=== PATIENT | female | born 2005 | race Caucasian/White ===

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

== ENCOUNTER 2025-02-21 11:02 | Outpatient (OUT) | payer OTHER, SELFPAY ==
--- OUTSIDE RECORDS SUMMARY | 2025-02-21 11:23 | XMS_ITS | CCD ---
Author Organization [facility] Care Team Providers Care Field Training Manager Name Role Phone MISC, DOCTOR Admitting Unavailable [...] STEPHY, HOPE Consulting Unavailable Mona Treadwell Unavailable Ana Cristina Mejia MD Unavailable Ana Cristina Mejia MD Primary Care Provider MD Marbin Keith Primary Care Provider GEOFF Santiago Emergency Provider [phone] DO Abena Alegre Admit Provider DO Abena Alegre Attending Provider [phone] MD Stella Stanley Attending Provider Stella Stanley Admitting Unavailable Stella Stanley Unavailable NO FAMILY, PHYSICIAN Primary Care Unavailable Abena Alegre Attending Unavailable Marbin Keith Primary Care Unavailable Abena Alegre Admitting Unavailable Milan Mathews MD Unavailable [phone] STELLA STANLEY Attending Unavailable STELLA STANLEY Attending Unavailable STELLA STANLEY Attending Unavailable STELLA STANLEY Attending Unavailable STELLA STANLEY Referring Unavailable STELLA STANLEY Attending Unavailable STELLA STANLEY Attending Unavailable INDY Jones Attending Unavailable Allergies Allergy Classification Reported Allergen(s) Allergy Type Date of Onset Reaction(s) Facility (2 sources) Amoxicillin; 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: [amoxicillin] Drug Allergy 4 rash- swelling [facility] Repository (11 sources) Penicillins; 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: [penicillins] Drug Allergy 3 Swelling [facility] Work Phone: Medications Current Medications Medication Drug Class(es) Dates Sig (Normalized) Sig (Original) acetaminophen 325 mg / HYDROcodone bitartrate 5 mg oral tablet (2 sources) Opioid Agonist Start: 01-23-2024 take 1 tablet by mouth every four to six hours Hydrocodone-Aceta minophen Active 1 TAB PO EVERY 4-6 HOURS 21 01January 23, 2024 ethinyl estradiol 0.035 mg / norgestimate 0.25 mg oral tablet (15 sources) Progestin, Estrogen Start: 12-22-2024 End: 12-22-2025 take 1 tablet by mouth once daily norgestimate-ethi nyl estradiol (Sprintec 28) 0.25-35 MG-MCG tablet Indications: DUB (dysfunctional uterine bleeding) Take 1 tablet by mouth Daily 28 tablet 12 12/22/2024 12/22/2025 Active Start: 10-11-2024 End: 12-22-2024 take 1 tablet by mouth once daily norgestimate-ethinyl estradiol (Ortho Tri-Cyclen LO) 0.18/0.215/0.25 MG-25 MCG tablet Indications: Cyst of ovary, unspecified laterality Take 1 tablet by mouth Daily 28 tablet 12 10/11/2024 12/22/2024 Discontinued (Ineffective) Start: 10-11-2024 take 1 tablet by lilia th once daily norgestimate-ethinyl estradiol (Ortho Tri-Cyclen LO) 0.18/0.215/0.25 MG-25 MCG tablet Indications: Cyst of ovary, unspecified laterality Take 1 tablet by mouth Daily 28 tablet 12 10/11/2024 Active Start: 01-26-2024 End: 10-11-2024 take 1 tablet by mouth once daily norgestimate-ethinyl estradiol (Xog-Ef-Vdfzcqft) 0.18/0.215/0.25 MG-25 MCG tablet Indications: Cyst of ovary, unspecified laterality Take 1 tablet by mouth Daily 28 tablet 12 01/26/2024 10/11/2024 Discontinued (Reorder) Start: 01-26-2024 take 1 tablet by lilia th once daily norgestimate-ethinyl estradiol (Nco-Mx-Vzfhmmxl) 0.18/0.215/0.25 MG-25 MCG tablet Indications: Cyst of ovary, unspecified laterality Take 1 tablet by mouth Daily 28 tablet 12 01/26/2024 Active Start: 06-02-2023 take 1 tablet by lilia th in the morning Aln-Ul-Jgnhurbo 0.18/0.215/0.25 MG-25 MCG tablet Take 1 tablet by mouth in the morning. 0 06/02/2023 Active take 1 tablet by lilia th once daily Bks-Ws-Silfjblw 0.18/0.215/0.25 MG-25 MCG TAKE ONE TABLET BY MOUTH DAILY Oral for 28 Days Active fluticasone propionate 0.05 mg/actuat metered dose nasal spray (1 source) Corticosteroid Start: 07-07-2023 take 2 spray(s) nasal route once daily Fluticasone Propionate 50 MCG/ACT 2 sprays Nasally Once a day for 14 day(s) Jun, Active ibuprofen 600 mg oral tablet (11 sources) Nonsteroidal Anti-inflammatory Drug Start: 01-23-2024 take 1 tablet by mouth every six hours as needed ibuprofen 600 MG tablet Take 1 tablet by mouth every 6 (six) hours if needed 01/23/2024 Active ISOtretinoin 40 mg oral capsule (12 sources) Retinoid Start: 01-22-2024 ISOtretinoin (Accutane) 40 MG capsule Twice daily 01/22/2024 Active Norgestimate-Ethin yl Estradiol (Vhd-Vv-Famtpktn) 0.18/0.215/0.25 mg-25 mcg tablet (3 sources) Start: 01-22-2024 take 1 tablet by mouth once daily Norgestimate-Ethi nyl Estradiol (Wrc-Gu-Zcwivque) 0.18/0.215/0.25 mg-25 mcg tablet Active 1 TAB PO Daily January 22, 2024 12:00am FreeTextSig: TAKE ONE TABLET BY MOUTH DAILY Oral; Note: Source Status: Taking; Refills: 1; Qty: 28 Each; Provider: ADAMA ESPINO predniSONE 20 mg oral tablet (1 source) Start: 07-07-2023 take 1 tablet by mouth every twelve hours predniSONE 20 MG 1 tablet Orally bid for 5 day(s) Jun, Active tazarotene 1 mg/ml topical cream (1 source) Retinoid Start: 11-25-2022 tazarotene (Tazorac) 0.1 % cream APPLY PEA SIZED AMOUNT TO FACE EVERY OTHER NIGHT, INCREASE TOLERATED 0 11/25/2022 Active Completed/Discontinued Medications Medication Drug Class(es) Dates Sig (Normalized) Sig (Original) Azithromycin (1 source) Macrolide Antimicrobial Start: 10-03-2012 Zithromax 200mg/5ml 200 mg/5 ml two teaspoon orally daily for 5 days Sep, Not-Taking Problems Active Problems Problem Classification Problem Date Documented Date Episodic/Chronic Abdominal pain (7 sources) Abdominal pain; 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: [Unspecified abdominal pain] Onset: 01-23-2024 01-22-2024 Episodic Contraceptive and procreative management (2 sources) Oral contraception; 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: [Encounter for surveillance of contraceptive pills] 10-07-2024 Episodic Other female genital disorders (2 sources) Abnormal uterine bleeding; 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: [Other specified abnormal uterine and vaginal bleeding] 12-22-2024 Chronic Other upper respiratory infections (3 sources) Streptococcal sore throat; 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: [Strep throat] Episodic Ovarian cyst (11 sources) Cyst of ovary; 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: [Unspecified ovarian cyst, right side] Onset: 04-12-2024 01-22-2024 Episodic Past or Other Problems Problem Classification Problem Date Documented Da te Episodic/Chronic Other aftercare (1 source) Other skilled nursing (current) drug therapy; 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: [OTH KITCHEN HELP HANDYMAN CURRENT DRUG THERAPY] Onset: 06-17-2019 Episodic Other aftercare (2 sources) Surgical follow-up; 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: [Encounter for follow-up examination after completed treatment for conditions other than malignant neoplasm] 04-21-2024 Episodic Other skin disorders (4 sources) Acne vulgaris; 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: [ACNE VULGARIS] Onset: 06-14-2019 Episodic Results Test Name Value Interpretation Reference Range Facility Family Medicine Office/Clini c Noteon 02-04-2025 Family Medicine Office/Clinic Note Family Medicine Office/Clinic Note HPI Staff JOSSY 07/25/23 due to est care. Patient is here for physical for school, needs Vaccines? DUE: Lipid panel/well visit Bright futures filled out by parent and scanned into chart Immunizations: UTD Questions/Concerns : Patient states no concerns today, just needs a well visit for ultrasound program History of Present Illness pt presents today for wellness visit Review of Systems PHQ Score Initial Depression Screen Score: 0 SCORE Physical Exam Vitals & Measurements T: 36.6 ???C(Temporal Artery) HR: 68(Peripheral) BP: 128/80 SpO2: 98% HT: 173.5 cm HT: 68 in WT: 76 kg WT: 167.551 lb BMI: 25.25 General: alert, no acute distress ENMT: oral mucosa moist, no pharyngeal erythema or exudate Cardiovascular: regular rate and rhythm, normal peripheral perfusion Respiratory: Lungs CTA, respirations non labored Extremities: no deformity, no trauma Neurological: oriented x 4, LOC appropriate for age, CN II-XII intact, motor strength equal & normal bilaterally, speech normal Assessment/Plan 1. Wellness examination (Z00.00: Encounter for general adult medical examination without abnormal findings) pt presents today for wellness visit. needs physical to start [employer] school in March. vaccine record reviewed. physical exam WNL. all questions answered. RTC as needed Ordered: Est Preventative 18 to 39 years [address] 2. BMI 25.0-25.9,adult (Z68.25: Body mass index [BMI] 25.0-25.9, adult) BMI education given Ordered: Est Preventative 18 to 39 years [address] 3. Non-smoker (Z78.9: Other specified health status) continue not smoking Ordered: Est Preventative 18 to 39 years [address] Follow-up No qualifying data available Problem List/Past Medical History Ongoing BMI 25.0-25.9,adult Non-smoker Strep pharyngitis Wellness examination Historical No qualifying data Procedure/Surgical History Cystectomy specimen. Medications Claravis, 40 mg, Oral, Daily ibuprofen, 600 mg, Oral, q6hr, PRN Shanta 0.25mg-35mcg oral tablet Allergies penicillins Social History Tobacco Never (less than 100 in lifetime) Tobacco Use:. Never Smokeless Tobacco Use:., 02/04/2025 Immunizations Vaccine Date Status meningococcal conjugate vaccine 04/04/2022 Recorded hepatitis A pediatric vaccine 04/04/2022 Recorded diphtheria/pertuss is, acel/tetanus adult 03/25/2017 Recorded meningococcal conjugate vaccine 03/25/2017 Recorded hepatitis A pediatric vaccine 03/25/2017 Recorded measles/mumps/rube lla/varicella vaccine 04/10/2010 Recorded diphtheria/pertuss is,acel/tetanus/po carolann 04/10/2010 Recorded hepatitis B pediatric vaccine 03/24/2008 Recorded DTaP, unspecified formulation 03/24/2008 Recorded varicella virus vaccine 06/07/2005 Recorded measles/mumps/rube lla virus vaccine 06/07/2005 Recorded haemophilus b conjugate (PRP-T) vaccine 2004 Recorded diphth/hepB/pertus sis,acel/polio/tet anus 2004 Recorded haemophilus b conjugate (PRP-T) vaccine 2004 Recorded diphth/hepB/pertus sis,acel/polio/tet anus 2004 Recorded haemophilus b conjugate (PRP-T) vaccine 2004 Recorded diphth/hepB/pertus sis,acel/polio/tet anus 2004 Recorded hepatitis B pediatric vaccine 2004 Recorded Normal [facility] Comment on above: Result Comment: Elec tronically Signed By: Lianne Crenshaw\.br\Date and Time Signed: 02/04/25 10:04 EDT Michael 04-12-2024 L Specimen: [id number] Received: 04/12/24 Status: LOKI De La [facility]re Num: [id number] Spec Type: Surgical Subm Dr: STELLA STANLEY MD Tissues: A Ovary - Biopsy (LEFT OVARIAN CYST) B Ovary - Biopsy (RIGHT OVARIAN CYST) Procedures: HE/3, Gross/Micro L4/2 Age/ Patient Sex Location Account Attending Physician David Abbott 18/ [place] [id number] STELLA STANLEY MD SPEC NUM: [id number] RECD: 04/12/24 STATUS: [facility] [place] [facility] NUM: [id number] ARY: 04/12/[address] [facility] [address]: STELLA STANLEY MD ENTERED: 04/12/[address] [facility] [address]: [facility] SPEC TYPE: Surgical DEPT: S ENTERED BY: [id number] RECV BY: [id number] ORDERED: HE/3, Gross/Micro L4/2 ORDERED: HE/3, Gross/Micro L4/2 Pathological Diagnosis A. Left ovarian cyst, excision: Fragments of luteal cyst. B. Right ovarian cyst, excision: Benign serous cyst. Clinical Information Right ovarian cyst Gross Description Part a was received in formalin with the patient's name and left ovarian cyst are multiple patel-pink soft tissue fragments measuring 2.0 x 2.0 x 0.5 cm in aggregate. The specimen is entirely submitted in cassette A1. Part B was received in formalin with the patient's name and labeled right ovarian cyst is a pink deflated cystic structure measuring 4.0 x 3.0 x 2.0 cm. The exterior surface is patel- pink and roughened with focally hemorrhagic tissue. The internal surface is pink and smooth the cyst wall measures 0.2 cm in thickness. There is a possible chocolate cyst measuring 0.4 cm in greatest dimension. Director [employer] sections are submitted in cassettes B1-B2. -- Specimen: [id number] Received: 04/12/24 [id number] Spec Type: Surgical Subm Dr: STELLA STANLEY MD Tissues: A Ovary - Biopsy (LEFT OVARIAN CYST) B Ovary - Biopsy (RIGHT OVARIAN CYST) Procedures: HE/3, Gross/Micro L4/2 -- Patient: David Abbott [id number] (Continued) -- Specimen: [id number] Received: 04/12/24 (Continued) Signed (signatu re on file) Katharina Schmitt MD 04/13/24 1518 -- Specimen: [id number] Received: 04/12/24 Status: LOKI [facility] La [facility]re Num: [id number] Spec Type: Surgical Subm Dr: STELLA STANLEY MD Tissues: A Ovary - Biopsy (LEFT OVARIAN CYST) B Ovary - Biopsy (RIGHT OVARIAN CYST) Procedures: HE/3, Gross/Micro L4/2 -- Patient: David Abbott [id number] (Continued) -- Specimen: [id number] Received: 04/12/24 (Continued) CPT Codes 13829o7 -- -- Specimen: [id number] Received: 04/12/24 Status: LOKI Wil Num: [id number] Spec Type: Surgical Subm Dr: STELLA STANLEY MD Tissues: A Ovary - Biopsy (LEFT OVARIAN CYST) B Ovary - Biopsy (RIGHT OVARIAN CYST) Procedures: HE/3, Gross/Micro L4/2 -- Patient: David Abbott [id number] (Continued) -- Signed (signatu re on file) Katharina Schmitt MD 04/13/24 1518 Normal [facility] US transvaginalon 01-23-2024 US transvaginal [facility] [place] [address] Ultrasound Report Signed Patient: David Abbott MR#: [id number] : 2005 Acct:[id number] Age/Sex: 18 / F ADM Date: 01/23/24 Loc: Room: [address] [place] [address] Type: ADM IN Attending Dr: Abena lAegre DO Ordering Provider: Cj Santiago PA-C Date of Service: 01/22/24 US/US pelvic complete: right sided pain, large cyst and rule out torsion ([id number]) US/US transvaginal: rt sided pelvic pain Copies to: GEOFF Wheat DO COMPLETE PELVIC ULTRASOUND (transabdominal and transvaginal) COMPARISON: CT 01/22/2024 CLINICAL DATA: Right-sided pelvic and hip pain. Large cyst on CT. Real-time ultrasound evaluation pelvis was performed utilizing both a transabdominal and transvaginal approach. TRANSABDOMINAL: The urinary bladder is not fully distended. Estimated uterine size is approximately 7.2 x 2.2 x 4.3 cm. The endometrial lining is not well demonstrated. No focal myometrial abnormalities are identified. Posterior to the uterus extending toward the right there is a large, mildly heterogeneous masslike area which contains a dominant cystic component. Overall size of the structure is 9.0 x 8.9 x 8.9 cm. The cystic component measures 4.4 x 5.3 x 5.2 cm. It is uncertain if this is the ovary or separate from the ovary. There is no obvious blood flow within the structure. There is a trace amount of adjacent free fluid. The left ovary was not identified. TRANSVAGINAL: Transvaginal imaging was performed to better evaluate the uterus and adnexa. By this approach t no focal myometrial abnormalities are seen. The endometrial lining is estimated at 4 - 5 mm. Transvaginally, there does appear to be a separate right ovary with small follicles measuring approximately 3.5 x 2.6 x 2.4 cm in size. There is some blood flow. Adjacent to and possibly arising from the ovary is a large mildly heterogeneous masslike area which contains a dominant cystic component. This correlates with the finding that is seen on the transabdominal imaging. Blood flow is documented within the mass on transvaginal imaging. A small amount of surrounding free fluid is again seen. The left ovary is not visualized. US/US pelvic complete IMPRESSION: LARGE SOLID MASS WITH DOMINANT CYSTIC COMPONENT ADJACENT TO, AND POTENTIALLY ARISING FROM THE RIGHT OVARY, DESCRIBED. GYNECOLOGIC FOLLOW-UP IS RECOMMENDED. MRI COULD BE CONSIDERED IF FURTHER IMAGING EVALUATION IS WARRANTED. TRACE AMOUNT OF FREE PELVIC FLUID. Impression dictated by: Pastora Granger M.D.01/23/2024 8:43 AM Dictation Location: [place] [address] Tech: Vane Ayon Transcribed By: RAKESH 01/23/24842 Dictated By: Pastora Granger MD 01/23/24829 Signed By: 01/23/24842 Normal [facility] Alanine aminotransferase [En zymatic activity/volume] in Serum or PlasmaOrdered By: Cj Santiago on 01-22-2024 ALT [Catalytic activity/Vol] 13 U/L Normal 7-52 [facility] Comment on above: Performed By: #### C RP, CBC, ESR, CMP #### [facility] [address] [place] [address] Albumin [Mass/volume] in Ser um or Plasma by Bromocresol green (BCG) dye binding methoOrdered By: Cj Santaigo on 01-22-2024 Albumin BCG dye [Mass/Vol] 4.7 g/dL 3.5-5.7 [facility] Alkaline phosphatase [Enzyma tic activity/volume] in Serum or PlasmaOrdered By: Cj Santiago on 01-22-2024 ALP [Catalytic activity/Vol] 53 U/L Normal 34-104 [facility] Comment on above: Performed By: #### C RP, CBC, ESR, CMP #### [address] Aspartate aminotransferase [ Enzymatic activity/volume] in Serum or PlasmaOrdered By: Cj Santiago on 01-22-2024 AST [Catalytic activity/Vol] 26 U/L Normal 13-39 [facility] Comment on above: Performed By: #### C RP, CBC, ESR, CMP #### [address] Automated basophil %Ordered By: Cj Santiago on 01-22-2024 Basophils/100 WBC (Bld) 0.4 % Normal . [facility] Comment on above: Performed By: #### C RP, CBC, ESR, CMP #### [address] Automated basophil countOrde red By: Cj Santiago on 01-22-2024 Basophils (Bld) [#/Vol] 0.0 10*3/uL Normal 0.0-0.2 [facility] Comment on above: Performed By: #### C RP, CBC, ESR, CMP #### [address] Automated blood monocyte cou ntOrdered By: Cj Santiago on 01-22-2024 Monocytes (Bld) [#/Vol] 0.2 10*3/uL Normal 0.0-0.8 [facility] Comment on above: Performed By: #### C RP, CBC, ESR, CMP #### [address] Automated eosinophil %Ordere d By: Cj Santiago on 01-22-2024 Eosinophils/100 WBC (Bld) 0.2 % Normal . [facility] Comment on above: Performed By: #### C RP, CBC, ESR, CMP #### [address] Automated eosinophil countOr dered By: Cj Santiago on 01-22-2024 Eosinophils (Bld) [#/Vol] 0.0 10*3/uL Normal 0.0-0.45 [facility] Comment on above: Performed By: #### C RP, CBC, ESR, CMP #### [facility] [address] Automated epithelial cells c ount in urine sediment (number/area)Ordered By: Cj Santiago on 01-22-2024 Epithelial cells Auto (Urine sed) [#/Area] 3-4 [HPF] High 0-2 [facility] Automated monocyte %Ordered By: Cj Santiago on 01-22-2024 Monocytes/100 WBC (Bld) 2.4 % Normal . [facility] Comment on above: Performed By: #### C RP, CBC, ESR, CMP #### [address] Automated neutrophil %Ordere d By: Cj Santiago on 01-22-2024 Neutrophils/100 WBC (Bld) 82.3 % Normal . [facility] Comment on above: Performed By: #### C RP, CBC, ESR, CMP #### [address] Bacteria [Presence] in Urine by AutomatedOrdered By: Cj Santiago on 01-22-2024 Bacteria Auto Ql (U) None seen [HPF] None Seen [facility] Bilirubin Test strip Ql (U)O rdered By: Cj Santiago on 01-22-2024 Bilirubin Ql (U) Negative Negative [facility] Bilirubin.total [Mass/volume ] in Serum or PlasmaOrdered By: Cj Santiago on 01-22-2024 Bilirubin [Mass/Vol] 0.4 mg/dL Normal 0.3-1.0 [facility] Comment on above: Performed By: #### C RP, CBC, ESR, CMP #### [address] C reactive protein [Mass/vol ume] in Serum or PlasmaOrdered By: Cj Santiago on 01-22-2024 CRP [Mass/Vol] 0.7 mg/dL High 0.0-0.5 [facility] C-Reactive Proteinon 024 C-Reactive Protein 0.7 mg/dL High 0.0-0.5 [facility] Comment on above: Result Comment: PERF ORMED BY: [place] [address] PATHOLOGIST SUPERVISOR [employer] ZACK MCCONNELL M.D. Performed By: #### C RP, CBC, ESR, CMP #### [address] abdomen pelvis w conon CT abdomen pelvis w con [facility] Main [place] [address] [place] [address] CT Scan Report Signed Patient: David Abbott MR#: [id number] : 2005 Acct:[id number] Age/Sex: 18 / F ADM Date: 01/22/24 Loc: ER Room: Type: [facility] ER Attending Dr: Copies to: Cj Santiago PA-C Ordering Provider: Cj Santiago PA-C Date of Service: 01/22/24 CT/CT abdomen pelvis w con: right abd pain and right hip pain CT abdomen pelvis w con 01/22/2024 7:28 PM SIGNS AND SYMPTOMS: Right hip pain with nausea, cramping TECHNIQUE: Multidetector ct axial images of the abdomen and pelvis were obtained with IV contrast. Multiplanar reformats were performed and reviewed to further define anatomy and possible pathology. CT was performed with one or more of the following dose reduction techniques: Automated exposure control, adjustment of the mA and/or kV according to patient size, or use of iterative reconstruction technique. COMPARISON: None. FINDINGS: Lower Chest: Within normal limits. ABDOMEN: Liver: Within normal limits. Bile Ducts: Normal caliber. Gallbladder: No calcified gallstones. Normal caliber wall. Pancreas: Within normal limits. Spleen: Within normal limits. Adrenals: Within normal limits. Kidneys: Within normal limits. Pelvis: Reproductive Organs: There is a complex appearing cystic structure which may emanate from the right adnexa extending along the superior/posterior aspect of the uterus. This measures 9.1 x 9.3 x 7.6 cm in greatest dimension. Ureters: Within normal limits. Bladder: Within normal limits. Bowel: Normal caliber. There is a normal appendix in the right lower quadrant. Mesenteric Lymph Nodes: No enlarged mesenteric lymph nodes. Peritoneum: No ascites or free air, no fluid collection. Vessels: within normal limits Retroperitoneum: Within normal limits. Abdominal Wall: Within normal limits. Bones: Within normal limits. CT/CT abdomen pelvis w con IMPRESSION: There is a complex appearing cystic structure which may emanate from the right adnexa extending along the superior/posterior aspect of the uterus. This measures 9.1 x 9.3 x 7.6 cm in greatest dimension. There is a normal appendix in the right lower quadrant. Impression dictated by: Wesley Handy M.D.01/22/2024 8:58 PM Dictation Location: [place] [address] Transcribed By: RAKESH 01/22/242057 Dictated By: Wesley Handy II, MD 01/22/242050 Signed By: 01/22/242057 Normal [facility] Calcium [Mass/volume] in Ser um or PlasmaOrdered By: Cj Santiago on 01-22-2024 Calcium [Mass/Vol] 9.7 mg/dL Normal 8.6-10.3 [facility] Comment on above: Performed By: #### C RP, CBC, ESR, CMP #### [facility] [address] Carbon dioxide, total [Moles /volume] in Serum or PlasmaOrdered By: Cj Santiago on 01-22-2024 CO2 [Moles/Vol] 22.7 mmol/L Normal 21.0-31.0 [facility] Comment on above: Performed By: #### C RP, CBC, ESR, CMP #### [facility] [address] [place] [id number] [place] Chloride [Moles/volume] in S kerri or PlasmaOrdered By: Cj Santiago on 01-22-2024 Chloride [Moles/Vol] 98 mmol/L Normal 98-107 [facility] Comment on above: Performed By: #### C RP, CBC, ESR, CMP #### [facility] [address] [place] [id number] [place] Color of Urine by AutoOrdere d By: Cj Santiago on 01-22-2024 Color (U) Yellow Normal Yellow [facility] Comment on above: Order Comment: Name Collection Type:: Clean-Voided Midstream Performed By: #### U HCG, ADDONUAPLUS #### [address] Complete Blood Count Auto Di ffon 01-22-2024 Mean Corpuscular HGB Conc 34.2 g/dL Normal 32.0-35.0 [facility] Comment on above: Performed By: #### C RP, CBC, ESR, CMP #### [place] [address] [place] Monocytes/100 WBC (Bld) 15.02 % Normal 0.00-20.00 [facility] Comment on above: Performed By: #### C RP, CBC, ESR, CMP #### [address] NRBC% 0.0 /100{WBC} Normal 0-0.5 [facility] Comment on above: Performed By: #### C RP, CBC, ESR, CMP #### [address] Comprehensive Metabolic Pane michael 01-22-2024 Albumin [Mass/Vol] 4.7 g/dL Normal 3.5-5.7 [facility] Comment on above: Performed By: #### C RP, CBC, ESR, CMP #### [place] [address] [place] Creatinine Clr Calc Pharmacy 134.44 Normal [facility] Comment on above: Performed By: #### C RP, CBC, ESR, CMP #### [place] [address] [place] GFR/1.73 sq M.predicted MDRD (S/P/Bld) [Vol rate/Area] mL/min/{1.73_m2} Normal [facility] Comment on above: Performed By: #### C RP, CBC, ESR, CMP #### [address] Creatinine [Mass/volume] in Serum or PlasmaOrdered By: Cj Santiago on 01-22-2024 Creatinine [Mass/Vol] 0.72 mg/dL Normal 0.60-1.20 [facility] Comment on above: Performed By: #### C RP, CBC, ESR, CMP #### [facility] [address] [place] [address] [place] Dipstick and Microscopicon 0 01-22-2024 Appearance (U) Clear Normal Clear [facility] Comment on above: Order Comment: Name Collection Type:: Clean-Voided Midstream Performed By: #### U HCG, ADDONUAPLUS #### [facility] [address] [place] [address] Bacteria,Urine None Seen Normal None Seen [facility] Comment on above: Order Comment: Name Collection Type:: Clean-Voided Midstream Performed By: #### U HCG, ADDONUAPLUS #### [address] Bilirubin,Urine Negative Normal Negative The [facility] Comment on above: Order Comment: Name Collection Type:: Clean-Voided Midstream Performed By: #### U HCG, ADDONUAPLUS #### [address] Glucose Ql (U) Normal Normal Normal [facility] Comment on above: Order Comment: Name Collection Type:: Clean-Voided Midstream Performed By: #### U HCG, ADDONUAPLUS #### [facility] [address] [place] [address] [place] Hyaline Casts,Urine 0-8 Normal 0-8 [facility] Comment on above: Order Comment: Name Collection Type:: Clean-Voided Midstream Performed By: #### U HCG, ADDONUAPLUS #### [address] Ketones Ql (U) 3+ High Negative [facility] Comment on above: Order Comment: Name Collection Type:: Clean-Voided Midstream Performed By: #### U HCG, ADDONUAPLUS #### [address] Leukocyte esterase Test strip Ql (U) Negative Normal Negative [facility] Comment on above: Order Comment: Name Collection Type:: Clean-Voided Midstream Performed By: #### U HCG, ADDONUAPLUS #### [place] [address] [place] Nitrite,Urine Negative Normal Negative The [facility] Comment on above: Order Comment: Name Collection Type:: Clean-Voided Midstream Performed By: #### U HCG, ADDONUAPLUS #### [address] Occult Blood,Urine Negative Normal Negative The [facility] Comment on above: Order Comment: Name Collection Type:: Clean-Voided Midstream Performed By: #### U HCG, ADDONUAPLUS #### [address] Protein,Urine Trace High Negative The [facility] Comment on above: Order Comment: Name Collection Type:: Clean-Voided Midstream Performed By: #### U HCG, ADDONUAPLUS #### [address] RBC,Urine None Seen Normal 0-4 [facility] Comment on above: Order Comment: Name Collection Type:: Clean-Voided Midstream Performed By: #### U HCG, ADDONUAPLUS #### [address] Specificy Jensen,Urine 1.033 High 1.001-1.030 [facility] Comment on above: Order Comment: Name Collection Type:: Clean-Voided Midstream Performed By: #### U HCG, ADDONUAPLUS #### [place] [address] [place] Squamous Epithelial Cell,Urine 3-4 High 0-2 [facility] Comment on above: Order Comment: Name Collection Type:: Clean-Voided Midstream Performed By: #### U HCG, ADDONUAPLUS #### [address] Urobilinogen,Urine Normal Normal Normal [facility] Comment on above: Order Comment: Name Collection Type:: Clean-Voided Midstream Performed By: #### U HCG, ADDONUAPLUS #### [facility] [address] [place] [address] WBC LM.HPF (Urine sed) [#/Area] 0 /[HPF] Normal 0-4 [facility] Comment on above: Order Comment: Name Collection Type:: Clean-Voided Midstream Performed By: #### U HCG, ADDONUAPLUS #### [facility] [address] [place] [address] ECG 12 lead ECGon 01-22-2024 ECG 12 lead ECG [facility] [place] [address] [place] [address] Electrocardiograph Report Signed Patient: David Abbott MR#: [id number] : 2005 Acct:[id number] Age/Sex: 18 / F ADM Date: 01/23/24 Loc: Room: [address] [place] [address] Type: DIS INOo Attending Dr: Abena Alegre DO Ordering Provider: Cj Santiago PA-C Date of Service: 01/22/24 ECG/ECG 12 lead ECG: Nausea/Vomiting/Di arrhea Copies to: Test Reason : Blood Pressure : / mmHG Vent. Rate : 064 BPM Atrial Rate : 064 BPM P-R Int : 122 ms QRS Dur : 078 ms QT Int : 412 ms P-R-T Axes : 052 085 042 degrees QTc Int : 425 ms Normal sinus rhythm Normal ECG No previous ECGs available Confirmed by Nakul Cook ([id number]) on 01/23/2024 4:55:38 PM Referred By: Electronically Signed By:Nakul Cook Transcribed By: MUS Signed By Nakul Cook MD 01/23/24 1655 Normal [facility] Erythrocyte Sedimentation Ra nhi 01-22-2024 ESR (Bld) [Velocity] 20 mm/h High 0-19 [facility] Comment on above: Result Comment: PERF ORMED BY: [place] [address] PATHOLOGIST SUPERVISOR [employer] ZACK MCCONNELL M.D. Performed By: #### C RP, CBC, ESR, CMP #### [facility] [address] Erythrocyte distribution wid th [Ratio] by Automated countOrdered By: Cj Santiago on 01-22-2024 Erythrocyte distribution width (RBC) [Ratio] 13.0 % Normal 11.9-15.3 [facility] Comment on above: Performed By: #### C RP, CBC, ESR, CMP #### [facility] [address] Erythrocyte sedimentation ra te by Photometric methodOrdered By: Cj Santiago on 01-22-2024 ESR Photometric method (Bld) [Velocity] 20 mm/hr High 0-19 [facility] Erythrocytes [#/area] in Uri ne sediment by Automated countOrdered By: Cj Santiago on 01-22-2024 RBC Auto (Urine sed) [#/Area] None seen [HPF] 0-4 [facility] Erythrocytes [#/volume] in B lood by Automated countOrdered By: Cj Santiago on 01-22-2024 RBC (Bld) [#/Vol] 4.23 10*6/uL Normal 3.60-5.00 [facility] Comment on above: Performed By: #### C RP, CBC, ESR, CMP #### [address] Glucose [Mass/volume] in Ser um or PlasmaOrdered By: Cj Santiago on 01-22-2024 Glucose [Mass/Vol] 110 mg/dL High 70-100 [facility] Comment on above: ADA recommended refe rence rangeRandom Glucose Reference Range is dependent on time and content of last meal. Glucose of more than 200 mg/dL in a nonstressed, ambulatory subject supports the diagnosis of Diabetes Mellitus. Result Comment: [place] om Glucose Reference Range is dependent on time and content of last meal. Glucose of more than 200 mg/dL in a nonstressed, ambulatory subject supports the diagnosis of Diabetes Mellitus. ADA recommended reference range Performed By: #### C RP, CBC, ESR, CMP #### [facility] [address] HCG ( test) IA.rapi d Ql (U)Ordered By: Cj Santiago on 01-22-2024 HCG ( test) Ql (U) Negative [facility] HCG,Urineon 01-22-2024 Beta HCG ( test) Ql (U) Negative Normal [facility] Comment on above: Order Comment: Name Collection Type:: Clean-Voided Midstream Result Comment: PERF ORMED BY: [place] [address] PATHOLOGIST SUPERVISOR [employer] ZACK MCCONNELL M.D. Performed By: #### U HCG, ADDONUAPLUS ####[facility] [id number] [place] [address] Hematocrit [Volume Fraction] of Blood by Automated countOrdered By: Cj Santiago on 01-22-2024 Hematocrit (Bld) [Volume fraction] 40.1 % Normal 34.0-46.4 [facility] Comment on above: Performed By: #### C RP, CBC, ESR, CMP #### [facility] [address] [place] [address] Hemoglobin [Mass/volume] in BloodOrdered By: Cj Santiago on 01-22-2024 Hemoglobin (Bld) [Mass/Vol] 13.7 g/dL Normal 11.8-15.4 [facility] Comment on above: Performed By: #### C RP, CBC, ESR, CMP #### [facility] [address] [place] [address] Ketones Auto test strip (U) [Mass/Vol]Ordered By: Cj Santiago on 01-22-2024 Ketones (U) [Mass/Vol] 3+ High Negative [facility] - UrinalysisOrder ed By: Cj Santiago on 01-22-2024 Hyaline casts LM Ql (Urine sed) 0-8 [LPF] 0-8 [facility] Leukocytes [#/area] in Urine sediment by Automated countOrdered By: Cj Santiago on 01-22-2024 WBC Auto (Urine sed) [#/Area] 0-1 [HPF] 0-4 [facility] Leukocytes [#/volume] correc carissa for nucleated erythrocytes in Blood by Automated counOrdered By: Cj Santiago on 01-22-2024 WBC corrected for nucl RBC Auto (Bld) [#/Vol] 10.2 10*3/uL 3.8-11.6 [facility] Leukocytes [#/volume] in Blo od by Automated countOrdered By: Cj Santiago on 01-22-2024 WBC (Bld) [#/Vol] 10.2 10*3/uL Normal 3.8-11.6 [facility] Comment on above: Performed By: #### C RP, CBC, ESR, CMP #### [address] Lipase [Enzymatic activity/v olume] in Serum or PlasmaOrdered By: Cj Santiago on 01-22-2024 Lipase [Catalytic activity/Vol] 11.0 U/L Normal 11.0-82.0 [facility] Comment on above: Result Comment: PERF ORMED BY: [place] [address] PATHOLOGIST SUPERVISOR [employer] ZACK MCCONNELL M.D. Performed By: #### L IPASE #### [place] [address] [place] Lymphocytes [#/volume] in Bl ood by Automated countOrdered By: Cj Santiago on 01-22-2024 Lymphocytes (Bld) [#/Vol] 1.5 10*3/uL Normal 1.00-4.8 [facility] Comment on above: Performed By: #### C RP, CBC, ESR, CMP #### [facility] [address] [place] [address] [place] Lymphocytes/100 leukocytes i n Blood by Automated countOrdered By: Cj Santiago on 01-22-2024 Lymphocytes/100 WBC (Bld) 14.7 % Normal . [facility] Comment on above: Performed By: #### C RP, CBC, ESR, CMP #### [facility] [address] [place] [address] [place] MCH [Entitic mass] by Automa carissa countOrdered By: Cj Santiago on 01-22-2024 MCH (RBC) [Entitic mass] 32.3 pg Normal 24.7-34.3 [facility] Comment on above: Performed By: #### C RP, CBC, ESR, CMP #### [facility] [address] [place] [address] MCHC Auto (RBC) [Mass/Vol]Or dered By: Cj Santiago on 01-22-2024 MCHC (RBC) [Mass/Vol] 34.2 g/dL 32.0-35.0 [facility] MCV [Entitic volume] by Auto mated countOrdered By: Cj Santiago on 01-22-2024 MCV (RBC) [Entitic vol] 94.6 fL Normal 80-100 [facility] Comment on above: Performed By: #### C RP, CBC, ESR, CMP #### [facility] [address] [place] [address] Monocyte distribution width [Entitic volume] in Blood by AutomatedOrdered By: Cj Santiago on 01-22-2024 Monocyte distribution width Auto (Bld) [Entitic vol] 15.02 % 0.00-20.00 [facility] Neutrophils [#/volume] in Bl ood by Automated countOrdered By: Cj Santiago on 01-22-2024 Neutrophils (Bld) [#/Vol] 8.4 10*3/uL High 1.8-7.7 [facility] Comment on above: Performed By: #### C RP, CBC, ESR, CMP #### [facility] [address] [place] [address] Nitrite Test strip Ql (U)Ord ered By: Cj Santiago on 01-22-2024 Nitrite Ql (U) Negative Negative [facility] No Panel InformationOrdered By: Cj Santiago on 01-22-2024 Estimated GFR (CKD-EPI) > 60.0 mL/Min [facility] Creatinine Clearance (Chem 134.44 [facility] Nucleated erythrocytes [Pres ence] in Blood by Automated countOrdered By: Cj Santiago on 01-22-2024 Nucleated RBC Auto Ql (Bld) 0.0 /100{WBC} 0-0.5 [facility] Platelet mean volume [Entiti c volume] in Blood by Automated countOrdered By: Cj Santiago on 01-22-2024 Platelet mean volume (Bld) [Entitic vol] 7.3 fL Normal 6.3-10.7 [facility] Comment on above: Performed By: #### C RP, CBC, ESR, CMP #### [facility] [address] Platelets [#/volume] in Bloo d by Automated countOrdered By: Cj Santiago on 01-22-2024 Platelets (Bld) [#/Vol] 375 10*3/uL Normal 150-450 [facility] Comment on above: Performed By: #### C RP, CBC, ESR, CMP #### [address] Potassium [Moles/volume] in Serum or PlasmaOrdered By: Cj Santiago on 01-22-2024 Potassium [Moles/Vol] 3.9 mmol/L Normal 3.5-5.1 [facility] Comment on above: Performed By: #### C RP, CBC, ESR, CMP #### [address] Protein Auto test strip (U) [Mass/Vol]Ordered By: Cj Santiago on 01-22-2024 Protein (U) [Mass/Vol] Trace mg/dL High Negative [facility] Protein [Mass/volume] in Ser um or PlasmaOrdered By: Cj Santiago on 01-22-2024 Protein [Mass/Vol] 8.0 g/dL Normal 6.4-8.9 [facility] Comment on above: Performed By: #### C RP, CBC, ESR, CMP #### [address] Serum globulin measurement b y calculation (mass/volume)Ordered By: Cj Santiago on 01-22-2024 Globulin (S) [Mass/Vol] 3.3 g/dL Normal [facility] Comment on above: Performed By: #### C RP, CBC, ESR, CMP #### [facility] [address] Serum or plasma albumin/glob ulin mass ratioOrdered By: Cj Santiago on 01-22-2024 Albumin/Globulin [Mass ratio] 1.4 {ratio} Normal [facility] Comment on above: Performed By: #### C RP, CBC, ESR, CMP #### [facility] [address] [place] [address] Serum or plasma anion gap de terminationOrdered By: Cj Santiago on 01-22-2024 Anion gap [Moles/Vol] 14.2 mmol/L Normal 6.0-15.[address] [facility] Comment on above: Performed By: #### C RP, CBC, ESR, CMP #### [address] Sodium [Moles/volume] in Ser um or PlasmaOrdered By: Cj Santiago on 01-22-2024 Sodium [Moles/Vol] 131 mmol/L Low 136-145 [facility] Comment on above: Performed By: #### C RP, CBC, ESR, CMP #### [facility] [address] [place] [address] Specific gravity Auto test s trip (U) [Rel density]Ordered By: Cj Santiago on 01-22-2024 Specific gravity (U) [Rel density] 1.033 High 1.001-1.030 [facility] Urea nitrogen [Mass/volume] in Serum or PlasmaOrdered By: Cj Santiago on 01-22-2024 Urea nitrogen [Mass/Vol] 11 mg/dL Normal 7-25 [facility] Comment on above: Performed By: #### C RP, CBC, ESR, CMP #### [facility] [address] [place] [address] Urine clarity by refractomet ry automatedOrdered By: Cj Santiago on 01-22-2024 Clarity Refractometry automated (U) Clear Clear [facility] Urine glucose measurement by automated test strip (mass/volume)Ordered By: Cj Santiago on 01-22-2024 Glucose Auto test strip (U) [Mass/Vol] Normal mg/dL Normal [facility] Urine hemoglobin detection b y automated test stripOrdered By: Cj Santiago on 01-22-2024 Hemoglobin Auto test strip Ql (U) Negative Negative [facility] Urine leukocyte esterase det ection by automated test stripOrdered By: Cj Santiago on 01-22-2024 Leukocyte esterase Auto test strip Ql (U) Negative Negative [facility] Urine pH measurement by auto mated test stripOrdered By: Cj Santiago on 01-22-2024 pH (U) 8.0 [pH] Normal 5.0-9.0 [facility] Comment on above: Order Comment: Name Collection Type:: Clean-Voided Midstream Performed By: #### U HCG, ADDONUAPLUS #### [facility] [address] Urobilinogen Auto test strip (U) [Mass/Vol]Ordered By: Cj Santiago on 01-22-2024 Urobilinogen (U) [Mass/Vol] Normal mg/dL Normal [facility] ALL TRIGLYCERIDESon 09-27-19 Triglyceride [Mass/Vol] 120 mg/dL 53 - 208 mg/dL [facility] [email or web address] [employer] Quick Strepon 07-07-2023 S. pyogenes Org specific cx Ql (Throat) Negative [employer] Other Quick Strep [facility] [employer] Other URon 06-14-2019 , QUAL Negative Normal NEGATIVE The [facility] Comment on above: Performed By: #### P REGQNT, AST, ALT, GLUC, LIPID #### [facility] [address] [address] Dandy Guillory CBC AUTO DIFFon 06-04-2019 Basophils (Bld) [#/Vol] 0.0 103/ul Normal 0.0-0.1 [facility] Comment on above: Performed By: #### P REGQNT, AST, ALT, GLUC, LIPID #### [facility] [address] [place], [place] [address] Dandy Pastora Basophils/100 WBC (Bld) 0.5 % Normal 0.2-2.0 [facility] Comment on above: Performed By: #### P REGQNT, AST, ALT, GLUC, LIPID #### [facility] [address] [place] [address] Dandyrajan Guillory Eosinophils (Bld) [#/Vol] 0.1 103/ul Normal 0.0-0.7 [facility] Comment on above: Performed By: #### P REGQNT, AST, ALT, GLUC, LIPID #### [facility] [address] [place] [address] Dandy Guillory Eosinophils/100 WBC (Bld) 1.4 % Normal 0.9-7.0 [facility] Comment on above: Performed By: #### P REGQNT, AST, ALT, GLUC, LIPID #### [facility] [address] [place] [address] Dandy Guillory Erythrocyte distribution width (RBC) [Ratio] 12.8 % Normal 11.0-15.0 [facility] Comment on above: Performed By: #### P REGQNT, AST, ALT, GLUC, LIPID #### [facility] [address] [place] [address] Dandy Guillory Hematocrit (Bld) [Volume fraction] 40.4 % Normal 36.0-48.0 [facility] Comment on above: Performed By: #### P REGQNT, AST, ALT, GLUC, LIPID #### [facility] [address] [place] [address] Dandy Guillory Hemoglobin (Bld) [Mass/Vol] 13.4 g/dL Normal 12.0-16.0 [facility] Comment on above: Performed By: #### P REGQNT, AST, ALT, GLUC, LIPID #### [facility] [address] [place] [address] Dandyrajan Dubonen IG # 0.00 10e3/ul Normal 0.00-0.03 [facility] Comment on above: Performed By: #### P REGQNT, AST, ALT, GLUC, LIPID #### [facility] [address] [place] [address] Dandy Pastora IG % 0.0 % Normal 0.0-0.5 [facility] Comment on above: Performed By: #### P REGQNT, AST, ALT, GLUC, LIPID #### [facility] [address] [place] [address] Dandy Guillory Lymphocytes (Bld) [#/Vol] 2.2 103/ul Normal 1.2-3.8 [facility] Comment on above: Performed By: #### P REGQNT, AST, ALT, GLUC, LIPID #### [facility] [address] [place] [address] Dandy Guillory Lymphocytes/100 WBC (Bld) 39.9 % Normal 20.5-60.0 [facility] Comment on above: Performed By: #### P REGQNT, AST, ALT, GLUC, LIPID #### [facility] [address] [place] [address] Dandy Guillory MANUAL DIFF REQ NO Normal [facility] Comment on above: Performed By: #### P REGQNT, AST, ALT, GLUC, LIPID #### [facility] [address] [place] [address] Dandy Guillory MCH (RBC) [Entitic mass] 31.3 pg Normal 26.7-34.0 [facility] Comment on above: Performed By: #### P REGQNT, AST, ALT, GLUC, LIPID #### [facility] [address] [place] [address] Dandy Guillory MCHC (RBC) [Mass/Vol] 33.2 g/dL Normal 29.9-35.2 [facility] Comment on above: Performed By: #### P REGQNT, AST, ALT, GLUC, LIPID #### [facility] [address] [place] [address] Dandy Guillory MCV (RBC) [Entitic vol] 94.4 fL Normal 79.1-95.6 [facility] Comment on above: Performed By: #### P REGQNT, AST, ALT, GLUC, LIPID #### [facility] [address] [place] [address] Dandy Guillory Monocytes (Bld) [#/Vol] 0.5 103/ul Normal 0.3-0.8 [facility] Comment on above: Performed By: #### P REGQNT, AST, ALT, GLUC, LIPID #### [facility] [address] [place] [address] Dandy Pastora Monocytes/100 WBC (Bld) 8.0 % Normal 1.7-12.0 [facility] Comment on above: Performed By: #### P REGQNT, AST, ALT, GLUC, LIPID #### [facility] [address] [place] [address] Dandy Pastora Neutrophils (Bld) [#/Vol] 2.8 103/ul Normal 1.4-6.5 [facility] Comment on above: Performed By: #### P REGQNT, AST, ALT, GLUC, LIPID #### [facility] [address] [place] [address] Dandy Pastora Neutrophils/100 WBC (Bld) 50.2 % Normal 43.0-75.0 [facility] Comment on above: Performed By: #### P REGQNT, AST, ALT, GLUC, LIPID #### [facility] [address] [place] [address] Dandy Pastora Platelet mean volume (Bld) [Entitic vol] 9.0 fL Critically low 9.5-13.5 [facility] Comment on above: Performed By: #### P REGQNT, AST, ALT, GLUC, LIPID #### [facility] [address] [place] [address] Dandy Pastora Platelets (Bld) [#/Vol] 341 103/ul Normal 150-450 [facility] Comment on above: Performed By: #### P REGQNT, AST, ALT, GLUC, LIPID #### [facility] [address] [place] [address] Dandy Pastora RBC (Bld) [#/Vol] 4.28 106/ul Normal 3.40-5.30 [facility] Comment on above: Performed By: #### P REGQNT, AST, ALT, GLUC, LIPID #### [facility] [address] [place] [address] Dandy Pastora WBC (Bld) [#/Vol] 5.6 103/ul Normal 4.0-11.0 [facility] Comment on above: Performed By: #### P REGQNT, AST, ALT, GLUC, LIPID #### [facility] [address] [place], [place] [address] Dandy Pastora GLUCOSE BLOODon 06-04-2019 Glucose [Mass/Vol] 97 mg/dL Normal 74-106 [facility] Comment on above: Performed By: #### P REGQNT, AST, ALT, GLUC, LIPID #### [facility] [address] [place], [place] [address] Dandy Psatora LIPID PROFILEon 06-04-2019 CHOL-HDL RATIO NORM SEE BELOW Normal [facility] Comment on above: Result Comment: 3.3 - 4.4 LOW RISK 4.4 - 7.1 AVERAGE RISK 7.1 - 11.0 MODERATE RISK >11.0 HIGH RISK Performed By: #### P REGQNT, AST, ALT, GLUC, LIPID #### [facility] [address] [address] Dandy Pastora Cholesterol [Mass/Vol] 169 mg/dL Normal 104-227 Th [facility] Comment on above: Performed By: #### P REGQNT, AST, ALT, GLUC, LIPID #### [facility] [address] [id number] Dandy Pastora Cholesterol in HDL [Mass/Vol] > or = 60 mg/dl - LOW CARDIOVASCULAR RISK <40 mg/dl - HIGH CARDIOVASCULAR RISK Normal [facility] Comment on above: Performed By: #### P REGQNT, AST, ALT, GLUC, LIPID #### [facility] [address] [id number] Dandy Pastora Cholesterol in HDL [Mass/Vol] 55 mg/dL Normal 29-69 [facility] Comment on above: Performed By: #### P REGQNT, AST, ALT, GLUC, LIPID #### [facility] [address] [id number] Dandy Pastora Cholesterol in LDL [Mass/Vol] 94.6 mg/dL Normal 46.0-140.0 [facility] Comment on above: Performed By: #### P REGQNT, AST, ALT, GLUC, LIPID #### [facility] [address] [place], [place] [address] Dandy Pastora Cholesterol in LDL [Mass/Vol] SEE BELOW Normal [facility] Comment on above: Result Comment: <100 mg/dl OPTIMAL 100 - 129 mg/dl NEAR OR ABOVE OPTIMAL 130 - 159 mg/dl BORDERLINE HIGH 160 - 189 mg/dl HIGH >190 mg/dl VERY HIGH Performed By: #### P REGQNT, AST, ALT, GLUC, LIPID #### [facility] [address] [place], [place] [address] Dandy Pastora Cholesterol.total/Choles terol in HDL [Mass ratio] 3.1 {ratio} Normal [facility] Comment on above: Performed By: #### P REGQNT, AST, ALT, GLUC, LIPID #### [facility] [address] [id number] Dandy Pastora Triglyceride [Mass/Vol] 97 mg/dL Normal 53-208 T [facility] Comment on above: Performed By: #### P REGQNT, AST, ALT, GLUC, LIPID #### [facility] [address] [place], [place] [address] Dandy Pastora VLDL CALC 19.4 mg/dL Normal [facility] Comment on above: Performed By: #### P REGQNT, AST, ALT, GLUC, LIPID #### [facility] [address] [place], [place] [address] Dandy Pastora PREG QUANT HCGon 06-04-2019 HCG QUANT <1.00 Normal [facility] Comment on above: Performed By: #### P REGQNT, AST, ALT, GLUC, LIPID #### [facility] [address] [place], [place] [address] Dandy Pastora HCG RANGE SEE BELOW Normal [facility] Comment on above: Result Comment: 5-50 0-1 WEEK 40-300 1-2 WEEKS 100-1,000 2-3 WEEKS 500-6,000 3-4 WEEKS 5,000-200,000 1-2 MONTHS 10,000-100,000 2-3 MONTHS 3,000-50,000 2ND TRIMESTER 1,000-50,000 3RD TRIMESTER Performed By: #### P REGQNT, AST, ALT, GLUC, LIPID #### [facility] [address] [address] Dandy Guillory SGOTon 06-04-2019 AST [Catalytic activity/Vol] 24 U/L Normal 14-36 [facility] Comment on above: Performed By: #### P REGQNT, AST, ALT, GLUC, LIPID #### [facility] [address] [place] [address] Dandy Guillory SGPTon 06-04-2019 ALT [Catalytic activity/Vol] 19 U/L Normal 9-52 [facility] Comment on above: Performed By: #### P REGQNT, AST, ALT, GLUC, LIPID #### [facility] [address] [place] [address] Dandy Guillory URon 04-06-2019 , QUAL Negative Normal NEGATIVE [facility] Comment on above: Performed By: #### P REGQNT, AST, ALT, GLUC, LIPID #### [facility] [address] [place] [address] Dandy Guillory URon 02-19-2019 , QUAL Negative Normal NEGATIVE [facility] Comment on above: Performed By: #### C BC #### [facility] [address] [place] [address] Dandy Guillory CBC AUTO DIFFon 01-13-2019 Basophils (Bld) [#/Vol] 0.0 103/ul Normal 0.0-0.1 [facility] Comment on above: Performed By: #### C BC #### [facility] [address] [place] [address] Dandy Guillory Basophils/100 WBC (Bld) 0.6 % Normal 0.2-2.0 [facility] Comment on above: Performed By: #### C BC #### [facility] [address] [place] [address] Dandy Guillory Eosinophils (Bld) [#/Vol] 0.1 103/ul Normal 0.0-0.7 [facility] Comment on above: Performed By: #### C BC #### [facility] [address] [place], [place] [address] Dandy Pastora Eosinophils/100 WBC (Bld) 1.2 % Normal 0.9-7.0 [facility] Comment on above: Performed By: #### C BC #### [facility] [address] [place], [place] [address] Dandy Pastora Erythrocyte distribution width (RBC) [Ratio] 12.1 % Normal 11.0-15.0 [facility] Comment on above: Performed By: #### C BC #### [facility] [address] [place] [address] Dandy Pastora Hematocrit (Bld) [Volume fraction] 41.2 % Normal 36.0-48.0 [facility] Comment on above: Performed By: #### C BC #### [facility] [address] [place] [address] Dandy Pastora Hemoglobin (Bld) [Mass/Vol] 13.6 g/dL Normal 12.0-16.0 [facility] Comment on above: Performed By: #### C BC #### [facility] [address] [place], [place] [address] Dandy Pastora IG # 0.01 10e3/ul Normal 0.00-0.03 [facility] Comment on above: Performed By: #### C BC #### [facility] [address] [place], [place] [address] Dandy Pastora IG % 0.2 % Normal 0.0-0.5 [facility] Comment on above: Performed By: #### C BC #### [facility] [address] [place], [place] [address] Dandy Pastora Lymphocytes (Bld) [#/Vol] 2.1 103/ul Normal 1.2-3.8 [facility] Comment on above: Performed By: #### C BC #### [facility] [address] [place], [place] [address] Dandy Pastora Lymphocytes/100 WBC (Bld) 41.5 % Normal 20.5-60.0 [facility] Comment on above: Performed By: #### C BC #### [facility] [address] [place], [place] [address] Dandy Pastora MANUAL DIFF REQ NO Normal [facility] Comment on above: Performed By: #### C BC #### [facility] [address] [place], [place] [address] Dandy Pastora MCH (RBC) [Entitic mass] 31.0 pg Normal 26.7-34.0 [facility] Comment on above: Performed By: #### C BC #### [facility] [address] [place], [place] [address] Dandy Pastora MCHC (RBC) [Mass/Vol] 33.0 g/dL Normal 29.9-35.2 [facility] Comment on above: Performed By: #### C BC #### [facility] [address] [place], [place] [address] Dandy Pastora MCV (RBC) [Entitic vol] 93.8 fL Normal 79.1-95.6 [facility] Comment on above: Performed By: #### C BC #### [facility] [address] [place], [place] [address] Dandy Pastora Monocytes (Bld) [#/Vol] 0.4 103/ul Normal 0.3-0.8 [facility] Comment on above: Performed By: #### C BC #### [facility] [address] [place], [place] [address] Dandy Pastora Monocytes/100 WBC (Bld) 8.7 % Normal 1.7-12.0 [facility] Comment on above: Performed By: #### C BC #### [facility] [address] [place] [address] Dandy Pastora Neutrophils (Bld) [#/Vol] 2.4 103/ul Normal 1.4-6.5 [facility] Comment on above: Performed By: #### C BC #### [facility] [address] [place], [place] [address] Dandy Pastora Neutrophils/100 WBC (Bld) 47.8 % Normal 43.0-75.0 [facility] Comment on above: Performed By: #### C BC #### [facility] [address] [place] [address] Dandy Pastora Platelet mean volume (Bld) [Entitic vol] 8.8 fL Critically low 9.5-13.5 [facility] Comment on above: Performed By: #### C BC #### [facility] [address] [place] [address] Dandy Pastora Platelets (Bld) [#/Vol] 330 103/ul Normal 150-450 T [facility] Comment on above: Performed By: #### C BC #### [facility] [address] [place] [address] Dandy Pastora RBC (Bld) [#/Vol] 4.39 106/ul Normal 3.40-5.30 [facility] Comment on above: Performed By: #### C BC #### [facility] [address] [place] [address] Dandy Pastora WBC (Bld) [#/Vol] 5.0 103/ul Normal 4.0-11.0 [facility] Comment on above: Performed By: #### C BC #### [facility] [address] [place] [address] Dandy Pastora GLUCOSE BLOODon 01-13-2019 Glucose [Mass/Vol] 102 mg/dL Normal 74-106 [facility] Comment on above: Performed By: #### C BC #### [facility] [address] [place] [address] Dandy Pastora LIPID PROFILEon 01-13-2019 CHOL-HDL RATIO NORM SEE BELOW Normal [facility] Comment on above: Result Comment: 3.3 - 4.4 LOW RISK 4.4 - 7.1 AVERAGE RISK 7.1 - 11.0 MODERATE RISK >11.0 HIGH RISK Performed By: #### C BC #### [facility] [address] [place] [address] Dandy Pastora Cholesterol [Mass/Vol] 169 mg/dL Normal 104-227 [facility] Comment on above: Performed By: #### C BC #### [facility] [address] [place] [address] Dandy Pastora Cholesterol in HDL [Mass/Vol] 46 mg/dL Normal 29-69 [facility] Comment on above: Performed By: #### C BC #### [facility] [address] [place], [place] [address] Dandy Pastora Cholesterol in HDL [Mass/Vol] > or = 60 mg/dl - LOW CARDIOVASCULAR RISK <40 mg/dl - HIGH CARDIOVASCULAR RISK Normal [facility] Comment on above: Performed By: #### C BC #### [facility] [address] [place], [place] [address] Dandy Pastora Cholesterol in LDL [Mass/Vol] SEE BELOW Normal [facility] Comment on above: Result Comment: <100 mg/dl OPTIMAL 100 - 129 mg/dl NEAR OR ABOVE OPTIMAL 130 - 159 mg/dl BORDERLINE HIGH 160 - 189 mg/dl HIGH >190 mg/dl VERY HIGH Performed By: #### C BC #### [facility] [address] [place], [place] [address] Dandy Pastora Cholesterol in LDL [Mass/Vol] 109.6 mg/dL Normal 46.0-140.0 [facility] Comment on above: Performed By: #### C BC #### [facility] [address] [place] [address] Dandy Pastora Cholesterol.total/Choles terol in HDL [Mass ratio] 3.7 {ratio} Normal [facility] Comment on above: Performed By: #### C BC #### [facility] [address] [place], [place] [address] Dandy Pastora Triglyceride [Mass/Vol] 67 mg/dL Normal 53-208 T [facility] Comment on above: Performed By: #### C BC #### [facility] [address] [place] [address] Dandy Pastora VLDL CALC 13.4 mg/dL Normal [facility] Comment on above: Performed By: #### C BC #### [facility] [address] [place] [address] Dandy Pastora PREG QUANT HCGon 01-13-2019 HCG QUANT <1.00 Normal [facility] Comment on above: Performed By: #### C BC #### [facility] [address] [place] [address] Dandy Pastora HCG RANGE SEE BELOW Normal [facility] Comment on above: Result Comment: 5-50 0-1 WEEK 40-300 1-2 WEEKS 100-1,000 2-3 WEEKS 500-6,000 3-4 WEEKS 5,000-200,000 1-2 MONTHS 10,000-100,000 2-3 MONTHS 3,000-50,000 2ND TRIMESTER 1,000-50,000 3RD TRIMESTER Performed By: #### C BC #### [facility] [address] [place] [address] Dandy Pastora SGOTon 01-13-2019 AST [Catalytic activity/Vol] 22 U/L Normal 14-36 [facility] Comment on above: Performed By: #### C BC #### [facility] [address] [place] [address] Dandy Pastora SGPTon 01-13-2019 ALT [Catalytic activity/Vol] 15 U/L Normal 9-52 [facility] Comment on above: Performed By: #### C BC #### [facility] [address] [place], [place] [address] Dandy Pastora CBC AUTO DIFFon 12-10-2018 Basophils (Bld) [#/Vol] 0.0 103/ul Normal 0.0-0.1 [facility] Comment on above: Performed By: #### C BC #### [facility] [address] [place], [place] [address] Dandy Pastora Basophils/100 WBC (Bld) 0.6 % Normal 0.2-2.0 [facility] Comment on above: Performed By: #### C BC #### [facility] [address] [place], [place] [address] Dandy Pastora Eosinophils (Bld) [#/Vol] 0.1 103/ul Normal 0.0-0.7 [facility] Comment on above: Performed By: #### C BC #### [facility] [address] [place], [place] [address] Dandy Pastora Eosinophils/100 WBC (Bld) 0.9 % Normal 0.9-7.0 [facility] Comment on above: Performed By: #### C BC #### [facility] [address] [place] [address] Dandy Pastora Erythrocyte distribution width (RBC) [Ratio] 12.2 % Normal 11.0-15.0 [facility] Comment on above: Performed By: #### C BC #### [facility] [address] [place], [place] [address] Dandy Pastora Hematocrit (Bld) [Volume fraction] 39.7 % Normal 36.0-48.0 [facility] Comment on above: Performed By: #### C BC #### [facility] [address] [place] [address] Dandy Pastora Hemoglobin (Bld) [Mass/Vol] 13.5 g/dL Normal 12.0-16.0 [facility] Comment on above: Performed By: #### C BC #### [facility] [address] [place] [address] Dandy Pastora IG # 0.01 10e3/ul Normal 0.00-0.03 [facility] Comment on above: Performed By: #### C BC #### [facility] [address] [place] [address] Dandy Pastora IG % 0.1 % Normal 0.0-0.5 [facility] Comment on above: Performed By: #### C BC #### [facility] [address] [place] [address] Dandy Pastora Lymphocytes (Bld) [#/Vol] 2.7 103/ul Normal 1.2-3.8 [facility] Comment on above: Performed By: #### C BC #### [facility] [address] [place], [place] [address] Dandy Pastora Lymphocytes/100 WBC (Bld) 40.2 % Normal 20.5-60.0 [facility] Comment on above: Performed By: #### C BC #### [facility] [address] [place], [place] [address] Dandy Pastora MANUAL DIFF REQ NO Normal [facility] Comment on above: Performed By: #### C BC #### [facility] [address] [place], [place] [address] Dandyrajan Dubonen MCH (RBC) [Entitic mass] 31.6 pg Normal 26.7-34.0 [facility] Comment on above: Performed By: #### C BC #### [facility] [address] [place] [address] Dandyrajan Guillory MCHC (RBC) [Mass/Vol] 34.0 g/dL Normal 29.9-35.2 [facility] Comment on above: Performed By: #### C BC #### [facility] [address] [place] [address] Dandy Pastora MCV (RBC) [Entitic vol] 93.0 fL Normal 79.1-95.6 [facility] Comment on above: Performed By: #### C BC #### [facility] [address] [place] [address] Dandy Pastora Monocytes (Bld) [#/Vol] 0.7 103/ul Normal 0.3-0.8 [facility] Comment on above: Performed By: #### C BC #### [facility] [address] [place] [address] Dandy Pastora Monocytes/100 WBC (Bld) 10.5 % Normal 1.7-12.0 [facility] Comment on above: Performed By: #### C BC #### [facility] [address] [place] [address] Dandy Pastora Neutrophils (Bld) [#/Vol] 3.2 103/ul Normal 1.4-6.5 [facility] Comment on above: Performed By: #### C BC #### [facility] [address] [place] [address] Dandy Pastora Neutrophils/100 WBC (Bld) 47.7 % Normal 43.0-75.0 [facility] Comment on above: Performed By: #### C BC #### [facility] [address] [place] [address] Dandy Pastora Platelet mean volume (Bld) [Entitic vol] 8.6 fL Critically low 9.5-13.5 [facility] Comment on above: Performed By: #### C BC #### [facility] [address] [place], [place] [address] Dandyrajan Guillory Platelets (Bld) [#/Vol] 358 103/ul Normal 150-450 T [facility] Comment on above: Performed By: #### C BC #### [facility] [address] [place], [place] [address] Dandy Pastora RBC (Bld) [#/Vol] 4.27 106/ul Normal 3.40-5.30 [facility] Comment on above: Performed By: #### C BC #### [facility] [address] [place], [place] [address] Dandy Pastora WBC (Bld) [#/Vol] 6.7 103/ul Normal 4.0-11.0 [facility] Comment on above: Performed By: #### C BC #### [facility] [address] [place], [place] [address] Dandy Pastora GLUCOSE BLOODon 12-10-2018 Glucose [Mass/Vol] 98 mg/dL Normal 74-106 [facility] Comment on above: Performed By: #### G CARLOS, AST, PREGQNT, LIPID, ALT #### [facility] [address] [place] [address] Dandy Pastora LIPID PROFILEon 12-10-2018 CHOL-HDL RATIO NORM SEE BELOW Normal [facility] Comment on above: Result Comment: 3.3 - 4.4 LOW RISK 4.4 - 7.1 AVERAGE RISK 7.1 - 11.0 MODERATE RISK >11.0 HIGH RISK Performed By: #### C BC #### [facility] [address] [place] [address] Dandy Pastora Cholesterol [Mass/Vol] 162 mg/dL Normal 104-227 [facility] Comment on above: Performed By: #### C BC #### [facility] [address] [place] [address] Dandy Pastora Cholesterol in HDL [Mass/Vol] 57 mg/dL Normal 29-69 [facility] Comment on above: Performed By: #### C BC #### [facility] [address] [place], [place] [address] Dandy Pastora Cholesterol in HDL [Mass/Vol] > or = 60 mg/dl - LOW CARDIOVASCULAR RISK <40 mg/dl - HIGH CARDIOVASCULAR RISK Normal [facility] Comment on above: Performed By: #### C BC #### [facility] [address] [place] [address] Dandy Pastora Cholesterol in LDL [Mass/Vol] 97.4 mg/dL Normal 46.0-140.0 [facility] Comment on above: Performed By: #### C BC #### [facility] [address] [place] [address] Dandy Pastora Cholesterol in LDL [Mass/Vol] SEE BELOW Normal [facility] Comment on above: Result Comment: <100 mg/dl OPTIMAL 100 - 129 mg/dl NEAR OR ABOVE OPTIMAL 130 - 159 mg/dl BORDERLINE HIGH 160 - 189 mg/dl HIGH >190 mg/dl VERY HIGH Performed By: #### C BC #### [facility] [address] [place], [place] [address] Dandy Pastora Cholesterol.total/Choles terol in HDL [Mass ratio] 2.8 {ratio} Normal [facility] Comment on above: Performed By: #### C BC #### [facility] [address] [place], [place] [address] Dandy Pastora Triglyceride [Mass/Vol] 38 mg/dL Critically low 53-208 [facility] Comment on above: Performed By: #### C BC #### [facility] [address] [place], [place] [address] Dandy Pastora VLDL CALC 7.6 mg/dL Normal [facility] Comment on above: Performed By: #### C BC #### [facility] [address] [place] [address] Dandy Pastora PREG QUANT HCGon 12-10-2018 HCG QUANT <1.00 Normal [facility] Comment on above: Performed By: #### C BC #### [facility] [address] [place] [address] Dandy Pastora HCG RANGE SEE BELOW Normal [facility] Comment on above: Result Comment: 5-50 0-1 WEEK 40-300 1-2 WEEKS 100-1,000 2-3 WEEKS 500-6,000 3-4 WEEKS 5,000-200,000 1-2 MONTHS 10,000-100,000 2-3 MONTHS 3,000-50,000 2ND TRIMESTER 1,000-50,000 3RD TRIMESTER Performed By: #### C BC #### [facility] [address] [place] [address] Dandyrajan Guillory SGOTon 12-10-2018 AST [Catalytic activity/Vol] 25 U/L Normal 14-36 [facility] Comment on above: Performed By: #### G CARLOS, AST, PREGQNT, LIPID, ALT #### [facility] [address] [place], [place] [address] Dandy Pastora SGPTon 12-10-2018 ALT [Catalytic activity/Vol] 19 U/L Normal 9-52 [facility] Comment on above: Performed By: #### C BC #### [facility] [address] [place], [place] [address] Dandy Pastora CBC AUTO DIFFon 11-10-2018 Basophils (Bld) [#/Vol] 0.0 103/ul Normal 0.0-0.1 [facility] Comment on above: Performed By: #### C BC #### [facility] [address] [place], [place] [address] Dandy Pastora Basophils/100 WBC (Bld) 0.5 % Normal 0.2-2.0 [facility] Comment on above: Performed By: #### C BC #### [facility] [address] [place], [place] [address] Dandy Pastora Eosinophils (Bld) [#/Vol] 0.1 103/ul Normal 0.0-0.7 [facility] Comment on above: Performed By: #### C BC #### [facility] [address] [place], [place] [address] Dandy Pastora Eosinophils/100 WBC (Bld) 1.2 % Normal 0.9-7.0 [facility] Comment on above: Performed By: #### C BC #### [facility] [address] [place], [place] [address] Dandy Pastora Erythrocyte distribution width (RBC) [Ratio] 12.1 % Normal 11.0-15.0 [facility] Comment on above: Performed By: #### C BC #### [facility] [address] [place] [address] Dandy Guillory Hematocrit (Bld) [Volume fraction] 42.7 % Normal 36.0-48.0 [facility] Comment on above: Performed By: #### C BC #### [facility] [address] [place] [address] Dandy Guillory Hemoglobin (Bld) [Mass/Vol] 14.3 g/dL Normal 12.0-16.0 [facility] Comment on above: Performed By: #### C BC #### [facility] [address] [place] [address] Dandyrajan Guillory IG # 0.02 10e3/ul Normal 0.00-0.03 [facility] Comment on above: Performed By: #### C BC #### [facility] [address] [place] [address] Dandy Guillory IG % 0.3 % Normal 0.0-0.5 [facility] Comment on above: Performed By: #### C BC #### [facility] [address] [place] [address] Dandy Guillory Lymphocytes (Bld) [#/Vol] 2.8 103/ul Normal 1.2-3.8 [facility] Comment on above: Performed By: #### C BC #### [facility] [address] [place] [address] Dandy Guillory Lymphocytes/100 WBC (Bld) 36.3 % Normal 20.5-60.0 [facility] Comment on above: Performed By: #### C BC #### [facility] [address] [place], [place] [address] Dandy Guillory MANUAL DIFF REQ NO Normal [facility] Comment on above: Performed By: #### C BC #### [facility] [address] [place] [address] Dandy Guillory MCH (RBC) [Entitic mass] 31.2 pg Normal 26.7-34.0 [facility] Comment on above: Performed By: #### C BC #### [facility] [address] [place], [place] [address] Dandyrajan Guillory MCHC (RBC) [Mass/Vol] 33.5 g/dL Normal 29.9-35.2 [facility] Comment on above: Performed By: #### C BC #### [facility] [address] [place], [place] [address] Dandy Pastora MCV (RBC) [Entitic vol] 93.0 fL Normal 79.1-95.6 [facility] Comment on above: Performed By: #### C BC #### [facility] [address] [place], [place] [address] Dandy Pastora Monocytes (Bld) [#/Vol] 0.6 103/ul Normal 0.3-0.8 [facility] Comment on above: Performed By: #### C BC #### [facility] [address] [place] [address] Dandy Pastora Monocytes/100 WBC (Bld) 7.7 % Normal 1.7-12.0 [facility] Comment on above: Performed By: #### C BC #### [facility] [address] [place], [place] [address] Dandy Pastora Neutrophils (Bld) [#/Vol] 4.1 103/ul Normal 1.4-6.5 [facility] Comment on above: Performed By: #### C BC #### [facility] [address] [place], [place] [address] Dandy Pastora Neutrophils/100 WBC (Bld) 54.0 % Normal 43.0-75.0 [facility] Comment on above: Performed By: #### C BC #### [facility] [address] [place], [place] [address] Dandy Pastora Platelet mean volume (Bld) [Entitic vol] 9.8 fL Normal 9.5-13.5 [facility] Comment on above: Performed By: #### C BC #### [facility] [address] [place], [place] [address] Dandy Pastora Platelets (Bld) [#/Vol] 281 103/ul Normal 150-450 T [facility] Comment on above: Performed By: #### C BC #### [facility] [address] [place], [place] [address] Dandy Guillory RBC (Bld) [#/Vol] 4.59 106/ul Normal 3.40-5.30 [facility] Comment on above: Performed By: #### C BC #### [facility] [address] [place], [place] [address] Dandy Guillory WBC (Bld) [#/Vol] 7.6 103/ul Normal 4.0-11.0 [facility] Comment on above: Performed By: #### C BC #### [facility] [address] [place] [id number] Dandy Guillory GLUCOSE BLOODon 11-10-2018 Glucose [Mass/Vol] 98 mg/dL Normal 74-106 [facility] Comment on above: Performed By: #### P REGQNT, AST, ALT, GLUC, LIPID #### [facility] [address] [place], [place] [address] Dandy Guillory LIPID PROFILEon 11-10-2018 CHOL-HDL RATIO NORM SEE BELOW Normal [facility] Comment on above: Result Comment: 3.3 - 4.4 LOW RISK 4.4 - 7.1 AVERAGE RISK 7.1 - 11.0 MODERATE RISK >11.0 HIGH RISK Performed By: #### P REGQNT, AST, ALT, GLUC, LIPID #### [facility] [address] [place], [place] [address] Dandy Giullory Cholesterol [Mass/Vol] 161 mg/dL Normal 104-227 Th [facility] Comment on above: Performed By: #### P REGQNT, AST, ALT, GLUC, LIPID #### [facility] [address] [place], [place] [address] Dandy Guillory Cholesterol in HDL [Mass/Vol] 57 mg/dL Normal 29-69 [facility] Comment on above: Performed By: #### P REGQNT, AST, ALT, GLUC, LIPID #### [facility] [address] [place], [place] [address] Dandy Pastora Cholesterol in HDL [Mass/Vol] > or = 60 mg/dl - LOW CARDIOVASCULAR RISK <40 mg/dl - HIGH CARDIOVASCULAR RISK Normal [facility] Comment on above: Performed By: #### P REGQNT, AST, ALT, GLUC, LIPID #### [facility] [address] [place] [address] Dandy Pastora Cholesterol in LDL [Mass/Vol] 93.4 mg/dL Normal 46.0-140.0 [facility] Comment on above: Performed By: #### P REGQNT, AST, ALT, GLUC, LIPID #### [facility] [address] [place] [address] Dandy Pastora Cholesterol in LDL [Mass/Vol] SEE BELOW Normal [facility] Comment on above: Result Comment: <100 mg/dl OPTIMAL 100 - 129 mg/dl NEAR OR ABOVE OPTIMAL 130 - 159 mg/dl BORDERLINE HIGH 160 - 189 mg/dl HIGH >190 mg/dl VERY HIGH Performed By: #### P REGQNT, AST, ALT, GLUC, LIPID #### [facility] [address] [place] [address] Dandy Pastora Cholesterol.total/Choles terol in HDL [Mass ratio] 2.8 {ratio} Normal [facility] Comment on above: Performed By: #### P REGQNT, AST, ALT, GLUC, LIPID #### [facility] [address] [place] [address] Dandy Pastora Triglyceride [Mass/Vol] 53 mg/dL Normal 53-208 T [facility] Comment on above: Performed By: #### P REGQNT, AST, ALT, GLUC, LIPID #### [facility] [address] [address] Dandy Pastora VLDL CALC 10.6 mg/dL Normal [facility] Comment on above: Performed By: #### P REGQNT, AST, ALT, GLUC, LIPID #### [facility] [address] [id number] Dandy Pastora PREG QUANT HCGon 11-10-2018 HCG QUANT <1.00 Normal [facility] Comment on above: Performed By: #### P REGQNT, AST, ALT, GLUC, LIPID #### [facility] [address] [id number] Dandy Guillory HCG RANGE SEE BELOW Normal [facility] Comment on above: Result Comment: 5-50 0-1 WEEK 40-300 1-2 WEEKS 100-1,000 2-3 WEEKS 500-6,000 3-4 WEEKS 5,000-200,000 1-2 MONTHS 10,000-100,000 2-3 MONTHS 3,000-50,000 2ND TRIMESTER 1,000-50,000 3RD TRIMESTER Performed By: #### P REGQNT, AST, ALT, GLUC, LIPID #### [facility] [address] [address] Dandy Guillory SGOTon 11-10-2018 AST [Catalytic activity/Vol] 26 U/L Normal 14-36 [facility] Comment on above: Performed By: #### P REGQNT, AST, ALT, GLUC, LIPID #### [facility] [address] [place] [address] [facility]2018 ALT [Catalytic activity/Vol] 23 U/L Normal 9-52 [facility] Comment on above: Performed By: #### P REGQNT, AST, ALT, GLUC, LIPID #### [facility] [address] [id number] Dandy Guillory URon 10-09-2018 , QUAL Negative Normal NEGATIVE The [facility] Comment on above: Performed By: #### P REGU #### [facility] [address] [address] Dandy Guillory Vital Signs Date Time Vital Sign Value Performing Clinician Facility 12-22-2024 11:28-0400 Body mass index (BMI) [Ratio] 25.54 kg/m2 Stella Stanley MD Work Phone: [facility] 12-22-2024 11:28-040 Body weight 76.2 kg Stella Stanley MD Work Phone: [facility] 12-22-2024 11:28-0400 Diastolic blood pressure 76 mm[Hg] Stella Stanley MD Work Phone: [facility] 12-22-2024 11:28-0400 Systolic blood pressure 110 mm[Hg] Stella Stanley MD Work Phone: [facility] 10-11-2024 10:42-0500 Body mass index (BMI) [Ratio] 25.85 kg/m2 Stella Stanley MD Work Phone: [facility] 10-11-2024 10:42-0500 Body weight 77.11 kg Stella Stanley MD Work Phone: [facility] 10-11-2024 10:42-0500 Diastolic blood pressure 78 mm[Hg] Stella Stanley MD Work Phone: [facility] 10-11-2024 10:42-0500 Systolic blood pressure 110 mm[Hg] Stella Stanley MD Work Phone: [facility] 04-27-2024 15:45-0400 Body mass index (BMI) [Ratio] 25.09 kg/m2 Stella Stanley MD Work Phone: [facility] 04-27-2024 15:45-0400 Body weight 74.84 kg Stella Stanley MD Work Phone: [facility] 04-27-2024 15:45-0400 Diastolic blood pressure 76 mm[Hg] Stella Stanley MD Work Phone: [facility] 04-27-2024 15:45-0400 Systolic blood pressure 114 mm[Hg] Stella Stanley MD Work Phone: [facility] 01-23-2024 08:00-0400 Body temperature 98.2 [degF] MD Marbin Keith Work Phone: [facility] 01-23-2024 08:00-0400 Diastolic blood pressure 74 mm[Hg] MD Marbin Keith Work Phone: [facility] 01-23-2024 08:00-0400 Heart rate 47 /min MD Marbin Keith Work Phone: [facility] 01-23-2024 08:00-0400 Respiratory rate 16 /min MD Marbin Keith Work Phone: [facility] 01-23-2024 08:00-0400 SaO2% (BldA) [Mass fraction] 97 % MD Marbin Keith Work Phone: [facility] 01-23-2024 08:00-0400 Systolic blood pressure 114 mm[Hg] MD Marbin Keith Work Phone: [facility] 01-23-2024 01:35-0400 Body height 172.72 cm MD Marbin Keith Work Phone: [facility] 01-23-2024 01:35-0400 Body weight 77.11 kg MD Marbin Keith Work Phone: [facility] 01-23-2024 00:12-0400 Diastolic blood pressure 82 mm[Hg] MD Marbin Keith Work Phone: [facility] 01-23-2024 00:12-0400 Heart rate 59 /min MD Marbin Keith Work Phone: [facility] 01-23-2024 00:12-0400 Respiratory rate 18 /min MD Marbin Keith Work Phone: [facility] 01-23-2024 00:12-0400 SaO2% (BldA) [Mass fraction] 98 % MD Marbin Keith Work Phone: [facility] 01-23-2024 00:12-0400 Systolic blood pressure 129 mm[Hg] MD Marbin Keith Work Phone: [facility] 01-22-2024 22:37-0400 Body temperature 97.8 [degF] MD Marbin Keith Work Phone: [facility] 01-22-2024 16:34-0400 Body height 170.18 cm MD Marbin Keith Work Phone: [facility] 01-22-2024 16:34-0400 Body weight 77 kg MD Marbin Keith Work Phone: [facility] 07-07-2023 12:15-0500 Body height 172.72 cm Mona Treadwell Other [employer] Other 07-07-2023 12:15-0500 Body mass index (BMI) [Ratio] 26.12 kg/m2 Mona Treadwell Other [employer] Other 07-07-2023 12:15-0500 Body temperature 98.2 [degF] Mona Treadwell Other [employer] Other 07-07-2023 12:15-0500 Body weight 77.93 kg Mona Treadwell Other [employer] Other 07-07-2023 12:15-0500 Respiratory rate 18 /min Mona Treadwell Other [employer] Other 07-07-2023 12:15-0500 SaO2% (BldA) [Mass fraction] 98 % Mona Treadwell Other [employer] Other Encounters Encounter Date Encounter Type Care Provider Facility Start: 02-04-2025 End: 02-04-2025 ambulatory WAX PATTERN COATER Lianne Jones Facility:[facility] Start: 12-22-2024 End: 12-22-2024 Bamboo flowsheet Stella Stanley MD Work Phone: [facility] Start: 12-22-2024 End: 12-22-2024 Bamboo flowsheet Stella Stanley MD Work Phone: [facility] Start: 12-22-2024 End: 12-22-2024 Office outpatient visit 15 minutes Stella Stanley MD Work Phone: [facility] Comment on above: DUB (dysfunctional u terine bleeding) Start: 12-22-2024 End: 04-30-2025 ambulatory STELLA STANLEY Not Available Start: 10-11-2024 End: 10-11-2024 Bamboo flowscaty Stanley MD Work Phone: [facility] Start: 10-11-2024 End: 10-11-2024 Bamboo flowscaty Stanley MD Work Phone: [facility] Start: 10-11-2024 End: 10-11-2024 Patient encounter procedure Stella Stanley MD Work Phone: [facility] Work Phone: Start: 10-11-2024 End: 10-11-2024 Periodic preventive med est patient 18-39 yrs Stella Stanley MD Work Phone: [facility] Comment on above: Well woman exam with routine gynecological exam (Primary Dx); Oral contraceptive pill surveillance; Cyst of ovary, unspecified laterality Start: 10-11-2024 End: 10-11-2024 ambulatory STELLA STANLEY Not Available Start: 04-27-2024 End: 04-27-2024 Postop follow up visit related to original px Stella Stanley MD Work Phone: [facility] Comment on above: Surgery follow-up; Cyst of right ovary Start: 04-27-2024 End: 04-27-2024 ambulatory STELLA STANLEY Not Available Start: 04-27-2024 End: 04-27-2024 Bamboo flowscaty Satnley MD Work Phone: [facility] Start: 04-27-2024 End: 04-27-2024 Bamboo flowscaty Stanley MD Work Phone: [facility] Start: 04-12-2024 End: 04-12-2024 ambulatory MD Marbin Keith Work Phone: [facility] Work Phone: Start: 04-12-2024 End: 04-12-2024 Departed Referred MD Marbin Keith Work Phone: [facility] [place] Work Phone: Start: 02-25-2024 End: 02-25-2024 ambulatory STELLA J PRINTY Not Available Start: 02-02-2024 End: 02-02-2024 ambulatory STELLA J PRINTY Not Available Start: 01-26-2024 End: 01-26-2024 ambulatory STELLA J PRINTY Not Available Start: 01-23-2024 End: 01-23-2024 ambulatory Abena Alegre Facility:[facility] Start: 01-23-2024 End: 01-23-2024 Evaluation and management of inpatient MD Marbin Keith Work Phone: [facility] [place] Work Phone: Start: 01-23-2024 End: 01-23-2024 observation encounter MD Marbin Keith Work Phone: [facility] Work Phone: Start: 09-27-2023 Clinisync Result Encounter Generic External Data Provider [facility] Unsolicited Start: 09-27-2023 Clinisync Result Encounter Generic External Data Provider [facility] External Department Unsolicited Start: 07-07-2023 End: 07-07-2023 ambulatory Mona Treadwell Other [employer] Other Start: 07-07-2023 Office outpatient ne w 20 minutes Mona Treadwell [facility] [place] Start: 06-14-2019 End: 06-15-2019 Patient encounter procedure HOPE STEPHY Facility:[facility] Start: 06-04-2019 End: 06-05-2019 Patient encounter procedure HOPE STEPYH Facility:[facility] Start: 04-06-2019 End: 04-07-2019 Patient encounter procedure DOCTOR MISC Facility:[facility] Start: 02-19-2019 End: 02-20-2019 Patient encounter procedure DOCTOR MISC Facility:[facility] Start: 01-13-2019 End: 01-14-2019 Patient encounter procedure DOCTOR MISC Facility:[facility] Start: 12-10-2018 End: 12-11-2018 Patient encounter procedure DOCTOR MISC Facility:[facility] Start: 11-10-2018 End: 11-11-2018 Patient encounter procedure DOCTOR MISC Facility:[facility] Start: 10-09-2018 End: 10-10-2018 Patient encounter procedure DOCTOR [facility] Facility:[facility] Procedures Date Procedure Procedure Detail Performing Clinician Start: 01-22-2024 Pelvic echography MD Sa lani Keith Work Phone: Start: 01-22-2024 Computed tomography of abdomen and pelvis with contrast MD Marbin Keith Work Phone: Start: 01-22-2024 Transvaginal echography MD Marbin Keith Work Phone: Start: 09-27-2023 ALL TRIGLYCERIDES Gener ic External Data Provider Plan of Treatment Date Care Activity Detail Author Start: 10-13-2025 End: 10-13-2025 Patient encounter procedure 10/13/2025 11:30 AM EST Office Visit [facility] [address] [place] [phone] Stella Stanley MD [address] [place] [address] [facility] Start: 04-25-2025 Influenza vaccination Influenz a Vaccine (Season Ended) [facility] Start: 12-22-2024 End: 12-22-2024 Patient encounter procedure 12/22/2024 11:30 AM EDT Office Visit [facility] [address] [place] [phone] Stella Stanley MD [address] [place] [address] Arrived [facility] Comment on above: Arrived Start: 10-11-2024 End: 10-11-2024 Patient encounter procedure 10/11/2024 10:45 AM EST Office Visit [facility] [address] [place] [phone] Stella Stanley MD [address] [place] [address] Well woman exam with routine gynecological exam; Oral contraceptive pill surveillance [facility] Comment on above: Well woman exam with routine gynecological exam; Oral contraceptive pill surveillance Start: 04-27-2024 End: 04-27-2024 Patient encounter procedure 04/27/2024 3:45 PM EDT Office Visit [facility] [address] [place] [phone] Stella Stanley MD [address] [place] [address] Surgery follow-up; Cyst of right ovary; Endometriosis, ovary [facility] Comment on above: Surgery follow-up; Cyst of right ovary; Endometriosis, ovary Start: 04-25-2024 Influenza vaccination Influenza Vacc ine (#1) [facility] Start: 02-22-2024 Influenza vaccination Influenza Vacc ine (#1) [facility] Comment on above: Postponed from 04/25 (Patient Refused) Start: 01-23-2024 [facility] Start: 01-23-2024 Hospital admission [facility] Start: 01-22-2024 Pelvic echography US pelvic complete [facility] Start: 01-22-2024 US Pelvis [facility] Start: 01-22-2024 Transvaginal echography US transvagi nal [facility] Start: 01-22-2024 US Pelvis transvaginal [facility] Patient Education Ovarian Cyst ( [place]) Know your [facility] Work Phone: Patient referral [facility] Work Phone: Immunizations Immunization Date Immunization Notes Care Provider [facility] 04-04-2022 hepatitis A vaccine, pediatric/adolescent dosage, 2 dose schedule Generic Provider [facility] 04-04-2022 Meningococcal Polysa ccharide A,C,Y,W-135 TT Conjugate Generic Provider [facility] 03-25-2017 hepatitis A vaccine, pediatric/adolescent dosage, 2 dose schedule Generic Provider [facility] 03-25-2017 meningococcal polysa ccharide (groups A, C, Y and W-135) diphtheria toxoid conjugate vaccine (MCV4P) Generic Provider [facility] 03-25-2017 tetanus toxoid, redu yoshi diphtheria toxoid, and acellular pertussis vaccine, adsorbed Generic Provider [facility] 04-10-2010 Diphtheria, tetanus toxoids and acellular pertussis vaccine, and poliovirus vaccine, inactivated Generic Provider [facility] 04-10-2010 measles, mumps, rube lla, and varicella virus vaccine Generic Provider [facility] 07-04-2009 novel influenza-H1N1 -09, preservative-free, injectable Generic Provider [facility] 03-24-2008 diphtheria, tetanus toxoids and acellular pertussis vaccine, unspecified formulation Generic Provider [facility] 03-24-2008 hepatitis B vaccine, pediatric or pediatric/adolescent dosage Generic Provider [facility] are 06-07-2005 measles, mumps and r ubella virus vaccine Generic Provider [facility] 06-07-2005 varicella virus vaccine [facility] 2004 DTaP-hepatitis B and poliovirus vaccine Generic Provider [facility] 2004 haemophilus influenz ae type b vaccine, PRP-T conjugate Generic Provider [facility] 2004 pneumococcal conjuga te vaccine, 7 valent Generic Provider [facility] 2004 DTaP-hepatitis B and poliovirus vaccine Generic Provider [facility] 2004 haemophilus influenz ae type b vaccine, PRP-T conjugate Generic Provider [facility] 2004 pneumococcal conjuga te vaccine, 7 valent Generic Provider [facility] 2004 DTaP-hepatitis B and poliovirus vaccine Generic Provider [facility] 2004 haemophilus influenz ae type b vaccine, PRP-T conjugate Generic Provider [facility] 2004 pneumococcal conjuga te vaccine, 7 valent Generic Provider [facility] 2004 hepatitis B vaccine, pediatric or pediatric/adolescent dosage Generic Provider [facility] are Payers Date Payer Category Payer Self-pay 2024 Unknown [id number] 2023 Private Health Insurance [employer] [id number] 2023 Unknown [employer] [id number] 2023-Present [address] [place] [address] [id number] 2004 Unknown [id number] 2.16.840.1.964511.3.579 .2.593 2004 Unknown [id number] 2.16.840.1.941657.3.579 .2.1259 2004 Unknown [id number] 2.16.840.1.516457.3.579 .2.1259 2004 Unknown [id number] 2.16.840.1.816187.3.579 .2.1259 2004 Unknown [id number] 2.16.840.1.549117.3.579 .2.1259 2004 Unknown [id number] 2.16.840.1.115440.3.579 .2.1259 2004 Unknown [id number] 2.16.840.1.410960.3.579 .2.1259 2004 Unknown [id number] 2.16.840.1.102099.3.579 .2.1259 2004 Unknown [id number] 2.16.840.1.148610.3.579 .2.1259 2004 Unknown [id number] 2.16.840.1.050066.3.579 .2.727 1976 Unknown [id number] 2.16.840.1.139465.3.579 .2.593 1976 Unknown [id number] 2.16.840.1.942866.3.579 .2.593 1976 Unknown [id number] 2.16.840.1.266136.3.579 .2.593 1976 Unknown [id number] 2.16.840.1.019077.3.579 .2.593 1976 Unknown [id number] 2.16.840.1.057416.3.579 .2.593 1976 Unknown [id number] 2.16.840.1.287029.3.579 .2.593 1976 Unknown [id number] 2.16.840.1.839445.3.579 .2.593 1959 Private Health Insurance [id number] 1959 Unknown [id number] Unknown [id number] 2.16.840.1.802377.3.579 .2.531 Unknown [id number] 2.16.840.1.474230.3.579 .2.531 Social History Date Type Detail Facility Unknown if ever smoked [employer] Other Start: 06-13-2023 End: 12-22-2024 Sex Assigned At [employer] Other Start: 06-13-2023 End: 01-23-2024 Tobacco smoking status NHIS Never smoked tobacco [facility] Start: 06-13-2023 Tobacco use and exposure Smokeless tobacco non-user [facility] Start: 06-13-2023 End: 12-22-2024 History of Social function [facility] Start: 2004 Sex Assigned At Not on file [facility] Start: 2004 Sex Assigned At Female [facility] Start: 02-25-2024 End: 12-22-2024 Alcoholic beverage intake Current drinker of alcohol (finding) [facility] Start: 01-26-2024 Gender identity Identifies as female gender (finding) [facility] Start: 01-26-2024 Sexual orientation Heterosexual (fin ding) [facility] NEGATED: Highlighted row [facility] Functional Status Date Assessment Result Facility 01-23-2024 Functional status Patient at Baseline [facility] Work Phone: Mental Status Date Assessment Result Facility 01-23-2024 Cognitive function Cognitive Sta tus Patient at Baseline [facility] Work Phone: History of Present illness Narrative 12-22-2024 Stella Stanley MD - 12/22/2024 11:30 AM EDT Note Date & Type Note Facility 12-22-2024 History of Presen t illness Narrative Images from the original note were not included. Stella Stanley MD Obstetrics and Gynecology Patient: David Abbott, : 2005 (19 y.o.) DOS 12/22/24 Exam Date: 12/22/2024 HPI: Pt has been on TriLo Sprintec. Unfortunately, she has been bleeding throught the las tpack. She started a new pack 3d ago and has no bleeding currently. She does admit missing a pill Visit Vitals BP 110/76 Wt 168 lb LMP 11/13/2024 BMI 25.54 kg/m OB Status Having periods Smoking Status Never BSA 1.91 m OB History Para Term AB Living 0 0 0 0 0 0 SAB IAB Ectopic Multiple Live Births 0 0 0 0 0 Obstetric Comments Hsx-Cx-Badxpfzn; every month, heavy blood loss, LMP: 11/13/24 until 12/12/24 Medication and Allergies Medication Documentation Review Audit Reviewed by Sherlyn Nation MA ([employer]) on 12/22/24 at 1129 Medication Order Taking? Sig Documenting Provider Last Dose Status ibuprofen 600 MG tablet [id number] Take 1 tablet by mouth every 6 (six) hours if needed Stella Stanley MD Active ISOtretinoin (Accutane) 40 MG capsule [id number] Twice daily Stella Stanley MD Active norgestimate-ethinyl estradiol (Ortho Tri-Cyclen LO) 0.18/0.215/0.25 MG-25 MCG tablet [id number] Take 1 tablet by mouth Daily Stella Stanley MD Active Allergies Allergen Reactions Penicillins Swelling Past Medical History: Diagnosis Date Ovarian cyst 01/22/24 Past Surgical History: Procedure Laterality Date OTHER SURGICAL HISTORY Operative laparoscopy, removal of cyst Physical Exam: Objective OBGyn Exam Assessment/Plan ICD-10-CM 1. DUB (dysfunctional uterine bleeding) N93.8 norgestimate-ethinyl estradiol (Sprintec 28) 0.25-35 MG-MCG tablet Switch to Sprintec No orders of the defined types were placed in this encounter. documented in this encounter [facility] History of Present illness Narrative 10-11-2024 Stella Stanley MD - 10/11/2024 10:45 AM EST Note Date & Type Note Facility 10-11-2024 History of Presen t illness Narrative Images from the original note were not included. Stella Stanley MD Obstetrics and Gynecology Patient: David Abbott, : 2005 (19 y.o.) DOS 10/11/24 Exam Date: 10/11/2024 HPI: Yearly exam. No issues with pain or cysts. Menses regular on OCP Visit Vitals BP 110/78 Wt 170 lb LMP 09/07/2024 BMI 25.85 kg/m OB Status Having periods Smoking Status Never BSA 1.92 m OB History Para Term AB Living 0 0 0 0 0 0 SAB IAB Ectopic Multiple Live Births 0 0 0 0 0 Obstetric Comments Vsj-Pt-Rxfdybux; every month, heavy blood loss, LMP: 09/07/24 Medication and Allergies Medication Documentation Review Audit Reviewed by Sherlyn Nation MA ([employer]) on 10/11/24 at 1041 Medication Order Taking? Sig Documenting Provider Last Dose Status ibuprofen 600 MG tablet [id number] Take 1 tablet by mouth every 6 (six) hours if needed Stella Stanley MD Active ISOtretinoin (Accutane) 40 MG capsule [id number] Twice daily Stella Stanley MD Active norgestimate-ethinyl estradiol (Ipv-Rg-Okwrzdgu) 0.18/0.215/0.25 MG-25 MCG tablet [id number] Take 1 tablet by mouth Daily Stella Stanley MD Active Allergies Allergen Reactions Penicillins Swelling Past Medical History: Diagnosis Date Ovarian cyst 01/22/24 Past Surgical History: Procedure Laterality Date OTHER SURGICAL HISTORY Operative laparoscopy, removal of cyst Physical Exam: Objective Physical Exam Constitutional: Appearance: Normal appearance. Genitourinary: Vulva normal. Pulmonary: Effort: Pulmonary effort is normal. Abdominal: General: Abdomen is flat. Palpations: Abdomen is soft. Neurological: Mental Status: She is alert. Associated Treatments and Results - ICD-10-CM 1. Well woman exam with routine gynecological exam Z01.419 2. Oral contraceptive pill surveillance Z30.41 Assessment/Plan No orders of the defined types were placed in this encounter. documented in this encounter [facility] History of Present illness Narrative 04-27-2024 Stella Stanley MD - 04/27/2024 3:45 PM EDT Note Date & Type Note Facility 04-27-2024 History of Presen t illness Narrative Images from the original note were not included. Stella Stanley MD Obstetrics and Gynecology Patient: David Abbott, : 2005 (18 y.o.) DOS 04/27/24 Exam Date: 04/27/2024 HPI: 2 weeks postop from LS. Kam cystectomy. She is wll. No pain. Path neg Visit Vitals BP 114/76 Wt 165 lb LMP 04/15/2024 BMI 25.09 kg/m OB Status Having periods Smoking Status Never BSA 1.89 m OB History Para Term AB Living 0 0 0 0 0 0 SAB IAB Ectopic Multiple Live Births 0 0 0 0 0 Obstetric Comments Hhc-Wp-Ucytlfap; every month, normal blood loss, LMP: 04/15/24 Medication and Allergies Medication Documentation Review Audit Reviewed by Sherlyn Nation MA ([employer]) on 04/27/24 at 1546 Medication Order Taking? Sig Documenting Provider Last Dose Status ibuprofen 600 MG tablet [id number] Take 1 tablet by mouth every 6 (six) hours if needed Stella Stanley MD Active ISOtretinoin (Accutane) 40 MG capsule [id number] Twice daily Stella Stanley MD Active norgestimate-ethinyl estradiol (Zpz-Re-Ytyytxqw) 0.18/0.215/0.25 MG-25 MCG tablet [id number] Take 1 tablet by mouth Daily Stella Stanley MD Active Allergies Allergen Reactions Penicillins Swelling Past Medical History: Diagnosis Date Ovarian cyst 01/22/24 Past Surgical History: Procedure Laterality Date OTHER SURGICAL HISTORY Operative laparoscopy, removal of cyst Physical Exam: Objective Physical Exam Abdominal: Palpations: Abdomen is soft. Comments: Incisions healed Associated Treatments and Results - ICD-10-CM 1. Surgery follow-up Z09 2. Cyst of right ovary N83.201 RTO yearly Assessment/Plan No orders of the defined types were placed in this encounter. documented in this encounter [facility] Evaluation note 07-07-2023 Note Date & Type [...] no improvement in 2 to 3 days [employer] Other Evaluation note Note Date & Type Note Facility Evaluation note Diagnosis Onset Date Abdominal pain acute Cyst of right ovary acute [facility] Work Phone: Evaluation note Note Date & Type Note Facility Evaluation note Diagnosis Surgery follow-up Cyst of right ovary Other and unspecified ovarian cyst documented in this encounter [facility] Evaluation note Note Date & Type Note Facility Evaluation note Diagnosis Well woman exam with routine gynecological exam- Primary Routine gynecological examination Oral contraceptive pill surveillance Cyst of ovary, unspecified laterality documented in this encounter [facility] Evaluation note Note Date & Type Note Facility Evaluation note Diagnosis DUB (dysfunctional uterine bleeding) Other disorder of menstruation and other abnormal bleeding from female genital tract documented in this encounter [facility] History and physical note Note Date & Type Note Facility History and physical note Note Date/Time January 23, 2024 7:59a m [facility] [address] [place] [address] WEIGHTER History & Physical Signed Patient: David Abbott MR#: [id number] : 2005 Acct:[id number] Age/Sex: 18 / F Adm Date: 4 Loc: 3S Room: [address] [place] [address] Type: ADM IN Attending Dr: Abena Alegre DO Copies to: DO Marbin Chaney MD~ Date of Service: 01/23/2024 DIRECTOR OF 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 Patient has been having off and on pain in the right lower quadrant for the past week, but it did worsen yesterday. On CT there was noted to be an enlarged right ovarian cyst and pelvic US was then performed. On US, the cyst measured 5x4cm, simple in appearance, and without torsion. This morning, patient is resting comfortably in bed. She has been able to sleep off and on throughout the night. She has only been medicated once overnight for pain. She states she has been on an OCP for control due to being on Accutane. She is no longer taking the Accutane and when questioned about the OCP, she states she has not been taking consistently. She denies any other complaints. Review of Systems Review of Systems All other systems reviewed & are negative unless noted below or in HPI [facility] Medical History No pertinent past medical history Surgical History No pertinent past surgical history Social History Smoking Status: Never smoker Substance Use Type: Alcohol Substance Abuse Comment: on occasion Allergies & Medications Medications and Allergies Allergies amoxicillin Allergy (Unknown, Verified 01/22/24 16:38) rash- swelling Home Medications isotretinoin 40 mg capsule (Accutane) 40 mg PO BID 01/22/24 [History Confirmed 01/22/24] norgestimate 0.18 mg/0.215 mg/0.25 mg-ethinyl estradiol 25 mcg tablet (Ihb-Lb-Ysspbsth) 1 tab PO DAILY 01/22/24 [History Confirmed 01/22/24] Active Medications Lactated Ringer's (Lactated Ringers) 1,000 mls @ 125 mls/hr IV .Q8H CHERI Stop: 01/22/25 01:14 Last Admin: 01/23/24 01:47 Dose: 125 mls/hr Ketorolac Tromethamine (Ketorolac Tromethamine 30 Mg/Ml Vial) 30 mg IV-PUSH Q6HPRN PRN Reason: Pain Stop: 01/28/24 01:10 Morphine Sulfate (Morphine Sulfate 2 Mg/Ml Vial) 4 mg IV-PUSH Q4H PRN PRN Reason: Pain Last Admin: 01/23/24 01:47 Dose: 4 mg Ondansetron HCl (Ondansetron 4 Mg/2 Ml Vial) 4 mg IV-PUSH Q6H PRN PRN Reason: Nausea And Vomiting Stop: 01/22/25 01:10 Sodium Chloride (Sodium Chloride 0.9 % 10 Ml Syringe) 0 ml IV-PUSH PRN PRN PRN Reason: Flush Stop: 01/21/25 16:36 Last Admin: 01/22/24 22:44 Dose: 10 ml DIRECTOR OF EMPLOYEE DEVELOPMENT - Exam Physical Exam Vital signs: Temp 98.5 F 01/23/24 05:23 Pulse 62 01/23/24 05:23 Resp 14 01/23/24 05:23 BP 122/73 01/23/24 05:23 Pulse Ox 96 01/23/24 05:23 O2 Del Method Room Air 01/23/24 05:23 Constitutional Constitutional: no acute distress Routine Respiratory Exam Respiratory: Present CTA bilaterally; Absent accessory muscle use Routine Cardiovascular Exam Cardiovascular: Present RRR Routine Abdominal Exam Abdominal: Present soft and normoactive bowel sounds; Absent tenderness, distended or rebound Routine Extremities Exam Extremities: Absent cyanosis Routine Neurological Exam Neurological: Present alert and oriented X3 DIRECTOR OF EMPLOYEE DEVELOPMENT - Results Laboratory Results - Last 48 hrs. 01/22/24 19:39: Corrected WBC 10.2, Uncorrected WBC Count 10.2, RBC 4.23, Hgb 13.7, Hct 40.1, MCV 94.6, MCH 32.3, MCHC 34.2, RDW 13.0, Plt Count 375, MPV 7.3,Neut % (Auto) 82.3, Lymph % (Auto) 14.7, Piatt % (Auto) 2.4, Eos % (Auto) 0.2, Baso % (Auto) 0.4, Nucleat RBC Rel Count 0.0, Neut # (Auto) 8.4 H, Lymph # (Auto) 1.5, Piatt # (Auto) 0.2, Eos # (Auto) 0.0, Baso # (Auto) 0.0, Monocyte Dist Width 15.02, ESR 20 H, PHA Creatinine Clear 134.44, Sodium 131 L, Potassium3.9, Chloride 98, Carbon Dioxide 22.7, Anion Gap 14.2, BUN 11, Creatinine 0.72, Est GFR (CKD-EPI) > 60.0, Glucose 110 H, Calcium 9.7, Total Bilirubin 0.4, AST 26, ALT 13, Alkaline Phosphatase 53, C-Reactive Prot, Quant 0.7 H, Total Protein8.0, Albumin 4.7, Globulin 3.3, Albumin/Globulin Ratio 1.4, Lipase 11.0 01/22/24 18:25: Urine Color Yellow, Urine Appearance Clear, Urine pH 8.0, Ur Specific Jensen 1.033 H, Urine Protein Trace H, Urine Glucose (UA) Normal, Urine Ketones 3+ H, Urine Occult Blood Negative, Urine Nitrite Negative, Urine Bilirubin Negative, Urine Urobilinogen Normal, Ur Leukocyte Esterase Negative, Urine RBC None seen, Urine WBC 0-1, Ur Squamous Epith Cells 3-4 H, Urine Bacteria None seen, Hyaline Casts 0-8, Urine HCG, Qual Negative DIRECTOR OF EMPLOYEE DEVELOPMENT - A/P (1) Cyst of right ovary: Plan Review of CT and pelvic US showing simple cyst in right ovary measuring 5x4cm, with total ovarian measurement being 8.9cm x 8.9cm. No torsion on US. We did discuss management and recommend watchful waiting at this time. She does not have an acute abdomen and she is comfortable on exam. Torsion precautions reviewed with the patient. We will have her follow up with Dr. Stanley per mom's request next week. Patient and mother comfortable with plan. Will discharge withpain medications and she is to return with any worsening pain. Documented By: Abena Alegre DO 01/23/24 07 53 Signed By: <Electronically signed by Abena Alegre DO> 01/23/24 2185 [facility] Work Phone: Summary Purpose Family History No Family History Records FoundNo Family History Records FoundNo Family History Records FoundNo Family History Records Found Advance Directives No Advanced Directives Records Found Advance Directive Response Recorded Date/ Time Advance Directives No January 21 6:45pm Chief Complaint and Reason for Visit Chief Complaint right side abd pain Reason for Visit Abdominal pain Cyst of right ovary Additional Source Comments INFORMATION SOURCE (unrecogn ized section and content) DATE CREATED AUTHOR 09/20/2019 [facility] DATE CREATED AUTHOR AUTHOR'S ORGANIZ ATION 04/19/2024 [facility] DATE CREATED AUTHOR AUTHOR'S ORGANIZ ATION 12/24/2024 [facility] EPIC DATE CREATED AUTHOR AUTHOR'S ORGANIZ ATION 02/06/2025 [facility] REASON FOR VISIT (unrecogniz ed section and content) SORE THROAT, POSSIBLE STREP? Care Teams (unrecognized sec tion and content) Team Status: Active Member Role Status Dates Marbin Keith MD Primary Care Provider Active Team Status: Inactive Member Role Status Dates Maribn Keith MD Primary Care Provider Active Start: January 23, 2024 End: January 23, 2024 Cj Santiago PA-C Emergency Provider Active Start: January 23, 2024 End: January 23, 2024 Abena Alegre DO Admit Provider, Attending Provide r Active Start: January 23, 2024 End: January 23, 2024 Field Training Manager Relationship Specialty Start Date End Date Ana Cristina Mejia MD [address] [facility] [address] [place] [address] PCP - Medical [employer] 01/23/23 Ana Cristina Mejia MD [address] [facility] [address] [place] [address] PCP - General Family Medicine 12/31/22 Team Status: Active Member Role Status Dates Marbin Keith MD Primary Care Provider Active Start: January 23, 2024 Cj Santiago PA-C Emergency Provider Active Start: January 23, 2024 Abena Alegre DO Admit Provider, Attending Provide r Active Start: January 23, 2024 Team Status: Inactive Member Role Status Dates Stella Stanley MD Attending Provider Active Star t: April 12, 2024 End: April 12, 2024 Field Training Manager Relationship Specialty Start Date End Date Ana Cristina Mejia MD [address] [place] [address] PCP - General Family Medicine 12/31/22 Milan Mathews MD [address] [place] [address] PCP - Medical [employer] 02/22/19 08/24/99 Field Training Manager Relationship Specialty Start Date End Date Ana Cristina Mejia MD [address] [place] [address] PCP - General Family Medicine 12/31/22 Milan Mathews MD [address] [place] [address] PCP - Medical [employer] 02/22/19 08/24/99 Field Training Manager Relationship Specialty Start Date End Date Ana Cristina Mejia MD [address] [place] [address] PCP - General Family Medicine 12/31/22 Milan Mathews MD [address] [place] [address] PCP - Medical [employer] 02/22/19 08/24/99 Field Training Manager Relationship Specialty Start Date End Date Ana Cristina Mejia MD [address] [place] [address] PCP - General Family Medicine 12/31/22 Milan Mathews MD [address] [place] [address] PCP - Medical [employer] 02/22/19 08/24/99 Field Training Manager Relationship Specialty Start Date End Date Ana Cristina Mejia MD [address] [facility] [address] [place] [address] PCP - General Family Medicine 12/31/22 Milan Mathews MD [address] [facility] [address] [place] [address] PCP - Medical [employer] 02/22/19 08/24/99 Goals (unrecognized section and content) Goals may be documented in a n alternate section FOR RECORDS PERTAINING TO PATIENTS WHO ARE [...] BE BASED ON THE PRIMARY CLINICAL RECORDS. [employer] provides no warranty or guarantee of the accuracy or completeness of information in this document.
[2025-02-23 05:07] LABS: QuantiFERON-TB Gold Plus Negative (Negative)
== END 2025-02-21 11:03 | disposition home or self-care (01) ==
PROVIDERS: PCP Family Medicine; Visit Provider Nurse Practitioner
DX: Z02.0 Encounter for examination for admission to educational institution (principal); Z11.1 Encounter for screening for respiratory tuberculosis
CPT/HCPCS: 36415; 86480

== ENCOUNTER 2025-05-14 08:39 | Outpatient (OUT) | payer OTHER, SELFPAY ==
--- OUTSIDE RECORDS SUMMARY | 2025-05-11 14:15 | XMS_ITS | Encounter Summary ---
Author Organization [facility] Address [address] [place] [address] Care Team Providers Care Event Staff Name Role Phone Ana Cristina Mejia MD Primary Care Provider [phone] Milan Mathews MD Unavailable [phone] Encounter Details Date Type Department Care Team (Late st Contact Info) Description 05/11/2025 2:15 PM EDT Office Visit [facility]Y [facility] [address] [place] [phone] Jeff Stanley MD [address] [place] [address] Menorrhagia with regular cycle (Primary Dx); Alopecia; Syncope, unspecified syncope type Social History Tobacco Use Types Packs/Day Years Used Date Smoking Tobacco: Never Smokeless Tobacco: Never Alcohol Use Standard Drinks/Week Comments Yes 1 (1 standard drink = 0.6 oz pur e alcohol) Comments No Sex and Gender Information Value Date Recorded Sex Assigned at Female 01/26/2024 1:48 PM EDT Legal Sex Female 7:09 PM EDT Gender Identity Female 01/26/2024 1:48 PM EDT Sexual Orientation Straight 01/26/2024 1: 48 PM EDT documented as of this encounter Last Filed Vital Signs Vital Sign Reading Time Taken Comments Blood Pressure 122/78 05/11/2025 2:08 PM EDT Pulse - - Temperature - - Respiratory Rate - - Oxygen Saturation - - Inhaled Oxygen Concentration - - Weight 73 kg (161 lb) 05/11/2025 2:08 PM EDT Height - - Body Mass Index 24.48 06/13/2023 12:04 PM EDT documented in this encounter Progress Notes * Jeff Stanley MD - 05/11/2025 2:15 PM EDT Images from the original note were not included. Jeff Stanley MD Obstetrics and Gynecology Patient: Theresa Abbott, : 2005 (19 y.o.) DOS 05/11/25 Exam Date: 05/11/2025 HPI: Pt is on her 2nd OCP. She cont to hve heavy/prolonged bleeding lasting 10-15 days each cycle. She feels like she might pass out. She c/o increased hair loss. Visit Vitals BP 122/78 Wt 161 lb LMP 05/02/2025 BMI 24.48 kg/m?? OB Status Having periods Smoking Status Never BSA 1.87 m?? OB History Para Term AB Living 0 0 0 0 0 0 SAB IAB Ectopic Multiple Live Births 0 0 0 0 0 Obstetric Comments Toj-Qj-[id number]; every month, heavy to normal blood loss, LMP: 05/02/25 Medication and Allergies Medication Documentation Review Audit Reviewed by Sherlyn Nation MA (Hazardous Materials Driver) on 05/11/25 at 1409 Medication Order Taking? Sig Documenting Provider Last Dose Status ibuprofen 600 MG tablet [id number] Take 1 tablet by mouth every 6 (six) hours if needed Jeff Stanley MD Active ISOtretinoin (Accutane) 40 MG capsule [id number] Twice daily Jeff Stanley MD Active norgestimate-ethinyl estradiol (Sprintec 28) 0.25-35 MG-MCG tablet [id number] Take 1 tablet by mouth Daily Jeff Stanley MD Active Allergies Allergen Reactions Penicillins Swelling Past Medical History: Diagnosis Date Ovarian cyst 01/22/24 Past Surgical History: Procedure Laterality Date OTHER SURGICAL HISTORY Operative laparoscopy, removal of cyst Physical Exam: Objective OBGyn Exam Assessment/Plan ICD-10-CM 1. Menorrhagia with regular cycle N92.0 2. Alopecia L65.9 3. Postural dizziness with presyncope R42 R55 Check labs Follow up after testing No orders of the defined types were placed in this encounter. documented in this encounter Plan of Treatment Upcoming Encounters Date Type Department Care Team (Late st Contact Info) Description 06/08/2025 1:30 PM EDT Office Visit [facility] [place] [facility] [address] [place] [phone] Jeff Stanley MD [address] [place] [address] 10/13/2025 11:30 AM EST Office Visit LAURY [facility]NER [address] [place] [phone] Jeff Stanley MD [address] [place] [address] Scheduled Orders Name Type Priority Associated Diagnoses Orde r Schedule CBC Lab Routine Menorrhagia with regular cycle Alopecia Syncope, unspecified syncope type Expected: 05/11/2025 (Approximate), Expires: 05/11/2026 TSH Lab Routine Menorrhagia with regular cycle Alopecia Syncope, unspecified syncope type Expected: 05/11/2025 (Approximate), Expires: 05/11/2026 Testosterone, free, total Lab Routine Menorrhagia with regular cycle Alopecia Syncope, unspecified syncope type Expected: 05/11/2025 (Approximate), Expires: 05/11/2026 Glucose, fasting Lab Routine Menorrhagia with regular cycle Alopecia Syncope, unspecified syncope type Expected: 05/11/2025 (Approximate), Expires: 05/11/2026 Insulin, fasting Lab Routine Menorrhagia with regular cycle Alopecia Syncope, unspecified syncope type Expected: 05/11/2025 (Approximate), Expires: 05/11/2026 DHEA-sulfate Lab Routine Menorrhagia with regular cycle Alopecia Syncope, unspecified syncope type Expected: 05/11/2025 (Approximate), Expires: 05/11/2026 documented as of this encounter Visit Diagnoses Diagnosis Menorrhagia with regular cycle- Primary Alopecia Syncope, unspecified syncope type documented in this encounter Care Teams Event Staff Relationship Specialty Start Date End Date Ana Cristina Mejia MD [address] [address] PCP - General Family Medicine 12/31/22 Milan Mathews MD [address] [address] PCP - Medical [employer] 02/22/19 08/24/99 documented as of this encounter
--- OUTSIDE RECORDS SUMMARY | 2025-05-14 08:45 | XMS_ITS | Clinical Summary ---
Author Organization [facility] Address [address] [place] [address] Care Team Providers Care Nurse Emergency Name Role Phone Ana Cristina Mejia MD Primary Care Provider [phone] Milan Mathews MD Unavailable [phone] Allergies Active Allergy Reactions Criticality Noted Date Comments Penicillins Swelling 06/13/2023 Medications ibuprofen 600 MG tablet Take 1 tablet by mouth every 6 (six) hours if needed 01/23/2024 Active ISOtretinoin (Accutane) 40 MG capsule Twice daily 01/22/2024 Active norgestimate-eth inyl estradiol (Sprintec 28) 0.25-35 MG-MCG tabletIndication s:DUB (dysfunctional uterine bleeding) Take 1 tablet by mouth Daily 28 tablet 12 12/22/2024 Active Encounters Date Type Department Care Team Description 05/11/2025 2:15 PM EDT Office Visit NOM[facility]NER [address] [place] [address] Jeff Stanley MD Menorrhagia with regular cycle (Primary Dx); Alopecia; Syncope, unspecified syncope type 05/11/2025 Bamboo flowsheet [facility] [place] [facility] [address] [place] [address] Jeff Stanley MD 05/11/2025 Travel 05/04/2025 Telephone [facility] [place] [facility] [address] [place] [address] Jeff Stanley MD 02/21/2025 Clinisync Result Encounter [facility] External Department Unsolicited Provider, Generic External Data from Last 3 Months Immunizations Immunization Administration Dates Next Due DTaP / Hep B / IPV 2004,2004, 004 DTaP / IPV 04/10/2010 DTaP, Unspecified 03/24/2008 Hep A, ped/adol, 2 dose 04/04/2022,03/25/2017 Hep B, Adolescent or Pediatric 03/24/2008,2003 Hib (PRP-T) 2004,2004,2004 MMR 06/07/2005 MMRV 04/10/2010 Meningococcal MCV4P 03/25/2017 Meningococcal Polysaccharide A,C,Y,W-135 TT Conjugate 04/04/2022 Novel [id number], preservative-free 07/04 Pneumococcal Conjugate PCV 7 2004,10/08/19 05,2004 Tdap 03/25/2017 Varicella 06/07/2005 Family History Medical History Relation Name Comments Hypertension Father Breast cancer Maternal Grandmother Marge Sara Migraines Mother Keira Abbott Relation Name Status Comments Father Alive Maternal Grandmother Marge Sara Mother Keira Abbott Alive Social History Tobacco Use Types Packs/Day Years Used Date Smoking Tobacco: Never Smokeless Tobacco: Never Tobacco Cessation:Counseling Given: Not Answered Alcohol Use Standard Drinks/Week Comments Yes 1 (1 standard drink = 0.6 oz pur e alcohol) Comments No Sex and Gender Information Value Date Recorded Sex Assigned at Female 01/26/2024 1:48 PM EDT Legal Sex Female 7:09 PM EDT Gender Identity Female 01/26/2024 1:48 PM EDT Sexual Orientation Straight 01/26/2024 1: 48 PM EDT Last Filed Vital Signs Vital Sign Reading Time Taken Comments Blood Pressure 122/78 05/11/2025 2:08 PM EDT Pulse 89 06/13/2023 12:04 PM EDT Temperature 37.4 C (99.4 F) 06/13/2023 12:04 PM EDT Respiratory Rate - - Oxygen Saturation 99% 06/13/2023 12:04 PM EDT Inhaled Oxygen Concentration - - Weight 73 kg (161 lb) 05/11/2025 2:08 PM EDT Height 172.7 cm (5' 8 ) 06/13/2023 12:04 PM EDT Body Mass Index 24.48 06/13/2023 12:04 PM EDT Plan of Treatment Upcoming Encounters Date Type Department Care Team (Late st Contact Info) Description 06/08/2025 1:30 PM EDT Office Visit LAURY T[facility]NER [address] [place] [phone] Jeff Stanley MD [address] [place] [address] 10/13/2025 11:30 AM EST Office Visit LAURY TURNER [address] [place] [phone] Jeff Stanley MD [address] [place] [address] Health Maintenance Due Date Last Done Comments Influenza Vaccine (#1) 2025 Procedures Procedure Name Priority Date/Time Associated Diagnosis Comments QUANTIFERON-TB GOLD PLUS Routine 02/21/2025 11:13 AM EDT from Last 3 Months Results * QUANTIFERON-TB GOLD PLUS (02/21/2025 11:13 AM EDT) QUANTIFERON INCUBATION . TBH Comment: Incubation performed. Reference Range: . QUANTIFERON-TB GOLD PLUS Negative Negative TBH Comment: No response to M tuberculosis antigens detected. Infection with M tuberculosis is unlikely, but high risk individuals should be considered for additional testing (ATS/IDSA/CDC Clinical Practice Guidelines, 2017). The reference range is an Antigen minus Nil result of <0.35 IU/mL. Chemiluminescence immunoassay methodology Performed at: [facility], [place] [id number] [facility]istic Health Practitioner: Jonh Valenzuela PhD, Phone: [phone] QUANTIFERON CRITERIA Comment . TB Comment: QuantiFERON-TB Gold Plus is a qualitative indirect test for M tuberculosis infection (including disease) and is intended for use in conjunction with risk assessment, radiography, and other medical and diagnostic evaluations. The QuantiFERON-TB Gold Plus result is determined by subtracting the Nil value from either TB antigen (Ag) value. The Mitogen tube serves as a control for the test. QUANTIFERON TB1 AG VALUE 0.05 . IU/mL TBH QUANTIFERON TB2 AG VALUE 0.04 . IU/mL TBH QUANTIFERON NIL VALUE 0.02 . IU/mL TBH QUANTIFERON MITOGEN VALUE >10.00 . IU/mL TBH 02/21/2025 11:1 3 AM EDT 02/21/2025 11:14 AM EDT Narrative [facility] - 02/23/2025 5:07 AM EDT us Generic External Data Provider LAB BLOOD ORDERAB LES Final Result [facility] from Last 3 Months Insurance [employer] Care Teams Nurse Emergency Relationship Specialty Start Date End Date Ana Cristina Mejia MD [address] [facility] [address] [place] [address] PCP - General Family Medicine 12/31/22 Milan Mathews MD [address] [facility] [address] [place] [address] PCP - Medical [employer] 02/22/19 08/24/99
--- OUTSIDE RECORDS SUMMARY | 2025-05-14 08:45 | XMS_ITS | Encounter Summary ---
Author Organization [facility] Address [address] [place] [address] Care Team Providers Care Acute Care Assistant Name Role Phone Ana Cristina Mejia MD Primary Care Provider [phone] Milan Mathews MD Unavailable [phone] Encounter Details Date Type Department Care Team (Late st Contact Info) Description 05/04/2025 Telephone [facility] [place] [facility] [address] [facility] [address] [place] [phone] Jeff Stanley MD [address] [facility] [address] [place] [address] Social History Tobacco Use Types Packs/Day Years [...] PM EDT documented as of this encounter Miscellaneous Notes * Telephone Encounter - Kristina Huynh LPN - 05/04/2025 2:17 PM EDT Spoke with pt mother advised her BJP would want to see pt first to determine what test to have done, she voiced understanding. Pt is scheduled 05/11/25 * Telephone Encounter - Carmen Weaver - 05/04/2025 11:00 AM EDT Patient's mom called to make an apt for the patient. The patient had surgery last year to remove cyst. The patient's periods have been irregular as well as some hair loss. The patient had a moment the other day she thought she was going to pass out. The mom was wondering if she may be having hormonal issues. She is wondering if labwork could be sent over to [facility] and to set up a follow up to go over everything after. documented in this encounter Plan of Treatment Upcoming Encounters Date Type Department Care Team (Late st Contact Info) Description 06/08/2025 1:30 PM EDT Office Visit [facility] [place] [facility] [address] [place] [phone] Jeff Stanley MD [address] [place] [address] 10/13/2025 11:30 AM EST Office Visit [facility] T[facility]NER [address] [place] [phone] Jeff Stanley MD [address] [place] [address] documented as of this encounter Visit Diagnoses Not on filedocumented in this encounter Care Teams Acute Care Assistant Relationship Specialty Start Date End Date Ana Cristina Mejia MD [address] [facility] [address] [place] [address] PCP - General Family Medicine 12/31/22 Milan Mathews MD [address] [place] [address] PCP - Medical [employer] 02/22/19 08/24/99 documented as of this encounter
--- OUTSIDE RECORDS SUMMARY | 2025-05-14 08:45 | XMS_ITS | Encounter Summary ---
Author Organization [facility] Address [address] [place] [address] Care Team Providers Care Factory Hand Name Role Phone Ana Cristina Mejia MD Primary Care Provider [phone] Milan Mathews MD Unavailable [phone] Encounter Details Date Type Department Care Team (Late st Contact Info) Description 04/16/2024 Abstract LAURY TURNER [address] [place] [phone] Jeff Stanley MD [address] [place] [address] Social History Tobacco Use Types Packs/Day Years [...] PM EDT documented as of this encounter Plan of Treatment Upcoming Encounters Date Type Department Care Team (Late st Contact Info) Description 06/08/2025 1:30 PM EDT Office Visit LAURY TURNER [address] [place] [phone] Jeff Stanley MD [address] [facility] [address] [place] [address] 10/13/2025 11:30 AM EST Office Visit NOMYael ANTONIOJhon [address] [facility] [address] [place] [phone] Jeff Stanley MD [address] [facility] [address] [place] [address] documented as of this encounter Visit Diagnoses Not on filedocumented in this encounter Care Teams Factory Hand Relationship Specialty Start Date End Date Ana Cristina Mejia MD [address] [facility] [address] [place] [address] PCP - General Family Medicine 12/31/22 Milan Mathews MD [address] [facility] [address] [place] [address] PCP - Medical [place] [employer] 02/22/19 08/24/99 documented as of this encounter
--- OUTSIDE RECORDS SUMMARY | 2025-05-14 08:45 | XMS_ITS | Encounter Summary ---
Author Organization [facility] Address [address] [place] [address] Care Team Providers Care Loom Blower Name Role Phone Ana Cristina Mejia MD Primary Care Provider [phone] Milan Mathews MD Unavailable Encounter Details Date Type Department Care Team (Latest Contact Info) Description 05/11/2025 Travel Social History Tobacco Use Types Packs/Day Years [...] TURNER [address] [place] [phone] Jeff Stanley MD [address] [place] [address] 10/13/2025 11:30 AM EST Office Visit LAURY MOONGYN [address] [place] [phone] Jeff Stanley MD [address] [place] [address] documented as of this encounter Visit Diagnoses Not on filedocumented in this encounter Care Teams Loom Blower Relationship Specialty Start Date End Date Ana Cristina Mejia MD [address] [facility] [address] [place] [address] PCP - General Family Medicine 12/31/22 Milan Mathews MD [address] [facility] [address] [place], [place] [phone] PCP - Medical [place] [employer] 02/22/19 08/24/99 documented as of this encounter
--- OUTSIDE RECORDS SUMMARY | 2025-05-14 08:45 | XMS_ITS | CCD ---
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 Name Role Phone MISC, DOCTOR Admitting Unavailable [...] Primary Care Provider GEOFF Santiago Emergency Provider DO Abena Alegre Admit Provider DO Abena Alegre Attending Provider MD Stella Stanley Attending Provider [phone] Stella Stanley Admitting Unavailable Stella Stanley Attending Unavailable NO FAMILY, PHYSICIAN Primary Care Unavailable Abena Alegre Attending Unavailable Marbin Keith Primary Care Unavailable Abena Aleger Admitting Unavailable Milan Mathews MD Unavailable [phone] INDY Jones Attending Unavailable STELLA STANLEY Attending Unavailable STELLA STANLEY Attending Unavailable STELLA STANLEY Attending Unavailable Allergies Allergy Classification Reported Allergen(s) Allergy Type Date of Onset Reaction(s) Facility (2 sources) Amoxicillin; 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: [amoxicillin] Drug Allergy 4 rash- swelling [facility] Repository (15 sources) Penicillins; 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: [penicillins] Drug Allergy 3 [...] mg / norgestimate 0.25 mg oral tablet (19 sources) Progestin, Estrogen Start: 12-22-2024 End: 12-22-2025 [...] tablet by mouth once daily norgestimate-ethinyl estradiol (Ysk-At-Xwyacqeh) 0.18/0.215/0.25 MG-25 MCG tablet Indications: Cyst of ovary, unspecified laterality Take 1 tablet by mouth Daily 28 tablet 12 01/26/2024 10/11/2024 Discontinued (Reorder) Start: 01-26-2024 take 1 tablet by lilia th once daily norgestimate-ethinyl estradiol (Ijd-Hv-Tpnlpzeo) 0.18/0.215/0.25 MG-25 MCG tablet Indications: Cyst of ovary, unspecified laterality Take 1 tablet by mouth Daily 28 tablet 12 01/26/2024 Active Start: 06-02-2023 take 1 tablet by lilia th in the morning Jde-Bf-Puleektu 0.18/0.215/0.25 MG-25 MCG tablet Take 1 tablet by mouth in the morning. 0 06/02/2023 Active take 1 tablet by lilia th once daily Fcw-Ws-Cgykbifm 0.18/0.215/0.25 MG-25 MCG TAKE ONE TABLET BY MOUTH DAILY Oral for 28 Days Active fluticasone propionate 0.05 mg/actuat metered dose nasal spray (1 source) Corticosteroid Start: 07-07-2023 take 2 spray(s) nasal route once daily Fluticasone Propionate 50 MCG/ACT 2 sprays Nasally Once a day for 14 day(s) Jun, Active ibuprofen 600 mg oral tablet (15 sources) Nonsteroidal Anti-inflammatory Drug Start: 01-23-2024 take 1 tablet by mouth every six hours as needed ibuprofen 600 MG tablet Take 1 tablet by mouth every 6 (six) hours if needed 01/23/2024 Active ISOtretinoin 40 mg oral capsule (16 sources) Retinoid Start: 01-22-2024 ISOtretinoin (Accutane) 40 MG capsule Twice daily 01/22/2024 Active Norgestimate-Ethin yl Estradiol (Sau-Sa-Euknovzz) 0.18/0.215/0.25 mg-25 mcg tablet (3 sources) Start: 01-22-2024 take 1 tablet by mouth once daily Norgestimate-Ethi nyl Estradiol (Fki-Sh-Nlfqtgmw) 0.18/0.215/0.25 mg-25 mcg tablet Active 1 TAB [...] for surveillance of contraceptive pills] 10-07-2024 Episodic Menstrual disorders (2 sources) Menorrhagia; 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: [Excessive and frequent menstruation with regular cycle] 05-11-2025 Chronic Other female genital disorders (2 sources) Abnormal uterine bleeding; 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: [Other specified abnormal uterine and vaginal bleeding] 12-22-2024 Chronic Other skin disorders (2 sources) Alopecia; 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: [Nonscarring hair loss, unspecified] 05-11-2025 Episodic Other upper respiratory infections (3 sources) Streptococcal sore throat; 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: [Strep throat] Episodic Ovarian cyst (11 sources) Cyst of ovary; 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: [Unspecified ovarian cyst, right side] Onset: 04-12-2024 01-22-2024 Episodic Syncope (2 sources) Syncope; 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: [Syncope and collapse] 05-11-2025 Episodic Past or Other Problems Problem Classification Problem Date Documented Da te Episodic/Chronic Other aftercare (1 source) Other shelter (current) drug therapy; 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: [OTH MEDICAL MASSAGE THERAPIST CURRENT DRUG THERAPY] Onset: 06-17-2019 Episodic Other aftercare (2 sources) Surgical follow-up; 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: [Encounter for follow-up examination after completed treatment for conditions other than malignant neoplasm] 04-21-2024 Episodic Other skin disorders (4 sources) Acne vulgaris; 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: [ACNE VULGARIS] Onset: 06-14-2019 Episodic Results Test Name Value Interpretation Reference Range Facility QUANTIFERON-TB GOLD PLUSon 0 02-23-2025 QUANTIFERON CRITERIA Comment . [facility] Comment on above: QuantiFERON-TB Gold Plus is a qualitative indirect test for M tuberculosis infection (including disease) and is intended for use in conjunction with risk assessment, radiography, and other medical and diagnostic evaluations. The QuantiFERON-TB Gold Plus result is determined by subtracting the Nil value from either TB antigen (Ag) value. The Mitogen tube serves as a control for the test. QUANTIFERON INCUBATION . [facility] Comment on above: Incubation performed . Reference Range: . QUANTIFERON MITOGEN VALUE >10.00 . IU/mL [facility] QUANTIFERON NIL VALUE 0.02 . IU/mL [facility] QUANTIFERON TB1 AG VALUE 0.05 . IU/mL [facility] QUANTIFERON TB2 AG VALUE 0.04 . IU/mL [facility] QUANTIFERON-TB GOLD PLUS Negative Negative [facility] Comment on above: No response to M tub erculosis antigens detected. Infection with M tuberculosis is unlikely, but high risk individuals should be considered for additional testing (ATS/IDSA/CDC Clinical Practice Guidelines, 2017). The reference range is an Antigen minus Nil result of <0.35 IU/mL. Chemiluminescence immunoassay methodology Performed at: [facility] [id number] Department Specialist: Jonh Valenzuela PhD, Phone: [phone] [facility] Office/Clini c Noteon 02-04-2025 Family [...] for wellness visit. needs physical to start [employer] in March. vaccine record reviewed. physical exam WNL. all questions answered. RTC as needed Ordered: Est Preventative 18 to 39 years 32567 2. BMI 25.0-25.9,adult (Z68.25: Body mass index [BMI] 25.0-25.9, adult) BMI education given Ordered: Est Preventative 18 to 39 years 31818 3. Non-smoker (Z78.9: Other specified health status) continue not smoking Ordered: Est Preventative 18 to 39 years [address] Follow-up No qualifying data available Problem List/Past [...] hepatitis B pediatric vaccine 2004 Recorded Normal [facility] Comment on above: Result Comment: Elec tronically Signed By: Karen PUTNAM, Lianne Pérez\.br\Date and Time Signed: 02/04/25 10:04 EDT Michael 04-12-2024 L Specimen: [id number] Received: 04/12/24 Status: [facility] Re Num: [id number] Spec Type: Surgical Subm Dr: STELLA STANLEY MD Tissues: A Ovary - Biopsy (LEFT OVARIAN CYST) B Ovary - Biopsy (RIGHT OVARIAN CYST) Procedures: HE/3, Gross/Micro L4/2 Age/ Patient Sex Location Account Attending Physician Theresa Abbott / [place] [id number] STELLA STANLEY MD SPEC NUM: [id number] RECD: 04/12/24 STATUS: [facility] NUM: [id number] ARY: 04/12/[address]: STELLA STANLEY MD ENTERED: 04/12/[address] [facility] [address]: [facility] SPEC TYPE: Surgical DEPT: S ENTERED BY: [id number] RECV BY: [id number] ORDERED: HE/3, Gross/Micro L4/2 ORDERED: HE/3, Gross/Micro [...] cyst measuring 0.4 cm in greatest dimension. Fixed Route Bus Operator sections are submitted in cassettes B1-B2. -- Specimen: [id number] Received: 04/12/24 Status: [facility] Num: [id number] Spec Type: Surgical Subm Dr: STELLA STANLEY MD Tissues: A Ovary - Biopsy (LEFT OVARIAN CYST) B Ovary - Biopsy (RIGHT OVARIAN CYST) Procedures: HE/3, Gross/Micro L4/2 -- Patient: Theresa Abbott [id number] (Continued) -- Specimen: [id number] Received: 04/12/24 (Continued) Signed (signatu re on file) Katharina Schmitt MD 04/13/24 1518 -- Specimen: [id number] Received: 04/12/24 Status: [facility] Num: [id number] Spec Type: Surgical Subm Dr: STELLA STANLEY MD Tissues: A Ovary - Biopsy (LEFT OVARIAN CYST) B Ovary - Biopsy (RIGHT OVARIAN CYST) Procedures: HE/3, Gross/Micro L4/2 -- Patient: Theresa Abbott [id number] (Continued) -- Specimen: [id number] Received: 04/12/24 (Continued) CPT Codes 30630l4 -- -- Specimen: [id number] Received: 04/12/24 Status: [facility] Num: [id number] Spec Type: Surgical Subm Dr: STELLA STANLEY MD Tissues: A Ovary - Biopsy (LEFT OVARIAN CYST) B Ovary - Biopsy (RIGHT OVARIAN CYST) Procedures: LAZARUS/Maddison, Gross/Micro L4/2 -- Patient: Theresa Abbott [id number] (Continued) -- Signed (signatu re on file) Katharina Schmitt MD 04/13/24 6201 Normal [facility] transvaginalon 01-23-2024 US transvaginal [facility] Main [place] [address] [place] [address] Ultrasound Report Signed Patient: Theresa Abbott MR#: [id number] : 2005 Acct:[id number] Age/Sex: 18 / F ADM Date: 01/23/24 Loc: Room: [address] [place] [address] Type: ADM IN Attending Dr: Abena Alegre DO Ordering Provider: Cj Santiago PA-C Date of Service: 01/22/24 US/US pelvic complete: right sided pain, large cyst and rule out torsion ([id number]) US/US transvaginal: rt sided pelvic pain Copies [...] Pastora Granger M.D.01/23/2024 8:43 AM Dictation Location: [place] [address] Tech: Vane Parkerer Transcribed By: RAKESH 01/23/24842 Dictated By: Pastora Granger MD 01/23/24829 Signed By: 01/23/24842 Normal [facility] Alanine aminotransferase [En zymatic activity/volume] in Serum or PlasmaOrdered By: Cj Santiago on 01-22-2024 ALT [Catalytic activity/Vol] 13 U/L Normal 7-52 [facility] Comment on above: Performed By: #### C RP, CBC, ESR, CMP #### [facility] [address] [place] [address] [place] Albumin [Mass/volume] in Ser um or Plasma by Bromocresol green (BCG) dye binding methoOrdered By: Cj Santiago on 01-22-2024 Albumin BCG dye [Mass/Vol] 4.7 g/dL 3.5-5.7 [facility] Alkaline phosphatase [Enzyma tic activity/volume] in Serum or PlasmaOrdered By: Cj Santiago on 01-22-2024 ALP [Catalytic activity/Vol] 53 U/L Normal 34-104 [facility] Comment on above: Performed By: #### C RP, CBC, ESR, CMP #### [facility] [address] [place] [address] [place] Aspartate aminotransferase [ Enzymatic activity/volume] in Serum or PlasmaOrdered By: Cj Santiago on 01-22-2024 AST [Catalytic activity/Vol] 26 U/L Normal 13-39 [facility] Comment on above: Performed By: #### C RP, CBC, ESR, CMP #### [address] Automated basophil %Ordered By: Cj Santiago on 01-22-2024 Basophils/100 WBC (Bld) 0.4 % Normal . [facility] Comment on above: Performed By: #### C RP, CBC, ESR, CMP #### [address] Automated basophil countOrde red By: Cj Santiago on 01-22-2024 Basophils (Bld) [#/Vol] 0.0 10*3/uL Normal 0.0-0.2 [facility] Comment on above: Performed By: #### C RP, CBC, ESR, CMP #### [address] Automated blood monocyte cou ntOrdered By: Cj Santiago on 01-22-2024 Monocytes (Bld) [#/Vol] 0.2 10*3/uL Normal 0.0-0.8 [facility] Comment on above: Performed By: #### C RP, CBC, ESR, CMP #### [address] Automated eosinophil %Ordere d By: Cj Santiago on 01-22-2024 Eosinophils/100 WBC (Bld) 0.2 % Normal . [facility] Comment on above: Performed By: #### C RP, CBC, ESR, CMP #### [address] Automated eosinophil countOr dered By: Cj Santiago on 01-22-2024 Eosinophils (Bld) [#/Vol] 0.0 10*3/uL Normal 0.0-0.45 [facility] Comment on above: Performed By: #### C RP, CBC, ESR, CMP #### [address] Automated epithelial cells c ount in urine sediment (number/area)Ordered By: Cj Santiago on 01-22-2024 Epithelial cells Auto (Urine sed) [#/Area] 3-4 [HPF] High 0-2 [facility] Automated monocyte %Ordered By: Cj Santiago on 01-22-2024 Monocytes/100 WBC (Bld) 2.4 % Normal . [facility] Comment on above: Performed By: #### C RP, CBC, ESR, CMP #### [address] Automated neutrophil %Ordere d By: Cj Santiago on 01-22-2024 Neutrophils/100 WBC (Bld) 82.3 % Normal . [facility] Comment on above: Performed By: #### C RP, CBC, ESR, CMP #### [address] Bacteria [Presence] in Urine by AutomatedOrdered By: Cj Santiago on 01-22-2024 Bacteria Auto Ql (U) None seen [HPF] None Seen [facility] Bilirubin Test strip Ql (U)O rdered By: Cj Santiago on 01-22-2024 Bilirubin Ql (U) Negative Negative [facility] Bilirubin.total [Mass/volume ] in Serum or PlasmaOrdered By: Cj Santiago on 01-22-2024 Bilirubin [Mass/Vol] 0.4 mg/dL Normal 0.3-1.0 [facility] Comment on above: Performed By: #### C RP, CBC, ESR, CMP #### [address] C reactive protein [Mass/vol ume] in Serum or PlasmaOrdered By: Cj Santiago on 01-22-2024 CRP [Mass/Vol] 0.7 mg/dL High 0.0-0.5 [facility] C-Reactive Proteinon 024 C-Reactive Protein 0.7 mg/dL High 0.0-0.5 [facility] Comment on above: Result Comment: PERF ORMED BY: [place] [address] PATHOLOGIST BURN NURSE ZACK MCCONNELL M.D. Performed By: #### C RP, CBC, ESR, CMP #### [address] abdomen pelvis w conon CT abdomen pelvis w con [facility] [place] [address] [place] [address] CT Scan Report Signed Patient: Theresa Abbott MR#: [id number] : 2005 Acct:[id number] Age/Sex: 18 / F ADM Date: 01/22/24 Loc: ER Room: Type: [facility] ER Attending Dr: Copies to: Cj Santiago [...] Wesley Handy M.D.01/22/2024 8:58 PM Dictation Location: [place] [address] Transcribed By: RAKESH 01/22/242057 Dictated By: Wesley Handy II, MD 01/22/242050 Signed By: 01/22/242057 Normal [facility] Calcium [Mass/volume] in Ser um or PlasmaOrdered By: Cj Santiago on 01-22-2024 Calcium [Mass/Vol] 9.7 mg/dL Normal 8.6-10.3 [facility] Comment on above: Performed By: #### C RP, CBC, ESR, CMP #### [address] Carbon dioxide, total [Moles /volume] in Serum or PlasmaOrdered By: Cj Santiago on 01-22-2024 CO2 [Moles/Vol] 22.7 mmol/L Normal 21.0-31.0 [facility] Comment on above: Performed By: #### C RP, CBC, ESR, CMP #### [facility] [address] [place] [address] [place] Chloride [Moles/volume] in S kerri or PlasmaOrdered By: Cj Santiago on 01-22-2024 Chloride [Moles/Vol] 98 mmol/L Normal 98-107 [facility] Comment on above: Performed By: #### C RP, CBC, ESR, CMP #### [facility] [address] [place] [address] [place] Color of Urine by AutoOrdere d By: Cj Santiago on 01-22-2024 Color (U) Yellow Normal Yellow [facility] Comment on above: Order Comment: Name Collection Type:: Clean-Voided Midstream Performed By: #### U HCG, ADDONUAPLUS #### [address] Complete Blood Count Auto Di ffon 01-22-2024 Mean Corpuscular HGB Conc 34.2 g/dL Normal 32.0-35.0 [facility] Comment on above: Performed By: #### C RP, CBC, ESR, CMP #### [address] Monocytes/100 WBC (Bld) 15.02 % Normal 0.00-20.00 [facility] Comment on above: Performed By: #### C RP, CBC, ESR, CMP #### [facility] [address] NRBC% 0.0 /100{WBC} Normal 0-0.[address] [facility] Comment on above: Performed By: #### C RP, CBC, ESR, CMP #### [address] Comprehensive Metabolic Pane michael 01-22-2024 Albumin [Mass/Vol] 4.7 g/dL Normal 3.5-5.7 [facility] Comment on above: Performed By: #### C RP, CBC, ESR, CMP #### [address] Creatinine Clr Calc Pharmacy 134.44 Normal [facility] Comment on above: Performed By: #### C RP, CBC, ESR, CMP #### [address] GFR/1.73 sq M.predicted MDRD (S/P/Bld) [Vol rate/Area] mL/min/{1.73_m2} Normal [facility] Comment on above: Performed By: #### C RP, CBC, ESR, CMP #### [address] Creatinine [Mass/volume] in Serum or PlasmaOrdered By: Cj Santiago on 01-22-2024 Creatinine [Mass/Vol] 0.72 mg/dL Normal 0.60-1.20 [facility] Comment on above: Performed By: #### C RP, CBC, ESR, CMP #### [address] Dipstick and Microscopicon 0 01-22-2024 Appearance (U) Clear Normal Clear [facility] Comment on above: Order Comment: Name Collection Type:: Clean-Voided Midstream Performed By: #### U HCG, ADDONUAPLUS #### [address] Bacteria,Urine None Seen Normal None Seen [facility] Comment on above: Order Comment: Name Collection Type:: Clean-Voided Midstream Performed By: #### U HCG, ADDONUAPLUS #### [address] Bilirubin,Urine Negative Normal Negative [facility] Comment on above: Order Comment: Name Collection Type:: Clean-Voided Midstream Performed By: #### U HCG, ADDONUAPLUS #### [address] Glucose Ql (U) Normal Normal Normal [facility] Comment on above: Order Comment: Name Collection Type:: Clean-Voided Midstream Performed By: #### U HCG, ADDONUAPLUS #### [place] [address] [place] Hyaline Casts,Urine 0-8 Normal 0-8 [facility] Comment on above: Order Comment: Name Collection Type:: Clean-Voided Midstream Performed By: #### U HCG, ADDONUAPLUS #### [address] Ketones Ql (U) 3+ High Negative [facility] Comment on above: Order Comment: Name Collection Type:: Clean-Voided Midstream Performed By: #### U HCG, ADDONUAPLUS #### [address] Leukocyte esterase Test strip Ql (U) Negative Normal Negative [facility] Comment on above: Order Comment: Name Collection Type:: Clean-Voided Midstream Performed By: #### U HCG, ADDONUAPLUS #### [place] [address] [place] Nitrite,Urine Negative Normal Negative [facility] Comment on above: Order Comment: Name Collection Type:: Clean-Voided Midstream Performed By: #### U HCG, ADDONUAPLUS #### [address] Occult Blood,Urine Negative Normal Negative [facility] Comment on above: Order Comment: Name Collection Type:: Clean-Voided Midstream Performed By: #### U HCG, ADDONUAPLUS #### [address] Protein,Urine Trace High Negative [facility] Comment on above: Order Comment: Name Collection Type:: Clean-Voided Midstream Performed By: #### U HCG, ADDONUAPLUS #### [address] RBC,Urine None Seen Normal 0-4 [facility] Comment on above: Order Comment: Name Collection Type:: Clean-Voided Midstream Performed By: #### U HCG, ADDONUAPLUS #### [address] Specificy Walker,Urine 1.033 High 1.001-1.030 [facility] Comment on above: Order Comment: Name Collection Type:: Clean-Voided Midstream Performed By: #### U HCG, ADDONUAPLUS #### [address] Squamous Epithelial Cell,Urine 3-4 High 0-2 [facility] Comment on above: Order Comment: Name Collection Type:: Clean-Voided Midstream Performed By: #### U HCG, ADDONUAPLUS #### [address] Urobilinogen,Urine Normal Normal Normal [facility] Comment on above: Order Comment: Name Collection Type:: Clean-Voided Midstream Performed By: #### U HCG, ADDONUAPLUS #### [place] [address] [place] WBC LM.HPF (Urine sed) [#/Area] 0 /[HPF] Normal 0-4 [facility] Comment on above: Order Comment: Name Collection Type:: Clean-Voided Midstream Performed By: #### U HCG, ADDONUAPLUS #### [address] [place] [address] [facility] ECG 12 lead ECGon 01-22-2024 ECG 12 lead ECG [facility] [place] [address] Electrocardiograph Report Signed Patient: Theresa Abbott MR#: [id number] : 2005 Acct:[id number] Age/Sex: 18 / F ADM Date: 01/23/24 Loc: Room: [address] [place] [address] Type: DIS INOo Attending Dr: Abena Alegre [...] previous ECGs available Confirmed by Nakul Cook ([id number]) on 01/23/2024 4:55:38 PM Referred By: Electronically Signed By:Nakul Cook Transcribed By: MUS Signed By Nakul Cook MD 01/23/24 1655 Normal [facility] Erythrocyte Sedimentation Ra nhi 01-22-2024 ESR (Bld) [Velocity] 20 mm/h High 0-19 [facility] Comment on above: Result Comment: PERF ORMED BY: [place] [address] PATHOLOGIST BURN NURSE ZACK MCCONNELL M.D. Performed By: #### C RP, CBC, ESR, CMP #### [facility] [address] [place] [address] Erythrocyte distribution wid th [Ratio] by Automated countOrdered By: Cj Santiago on 01-22-2024 Erythrocyte distribution width (RBC) [Ratio] 13.0 % Normal 11.9-15.3 [facility] Comment on above: Performed By: #### C RP, CBC, ESR, CMP #### [facility] [address] Erythrocyte sedimentation ra te by Photometric methodOrdered By: Cj Santiago on 01-22-2024 ESR Photometric method (Bld) [Velocity] 20 mm/hr High 0-19 [facility] Erythrocytes [#/area] in Uri ne sediment by Automated countOrdered By: Cj Santiago on 01-22-2024 RBC Auto (Urine sed) [#/Area] None seen [HPF] 0-4 [facility] Erythrocytes [#/volume] in B lood by Automated countOrdered By: Cj Santiago on 01-22-2024 RBC (Bld) [#/Vol] 4.23 10*6/uL Normal 3.60-5.00 [facility] Comment on above: Performed By: #### C RP, CBC, ESR, CMP #### [facility] [address] Glucose [Mass/volume] in Ser um or PlasmaOrdered By: Cj Santiago on 01-22-2024 Glucose [Mass/Vol] 110 mg/dL High 70-100 [facility] Comment on above: ADA recommended refe rence rangeRandom Glucose Reference Range is dependent on time and content of last meal. Glucose of more than 200 mg/dL in a nonstressed, ambulatory subject supports the diagnosis of Diabetes Mellitus. Result Comment: [place] Glucose Reference Range is dependent on time and content of last meal. Glucose of more than 200 mg/dL in a nonstressed, ambulatory subject supports the diagnosis of Diabetes Mellitus. ADA recommended reference range Performed By: #### C RP, CBC, ESR, CMP #### [facility] [address] HCG ( test) IA.rapi d Ql (U)Ordered By: Cj Santiago on 01-22-2024 HCG ( test) Ql (U) Negative [facility] HCG,Urineon 01-22-2024 Beta HCG ( test) Ql (U) Negative Normal [facility] Comment on above: Order Comment: Name Collection Type:: Clean-Voided Midstream Result Comment: PERF ORMED BY: [facility] [address] [place] [address] PATHOLOGIST BURN NURSE ZACK MCCONNELL M.D. Performed By: #### U HCG, ADDONUAPLUS ####[facility] [address] Hematocrit [Volume Fraction] of Blood by Automated countOrdered By: Cj Santiago on 01-22-2024 Hematocrit (Bld) [Volume fraction] 40.1 % Normal 34.0-46.4 [facility] Comment on above: Performed By: #### C RP, CBC, ESR, CMP #### [facility] [address] Hemoglobin [Mass/volume] in BloodOrdered By: Cj Santiago on 01-22-2024 Hemoglobin (Bld) [Mass/Vol] 13.7 g/dL Normal 11.8-15.4 [facility] Comment on above: Performed By: #### C RP, CBC, ESR, CMP #### [facility] [address] Ketones Auto test strip (U) [Mass/Vol]Ordered By: Cj Santiago on 01-22-2024 Ketones (U) [Mass/Vol] 3+ High Negative [facility] - UrinalysisOrder ed By: Cj Santiago on 01-22-2024 Hyaline casts LM Ql (Urine sed) 0-8 [LPF] 0-8 [facility] Leukocytes [#/area] in Urine sediment by Automated countOrdered By: Cj Santiago on 01-22-2024 WBC Auto (Urine sed) [#/Area] 0-1 [HPF] 0-4 [facility] Leukocytes [#/volume] correc carissa for nucleated erythrocytes in Blood by Automated counOrdered By: Cj Santiago on 01-22-2024 WBC corrected for nucl RBC Auto (Bld) [#/Vol] 10.2 10*3/uL 3.8-11.6 [facility] [facility] Leukocytes [#/volume] in Blo od by Automated countOrdered By: Cj Santiago on 01-22-2024 WBC (Bld) [#/Vol] 10.2 10*3/uL Normal 3.8-11.6 [facility] Comment on above: Performed By: #### C RP, CBC, ESR, CMP #### [address] Lipase [Enzymatic activity/v olume] in Serum or PlasmaOrdered By: Cj Santiago on 01-22-2024 Lipase [Catalytic activity/Vol] 11.0 U/L Normal 11.0-82.0 [facility] Comment on above: Result Comment: PERF ORMED BY: [place] [id number] PATHOLOGIST BURN NURSE ZACK MCCONNELL M.D. Performed By: #### L IPASE #### [address] Lymphocytes [#/volume] in Bl ood by Automated countOrdered By: Cj Santiago on 01-22-2024 Lymphocytes (Bld) [#/Vol] 1.5 10*3/uL Normal 1.00-4.8 [facility] Comment on above: Performed By: #### C RP, CBC, ESR, CMP #### [address] Lymphocytes/100 leukocytes i n Blood by Automated countOrdered By: Cj Santiago on 01-22-2024 Lymphocytes/100 WBC (Bld) 14.7 % Normal . [facility] Comment on above: Performed By: #### C RP, CBC, ESR, CMP #### [address] MCH [Entitic mass] by Automa carissa countOrdered By: Cj Santiago on 01-22-2024 MCH (RBC) [Entitic mass] 32.3 pg Normal 24.7-34.3 [facility] Comment on above: Performed By: #### C RP, CBC, ESR, CMP #### [address] MCHC Auto (RBC) [Mass/Vol]Or dered By: Cj Santiago on 01-22-2024 MCHC (RBC) [Mass/Vol] 34.2 g/dL 32.0-35.0 [facility] MCV [Entitic volume] by Auto mated countOrdered By: Cj Santiago on 01-22-2024 MCV (RBC) [Entitic vol] 94.6 fL Normal 80-100 [facility] Comment on above: Performed By: #### C RP, CBC, ESR, CMP #### [facility] [address] Monocyte distribution width [Entitic volume] in Blood by AutomatedOrdered By: Cj Santiago on 01-22-2024 Monocyte distribution width Auto (Bld) [Entitic vol] 15.02 % 0.00-20.00 [facility] Neutrophils [#/volume] in Bl ood by Automated countOrdered By: Cj Santiago on 01-22-2024 Neutrophils (Bld) [#/Vol] 8.4 10*3/uL High 1.8-7.7 [facility] Comment on above: Performed By: #### C RP, CBC, ESR, CMP #### [facility] [address] Nitrite Test strip Ql (U)Ord ered By: Cj Santiago on 01-22-2024 Nitrite Ql (U) Negative Negative [facility] No Panel InformationOrdered By: Cj Santiago on 01-22-2024 Estimated GFR (CKD-EPI) > 60.0 mL/Min [facility] Creatinine Clearance (Chem 134.44 [facility] Nucleated erythrocytes [Pres ence] in Blood by Automated countOrdered By: Cj Santiago on 01-22-2024 Nucleated RBC Auto Ql (Bld) 0.0 /100{WBC} 0-0.5 [facility] Platelet mean volume [Entiti c volume] in Blood by Automated countOrdered By: Cj Santiago on 01-22-2024 Platelet mean volume (Bld) [Entitic vol] 7.3 fL Normal 6.3-10.7 [facility] Comment on above: Performed By: #### C RP, CBC, ESR, CMP #### [facility] [address] [place] [address] [place] Platelets [#/volume] in Bloo d by Automated countOrdered By: Cj Santiago on 01-22-2024 Platelets (Bld) [#/Vol] 375 10*3/uL Normal 150-450 [facility] Comment on above: Performed By: #### C RP, CBC, ESR, CMP #### [address] Potassium [Moles/volume] in Serum or PlasmaOrdered By: Cj Santiago on 01-22-2024 Potassium [Moles/Vol] 3.9 mmol/L Normal 3.5-5.1 [facility] Comment on above: Performed By: #### C RP, CBC, ESR, CMP #### [address] Protein Auto test strip (U) [Mass/Vol]Ordered By: Cj Santiago on 01-22-2024 Protein (U) [Mass/Vol] Trace mg/dL High Negative [facility] Protein [Mass/volume] in Ser um or PlasmaOrdered By: Cj Santiago on 01-22-2024 Protein [Mass/Vol] 8.0 g/dL Normal 6.4-8.9 [facility] Comment on above: Performed By: #### C RP, CBC, ESR, CMP #### [address] Serum globulin measurement b y calculation (mass/volume)Ordered By: Cj Santiago on 01-22-2024 Globulin (S) [Mass/Vol] 3.3 g/dL Normal [facility] Comment on above: Performed By: #### C RP, CBC, ESR, CMP #### [address] Serum or plasma albumin/glob ulin mass ratioOrdered By: Cj Santiago on 01-22-2024 Albumin/Globulin [Mass ratio] 1.4 {ratio} Normal [facility] Comment on above: Performed By: #### C RP, CBC, ESR, CMP #### [address] Serum or plasma anion gap de terminationOrdered By: Cj Santiago on 01-22-2024 Anion gap [Moles/Vol] 14.2 mmol/L Normal 6.0-15.0 [facility] Comment on above: Performed By: #### C RP, CBC, ESR, CMP #### [facility] [address] Sodium [Moles/volume] in Ser um or PlasmaOrdered By: Cj Santiago on 01-22-2024 Sodium [Moles/Vol] 131 mmol/L Low 136-145 [facility] Comment on above: Performed By: #### C RP, CBC, ESR, CMP #### [facility] [address] Specific gravity Auto test s trip (U) [Rel density]Ordered By: Cj Santiago on 01-22-2024 Specific gravity (U) [Rel density] 1.033 High 1.001-1.030 [facility] Urea nitrogen [Mass/volume] in Serum or PlasmaOrdered By: Cj Santiago on 01-22-2024 Urea nitrogen [Mass/Vol] 11 mg/dL Normal 7-25 [facility] Comment on above: Performed By: #### C RP, CBC, ESR, CMP #### [facility] [address] [place] [address] Urine clarity by refractomet ry automatedOrdered By: Cj Santiago on 01-22-2024 Clarity Refractometry automated (U) Clear Clear [facility] Urine glucose measurement by automated test strip (mass/volume)Ordered By: Cj Santiago on 01-22-2024 Glucose Auto test strip (U) [Mass/Vol] Normal mg/dL Normal [facility] Urine hemoglobin detection b y automated test stripOrdered By: Cj Santiago on 01-22-2024 Hemoglobin Auto test strip Ql (U) Negative Negative [facility] Urine leukocyte esterase det ection by automated test stripOrdered By: Cj Santiago on 01-22-2024 Leukocyte esterase Auto test strip Ql (U) Negative Negative [facility] Urine pH measurement by auto mated test stripOrdered By: Cj Santiago on 01-22-2024 pH (U) 8.0 [pH] Normal 5.0-9.0 [facility] Comment on above: Order Comment: Name Collection Type:: Clean-Voided Midstream Performed By: #### U HCG, ADDONUAPLUS #### [facility] [address] Urobilinogen Auto test strip (U) [Mass/Vol]Ordered By: Cj Santiago on 01-22-2024 Urobilinogen (U) [Mass/Vol] Normal mg/dL Normal [facility] ALL TRIGLYCERIDESon 09-27-19 Triglyceride [Mass/Vol] 120 mg/dL 53 - 208 mg/dL [facility] Quick Strepon 07-07-2023 S. pyogenes Org specific cx Ql (Throat) Negative [facility] Other Quick Strep [facility] Other URon 06-14-2019 , QUAL Negative Normal NEGATIVE [facility] Comment on above: Performed By: #### P REGQNT, AST, ALT, GLUC, LIPID #### [facility] [address] [id number] Dandy Pastora CBC AUTO DIFFon 06-04-2019 Basophils (Bld) [#/Vol] 0.0 103/ul Normal 0.0-0.1 [facility] Comment on above: Performed By: #### P REGQNT, AST, ALT, GLUC, LIPID #### [facility] [address] [place], [place] [address] Dandy Pastora Basophils/100 WBC (Bld) 0.5 % Normal 0.2-2.0 [facility] Comment on above: Performed By: #### P REGQNT, AST, ALT, GLUC, LIPID #### [facility] [address] [place], [place] [address] Dandy Pastora Eosinophils (Bld) [#/Vol] 0.1 103/ul Normal 0.0-0.7 [facility] Comment on above: Performed By: #### P REGQNT, AST, ALT, GLUC, LIPID #### [facility] [address] [place], [place] [address] Dandy Pastora Eosinophils/100 WBC (Bld) 1.4 % Normal 0.9-7.0 [facility] Comment on above: Performed By: #### P REGQNT, AST, ALT, GLUC, LIPID #### [facility] [address] [place] [address] Dandy Dubonen Erythrocyte distribution width (RBC) [Ratio] 12.8 % Normal 11.0-15.0 [facility] Comment on above: Performed By: #### P REGQNT, AST, ALT, GLUC, LIPID #### [facility] [address] [place] [address] Dandy Pastora Hematocrit (Bld) [Volume fraction] 40.4 % Normal 36.0-48.0 [facility] Comment on above: Performed By: #### P REGQNT, AST, ALT, GLUC, LIPID #### [facility] [address] [place] [address] Dandy Pastora Hemoglobin (Bld) [Mass/Vol] 13.4 g/dL Normal 12.0-16.0 [facility] Comment on above: Performed By: #### P REGQNT, AST, ALT, GLUC, LIPID #### [facility] [address] [place] [address] Dandy Pastora IG # 0.00 10e3/ul Normal 0.00-0.03 [facility] Comment on above: Performed By: #### P REGQNT, AST, ALT, GLUC, LIPID #### [facility] [address] [place] [address] Dandy Pastora IG % 0.0 % Normal 0.0-0.5 [facility] Comment on above: Performed By: #### P REGQNT, AST, ALT, GLUC, LIPID #### [facility] [address] [place] [address] Dandy Pastora Lymphocytes (Bld) [#/Vol] 2.2 103/ul Normal 1.2-3.8 [facility] Comment on above: Performed By: #### P REGQNT, AST, ALT, GLUC, LIPID #### [facility] [address] [place] [address] Dandyrajan Dubonen Lymphocytes/100 WBC (Bld) 39.9 % Normal 20.5-60.0 [facility] Comment on above: Performed By: #### P REGQNT, AST, ALT, GLUC, LIPID #### [facility] [address] [place] [address] Dandy Pastora MANUAL DIFF REQ NO Normal [facility] Comment on above: Performed By: #### P REGQNT, AST, ALT, GLUC, LIPID #### [facility] [address] [place] [address] Dandyrajan Guillory MCH (RBC) [Entitic mass] 31.3 pg Normal 26.7-34.0 [facility] Comment on above: Performed By: #### P REGQNT, AST, ALT, GLUC, LIPID #### [facility] [address] [place] [address] Dandyrajan Dubonen MCHC (RBC) [Mass/Vol] 33.2 g/dL Normal 29.9-35.2 [facility] Comment on above: Performed By: #### P REGQNT, AST, ALT, GLUC, LIPID #### [facility] [address] [place] [address] Dandyrjaan Dubonen MCV (RBC) [Entitic vol] 94.4 fL Normal 79.1-95.6 [facility] Comment on above: Performed By: #### P REGQNT, AST, ALT, GLUC, LIPID #### [facility] [address] [place] [address] Dandy Pastora Monocytes (Bld) [#/Vol] 0.5 103/ul Normal 0.3-0.8 [facility] Comment on above: Performed By: #### P REGQNT, AST, ALT, GLUC, LIPID #### [facility] [address] [place] [address] Dandy Pastora Monocytes/100 WBC (Bld) 8.0 % Normal 1.7-12.0 [facility] Comment on above: Performed By: #### P REGQNT, AST, ALT, GLUC, LIPID #### [facility] [address] [place] [address] Dandy Pastora Neutrophils (Bld) [#/Vol] 2.8 103/ul Normal 1.4-6.5 [facility] Comment on above: Performed By: #### P REGQNT, AST, ALT, GLUC, LIPID #### [facility] [address] [address] Dandy Guillory Neutrophils/100 WBC (Bld) 50.2 % Normal 43.0-75.0 [facility] Comment on above: Performed By: #### P REGQNT, AST, ALT, GLUC, LIPID #### [facility] [address] [address] Dandyrajan Guillory Platelet mean volume (Bld) [Entitic vol] 9.0 fL Critically low 9.5-13.5 [facility] Comment on above: Performed By: #### P REGQNT, AST, ALT, GLUC, LIPID #### [facility] [address] [place] [address] Dandyrajan Guillory Platelets (Bld) [#/Vol] 341 103/ul Normal 150-450 [facility] Comment on above: Performed By: #### P REGQNT, AST, ALT, GLUC, LIPID #### [facility] [address] [place] [address] Dandy Pastora RBC (Bld) [#/Vol] 4.28 106/ul Normal 3.40-5.30 [facility] Comment on above: Performed By: #### P REGQNT, AST, ALT, GLUC, LIPID #### [facility] [address] [place] [address] Dandy Pastora WBC (Bld) [#/Vol] 5.6 103/ul Normal 4.0-11.[address] [facility] Comment on above: Performed By: #### P REGQNT, AST, ALT, GLUC, LIPID #### [facility] [address] [place], [place] [address] Dandyrajan Guillory GLUCOSE BLOODon 06-04-2019 Glucose [Mass/Vol] 97 mg/dL Normal 74-106 [facility] Comment on above: Performed By: #### P REGQNT, AST, ALT, GLUC, LIPID #### [facility] [address] [place], [place] [address] Dandy Pastora LIPID PROFILEon 06-04-2019 CHOL-HDL RATIO NORM SEE BELOW Normal [facility] Comment on above: Result Comment: 3.3 - 4.4 LOW RISK 4.4 - 7.1 AVERAGE RISK 7.1 - 11.0 MODERATE RISK >11.0 HIGH RISK Performed By: #### P REGQNT, AST, ALT, GLUC, LIPID #### [facility] [address] [address] Dandy Pastora Cholesterol [Mass/Vol] 169 mg/dL Normal 104-227 [facility] Comment on above: Performed By: #### P REGQNT, AST, ALT, GLUC, LIPID #### [facility] [address] [address] Dandy Pastora Cholesterol in HDL [Mass/Vol] > or = 60 mg/dl - LOW CARDIOVASCULAR RISK <40 mg/dl - HIGH CARDIOVASCULAR RISK Normal [facility] Comment on above: Performed By: #### P REGQNT, AST, ALT, GLUC, LIPID #### [facility] [address] [address] Dandy Pastora Cholesterol in HDL [Mass/Vol] 55 mg/dL Normal 29-69 [facility] Comment on above: Performed By: #### P REGQNT, AST, ALT, GLUC, LIPID #### [facility] [address] [place], [place] [address] Dandy Pastora Cholesterol in LDL [Mass/Vol] 94.6 mg/dL Normal 46.0-140.0 [facility] Comment on above: Performed By: #### P REGQNT, AST, ALT, GLUC, LIPID #### [facility] [address] [id number] Dandy Pastora Cholesterol in LDL [Mass/Vol] SEE BELOW Normal [facility] Comment on above: Result Comment: <100 mg/dl OPTIMAL 100 - 129 mg/dl NEAR OR ABOVE OPTIMAL 130 - 159 mg/dl BORDERLINE HIGH 160 - 189 mg/dl HIGH >190 mg/dl VERY HIGH Performed By: #### P REGQNT, AST, ALT, GLUC, LIPID #### [facility] [address] [id number] Dandy Pastora Cholesterol.total/Choles terol in HDL [Mass ratio] 3.1 {ratio} Normal [facility] Comment on above: Performed By: #### P REGQNT, AST, ALT, GLUC, LIPID #### [facility] [address] [id number] Dandy Pastora Triglyceride [Mass/Vol] 97 mg/dL Normal 53-208 [facility] Comment on above: Performed By: #### P REGQNT, AST, ALT, GLUC, LIPID #### [facility] [address] [address] Dandy Pastora VLDL CALC 19.4 mg/dL Normal [facility] Comment on above: Performed By: #### P REGQNT, AST, ALT, GLUC, LIPID #### [facility] [address] [place] [address] Dandy Pastora PREG QUANT HCGon 06-04-2019 HCG QUANT <1.00 Normal [facility] Comment on above: Performed By: #### P REGQNT, AST, ALT, GLUC, LIPID #### [facility] [address] [place], [place] [address] Dandy Pastora HCG RANGE SEE BELOW Normal [facility] Comment on above: Result Comment: 5-50 0-1 WEEK 40-300 1-2 WEEKS 100-1,000 2-3 WEEKS 500-6,000 3-4 WEEKS 5,000-200,000 1-2 MONTHS 10,000-100,000 2-3 MONTHS 3,000-50,000 2ND TRIMESTER 1,000-50,000 3RD TRIMESTER Performed By: #### P REGQNT, AST, ALT, GLUC, LIPID #### [facility] [address] [place], [place] [address] Dandy Pastora SGOTon 06-04-2019 AST [Catalytic activity/Vol] 24 U/L Normal 14-36 [facility] Comment on above: Performed By: #### P REGQNT, AST, ALT, GLUC, LIPID #### [facility] [address] [place], [place] [address] Dandy Pastora SGPTon 06-04-2019 ALT [Catalytic activity/Vol] 19 U/L Normal 9-52 [facility] Comment on above: Performed By: #### P REGQNT, AST, ALT, GLUC, LIPID #### [facility] [address] [place], [place] [address] Dandy Guillory URon 04-06-2019 , QUAL Negative Normal NEGATIVE [facility] Comment on above: Performed By: #### P REGQNT, AST, ALT, GLUC, LIPID #### [facility] [address] [place] [place], [place] [address] Dandy Guillory URon 02-19-2019 , QUAL Negative Normal NEGATIVE [facility] Comment on above: Performed By: #### C BC #### [facility] [address] [place] [address] Dandy Pastora CBC AUTO DIFFon 01-13-2019 Basophils (Bld) [#/Vol] 0.0 103/ul Normal 0.0-0.1 [facility] Comment on above: Performed By: #### C BC #### [facility] [address] [place] [address] Dandyrajan Dubonen Basophils/100 WBC (Bld) 0.6 % Normal 0.2-2.0 [facility] Comment on above: Performed By: #### C BC #### [facility] [address] [place] [address] Dandy Pastora Eosinophils (Bld) [#/Vol] 0.1 103/ul Normal 0.0-0.7 [facility] Comment on above: Performed By: #### C BC #### [facility] [address] [place] [address] Dandy Pastora Eosinophils/100 WBC (Bld) 1.2 % Normal 0.9-7.0 [facility] Comment on above: Performed By: #### C BC #### [facility] [address] [place] [address] Dandy Pastora Erythrocyte distribution width (RBC) [Ratio] 12.1 % Normal 11.0-15.0 [facility] Comment on above: Performed By: #### C BC #### [facility] [address] [phone] Dandy Pastora Hematocrit (Bld) [Volume fraction] 41.2 % Normal 36.0-48.0 [facility] Comment on above: Performed By: #### C BC #### [facility] [address] [phone] Dandy Pastora Hemoglobin (Bld) [Mass/Vol] 13.6 g/dL Normal 12.0-16.0 [facility] Comment on above: Performed By: #### C BC #### [facility] [address] [place], [place] [address] Dandy Pastora IG # 0.01 10e3/ul Normal 0.00-0.03 [facility] Comment on above: Performed By: #### C BC #### [facility] [address] [place] [address] Dandy Pastora IG % 0.2 % Normal 0.0-0.5 [facility] Comment on above: Performed By: #### C BC #### [facility] [address] [place], [place] [address] Dandy Pastora Lymphocytes (Bld) [#/Vol] 2.1 103/ul Normal 1.2-3.8 [facility] Comment on above: Performed By: #### C BC #### [facility] [address] [place], [place] [address] Dandy Pastora Lymphocytes/100 WBC (Bld) 41.5 % Normal 20.5-60.0 [facility] Comment on above: Performed By: #### C BC #### [facility] [address] [place], [place] [address] Dandyrajan Dubonen MANUAL DIFF REQ NO Normal [facility] Comment on above: Performed By: #### C BC #### [facility] [address] [place], [place] [address] Dandy Pastora MCH (RBC) [Entitic mass] 31.0 pg Normal 26.7-34.0 [facility] Comment on above: Performed By: #### C BC #### [facility] [address] [place], [place] [address] Dandy Pastora MCHC (RBC) [Mass/Vol] 33.0 g/dL Normal 29.9-35.2 [facility] Comment on above: Performed By: #### C BC #### [facility] [address] [place], [place] [address] Dandy Pastora MCV (RBC) [Entitic vol] 93.8 fL Normal 79.1-95.6 [facility] Comment on above: Performed By: #### C BC #### [facility] [address] [place] [place], [place] [address] Dandy Pastora Monocytes (Bld) [#/Vol] 0.4 103/ul Normal 0.3-0.8 [facility] Comment on above: Performed By: #### C BC #### [facility] [address] [place], [place] [address] Dandy Pastora Monocytes/100 WBC (Bld) 8.7 % Normal 1.7-12.0 [facility] Comment on above: Performed By: #### C BC #### [facility] [address] [place], [place] [address] Dandy Pastora Neutrophils (Bld) [#/Vol] 2.4 103/ul Normal 1.4-6.5 [facility] Comment on above: Performed By: #### C BC #### [facility] [address] [place], [place] [address] Dandy Pastora Neutrophils/100 WBC (Bld) 47.8 % Normal 43.0-75.0 [facility] Comment on above: Performed By: #### C BC #### [facility] [address] [place] [address] Dandy Pastora Platelet mean volume (Bld) [Entitic vol] 8.8 fL Critically low 9.5-13.5 [facility] Comment on above: Performed By: #### C BC #### [facility] [address] [place] [address] Dandy Pastora Platelets (Bld) [#/Vol] 330 103/ul Normal 150-450 [facility] Comment on above: Performed By: #### C BC #### [facility] [address] [place], [place] [address] Dandy Pastora RBC (Bld) [#/Vol] 4.39 106/ul Normal 3.40-5.30 [facility] Comment on above: Performed By: #### C BC #### [facility] [address] [place], [place] [address] Dandy Pastora WBC (Bld) [#/Vol] 5.0 103/ul Normal 4.0-11.0 [facility] Comment on above: Performed By: #### C BC #### [facility] [address] [place], [place] [address] Dandy Pastora GLUCOSE BLOODon 01-13-2019 Glucose [Mass/Vol] 102 mg/dL Normal 74-106 [facility] Comment on above: Performed By: #### C BC #### [facility] [address] [place] [address] Dandy Pastora LIPID PROFILEon 01-13-2019 CHOL-HDL RATIO NORM SEE BELOW Normal [facility] Comment on above: Result Comment: 3.3 - 4.4 LOW RISK 4.4 - 7.1 AVERAGE RISK 7.1 - 11.0 MODERATE RISK >11.0 HIGH RISK Performed By: #### C BC #### [facility] [address] [place] [address] Dandy Pastora Cholesterol [Mass/Vol] 169 mg/dL Normal 104-227 [facility] Comment on above: Performed By: #### C BC #### [facility] [address] [place] [address] Dandy Pastora Cholesterol in HDL [Mass/Vol] 46 mg/dL Normal 29-69 [facility] Comment on above: Performed By: #### C BC #### [facility] [address] [place] [address] Dandy Pastora Cholesterol in HDL [Mass/Vol] > or = 60 mg/dl - LOW CARDIOVASCULAR RISK <40 mg/dl - HIGH CARDIOVASCULAR RISK Normal [facility] Comment on above: Performed By: #### C BC #### [facility] [address] [place] [address] Dandy Pastora Cholesterol in LDL [Mass/Vol] SEE BELOW Normal [facility] Comment on above: Result Comment: <100 mg/dl OPTIMAL 100 - 129 mg/dl NEAR OR ABOVE OPTIMAL 130 - 159 mg/dl BORDERLINE HIGH 160 - 189 mg/dl HIGH >190 mg/dl VERY HIGH Performed By: #### C BC #### [facility] [address] [place], [place] [address] Dandy Pastora Cholesterol in LDL [Mass/Vol] 109.6 mg/dL Normal 46.0-140.0 [facility] Comment on above: Performed By: #### C BC #### [facility] [address] [place], [place] [address] Dandy [place] Cholesterol.total/Choles terol in HDL [Mass ratio] 3.7 {ratio} Normal [facility] Comment on above: Performed By: #### C BC #### [facility] [address] [place], [place] [id number] Dandy Pastora Triglyceride [Mass/Vol] 67 mg/dL Normal 53-208 [facility] Comment on above: Performed By: #### C BC #### [facility] [address] [id number] Dandy Pastora VLDL CALC 13.4 mg/dL Normal [facility] Comment on above: Performed By: #### C BC #### [facility] [address] [place], [place] [address] Dandy Pastora PREG QUANT HCGon 01-13-2019 HCG QUANT <1.00 Normal [facility] Comment on above: Performed By: #### C BC #### [facility] [address] [place] [address] Dandy Pastora HCG RANGE SEE BELOW Normal [facility] Comment on above: Result Comment: 5-50 0-1 WEEK 40-300 1-2 WEEKS 100-1,000 2-3 WEEKS 500-6,000 3-4 WEEKS 5,000-200,000 1-2 MONTHS 10,000-100,000 2-3 MONTHS 3,000-50,000 2ND TRIMESTER 1,000-50,000 3RD TRIMESTER Performed By: #### C BC #### [facility] [address] [place], [place] [address] Dandy Pastora SGOTon 01-13-2019 AST [Catalytic activity/Vol] 22 U/L Normal 14-36 [facility] Comment on above: Performed By: #### C BC #### [facility] [address] [place], [place] [address] Dandy Guillory SGPTon 01-13-2019 ALT [Catalytic activity/Vol] 15 U/L Normal 9-52 [facility] Comment on above: Performed By: #### C BC #### [facility] [address] [place], [place] [address] Dandy Pastora CBC AUTO DIFFon 12-10-2018 Basophils (Bld) [#/Vol] 0.0 103/ul Normal 0.0-0.1 [facility] Comment on above: Performed By: #### C BC #### [facility] [address] [place] [address] Dandyrajan Guillory Basophils/100 WBC (Bld) 0.6 % Normal 0.2-2.0 [facility] Comment on above: Performed By: #### C BC #### [facility] [address] [place] [address] Dandy Pastora Eosinophils (Bld) [#/Vol] 0.1 103/ul Normal 0.0-0.7 [facility] Comment on above: Performed By: #### C BC #### [facility] [address] [place], [place] [address] Dandyrajan Guillory Eosinophils/100 WBC (Bld) 0.9 % Normal 0.9-7.0 [facility] Comment on above: Performed By: #### C BC #### [facility] [address] [place], [place] [address] Dandy Pastora Erythrocyte distribution width (RBC) [Ratio] 12.2 % Normal 11.0-15.0 [facility] Comment on above: Performed By: #### C BC #### [facility] [address] [place], [place] [address] Dandy Pastora Hematocrit (Bld) [Volume fraction] 39.7 % Normal 36.0-48.0 [facility] Comment on above: Performed By: #### C BC #### [facility] [address] [id number] Dandy Pastora Hemoglobin (Bld) [Mass/Vol] 13.5 g/dL Normal 12.0-16.0 [facility] Comment on above: Performed By: #### C BC #### [facility] [address] [id number] Dandy Pastora IG # 0.01 10e3/ul Normal 0.00-0.03 [facility] Comment on above: Performed By: #### C BC #### [facility] [address] [address] Dandy Pastora IG % 0.1 % Normal 0.0-0.5 [facility] Comment on above: Performed By: #### C BC #### [facility] [address] [place] [address] Dandy Pastora Lymphocytes (Bld) [#/Vol] 2.7 103/ul Normal 1.2-3.8 [facility] Comment on above: Performed By: #### C BC #### [facility] [address] [place], [place] [address] Dandy Pastora Lymphocytes/100 WBC (Bld) 40.2 % Normal 20.5-60.0 [facility] Comment on above: Performed By: #### C BC #### [facility] [address] [place], [place] [address] Dandy Pastora MANUAL DIFF REQ NO Normal [facility] Comment on above: Performed By: #### C BC #### [facility] [address] [place], [place] [address] Dandy Pastora MCH (RBC) [Entitic mass] 31.6 pg Normal 26.7-34.0 [facility] Comment on above: Performed By: #### C BC #### [facility] [address] [place], [place] [address] Dandy Pastora MCHC (RBC) [Mass/Vol] 34.0 g/dL Normal 29.9-35.2 [facility] Comment on above: Performed By: #### C BC #### [facility] [address] [place], [place] [address] Dandy Pastora MCV (RBC) [Entitic vol] 93.0 fL Normal 79.1-95.6 [facility] Comment on above: Performed By: #### C BC #### [facility] [address] [place] [address] Dandy Pastora Monocytes (Bld) [#/Vol] 0.7 103/ul Normal 0.3-0.8 [facility] Comment on above: Performed By: #### C BC #### [facility] [address] [place] [address] Dandy Pastora Monocytes/100 WBC (Bld) 10.5 % Normal 1.7-12.0 [facility] Comment on above: Performed By: #### C BC #### [facility] [address] [place] [address] Dandy Pastora Neutrophils (Bld) [#/Vol] 3.2 103/ul Normal 1.4-6.5 [facility] Comment on above: Performed By: #### C BC #### [facility] [address] [place] [address] Dandy Pastora Neutrophils/100 WBC (Bld) 47.7 % Normal 43.0-75.0 [facility] Comment on above: Performed By: #### C BC #### [facility] [address] [place] [address] Dandy Pastora Platelet mean volume (Bld) [Entitic vol] 8.6 fL Critically low 9.5-13.5 [facility] Comment on above: Performed By: #### C BC #### [facility] [address] [place] [address] Dandy Pastora Platelets (Bld) [#/Vol] 358 103/ul Normal 150-450 [facility] Comment on above: Performed By: #### C BC #### [facility] [address] [place] [address] Dandy Pastora RBC (Bld) [#/Vol] 4.27 106/ul Normal 3.40-5.30 [facility] Comment on above: Performed By: #### C BC #### [facility] [address] [place], [place] [address] Dandy Pastora WBC (Bld) [#/Vol] 6.7 103/ul Normal 4.0-11.0 [facility] Comment on above: Performed By: #### C BC #### [facility] [address] [place], [place] [address] Dandy Pastora GLUCOSE BLOODon 12-10-2018 Glucose [Mass/Vol] 98 mg/dL Normal 74-106 [facility] Comment on above: Performed By: #### G CARLOS, AST, PREGQNT, LIPID, ALT #### [facility] [address] [place], [place] [address] Dandy Pastora LIPID PROFILEon 12-10-2018 CHOL-HDL RATIO NORM SEE BELOW Normal [facility] Comment on above: Result Comment: 3.3 - 4.4 LOW RISK 4.4 - 7.1 AVERAGE RISK 7.1 - 11.0 MODERATE RISK >11.0 HIGH RISK Performed By: #### C BC #### [facility] [address] [place], [place] [address] Dandy Pastora Cholesterol [Mass/Vol] 162 mg/dL Normal 104-227 [facility] Comment on above: Performed By: #### C BC #### [facility] [address] [place], [place] [address] Dandy Pastora Cholesterol in HDL [Mass/Vol] 57 mg/dL Normal 29-69 [facility] Comment on above: Performed By: #### C BC #### [facility] [address] [place], [place] [address] Dandy Pastora Cholesterol in HDL [Mass/Vol] > or = 60 mg/dl - LOW CARDIOVASCULAR RISK <40 mg/dl - HIGH CARDIOVASCULAR RISK Normal [facility] Comment on above: Performed By: #### C BC #### [facility] [address] [place], [place] [address] Dandy Past[place] Cholesterol in LDL [Mass/Vol] 97.4 mg/dL Normal 46.0-140.0 [facility] Comment on above: Performed By: #### C BC #### [facility] [address] [place], [place] [address] Dandy Pastora Cholesterol in LDL [Mass/Vol] SEE BELOW Normal [facility] Comment on above: Result Comment: <100 mg/dl OPTIMAL 100 - 129 mg/dl NEAR OR ABOVE OPTIMAL 130 - 159 mg/dl BORDERLINE HIGH 160 - 189 mg/dl HIGH >190 mg/dl VERY HIGH Performed By: #### C BC #### [facility] [address] [id number] Dandy Pastora Cholesterol.total/Choles terol in HDL [Mass ratio] 2.8 {ratio} Normal [facility] Comment on above: Performed By: #### C BC #### [facility] [address] [id number] Dandy Pastora Triglyceride [Mass/Vol] 38 mg/dL Critically low 53-208 [facility] Comment on above: Performed By: #### C BC #### [facility] [address] [place] [address] Dandy Pastora VLDL CALC 7.6 mg/dL Normal [facility] Comment on above: Performed By: #### C BC #### [facility] [address] [place], [place] [address] Dandy Pastora PREG QUANT HCGon 12-10-2018 HCG QUANT <1.00 Normal [facility] Comment on above: Performed By: #### C BC #### [facility] [address] [place], [place] [address] Dandy Pastora HCG RANGE SEE BELOW Normal [facility] Comment on above: Result Comment: 5-50 0-1 WEEK 40-300 1-2 WEEKS 100-1,000 2-3 WEEKS 500-6,000 3-4 WEEKS 5,000-200,000 1-2 MONTHS 10,000-100,000 2-3 MONTHS 3,000-50,000 2ND TRIMESTER 1,000-50,000 3RD TRIMESTER Performed By: #### C BC #### [facility] [address] [id number] Dandy Pastora SGOTon 12-10-2018 AST [Catalytic activity/Vol] 25 U/L Normal 14-36 [facility] Comment on above: Performed By: #### G CARLOS, AST, PREGQNT, LIPID, ALT #### [facility] [address] [place] [address] Dandy Pastora SGPTon 12-10-2018 ALT [Catalytic activity/Vol] 19 U/L Normal 9-52 [facility] Comment on above: Performed By: #### C BC #### [facility] [address] [place], [place] [address] Dandy Pastora CBC AUTO DIFFon 11-10-2018 Basophils (Bld) [#/Vol] 0.0 103/ul Normal 0.0-0.1 [facility] Comment on above: Performed By: #### C BC #### [facility] [address] [place], [place] [address] Dandy Pastora Basophils/100 WBC (Bld) 0.5 % Normal 0.2-2.0 [facility] Comment on above: Performed By: #### C BC #### [facility] [address] [place] [address] Dandy Pastora Eosinophils (Bld) [#/Vol] 0.1 103/ul Normal 0.0-0.7 [facility] Comment on above: Performed By: #### C BC #### [facility] [address] [place], [place] [address] Dandy Pastora Eosinophils/100 WBC (Bld) 1.2 % Normal 0.9-7.0 [facility] Comment on above: Performed By: #### C BC #### [facility] [address] [place], [place] [address] Dandy Pastora Erythrocyte distribution width (RBC) [Ratio] 12.1 % Normal 11.0-15.0 [facility] Comment on above: Performed By: #### C BC #### [facility] [address] [place], [place] [address] Dandy Pastora Hematocrit (Bld) [Volume fraction] 42.7 % Normal 36.0-48.0 [facility] Comment on above: Performed By: #### C BC #### [facility] [address] [place], [place] [address] Dandy Pastora Hemoglobin (Bld) [Mass/Vol] 14.3 g/dL Normal 12.0-16.0 [facility] Comment on above: Performed By: #### C BC #### [facility] [address] [place] [address] Dandyrajan Guillory IG # 0.02 10e3/ul Normal 0.00-0.03 [facility] Comment on above: Performed By: #### C BC #### [facility] [address] [place] [address] Adndy Pastora IG % 0.3 % Normal 0.0-0.5 [facility] Comment on above: Performed By: #### C BC #### [facility] [address] [place] [address] Dandy Pastora Lymphocytes (Bld) [#/Vol] 2.8 103/ul Normal 1.2-3.8 [facility] Comment on above: Performed By: #### C BC #### [facility] [address] [place] [address] Dandy Pastora Lymphocytes/100 WBC (Bld) 36.3 % Normal 20.5-60.0 [facility] Comment on above: Performed By: #### C BC #### [facility] [address] [place] [address] Dandyrajan Guillory MANUAL DIFF REQ NO Normal [facility] Comment on above: Performed By: #### C BC #### [facility] [address] [place] [address] Dandyrajan Dubonen MCH (RBC) [Entitic mass] 31.2 pg Normal 26.7-34.0 [facility] Comment on above: Performed By: #### C BC #### [facility] [address] [place], [place] [address] Dandyrajan Guillory MCHC (RBC) [Mass/Vol] 33.5 g/dL Normal 29.9-35.2 [facility] Comment on above: Performed By: #### C BC #### [facility] [address] [place] [address] Dandyrajan Guillory MCV (RBC) [Entitic vol] 93.0 fL Normal 79.1-95.6 [facility] Comment on above: Performed By: #### C BC #### [facility] [address] [place] [address] Dandy Pastora Monocytes (Bld) [#/Vol] 0.6 103/ul Normal 0.3-0.8 [facility] Comment on above: Performed By: #### C BC #### [facility] [address] [place], [place] [address] Dandy Pastora Monocytes/100 WBC (Bld) 7.7 % Normal 1.7-12.0 [facility] Comment on above: Performed By: #### C BC #### [facility] [address] [place], [place] [address] Dandy Pastora Neutrophils (Bld) [#/Vol] 4.1 103/ul Normal 1.4-6.5 [facility] Comment on above: Performed By: #### C BC #### [facility] [address] [place], [place] [address] Dandy Pastora Neutrophils/100 WBC (Bld) 54.0 % Normal 43.0-75.0 [facility] Comment on above: Performed By: #### C BC #### [facility] [address] [place], [place] [address] Dandy Pastora Platelet mean volume (Bld) [Entitic vol] 9.8 fL Normal 9.5-13.5 [facility] Comment on above: Performed By: #### C BC #### [facility] [address] [place], [place] [address] Dandy Pastora Platelets (Bld) [#/Vol] 281 103/ul Normal 150-450 [facility] Comment on above: Performed By: #### C BC #### [facility] [address] [place], [place] [address] Dandy Pastora RBC (Bld) [#/Vol] 4.59 106/ul Normal 3.40-5.30 [facility] Comment on above: Performed By: #### C BC #### [facility] [address] [place], [place] [address] Dandy Pastora WBC (Bld) [#/Vol] 7.6 103/ul Normal 4.0-11.0 [facility] Comment on above: Performed By: #### C BC #### [facility] [address] [place], [place] [address] Dandy Guillory GLUCOSE BLOODon 11-10-2018 Glucose [Mass/Vol] 98 mg/dL Normal 74-106 [facility] Comment on above: Performed By: #### P REGQNT, AST, ALT, GLUC, LIPID #### [facility] [address] [place], [place] [address] Dandy Guillory LIPID PROFILEon 11-10-2018 CHOL-HDL RATIO NORM SEE BELOW Normal [facility] Comment on above: Result Comment: 3.3 - 4.4 LOW RISK 4.4 - 7.1 AVERAGE RISK 7.1 - 11.0 MODERATE RISK >11.0 HIGH RISK Performed By: #### P REGQNT, AST, ALT, GLUC, LIPID #### [facility] [address] [id number] Dandy Pastora Cholesterol [Mass/Vol] 161 mg/dL Normal 104-227 [facility] Comment on above: Performed By: #### P REGQNT, AST, ALT, GLUC, LIPID #### [facility] [address] [id number] Dandy Pastora Cholesterol in HDL [Mass/Vol] 57 mg/dL Normal 29-69 [facility] Comment on above: Performed By: #### P REGQNT, AST, ALT, GLUC, LIPID #### [facility] [address] [id number] Dandy Pastora Cholesterol in HDL [Mass/Vol] > or = 60 mg/dl - LOW CARDIOVASCULAR RISK <40 mg/dl - HIGH CARDIOVASCULAR RISK Normal [facility] Comment on above: Performed By: #### P REGQNT, AST, ALT, GLUC, LIPID #### [facility] [address] [place], [place] [address] Dandy Pastora Cholesterol in LDL [Mass/Vol] 93.4 mg/dL Normal 46.0-140.0 [facility] Comment on above: Performed By: #### P REGQNT, AST, ALT, GLUC, LIPID #### [facility] [address] [id number] Dandy Pastora Cholesterol in LDL [Mass/Vol] SEE BELOW Normal [facility] Comment on above: Result Comment: <100 mg/dl OPTIMAL 100 - 129 mg/dl NEAR OR ABOVE OPTIMAL 130 - 159 mg/dl BORDERLINE HIGH 160 - 189 mg/dl HIGH >190 mg/dl VERY HIGH Performed By: #### P REGQNT, AST, ALT, GLUC, LIPID #### [facility] [address] [id number] Dandy Pastora Cholesterol.total/Choles terol in HDL [Mass ratio] 2.8 {ratio} Normal [facility] Comment on above: Performed By: #### P REGQNT, AST, ALT, GLUC, LIPID #### [facility] [address] [id number] Dandy Pastora Triglyceride [Mass/Vol] 53 mg/dL Normal 53-208 [facility] Comment on above: Performed By: #### P REGQNT, AST, ALT, GLUC, LIPID #### [facility] [address] [phone] Dandy Pastora VLDL CALC 10.6 mg/dL Normal [facility] Comment on above: Performed By: #### P REGQNT, AST, ALT, GLUC, LIPID #### [facility] [address] [id number] Dandy Pastora PREG QUANT HCGon 11-10-2018 HCG QUANT <1.00 Normal [facility] Comment on above: Performed By: #### P REGQNT, AST, ALT, GLUC, LIPID #### [facility] [address] [place], [place] [address] Dandy Pastora HCG RANGE SEE BELOW Normal [facility] Comment on above: Result Comment: 5-50 0-1 WEEK 40-300 1-2 WEEKS 100-1,000 2-3 WEEKS 500-6,000 3-4 WEEKS 5,000-200,000 1-2 MONTHS 10,000-100,000 2-3 MONTHS 3,000-50,000 2ND TRIMESTER 1,000-50,000 3RD TRIMESTER Performed By: #### P REGQNT, AST, ALT, GLUC, LIPID #### [facility] [address] [place], [place] [address] Dandy Guillory SGOTon 11-10-2018 AST [Catalytic activity/Vol] 26 U/L Normal 14-36 [facility] Comment on above: Performed By: #### P REGQNT, AST, ALT, GLUC, LIPID #### [facility] [address] [place], [place] [address] Dandy Guillory SGPTon 11-10-2018 ALT [Catalytic activity/Vol] 23 U/L Normal 9-52 [facility] Comment on above: Performed By: #### P REGQNT, AST, ALT, GLUC, LIPID #### [facility] [address] [place], [place] [address] Dandy Guillory URon 10-09-2018 , QUAL Negative Normal NEGATIVE [facility] Comment on above: Performed By: #### P REGU #### [facility] [address] [id number] Dandy Guillory Vital Signs Date Time Vital Sign Value Performing Clinician Facility 05-11-2025 14:08-0400 Body mass index (BMI) [Ratio] 24.48 kg/m2 Stella Stanley MD Work Phone: [facility] 05-11-2025 14:08-0400 Body weight 73.03 kg Stella Stanley MD Work Phone: [facility] 05-11-2025 14:08-0400 Diastolic blood pressure 78 mm[Hg] Stella Stanley MD Work Phone: [facility] 05-11-2025 14:08-0400 Systolic blood pressure 122 mm[Hg] Stella Stanley MD Work Phone: [facility] 12-22-2024 11:28-0400 Body mass index (BMI) [Ratio] 25.54 kg/m2 Stella Stanley MD Work Phone: [facility] 12-22-2024 11:28-0400 Body weight 76.2 kg Stella Stanley MD Work Phone: [facility] 12-22-2024 11:28-0400 Diastolic blood pressure 76 mm[Hg] Stella Stanley MD Work Phone: [facility] 12-22-2024 11:28-0400 Systolic blood pressure 110 mm[Hg] Stella Stanley MD Work Phone: [facility] 10-11-2024 10:42-0500 Body mass index (BMI) [Ratio] 25.85 kg/m2 Stella Stanley MD Work Phone: [facility] 10-11-2024 10:42-0500 Body weight 77.11 kg Stella Stanley MD Work Phone: [facility] 10-11-2024 10:42-0500 Diastolic blood pressure 78 mm[Hg] Stella Stanley MD Work Phone: [facility] 10-11-2024 10:42-0500 Systolic blood pressure 110 mm[Hg] Stella Stanley MD Work Phone: [facility] 04-27-2024 15:45-0400 Body mass index (BMI) [Ratio] 25.09 kg/m2 Stella Stanley MD Work Phone: [facility] 04-27-2024 15:45-0400 Body weight 74.84 kg Stella Stanley MD Work Phone: [facility] 04-27-2024 15:45-0400 Diastolic blood pressure 76 mm[Hg] Stella Stanley MD Work Phone: [facility] 04-27-2024 15:45-0400 Systolic blood pressure 114 mm[Hg] Stella Stanley MD Work Phone: [facility] 01-23-2024 08:00-0400 Body temperature 98.2 [degF] MD Marbin Keith Work Phone: [facility] 01-23-2024 08:00-0400 Diastolic blood pressure 74 mm[Hg] MD Marbin Keith Work Phone: [facility] 01-23-2024 08:00-0400 Heart rate 47 /min MD Marbin Keith Work Phone: [facility] 01-23-2024 08:00-0400 Respiratory rate 16 /min MD Marbin Keith Work Phone: [facility] 01-23-2024 08:00-0400 SaO2% (BldA) [Mass fraction] 97 % MD Marbin Keith Work Phone: [facility] 01-23-2024 08:00-0400 Systolic blood pressure 114 mm[Hg] MD Marbin Keith Work Phone: [facility] 01-23-2024 01:35-0400 Body height 172.72 cm MD Marbin Keith Work Phone: [facility] 01-23-2024 01:35-0400 Body weight 77.11 kg MD Marbin Keith Work Phone: [facility] 01-23-2024 00:12-0400 Diastolic blood pressure 82 mm[Hg] MD Marbin Keith Work Phone: [facility] 01-23-2024 00:12-0400 Heart rate 59 /min MD Marbin Keith Work Phone: [facility] 01-23-2024 00:12-0400 Respiratory rate 18 /min MD Marbin Keith Work Phone: [facility] 01-23-2024 00:12-0400 SaO2% (BldA) [Mass fraction] 98 % MD Marbin Keith Work Phone: [facility] 01-23-2024 00:12-0400 Systolic blood pressure 129 mm[Hg] MD Marbin Keith Work Phone: [facility] 01-22-2024 22:37-0400 Body temperature 97.8 [degF] MD Marbin Keith Work Phone: [facility] 01-22-2024 16:34-0400 Body height 170.18 cm MD Marbin Keith Work Phone: [facility] 01-22-2024 16:34-0400 Body weight 77 kg MD Marbin Keith Work Phone: [facility] 07-07-2023 12:15-0500 Body height 172.72 cm Mona Treadwell Other [facility] Other 07-07-2023 12:15-0500 Body mass index (BMI) [Ratio] 26.12 kg/m2 Mona Treadwell Other [facility] Other 07-07-2023 12:15-0500 Body temperature 98.2 [degF] Mona Treadwell Other [facility] Other 07-07-2023 12:15-0500 Body weight 77.93 kg Mona Treadwell Other [facility] Other 07-07-2023 12:15-0500 Respiratory rate 18 /min Mona Treadwell Other [facility] Other 07-07-2023 12:15-0500 SaO2% (BldA) [Mass fraction] 98 % Mona Treadwell Other [facility] Other Encounters Encounter Date Encounter Type Care Provider Facility Start: 05-11-2025 End: 05-11-2025 Office outpatient visit 15 minutes Stella Stanley MD Work Phone: [facility] Comment on above: Menorrhagia with reg ular cycle (Primary Dx); Alopecia; Syncope, unspecified syncope type Start: 05-11-2025 End: 05-11-2025 ambulatory STELLA STANLEY Not Available Start: 05-11-2025 End: 05-11-2025 Bamboo flowsheet Stella Stanley MD Work Phone: [facility] Start: 05-11-2025 End: 05-11-2025 Bamboo flowsheet Stella Stanley MD Work Phone: [facility] Start: 02-21-2025 End: 02-23-2025 Clinisync Result Encounter Generic External Data Provider [facility] External Department Unsolicited Start: 02-21-2025 End: 02-23-2025 Clinisync Result Encounter Generic External Data Provider [facility] External Department Unsolicited Start: 02-04-2025 End: 02-04-2025 ambulatory PATIENT DAY COORDINATOR Lianne Jones Facility:[facility] Start: 12-22-2024 End: 12-22-2024 Bamboo flowsheet Stella Stanley MD Work Phone: [facility] Start: 12-22-2024 End: 12-22-2024 Bamboo flowscaty Stanley MD Work Phone: [facility] Start: 12-22-2024 End: 12-22-2024 Office outpatient visit 15 minutes Stella Stanley MD Work Phone: [facility] Comment on above: DUB (dysfunctional u terine bleeding) Start: 12-22-2024 End: 12-22-2024 ambulatory STELLA STANLEY Not Available Start: 10-11-2024 End: 10-11-2024 Bamboo flowsheet Stella Stanley MD Work Phone: [facility] Start: 10-11-2024 End: 10-11-2024 Bamboo flowscaty Stanley MD Work Phone: [facility] Start: 10-11-2024 End: 10-11-2024 Patient encounter procedure Stella Stanley MD Work Phone: [facility] Work Phone: Start: 10-11-2024 End: 10-11-2024 Periodic preventive med est patient 18-39 yrs Stella Stanley MD Work Phone: [facility] Comment on above: Well woman exam with routine gynecological exam (Primary Dx); Oral contraceptive pill surveillance; Cyst of ovary, unspecified laterality Start: 10-11-2024 End: 10-11-2024 ambulatory STELLA STANLEY Not Available Start: 04-27-2024 End: 04-27-2024 Postop follow up visit related to original px Stella Stanley MD Work Phone: [facility] Comment on above: Surgery follow-up; Cyst of right ovary Start: 04-27-2024 End: 04-27-2024 Bamboo flowsheet Stella Stanley MD Work Phone: [facility] Start: 04-27-2024 End: 04-27-2024 Bamboo flowsheet Stella Stanley MD Work Phone: [facility] Start: 04-12-2024 End: 04-12-2024 ambulatory MD Marbin Keith Work Phone: [facility] Work Phone: Start: 04-12-2024 End: 04-12-2024 Departed Referred MD Marbin Keith Work Phone: [facility] [place] Work Phone: Start: 01-23-2024 End: 01-23-2024 ambulatory Abena Alegre Facility:[facility] Start: 01-23-2024 End: 01-23-2024 Evaluation and management of inpatient MD Marbin Keith Work Phone: [facility] [place] Work Phone: Start: 01-23-2024 End: 01-23-2024 observation encounter MD Marbin Keith Work Phone: [facility] Work Phone: Start: 09-27-2023 Clinisync Result Encounter Generic External Data Provider [facility] External Department Unsolicited Start: 09-27-2023 Clinisync Result Encounter Generic External Data Provider [facility] External Department Unsolicited Start: 07-07-2023 End: 07-07-2023 ambulatory Mona Treadwell Other [facility] Other Start: 07-07-2023 Office outpatient ne w 20 minutes Mona Mile [facility] [place] Start: 06-14-2019 End: 06-15-2019 Patient encounter procedure CELIA KEYES Facility:[facility] Start: 06-04-2019 End: 06-05-2019 Patient encounter procedure CELIA KEYES Facility:[facility] Start: 04-06-2019 End: 04-07-2019 Patient encounter procedure DOCTOR MISC Facility:[facility] Start: 02-19-2019 End: 02-20-2019 Patient encounter procedure DOCTOR MISC Facility:[facility] Start: 01-13-2019 End: 01-14-2019 Patient encounter procedure DOCTOR MISC Facility:[facility] Start: 12-10-2018 End: 12-11-2018 Patient encounter procedure DOCTOR MISC Facility:[facility] Start: 11-10-2018 End: 11-11-2018 Patient encounter procedure DOCTOR MISC Facility:[facility] Start: 10-09-2018 End: 10-10-2018 Patient encounter procedure DOCTOR MISC Facility:[facility] Procedures Date Procedure Procedure Detail Performing Clinician Start: 02-21-2025 QUANTIFERON-TB GOLD PLUS Generic External Data Provider Start: 01-22-2024 Pelvic echography MD Sa lani Keith Work Phone: Start: 01-22-2024 Computed tomography of abdomen and pelvis with contrast MD Marbin Keith Work Phone: Start: 01-22-2024 Transvaginal echography MD Marbin Keith Work Phone: Start: 09-27-2023 ALL TRIGLYCERIDES Gener ic External Data Provider Plan of Treatment Date Care Activity Detail Author Start: 10-13-2025 End: 10-13-2025 Patient encounter procedure [facility] Start: 06-08-2025 End: 06-08-2025 Patient encounter procedure 06/08/2025 1:30 PM EDT Office Visit [facility] [place] [facility] [address] [place] [address] Stella Stanley MD [address] [place] [address] [facility] [place] [facility] Start: 05-11-2025 End: 05-11-2025 Patient encounter procedure 05/11/2025 2:15 PM EDT Office Visit [facility] [place] [facility] [address] [place] [phone] Stella Stanley MD [address] [place] [address] DUB (dysfunctional uterine bleeding) [facility] Comment on above: DUB (dysfunctional u terine bleeding) Start: 05-11-2025 End: 05-11-2026 CBC panel - Blood by Automated count CBC Lab Routine Menorrhagia with regular cycle Alopecia Syncope, unspecified syncope type Expected: 05/11/2025 (Approximate), Expires: 05/11/2026 [facility] Work Phone: Comment on above: Expected: 05/11/2025 (Approximate), Expires: 05/11/2026 Start: 05-11-2025 End: 05-11-2026 DHEA-sulfate DHEA-sulfate Lab Routine Menorrhagia with regular cycle Alopecia Syncope, unspecified syncope type Expected: 05/11/2025 (Approximate), Expires: 05/11/2026 [facility] Comment on above: Expected: 05/11/2025 (Approximate), Expires: 05/11/2026 Start: 05-11-2025 End: 05-11-2026 Glucose measurement, fasting Glucose, fasting Lab Routine Menorrhagia with regular cycle Alopecia Syncope, unspecified syncope type Expected: 05/11/2025 (Approximate), Expires: 05/11/2026 [facility] Comment on above: Expected: 05/11/2025 (Approximate), Expires: 05/11/2026 Start: 05-11-2025 End: 05-11-2026 Insulin, fasting Insulin, fasting Lab Routine Menorrhagia with regular cycle Alopecia Syncope, unspecified syncope type Expected: 05/11/2025 (Approximate), Expires: 05/11/2026 [facility] Comment on above: Expected: 05/11/2025 (Approximate), Expires: 05/11/2026 Start: 05-11-2025 End: 05-11-2026 Testosterone, free, total Testosterone, free, total Lab Routine Menorrhagia with regular cycle Alopecia Syncope, unspecified syncope type Expected: 05/11/2025 (Approximate), Expires: 05/11/2026 [facility] Comment on above: Expected: 05/11/2025 (Approximate), Expires: 05/11/2026 Start: 05-11-2025 End: 05-11-2026 Thyrotropin [Units/volume] in Serum or Plasma TSH Lab Routine Menorrhagia with regular cycle Alopecia Syncope, unspecified syncope type Expected: 05/11/2025 (Approximate), Expires: 05/11/2026 [facility] Comment on above: Expected: 05/11/2025 (Approximate), Expires: 05/11/2026 Start: 04-25-2025 Influenza vaccination N [facility] Start: 12-22-2024 End: 12-22-2024 Patient encounter procedure 12/22/2024 11:30 AM EDT Office Visit [facility] [address] [place] [phone] Stella Stanley MD [address] [place] [address] Arrived [facility] Comment on above: Arrived Start: 10-11-2024 End: 10-11-2024 Patient encounter procedure 10/11/2024 10:45 AM EST Office Visit [facility] [address] [place] [phone] Stella Stanley MD [address] [place] [address] Well woman exam with routine gynecological exam; Oral contraceptive pill surveillance [facility] Comment on above: Well woman exam with routine gynecological exam; Oral contraceptive pill surveillance Start: 04-27-2024 End: 04-27-2024 Patient encounter procedure 04/27/2024 3:45 PM EDT Office Visit [facility] [address] [place] [phone] Stella Stanley MD [address] [place] [address] Surgery follow-up; Cyst of right ovary; Endometriosis, ovary [facility] Comment on above: Surgery follow-up; Cyst of right ovary; Endometriosis, ovary Start: 04-25-2024 Influenza vaccination Influenza Vacc ine (#1) [facility] Start: 02-22-2024 Influenza vaccination Influenza Vacc ine (#1) [facility] Comment on above: Postponed from 04/25 (Patient Refused) Start: 01-23-2024 [facility] Start: 01-23-2024 Hospital admission [facility] Start: 01-22-2024 Pelvic echography US pelvic complete [facility] Start: 01-22-2024 US Pelvis [facility] Start: 01-22-2024 Transvaginal echography US transvagi nal [facility] Start: 01-22-2024 US Pelvis transvaginal [facility] Patient Education Ovarian Cyst ( DC) Know your Meds [facility] Work Phone: Patient referral [facility] Work Phone: Immunizations Immunization Date Immunization Notes Care Provider [facility] 04-04-2022 hepatitis A vaccine, pediatric/adolescent dosage, 2 dose schedule Generic Provider [facility] 04-04-2022 Meningococcal Polysa ccharide A,C,Y,W-135 TT Conjugate Generic Provider [facility] 03-25-2017 hepatitis A vaccine, pediatric/adolescent dosage, 2 dose schedule Generic Provider [facility] 03-25-2017 meningococcal polysa ccharide (groups A, C, Y and W-135) diphtheria toxoid conjugate vaccine (MCV4P) Generic Provider [facility] 03-25-2017 tetanus toxoid, redu yoshi diphtheria toxoid, and acellular pertussis vaccine, adsorbed Generic Provider [facility] 04-10-2010 Diphtheria, tetanus toxoids and acellular pertussis vaccine, and poliovirus vaccine, inactivated Generic Provider [facility] 04-10-2010 measles, mumps, rube lla, and varicella virus vaccine Generic Provider [facility] 07-04-2009 novel influenza-H1N1 -09, preservative-free, injectable Generic Provider [facility] 03-24-2008 diphtheria, tetanus toxoids and acellular pertussis vaccine, unspecified formulation Generic Provider [facility] 03-24-2008 hepatitis B vaccine, pediatric or pediatric/adolescent dosage Generic Provider [facility] are 06-07-2005 measles, mumps and r ubella virus vaccine Generic Provider [facility] 06-07-2005 varicella virus vaccine Generic Prov ider [facility] 2004 DTaP-hepatitis B and poliovirus vaccine Generic Provider [facility] 2004 haemophilus influenz ae type b vaccine, PRP-T conjugate Generic Provider [facility] 2004 pneumococcal conjuga te vaccine, 7 valent Generic Provider [facility] 2004 DTaP-hepatitis B and poliovirus vaccine Generic Provider [facility] 2004 haemophilus influenz ae type b vaccine, PRP-T conjugate Generic Provider [facility] 2004 pneumococcal conjuga te vaccine, 7 valent Generic Provider [facility] 2004 DTaP-hepatitis B and poliovirus vaccine Generic Provider [facility] 2004 haemophilus influenz ae type b vaccine, PRP-T conjugate Generic Provider [facility] 2004 pneumococcal conjuga te vaccine, 7 valent Generic Provider [facility] 2004 hepatitis B vaccine, pediatric or pediatric/adolescent dosage Generic Provider [facility] are Payers Date Payer Category Payer Self-pay 2024 Unknown [id number] 2023 Private Health Insurance [employer] [id number] 2023 Unknown [employer] [id number] 2023-Present [address] [place] [address] [id number] 2004 Unknown [id number] .2.593 2004 Unknown [id number] 2.16.840.1.513103.3.579 .2.727 2004 Unknown [id number] 2.16.840.1.538482.3.579 .2.1259 2004 Unknown [id number] 2.16.840.1.143912.3.579 .2.1259 2004 Unknown [id number] 2.16.840.1.391397.3.579 .2.1259 1976 Unknown [id number] 2.16.840.1.469790.3.579 .2.593 1976 Unknown [id number] 2.16.840.1.785541.3.579 .2.593 1976 Unknown [id number] 2.16.840.1.207013.3.579 .2.593 1976 Unknown [id number] 2.16.840.1.213181.3.579 .2.593 1976 Unknown [id number] 2.16.840.1.746995.3.579 .2.593 1976 Unknown [id number] 2.16.840.1.187502.3.579 .2.593 1976 Unknown [id number] 2.16.840.1.156015.3.579 .2.593 1959 Private Health Insurance [id number] 1959 Unknown [id number] Unknown [id number] 2.16.840.1.346586.3.579 .2.531 Unknown [id number] [id number] .2.531 Social History Date Type Detail Facility Unknown if ever smoked [facility] Other Start: 06-13-2023 End: 05-11-2025 Sex Assigned At [facility] Other Start: 06-13-2023 End: 01-23-2024 Tobacco smoking status NHIS Never smoked tobacco [facility] Start: 06-13-2023 Tobacco use and exposure Smokeless tobacco non-user [facility] Start: 06-13-2023 End: 05-11-2025 History of Social function [facility] Start: 2004 Sex Assigned At Not on file [facility] Start: 2004 Sex Assigned At Female [facility] Start: 02-25-2024 End: 05-11-2025 Alcoholic beverage intake Current drinker of alcohol (finding) [facility] Start: 01-26-2024 Gender identity Identifies as female gender (finding) [facility] Start: 01-26-2024 Sexual orientation Heterosexual (fin ding) [facility] NEGATED: Highlighted row [facility] Functional Status Date Assessment Result Facility 01-23-2024 Functional status Patient at Baseline [facility] Work Phone: Mental Status Date Assessment Result Facility 01-23-2024 Cognitive function Cognitive Sta tus Patient at Baseline [facility] Work Phone: Clinical Notes 07-07-2023 to 05-11-2025 Stella Stanley MD - 05/11/2025 2:15 PM Aisha Stanley MD - 12/22/2024 11:30 AM Aisha Stanley MD - 10/11/2024 10:45 AM Ina Stanley MD - 04/27/2024 3:45 PM EDT Note Date & Type Note Facility 05-11-2025 History of Presen t illness Narrative Images from the original note were not included. Stella Stanley MD Obstetrics and Gynecology Patient: Theresa Abbott, : 2005 (19 y.o.) DOS 05/11/25 Exam Date: 05/11/2025 HPI: Pt is on her 2nd OCP. She cont to hve heavy/prolonged bleeding lasting 10-15 days each cycle. She feels like she might pass out. She c/o increased hair loss. Visit Vitals BP 122/78 Wt 161 lb LMP 05/02/2025 BMI 24.48 kg/m OB Status Having periods Smoking Status Never BSA 1.87 m OB History Para Term AB Living 0 0 0 0 0 0 SAB IAB Ectopic Multiple Live Births 0 0 0 0 0 Obstetric Comments Abr-Uh-Bdcagtqk; every month, heavy to normal blood loss, LMP: 05/02/25 Medication and Allergies Medication Documentation Review Audit Reviewed by Sherlyn Nation MA (Barrel Marker) on 05/11/25 at 1409 Medication Order Taking? Sig Documenting Provider Last Dose Status ibuprofen 600 MG tablet [id number] Take 1 tablet by mouth every 6 (six) hours if needed Stella Stanley MD Active ISOtretinoin (Accutane) 40 MG capsule [id number] Twice daily Stella Stanley MD Active norgestimate-ethinyl estradiol (Sprintec 28) 0.25-35 MG-MCG tablet [id number] Take 1 tablet by mouth Daily Stella [...] in this encounter. documented in this encounter [facility] 12-22-2024 History of Presen t illness Narrative Images from the original note were not included. Stella Stanley MD Obstetrics and Gynecology Patient: Theresa Abbott, : 2005 (19 y.o.) DOS 12/22/24 [...] 0 0 0 0 0 Obstetric Comments Lvv-Ei-Rnybltux; every month, heavy blood loss, LMP: 11/13/24 until 12/12/24 Medication and Allergies Medication Documentation Review Audit Reviewed by Sherlyn Nation MA (Barrel Marker) on 12/22/24 at 1129 Medication Order Taking? Sig Documenting Provider Last Dose Status ibuprofen 600 MG tablet [id number] Take 1 tablet by mouth every 6 (six) hours if needed Stella Stanley MD Active ISOtretinoin (Accutane) 40 MG capsule [id number] Twice daily Stella Stanley MD Active norgestimate-ethinyl estradiol (Ortho Tri-Cyclen LO) 0.18/0.215/0.25 MG-25 MCG tablet [id number] Take 1 tablet by mouth Daily Stella [...] in this encounter. documented in this encounter [facility] 10-11-2024 History of Presen t illness Narrative Images from the original note were not included. Stella Stanley MD Obstetrics and Gynecology Patient: Theresa Abbott, : 2005 (19 y.o.) DOS 10/11/24 [...] 0 0 0 0 0 Obstetric Comments Oyp-Zm-Kyuifwiw; every month, heavy blood loss, LMP: 09/07/24 Medication and Allergies Medication Documentation Review Audit Reviewed by Sherlyn Nation MA (Barrel Marker) on 10/11/24 at 1041 Medication Order Taking? Sig Documenting Provider Last Dose Status ibuprofen 600 MG tablet [id number] Take 1 tablet by mouth every 6 (six) hours if needed Stella Stanley MD Active ISOtretinoin (Accutane) 40 MG capsule [id number] Twice daily Stella Stanley MD Active norgestimate-ethinyl estradiol (Fxm-Le-Nteimhkn) 0.18/0.215/0.25 MG-25 MCG tablet [id number] Take 1 tablet by mouth Daily Stella [...] in this encounter. documented in this encounter [facility] 04-27-2024 History of Presen t illness Narrative Images from the original note were not included. Stella Stanley MD Obstetrics and Gynecology Patient: Theresa Abbott, : 2005 (18 y.o.) DOS 04/27/24 [...] 0 0 0 0 0 Obstetric Comments Kxt-Qd-Ajsmymsc; every month, normal blood loss, LMP: 04/15/24 Medication and Allergies Medication Documentation Review Audit Reviewed by Sherlyn Nation MA (Barrel Marker) on 04/27/24 at 1546 Medication Order Taking? Sig Documenting Provider Last Dose Status ibuprofen 600 MG tablet [id number] Take 1 tablet by mouth every 6 (six) hours if needed Stella Stanley MD Active ISOtretinoin (Accutane) 40 MG capsule [id number] Twice daily Stella Stanley MD Active norgestimate-ethinyl estradiol (Yzw-Si-Uhdvzcyw) 0.18/0.215/0.25 MG-25 MCG tablet [id number] Take 1 tablet by mouth Daily Stella [...] in this encounter. documented in this encounter [facility] 07-07-2023 Evaluation note Encounter Date Diagnosis Assessment [...] no improvement in 2 to 3 days [facility] Other Evaluation note* Diagnosis Onset Date Resolution Status Abdominal pain acute Cyst of right ovary acute [facility] Work Phone: Evaluykepk note* Diagnosis Surgery follow-up Cyst of right ovary Other and unspecified ovarian cyst [facility] Diagnosis Well woman exam with routine gynecological exam- Primary Routine gynecological examination Oral contraceptive pill surveillance Cyst of ovary, unspecified laterality documented [facility] this encounter [facility] Diagnosis DUB (dysfunctional uterine bleeding) Other disorder of menstruation and other abnormal bleeding from female genital tract documented [facility] Diagnosis Menorrhagia with regular cycle- Primary Alopecia Syncope, unspecified syncope type documented in this encounter [facility] Author Abena Alegre [facility] January 23, 2024 8:22am Note Date/Time January 23, 2024 7:59a m [facility] [address] [place] [address] [employer] MECH[employer]IC History & Physical Signed Patient: Theresa Abbott MR#: [id number] : 2005 Acct:[id number] Age/Sex: 18 / F Adm Date: 4 Loc: Room: [address] [place] [address] Type: ADM IN Attending Dr: Abena Alegre DO Copies to: DO Marbin Chaney MD~ Date of Service: 01/23/2024 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 01/22/24 19:39: Corrected WBC 10.2, Uncorrected WBC Count 10.2, RBC 4.23, Hgb 13.7, Hct 40.1, MCV 94.6, MCH 32.3, MCHC 34.2, RDW 13.0, Plt Count 375, MPV 7.3,Neut % (Auto) 82.3, Lymph % (Auto) 14.7, [place] % (Auto) 2.4, Eos % (Auto) 0.2, Baso % (Auto) 0.4, Nucleat RBC Rel Count 0.0, Neut # (Auto) 8.4 H, Lymph # (Auto) 1.5, [place] # (Auto) 0.2, Eos # (Auto) 0.0, [...] Appearance Clear, Urine pH 8.0, Ur Specific Walker 1.033 H, Urine Protein Trace H, Urine Glucose (UA) Normal, Urine Ketones 3+ H, Urine Occult Blood Negative, Urine Nitrite Negative, Urine Bilirubin Negative, Urine Urobilinogen Normal, Ur Leukocyte Esterase Negative, Urine RBC None seen, Urine WBC 0-1, Ur Squamous Epith Cells 3-4 H, Urine Bacteria None seen, Hyaline Casts 0-8, Urine HCG, Qual Negative 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 DATE CREATED AUTHOR AUTHOR'S ORGANIZ ATION 02/06/2025 [facility] DATE CREATED AUTHOR AUTHOR'S ORGANIZ ATION 05/13/2025 [facility] d[facility] Specialists EPIC REASON FOR VISIT (unrecogniz ed section and content) SORE THROAT, POSSIBLE STREP? Care Teams (unrecognized sec tion and content) Team Status: Active Member Role Status Dates Marbin Keith MD Primary Care Provider Active Team Status: Inactive Member Role Status Dates Marbin Keith MD Primary Care Provider Active Start: January 23, 2024 End: January 23, 2024 Cj Santiago PA-C Emergency Provider Active Start: January 23, 2024 End: January 23, 2024 Abena Alegre DO Admit Provider, Attending Provide r Active Start: January 23, 2024 End: January 23, 2024 Mill Worker Relationship Specialty Start Date End Date Ana Cristina Mejia MD [address] [place] [address] PCP - Medical Webshoz 01/23/23 Ana Cristina Mejia MD [address] [place] [address] PCP - General Family Medicine 12/31/22 Team [...] April 12, 2024 End: April 12, 2024 Mill Worker Relationship Specialty Start Date End Date Ana Cristina Mejia MD [address] [place] [address] PCP - General Family Medicine 12/31/22 Milan Mathews MD [address] [place] [address] PCP - Medical Webshoz 02/22/19 08/24/99 Mill Worker Relationship Specialty Start Date End Date Ana Cristina Mejia MD [address] [place] [address] PCP - General Family Medicine 12/31/22 Milan Mathews MD [address] [place] [address] PCP - Medical Webshoz 02/22/19 08/24/99 Mill Worker Relationship Specialty Start Date End Date Ana Cristina Mejia MD [address] [place] [address] PCP - General Family Medicine 12/31/22 Milan Mathews MD [address] [place] [address] PCP - Medical Webshoz 02/22/19 08/24/99 Mill Worker Relationship Specialty Start Date End Date Ana Cristina Mejia MD [address] [place] [address] PCP - General Family Medicine 12/31/22 Milan Mathews MD [address] [place] [address] PCP - Medical Webshoz 02/22/19 08/24/99 Mill Worker Relationship Specialty Start Date End Date Ana Cristina Mejia MD [address] [place] [address] PCP - General Family Medicine 12/31/22 Milan Mathews MD [address] [place] [address] PCP - Medical [employer] 02/22/19 08/24/99 Mill Worker Relationship Specialty Start Date End Date Ana Cristina Mejia MD [address] [place] [address] PCP - General Family Medicine 12/31/22 Milan Mathews MD [address] [place] [address] PCP - Medical [employer] 02/22/19 08/24/99 Mill Worker Relationship Specialty Start Date End Date Ana Cristina Mejia MD [address] [facility] [address] [place] [address] PCP - General Family Medicine 12/31/22 Milan Mathews MD [address] [facility] [address] [place] [address] PCP - Medical [facility] 02/22/19 08/24/99 Goals (unrecognized section and content) [...] BE BASED ON THE PRIMARY CLINICAL RECORDS. [facility]. provides no warranty or guarantee of the accuracy or completeness of information in this document.
[2025-05-14 09:21] LABS: Hematocrit 39.4 % (36.0-48.0); Hemoglobin 13.7 g/dL (12.0-16.0); Immature Granulocytes Abs Auto 0.01 10^3/uL (0.00-0.03); Immature Granulocytes Pct Auto 0.2 % (0.0-0.5); Lymphocytes Absolute Auto 1.9 10^3/uL (1.2-3.8); Mean Corpuscular HGB Conc 34.8 g/dL (29.9-35.2); Mean Corpuscular Hemoglobin 32.6 pg (26.7-34.0); Mean Corpuscular Volume 93.8 fL (81.0-99.0); Platelet Count 347 10^3/uL (150-450); Red Blood Count 4.20 10^6/uL (4.20-5.40); White Blood Count 6.1 10^3/uL (4.0-11.0)
[2025-05-14 10:21] LABS: Thyroid Stimulating Hormone 2.063 uIU/mL (0.358-3.740)
== END 2025-05-14 08:40 | disposition home or self-care (01) ==
PROVIDERS: PCP Nurse Practitioner; Visit Provider Obstetrics & Gynecology
DX: N92.0 Excessive and frequent menstruation with regular cycle (principal); L65.9 Nonscarring hair loss, unspecified; R55 Syncope and collapse
CPT/HCPCS: 36415; 82627; 82947; 83525; 84402; 84403; 84443; 85025

== ENCOUNTER 2025-06-22 09:10 | Outpatient (OUT) | payer OTHER, SELFPAY ==
--- OUTSIDE RECORDS SUMMARY | 2025-06-15 09:30 | XMS_ITS | Encounter Summary ---
Author Organization [facility] Address [address] [facility] [place] [address] Care Team Providers Care Employment Programs Analyst Name Role Phone Ana Cristina Mejia MD Primary Care Provider [phone] Milan Mathews MD Unavailable [phone] Reason for Visit * ReasonCommentsDHEANEW REF/LAB * OBGYN (Routine) - ClosedSpecialtyDiagnoses / ProceduresReferred By Contact Referred To ContactEndocrinology Diagnoses Other specified abnormal findings of blood chemistry Procedures CO OFFICE/OUTPATIENT EST PT MAY NOT REQ PHYS/QHP Jeff Stanley MD [address] [facility] [address] [facility] [address] [place] [address] Phone: tel: fax: Dany Larkin MD [address] [place] [address] Phone: tel: fax: Referral IDStatusReasonStart DateExpiration DateVisits RequestedVisits [id number] Consult and Treat / Encounter Details DateTypeDepartmentCare Team (Latest Contact Info)Vutqejxatlt94/22/2025 9:30 AM EDTOffice Visit [facility] [address] [place] [address] Dany Larkin MD [address] [place] [address] Elevated dehydroepiandrosterone sulfate level (Primary Dx); PCOS (polycystic ovarian syndrome); Irregular periods Social History Tobacco UseTypesPacks/DayYears UsedDateSmoking Tobacco: NeverSmokeless Tobacco: NeverAlcohol UseStandard Drinks/WeekCommentsYes1 (1 standard drink = 0.6 oz pure alcohol)CommentsNoSex and Gender InformationValueDate RecordedSex Assigned at HdozdNdtbzi82/03/2024 1:48 PM EDTLegal TspRrapwf36/15/2023 7:09 PM EDTGender YjlledpzAooebv87/03/2024 1:48 PM EDTSexual OrientationStraight 01/26/2024 1:48 PM EDTdocumented as of this encounter Last Filed Vital Signs Vital SignReadingTime TakenCommentsBlood Kdmdglze669/7010 9:25 AM EDT Ftrel9720 9:25 AM EDTTemperature--Respiratory Pokt9955 9:25 AM EDTOxygen Ntbdmljyat00%06/15/2025 9:25 AM EDTInhaled Oxygen Concentration-- Jetgej89.5 kg (162 lb)06/15/2025 9:25 AM JDZTsspdc202.7 cm (5' 8 )06/15/2025 9:25 AM EDTBody Mass Index24.6310 9:25 AM EDTdocumented in this encounter Progress Notes * Dany Larkin MD - 06/15/2025 9:30 AM EDT Theresa Abbott is a 20 y.o. female Jeff Stanley MD presents with chief complaint of DHEA (NEW REF/LAB) HPI: 05/2025 History of Present Illness The patient presents for elevated DHEA-S levels, 553, (110- 431), and testosterone normal 47 and thyroid normal, TSH. She used to be on control for cysts on her ovaries and she has irregular cycle, currently it under regulator inspector management. She reports no history of hirsutism. Insulin within normal limits, 8.1( 2-24), and fasting blood sugar 94. She has a history of ovarian cysts and irregular menstrual cycles, which are currently being managed by a regulator inspector. She reports no history of hirsutism. Results Laboratory Studies DHEA-S level is 553. Testosterone level is normal at 47. Thyroid TSH is normal. Insulin is within normal limits, 8.1 up and back 2-24. Fasting blood sugar is 94. SUBJECTIVE: MEDICATIONS: Current Outpatient Medications Medication Instructions dexAMETHasone (DECADRON) 1 mg, Oral, Once ibuprofen 600 MG tablet 1 tablet, Every 6 hours PRN ISOtretinoin (Accutane) 40 MG capsule metFORMIN (GLUCOPHAGE) 500 mg, Oral, Daily with breakfast norgestimate-ethinyl estradiol (Sprintec 28) 0.25-35 MG-MCG tablet 1 tablet, Oral, Daily ALLERGIES: Allergies[1] Medical History[2] Surgical History[3] REVIEW OF SYMPTOMS: 14 POINT OF SYSTEM REVIEWED AND NEGATIVE OBJECTIVE: 02/02/2024 11:40 AM 02/25/2024 11:36 AM 04/27/2024 3:45 PM 10/11/2024 10:42 AM 12/22/2024 11:28 AM 05/11/2025 2:08 PM 06/15/2025 9:25 AM Vitals BMI 25.73 kg/m2 24.94 kg/m2 25.09 kg/m2 25.85 kg/m2 25.54 kg/m2 24.48 kg/m2 24.63 kg/m2 BSA (m2) 1.92 m2 1.89 m2 1.89 m2 1.92 m2 1.91 m2 1.87 m2 1.88 m2 Systolic 118 119 114 110 110 122 130 Diastolic 78 70 76 78 76 78 70 Heart Rate 72 SpO2 99 % Resp 16 Height (in) 5' 8 Weight (lb) 169.2 164 165 170 168 161 162 Visit Report Report Report Report Report Report Report Report Physical Exam Constitutional: Appearance: Normal appearance. She is normal weight. HENT: Head: Normocephalic and atraumatic. Right Ear: External ear normal. Nose: Nose normal. Mouth/Throat: Pharynx: Oropharynx is clear. Eyes: Extraocular Movements: Extraocular movements intact. Pupils: Pupils are equal, round, and reactive to light. Cardiovascular: Rate and Rhythm: Normal rate and regular rhythm. Pulmonary: Effort: Pulmonary effort is normal. Abdominal: General: Abdomen is flat. Palpations: Abdomen is soft. Musculoskeletal: General: Normal range of motion. Skin: General: Skin is warm. Neurological: General: No focal deficit present. Mental Status: She is alert. Psychiatric: Mood and Affect: Mood normal. Behavior: Behavior normal. ASSESSMENT AND PLAN: Assessment/Plan Diagnoses and all orders for this visit: Elevated dehydroepiandrosterone sulfate level - dexAMETHasone (Decadron) 1 MG tablet; Take 1 tablet (1 mg) by mouth 1 time - metFORMIN (Glucophage) 500 MG tablet; Take 1 tablet (500 mg) by mouth in the morning. Take with meals. - Basic metabolic panel; Future - DHEA-sulfate; Future - 17-Hydroxyprogesterone; Future - Cortisol, morning; Future PCOS (polycystic ovarian syndrome) Irregular periods Assessment & Plan 1. Polycystic ovary syndrome (PCOS): - Elevated DHEA-S levels likely indicative of PCOS. No need for imaging. - Recommend starting metformin 500 mg once a day. The patient has agreed to this treatment. - Repeat DHEA-S level. Perform 1 mg DST to rule out Angel's syndrome and 17- hydroxyprogesterone test to rule out congenital adrenal hyperplasia (CAH). Follow-up in 3 months to assess clinical progress. Follow-up: Repeat DHEA-S level, perform 1 mg DST, and 17-hydroxyprogesterone test. Follow up in about 3 months (around 09/15/2025). [1] Allergies Allergen Reactions Penicillins Swelling [2] Past Medical History: Diagnosis Date Ovarian cyst 01/22/24 [3] Past Surgical History: Procedure Laterality Date OTHER SURGICAL HISTORY Operative laparoscopy, removal of cyst documented in this encounter Plan of Treatment DateTypeDepartmentCare Team (Latest Contact Info)Mzuscucwdem23/21/2026 9:40 AM ESTOffice Visit [facility] [place] [facility] [address] [place] [address] Dany Larkin MD [address] [place] [address] 10/13/2025 11:30 AM ESTOffice Visit [facility] [place] [facility] [address] [place] [phone] Jeff Stanley MD [address] [place] [address] NameTypePriorityAssociated DiagnosesOrder ScheduleBasic metabolic panelLab Routine Elevated dehydroepiandrosterone sulfate level Expected: 06/15/2025 (Approximate), Expires: 06/15/2026DHEA-sulfateLabRoutine Elevated dehydroepiandrosterone sulfate level Expected: 06/15/2025 (Approximate), Expires: [id number] Routine Elevated dehydroepiandrosterone sulfate level Expected: 06/15/2025 (Approximate), Expires: 6Cortisol, morningLab Routine Elevated dehydroepiandrosterone sulfate level Expected: 06/15/2025 (Approximate), Expires: 06/15/2026documented as of this encounter Visit Diagnoses Diagnosis Elevated dehydroepiandrosterone sulfate level- Primary PCOS (polycystic ovarian syndrome) Polycystic ovaries Irregular periods documented in this encounter Care Teams Team MemberRelationshipSpecialtyStart DateEnd Date Ana Cristina Mejia MD [address] [facility] [address] [place] [address] PCP - GeneralFamily Medicine12/31/22 Milan Mathews MD [address] [facility] [address] [place] [address] PCP - Medical [employer]02/23/[birth year]12documented as of this encounter
--- OUTSIDE RECORDS SUMMARY | 2025-06-22 09:14 | XMS_ITS | Encounter Summary ---
Author Organization [facility] Address [address] [place] [address] Care Team Providers Care Aircraft Maintenance Instructor Name Role Phone Ana Cristina Mejia MD Primary Care Provider [phone] Milan Mathews MD Unavailable [phone] Encounter Details DateTypeDepartmentCare Team (Latest Contact Info)Djtekmcyhms86/22/2025Bamboo flowsheet [facility] [place] [facility] [address] [place] [address] Dany Larkin MD [address] [place] [address] Social History Tobacco UseTypesPacks/DayYears UsedDateSmoking Tobacco: NeverSmokeless Tobacco: NeverAlcohol UseStandard Drinks/WeekCommentsYes1 (1 standard drink = 0.6 oz pure alcohol)CommentsNoSex and Gender InformationValueDate RecordedSex Assigned at ZuovuCltksl53/03/2024 1:48 PM EDTLegal DcfMlxtaa75/15/2023 7:09 PM EDTGender LqaqbecuGuhcji03/03/2024 1:48 PM EDTSexual OrientationStraight 01/26/2024 1:48 PM EDTdocumented as of this encounter Plan of Treatment DateTypeDepartmentCare Team (Latest Contact Info)Dngnrvraphi56/21/2026 9:40 AM ESTOffice Visit [facility] [address] [place] [phone] Dany Larkin MD [address] [place] [address] 10/13/2025 11:30 AM ESTOffice Visit [facility] [address] [place] [address] Jeff Stanley MD [address] [place] [address] documented as of this encounter Visit Diagnoses Not on filedocumented in this encounter Care Teams Team MemberRelationshipSpecialtyStart DateEnd Date Ana Cristina Mejia MD [address] [place] [address] PCP - GeneralFamily Medicine12/31/22 Milan Mathews MD [address] [place] [address] PCP - Medical [employer]02/23/1912documented as of this encounter
--- OUTSIDE RECORDS SUMMARY | 2025-06-22 09:14 | XMS_ITS | Clinical Summary ---
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 Name Role Phone Ana Cristina Mejia MD Primary Care Provider [phone] Milan Mathews MD Unavailable [phone] Allergies Active AllergyReactionsCriticalityNoted DateCommentsPenicillinsSwelling 06/13/2023 Medications MedicationSigDispense QuantityRefillsLast FilledStart DateEnd DateStatus ibuprofen 600 MG tablet Take 1 tablet by mouth every 6 (six) hours if pggxyt2001/23/2024ctive ISOtretinoin (Accutane) 40 MG capsule 01/22/2024ctive norgestimate-ethinyl estradiol (Sprintec 28) 0.25-35 MG-MCG tablet Indications:DUB (dysfunctional uterine bleeding)Take 1 tablet by mouth Daily 28 tablet 1205012/22/2025ctive Additional Information Patient taking differently:1 tablet Oral Daily,(No times of day reported), Reported on 06/15/2025 dexAMETHasone (Decadron) 1 MG tablet Indications:Elevated dehydroepiandrosterone sulfate levelTake 1 tablet (1 mg) by mouth 1 time 1 tablet 5Active metFORMIN (Glucophage) 500 MG tablet Indications:Elevated dehydroepiandrosterone sulfate levelTake 1 tablet (500 mg) by mouth in the morning. Take with meals. 90 tablet 504/20/2026Active Encounters DateTypeDepartmentCare WlzzZqbjyyruskl11/22/2025 9:30 AM EDTOffice Visit [facility] [place] [facility] [address] [place] [phone] Dany Larkin MD Elevated dehydroepiandrosterone sulfate level (Primary Dx); PCOS (polycystic ovarian syndrome); Irregular fxqltpq4506/15/2025amboo flowsheet [facility] [address] [place] [phone] Dany Larkin MD 05/23/2025Results Follow-Up [facility] [place] [facility] [address] [place] [phone] Jeff Stanley MD ALL CBC WITH AUTO DIFF, HMHP GLUCOSE FASTING, ALL THYROID STIM HORMONE, Additional followed-up results: linisync Result Encounter [facility] External Department Unsolicited Jeff Stanley MD 05/11/2025 2:15 PM EDTOffice Visit [facility] [place] [facility] [address] [place] [address] Jeff Stanley MD Menorrhagia with regular cycle (Primary Dx); Alopecia; Syncope, unspecified syncope type05/11/2025amboo flowsheet [facility] [place] [facility] [address] [place] [address] Jeff Stanley MD 05/11/20257980Mvdzfw33/10/2025Telephone [facility] [place] [facility] [address] [place] [address] Jeff Stanley MD from Last 3 Months Immunizations ImmunizationAdministration DatesNext DueDTaP / Hep B / IPV2004,2004, 2004DTaP / IPV04/10/2010DTaP, Pdzhgeovmow98/31/2008Hep A, ped/adol, 2 dose 04/04/2022,03/25/2017Hep B, Adolescent or Zqmfkkfxg56/31/2008,2004Hib (PRP-T)2004,2004,2004MMR10316EGCN21/17/2010Meningococcal TYV0S3703/25/2017Meningococcal Polysaccharide A,C,Y,W-135 TT Pvhlfuuls41/11/2022 Novel bupeaozpv-L6H6-55, preservative-free07/04/2009Pneumococcal Conjugate PCV 7 2004,2004,2004Tdap03/25/20175887Auidqdmla23/14/2005 Family History Medical HistoryRelationNameCommentsHypertensionFatherBreast cancerMaternal GrandmotherMarge RectorMigrainesMotherLaura BauerRelationNameStatusComments FatherAliveMaternal GrandmotherMarge RectorMotherLaura BauerAlive Social History Tobacco UseTypesPacks/DayYears UsedDateSmoking Tobacco: NeverSmokeless Tobacco: Never Tobacco Cessation:Counseling Given: Not Answered Alcohol UseStandard Drinks/WeekCommentsYes1 (1 standard drink = 0.6 oz pure alcohol)CommentsNoSex and Gender InformationValueDate RecordedSex Assigned at FpahtNkxkzd35/03/2024 1:48 PM EDTLegal WctBudtrk78/15/2023 7:09 PM EDTGender TndxiledUhepjb19/03/2024 1:48 PM EDTSexual OrientationStraight 01/26/2024 1:48 PM EDT Last Filed Vital Signs Vital SignReadingTime TakenCommentsBlood Rjkdmnbc995/7010 9:25 AM EDT Xjmeo591006/15/2025 9:25 AM FHNLcfhukqvctk28.4 ??C (99.4 ??F)06/13/2023 12:04 PM EDTRespiratory Nxfp3757 9:25 AM EDTOxygen Ziwirnzctp46%06/15/2025 9:25 AM EDTInhaled Oxygen Concentration--Qgsnqj76.5 kg (162 lb)06/15/2025 9:25 AM EDT Bcueir268.7 cm (5' 8 )06/15/2025 9:25 AM EDTBody Mass Index24.6306/15/2025 9:25 AM EDT Plan of Treatment DateTypeDepartmentCare Team (Latest Contact Info)Doqftvpwupc36/21/2026 9:40 AM ESTOffice Visit [facility] [address] [place] [address] Dany Larkin MD [address] [place] [address] 10/13/2025 11:30 AM ESTOffice Visit [facility] [address] [place] [address] Jeff Stanley MD [address] [place] [address] Health MaintenanceDue DateLast DoneCommentsHPV Vaccines (1 - 3-dose series) 2019Meningococcal B Vaccine (1 of 2 - Standard)2020COVID-19 Vaccine (1 - season)2025Influenza Vaccine (#1)2025DTaP/Tdap/Td Vaccines (7 - Td or Tdap), 04/10/2010, 03/24/2008, Additional history existsHIB VaccinesAged Out2004, 2004, 2004 No longer eligible based on patient's age to complete this topicPneumococcal Vaccine: Pediatrics (0 to 5 Years) and At-Risk Patients (6 to 64 Years)Aged Out 2004, 2004, 2004No longer eligible based on patient's age to complete this topicHepatitis B HxctplfqQxfkuvwmb85/31/2008, 2004, 2004, Additional history existsIPV SmozrauqOcfevoaeg27/17/2010, 2004, 2004, Additional history existsMMR VaccinesCompleted 04/10/2010, 06/07/2005Varicella JjfrpkofCvdpwpbcg03/17/2010, 06/07/2005Hepatitis A SvnyvtdeAmrxkqcyp15/11/2022, 03/25/2017Meningococcal VaccineCompleted 2Rotavirus VaccinesAged OutNo longer eligible based on patient's age to complete this topic Procedures Procedure NamePriorityDate/TimeAssociated DiagnosisCommentsSRMCOH TESTOSTERONE FREE/TOT WCKIWQXOdtqccw66/20/2025 9:03 AM EDT ALL DHEA AQPSIHKPjjajdi63/20/2025 9:03 AM EDT TBH XDCHXLQQfkikus11/20/2025 9:03 AM EDT ALL THYROID STIM VISMWLXPqcplry32/20/2025 9:03 AM EDT HMHP GLUCOSE BKYCNUNIqwufgi48/20/2025 9:03 AM EDT ALL CBC WITH AUTO XUVYSujhlpe00/20/2025 9:03 AM EDT from Last 3 Months Results * TBH INSULIN (05/14/2025 9:03 AM EDT)ComponentValueRef RangeTest MethodAnalysis TimePerformed AtPathologist SignatureINSULIN8.12.6 - 24.9 uIU/mLTBHComment: Performed at: ??CB - [facility] [address] ??[id number] Room Manager: Jonh Valenzuela PhD, Phone: ??[phone] Specimen (Source)Anatomical Location / LateralityCollection Method / Volume Collection TimeReceived Time05/14/2025 9:03 AM EDT05/14/2025 9:05 AM EDT Narrative CLINISYNC - 05/15/2025 1:07 PM EDT Authorizing ProviderResult TypeResult StatusJeff Stanley MDCLINISYNCFinal ResultPerforming OrganizationAddressCity/State/ZIP CodePhone Number CLIN[facility]NC TB * SRMCOH TESTOSTERONE FREE/TOT EQUILIB (05/14/2025 9:03 AM EDT)ComponentValueRef RangeTest MethodAnalysis TimePerformed AtPathologist LenjihhalHMBFEWYRQSXT0546 - 71 ng/dLTBHFREE TESTOSTERONE(DIRECT)2.20.0 - 4.2 pg/mLTBHComment: Performed at: ??CB - [facility] [address] ??[id number] Room Manager: Jonh Valenzeula PhD, Phone: ??[phone] Performed at: ?? - [facility] [address] ??[id number] Room Manager: Ángela Funez MD, Phone: ??[phone] Specimen (Source)Anatomical Location / LateralityCollection Method / Volume Collection TimeReceived Time05/14/2025 9:03 AM EDT05/14/2025 9:05 AM EDT Narrative CLINISYUT - 05/20/2025 4:09 AM EDT Authorizing ProviderResult TypeResult StatusJeff Stanley [facility]YAt[facility] Health ResultPerforming OrganizationAddressCity/State/ZIP CodePhone Number [facility] * HMHP GLUCOSE FASTING (05/14/2025 9:03 AM EDT)ComponentValueRef RangeTest MethodAnalysis TimePerformed AtPathologist SignatureTBH GLUCOSE YWKXVUD12<95 mg/dLTBHSpecimen (Source)Anatomical Location / LateralityCollection Method / VolumeCollection TimeReceived Time05/14/2025 9:03 AM EDT05/14/2025 9:05 AM EDT Narrative CLINISYUT - 05/14/2025 10:26 AM EDT Authorizing ProviderResult TypeResult Matt Stanlye [facility] CITYLINISYNCFinal ResultPerforming OrganizationAddressCity/State/ZIP CodePhone Number [facility] * ALL THYROID STIM HORMONE (05/14/2025 9:03 AM EDT)ComponentValueRef RangeTest MethodAnalysis TimePerformed AtPathologist SignatureTHYROID STIMULATING HORMONE2.0630.358 - 3.740 uIU/mLTBHSpecimen (Source)Anatomical Location / LateralityCollection Method / VolumeCollection TimeReceived Time05/14/2025 9:03 AM EDT05/14/2025 9:05 AM EDT Narrative CLINISYNC - 05/14/2025 10:26 AM EDT Authorizing ProviderResult TypeResult StatusJeff Stanley [facility] CITY[facility]ISYNCFinal ResultPerforming OrganizationAddressCity/State/ZIP CodePhone Number CLINKEIRAUT TB * (ABNORMAL) ALL DHEA SULFATE (05/14/2025 9:03 AM EDT)ComponentValueRef Range Test MethodAnalysis TimePerformed AtPathologist SignatureDHEA-PALKOZB703.0(A) 110.0 - 431.7 ug/dLTBHComment: Performed at: ?? - [facility] [address] ??[id number] Room Manager: Jonh Valenzuela PhD, Phone: ??[phone] Specimen (Source)Anatomical Location / LateralityCollection Method / Volume Collection TimeReceived Time05/14/2025 9:03 AM EDT05/14/2025 9:05 AM EDT Narrative CLINISYNC - 05/20/2025 4:09 AM EDT Authorizing ProviderResult TypeResult Matt RODRIGUEZLINISYNCFinal ResultPerforming OrganizationAddressCity/State/ZIP CodePhone Number [facility] * (ABNORMAL) ALL CBC WITH AUTO DIFF (05/14/2025 9:03 AM EDT)ComponentValueRef RangeTest MethodAnalysis TimePerformed AtPathologist SignatureTBH WBC6.14.0 - 11.0 10 3/uLTBHTBH RBC4.204.20 - 5.40 10 6/uLTBHTBH HGB13.712.0 - 16.0 g/dLTBH TBH HCT39.436.0 - 48.0 %TBHTBH MCV93.881.0 - 99.0 fLTBHTBH MCH32.626.7 - 34.0 pgTBHTBH MCHC34.829.9 - 35.2 g/dLTBHTBH RDW11.611.0 - 15.0 %TBHTBH VJH713037 - 450 10 3/uLTBHTBH MPV8.8(L)9.5 - 13.5 fLTBHNEUTROPHILS PERCENT AUTO57.143.0 - 75.0 %TBHLYMPHOCYTES PERCENT AUTO31.320.5 - 60.0 %TBHMONOCYTES PERCENT AUTO7.6 1.7 - 12.0 %TBHTBH EO %2.80.9 - 7.0 %TBHBASOPHILS PERCENT AUTO1.00.2 - 2.0 % TBHIMMATURE GRANULOCYTES PCT AUTO0.20.0 - 0.5 %TBHNEUTROPHILS ABSOLUTE AUTO3.5 1.4 - 6.5 10 3/uLTBHLYMPHOCYTES ABSOLUTE AUTO1.91.2 - 3.8 10 3/uLTBHMONOCYTES ABSOLUTE AUTO0.50.3 - 0.8 10 3/uLTBHTBH EO #0.20.0 - 0.7 10 3/uLTBHBASOPHILS ABSOLUTE AUTO0.10.0 - 0.1 10 3/uLTBHIMMATURE GRANULOCYTES ABS AUTO0.010.00 - 0.03 10 3/uLTBHSpecimen (Source)Anatomical Location / LateralityCollection Method / VolumeCollection TimeReceived Time05/14/2025 9:03 AM EDT05/14/2025 9:05 AM EDT Narrative CLINISYNC - 05/14/2025 10:05 AM EDT Authorizing ProviderResult TypeResult StatusBrjim Stanley MDCLINISYNCFinal ResultPerforming OrganizationAddressCity/State/ZIP CodePhone Number CLINISYNC TBH from Last 3 Months Insurance Care Teams Team MemberRelationshipSpecialtyStart DateEnd Date Ana Cristina Mejia MD [address] [facility] [address] [place] [address] [facility] Milan Mathews MD [address] [facility] [address] [place] [address] PCP - Medical [facility]02/23/1912
--- OUTSIDE RECORDS SUMMARY | 2025-06-22 09:22 | XMS_ITS | CCD ---
Author Organization [facility] Care Team Providers Care Planisher Name Role Phone MISC, DOCTOR Admitting Unavailable [...] Attending Provider MD Stella Stanley Attending Provider Stella Stanley Admitting Unavailable Stella Stanley Attending Unavailable NO FAMILY, PHYSICIAN Primary Care Unavailable Abena Alegre Attending Unavailable Marbin Keith Primary Care Unavailable Abena Alegre Admitting Unavailable Milan Mathews MD Unavailable [phone] INDY Jones Attending Unavailable STELLA STANLEY Attending Unavailable STELLA STANLEY Attending Unavailable STELLA STANLEY Attending Unavailable DANY MAI Attending Unavailable STELLA STANLEY Referring Unavailable Allergies Allergy ClassificationReported Allergen(s)Allergy TypeDate of OnsetReaction(s) Facility (2 sources)Amoxicillin; 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: [amoxicillin]Drug Dryoxht68-11[place]0105cb[place] Repository (19 sources)Penicillins; 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: [penicillins]Drug Vafegzl88-63-3608 [facility] Work Phone: Medications Current Medications MedicationDrug Class(es)DatesSig (Normalized)Sig (Original)acetaminophen 325 mg / HYDROcodone bitartrate 5 mg oral tablet (2 sources)Opioid AgonistStart: 43-38-4798skfq 1 tablet by mouth every four to six hoursHydrocodone-Acetaminophen Active 1 TAB PO EVERY 4-6 HOURS 21 01January 22examethasone 1 mg oral tablet (2 sources)CorticosteroidStart: 76-06-4475qeex 1 tablet by mouth once dexAMETHasone (Decadron) 1 MG tablet Indications: Elevated dehydroepiandrosterone sulfate level Take 1 tablet (1 mg) by mouth 1 time 1 tablet 06/15/2025 ActiveStart: 00-30-7355jdqu 1 tablet by mouth once dexAMETHasone (Decadron) 1 MG tablet Indications: Elevated dehydroepiandrosterone sulfate level Take 1 tablet (1 mg) by mouth 1 time 1 tablet 06/15/2025 Activeethinyl estradiol 0.035 mg / norgestimate 0.25 mg oral tablet (20 sources)Progestin, EstrogenStart: 12-22-2024 End: 01-79-0778pkje 1 tablet by mouth once dailynorgestimate-ethinyl estradiol (Sprintec 28) 0.25-35 MG-MCG tablet Indications: DUB (dysfunctional uterine bleeding) Take 1 tablet by mouth Daily 28 tablet 12 12/22/2024 12/22/2025 Active Start: 10-11-2024 End: 65-31-9312cbbf 1 tablet by mouth once dailynorgestimate-ethinyl estradiol (Ortho Tri-Cyclen LO) 0.18/0.215/0.25 MG-25 MCG tablet Indications: Cyst of ovary, unspecified laterality Take 1 tablet by mouth Daily 28 tablet 12 10/11/2024 12/22/2024 Discontinued (Ineffective)Start: 57-09-0973wmst 1 tablet by mouth once dailynorgestimate-ethinyl estradiol (Ortho Tri-Cyclen LO) 0.18/0.215/0.25 MG-25 MCG tablet Indications: Cyst of ovary, unspecified laterality Take 1 tablet by mouth Daily 28 tablet 12 10/11/2024 ActiveStart: 01-26-2024 End: 33-79-7356rkau 1 tablet by mouth once dailynorgestimate-ethinyl estradiol (Qff-Od-Pbmutbyk) 0.18/0.215/0.25 MG-25 MCG tablet Indications: Cystof ovary, unspecified laterality Take 1 tablet by mouth Daily 28 tablet 12 01/26/2024 10/11/2024 Discontinued (Reorder)Start: 05-46-5188jpig 1 tablet by mouth once dailynorgestimate-ethinyl estradiol (Qee-Ex-Oimkolfz) 0.18/0.215/0.25 MG-25 MCG tablet Indications: Cystof ovary, unspecified laterality Take 1 tablet by mouth Daily 28 tablet 12 01/26/2024 ActiveStart: 21-93-2720xvae 1 tablet by mouth in the dmktwkiUdn-Ip-Lkyycadg 0.18/0.215/0.25 MG-25 MCG tablet Take 1 tablet by mouth in the morning. 0 06/02/2023 Activetake 1 tablet by mouth once daily Emq-Ey-Uyycqags 0.18/0.215/0.25 MG-25 MCG TAKE ONE TABLET BY MOUTH DAILY Oral for 28 Days Activefluticasone propionate 0.05 mg/actuat metered dose nasal spray (1 source)CorticosteroidStart: 39-11-6408kami 2 spray(s) nasal route once daily Fluticasone Propionate 50 MCG/ACT 2 sprays Nasally Once a day for 14 day(s) Jun, Activeibuprofen 600 mg oral tablet (19 sources)Nonsteroidal Anti-inflammatory DrugStart: 80-24-0658ufjk 1 tablet by mouth every six hours as neededibuprofen 600 MG tablet Take 1 tablet by mouth every 6 (six) hours if needed 01/23/2024 ActiveISOtretinoin 40 mg oral capsule (20 sources)RetinoidStart: 80-56-5760HRBjgqmhglwo (Accutane) 40 MG capsule 01/22/2024 ActivemetFORMIN hydrochloride 500 mg oral tablet (2 sources)BiguanideStart: 06-15-2025 End: 22-86-2607xvny 1 tablet by mouth at mealtimemetFORMIN (Glucophage) 500 MG tablet Indications: Elevated dehydroepiandrosterone sulfate level Take 1 tablet (500 mg) by mouth in the morning. Take with meals. 90 tablet 1 06/15/2025 12/12/2025 ActiveNorgestimate-Ethinyl Estradiol (Hac-Re-Ubugwhqx) 0.18/0.215/0.25 mg-25 mcg tablet (3 sources)Start: 73-00-8372gryl 1 tablet by mouth once dailyNorgestimate- Ethinyl Estradiol (Ilp-Yx-Egwvmgxq) 0.18/0.215/0.25 mg-25 mcg tablet Active 1 TAB PO Daily January 22, 2024 12:00am FreeTextSig: TAKE ONE TABLET BY MOUTH DAILY Oral; Note: Source Status: Taking; Refills: 1; Qty: 28 Each; Provider: ADAMA ESPINOpredniSONE 20 mg oral tablet (1 source)Start: 77-92-2872nzgk 1 tablet by mouth every twelve hourspredniSONE 20 MG 1 tablet Orally bid for 5 day(s) Jun, Activetazarotene 1 mg/ml topical cream (1 source)RetinoidStart: 02-95-9212fpyfexwlsi (Tazorac) 0.1 % cream APPLY PEA SIZED AMOUNT TO FACE EVERY OTHER NIGHT, INCREASE TOLERATED 0 11/25/2022 Active Completed/Discontinued Medications MedicationDrug Class(es)DatesSig (Normalized)Sig (Original)Azithromycin (1 source)Macrolide AntimicrobialStart: 71-57-1840Lfnisufae 200mg/5ml 200 mg/5 ml two teaspoon orally daily for 5 days Sep, Not-Taking Problems Active Problems Problem ClassificationProblemDateDocumented DateEpisodic/ChronicAbdominal pain (7 sources)Abdominal pain; 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: [Unspecified abdominal pain]Onset: 702572-44-3981IcvwjttoHtcuzmzeaofmm and procreative management (2 sources)Oral contraception; 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: [Encounter for surveillance of contraceptive pills]73-92-0762RtmkadrjFcokiisqj disorders (4 sources)Menorrhagia; 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: [Excessive and frequent menstruation with regular cycle]40-93-0489YtdggkpAdsdr endocrine disorders (2 sources)Polycystic ovary syndrome; 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: [Polycystic ovarian syndrome]77-37-7490OqewumvCrvwo female genital disorders (2 sources)Abnormal uterine bleeding; 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: [Other specified abnormal uterine and vaginal bleeding]04-84-0961DgbzquxQziee screening for suspected conditions (not mental disorders or infectious disease) (2 sources)Endocrine finding; 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: [Other specified abnormal findings of blood chemistry]41-44-7947XkvmsshwIcjeg skin disorders (2 sources)Alopecia; 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: [Nonscarring hair loss, unspecified] 08-81-3297NmpfbabnLzmqk upper respiratory infections (3 sources)Streptococcal sore throat; 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: [Strep throat]Episodic Ovarian cyst (11 sources)Cyst of ovary; 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: [Unspecified ovarian cyst, right side] Onset: 604026-97-2466QvknwjgvGtifxfi (2 sources)Syncope; 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: [Syncope and collapse]63-51-9412Dxucqktr Past or Other Problems Problem ClassificationProblemDateDocumented DateEpisodic/ChronicOther aftercare (1 source)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; 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: [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]Onset: 98-13-8483AecyveegDzcti aftercare (2 sources)Surgical follow-up; 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: [Encounter for follow-up examination after completed treatment for conditions other than malignant neoplasm]00-67-6117ThjqzjoiRjlfa skin disorders (4 sources)Acne vulgaris; 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: [ACNE VULGARIS]Onset: 03-32-3836Iajgkchh Results Test NameValueInterpretationReference RangeFacilityALL CBC WITH AUTO DIFFon 62-88-9686FBLPPPKYM ABSOLUTE AUTO0.1NOMS HealthcareBasophils/100 WBC (Bld)1 %0.2 - 2.0 %[facility]OMS HealthcareEosinophils/100 WBC (Bld)2.8 %0.9 - 7.0 %[facility] Erythrocyte distribution width (RBC) [Ratio]11.6 %11.0 - 15.0 %[facility] Hematocrit (Bld) [Volume fraction]39.4 %36.0 - 48.0 %[facility] HospitalHemoglobin (Bld) [Mass/Vol]13.7 g/dL12.0 - 16.0 g/dLPike County Memorial HospitalIMMATURE GRANULOCYTES ABS AUTO0.01NOCedar County Memorial HospitalImmature granulocytes/100 WBC (Bld)0.2 %0.0 - 0.5 % [facility] HospitalInterpretation and review of laboratory resultsAbnormalPike County Memorial HospitalLYMPHOCYTES ABSOLUTE AUTO1.9NOCedar County Memorial HospitalLymphocytes/100 WBC (Bld) 31.3 %20.5 - 60.0 %[facility]H (RBC) [Entitic mass]32.6 pg26.7 - 34.0 pg [facility] HospitalHC (RBC) [Mass/Vol]34.8 g/dL29.9 - 35.2 g/dLPike County Memorial HospitalMCV (RBC) [Entitic vol]93.8 fL81.0 - 99.0 fLPike County Memorial HospitalMONOCYTES ABSOLUTE AUTO 0.5NOCedar County Memorial HospitalMonocytes/100 WBC (Bld)7.6 %1.7 - 12.0 %[facility] NEUTROPHILS ABSOLUTE AUTO3.5[facility] HospitalNeutrophils/100 WBC (Bld)57.1 %43.0 - 75.0 %[facility] HospitalPlatelet mean volume (Bld) [Entitic vol]8.8 fLLow9.5 - 13.5 fLPike County Memorial HospitalTB EO #0.2NLiberty HospitalTB RPN585YKUPMercy Hospital St. Louis RBC4.2 [facility] WBC6.1NOMS [facility] HospitalCLINISYNCNSAINT FRANCIS [facility] HealthcareQUANTIFERON-TB GOLD PLUSon 43-49-0900PAVVNKNIAFT CRITERIAComment.[facility] HealthcareComment on above:QuantiFERON-TB Gold Plus is a qualitative indirect test for M tuberculosis infection (including disease) and is intended for use in conjunction with risk assessment, radiography, and other medical and diagnostic evaluations. The QuantiFERON-TB Gold Plus result is determined by subtracting the Nil value from either TB antigen (Ag) value. The Mitogen tube serves as a control for the test. QUANTIFERON INCUBATION.[facility] HealthcareComment on above:Incubation performed. Reference Range: . QUANTIFERON MITOGEN VALUE>10.00. IU/mLNOMS HealthcareQUANTIFERON NIL VALUE0.02. IU/mLNOMS HealthcareQUANTIFERON TB1 AG VALUE0.05. IU/mLNOMS Healthcare QUANTIFERON TB2 AG VALUE0.04. IU/mLNOMS HealthcareQUANTIFERON-TB GOLD PLUS NegativeNegativeNOMS HealthcareComment on above:No response to M tuberculosis antigens detected. Infection with M tuberculosis is unlikely, but high risk individuals should be considered for additional testing (ATS/IDSA/CDC Clinical Practice Guidelines, 2017). The reference range is an Antigen minus Nil result of <0.35 IU/mL. Chemiluminescence immunoassay methodology Performed at: [facility] [address] [id number] Physics Teacher: Jonh Valenzuela PhD, Phone: [phone] [facility] Medicine Office/Clinic Noteon 30-97-8144Fgrsah Medicine Office/Clinic NoteW[facility]cester [facility] Medicine Office/Clinic Note HPI Staff JOSSY 07/25/23 due to est care. Patient is here for physical for school, needs Vaccines? DUE: Lipid panel/well visit Bright futures filled out by parent and scanned into chart Immunizations: UTD Questions/Concerns: Patient states no concerns today, just needs [...] for wellness visit. needs physical to start [employer] school in March. vaccine record reviewed. physical exam WNL. all questions answered. RTC as needed Ordered: Est Preventative 18 to 39 years 2. BMI 25.0-25.9,adult (Z68.25: Body mass index [BMI] 25.0-25.9, adult) BMI education given Ordered: Est Preventative 18 to 39 years 3. Non-smoker (Z78.9: Other specified health status) continue not smoking Ordered: Est Preventative 18 to 39 years Follow-up No qualifying data available Problem List/Past [...] Recorded hepatitis A pediatric vaccine 04/04/2022 Recorded diphtheria/pertussis, acel/tetanus adult 03/25/2017 Recorded meningococcal conjugate vaccine 03/25/2017 Recorded hepatitis A pediatric vaccine 03/25/2017 Recorded measles/mumps/rubella/varicella vaccine 04/10/2010 Recorded diphtheria/pertussis,acel/tetanus/polio 04/10/2010 Recorded hepatitis B pediatric vaccine 03/24/2008 Recorded DTaP, unspecified formulation 03/24/2008 Recorded varicella virus vaccine 06/07/2005 Recorded measles/mumps/rubella virus vaccine 06/07/2005 Recorded haemophilus b conjugate (PRP-T) vaccine 2004 Recorded diphth/hepB/pertussis,acel/polio/tetanus 2004 Recorded haemophilus b conjugate (PRP-T) vaccine 2004 Recorded diphth/hepB/pertussis,acel/polio/tetanus 2004 Recorded haemophilus b conjugate (PRP-T) vaccine 2004 Recorded diphth/hepB/pertussis,acel/polio/tetanus 2004 Recorded hepatitis B pediatric vaccine 2004 [facility] HospitalComment on above:Result Comment: Electronically Signed By: Lianne Crenshaw\.missy\Date and Time Signed: 02/04/25 10:04 [place] 04-71-8746XAxxytnck: [id number] Received: 04/12/24 Status: LOKI De La Torre Num: [id number] Spec Type: Surgical Subm Dr: STELLA STANLEY MD Tissues: A Ovary - Biopsy (LEFT OVARIAN CYST) B Ovary - Biopsy (RIGHT OVARIAN CYST) Procedures: HE/3, Gross/Micro L4/2 Age/ Patient Sex Location Account Attending Physician ScarTheresa Chasity DAO [id number] STELLA STANLEY MD SPEC NUM: [id number] RECD: 04/12/24 STATUS: LOKI DE LA TORRE NUM: [id number] ARY: 04/12/[address]: STELLA STANLEY MD ENTERED: 04/12/[address] [facility] DR: [facility] SPEC TYPE: Surgical DEPT: S ENTERED BY: [id number] RECV BY: [id number] ORDERED: HE/3, Gross/Micro L4/2 ORDERED: HE/3, Gross/Micro [...] cyst measuring 0.4 cm in greatest dimension. Bean Dumper sections are submitted in cassettes B1-B2. Specimen: [id number] Received: 04/12/24 Status: LOKI De La Torre Num: [id number] Spec Type: Surgical Subm Dr: STELLA STANLEY MD Tissues: A Ovary - Biopsy (LEFT OVARIAN CYST) B Ovary - Biopsy (RIGHT OVARIAN CYST) Procedures: HE/3, Gross/Micro L4/2 Patient: Theresa Abbott [id number] (Continued) Specimen: [id number] Received: 04/12/24 (Continued) Signed (signature on file) Trutpi Schmitt MD 04/13/24 1518 Specimen: [id number] Received: 04/12/24 Status: LOKI De La Torre Num: [id number] Spec Type: Surgical Subm Dr: STELLA STANLEY MD Tissues: A Ovary - Biopsy (LEFT OVARIAN CYST) B Ovary - Biopsy (RIGHT OVARIAN CYST) Procedures: HE/3, Gross/Micro L4/2 Patient: Abbott,Theresa Chasity [id number] (Continued) Specimen: [id number] Received: 04/12/24 (Continued) CPT Codes 36463y1 Specimen: [id number] Received: 04/12/24 Status: LOKI De La Torre Num: [id number] Spec Type: Surgical Subm Dr: STELLA STANLEY MD Tissues: A Ovary - Biopsy (LEFT OVARIAN CYST) B Ovary - Biopsy (RIGHT OVARIAN CYST) Procedures: HE/3, Gross/Micro L4/2 Patient: Theresa Abbott [id number] (Continued) Signed (signature on file) Katharina Schmitt MD 04/13/[address] [place] [address] Physician GroupUS transvaginalon 76-83-8376KB transvaginalST. MARY'[place] [address] Ultrasound Report Signed Patient: Theresa Abbott MR#: [id number] : 2005 Acct:[id number] Age/Sex: 18 / F ADM Date: 01/23/24 Loc: Room: [address] [place] [address] Type: ADM IN Attending Dr: Abena Alegre DO Ordering Provider: Cj Santiago PA-C Date of Service: 01/22/24 US/US pelvic complete: right sided pain, large cyst and rule out torsion ([id number]) US/US transvaginal: rt sided pelvic pain Copies [...] Pastora Granger M.D.01/23/2024 8:43 AM Dictation Location: [place] [address] Tech: Vane Ayon Transcribed By: RAKESH 01/23/24 0843 Dictated By: Pastora Granger MD 01/23/24 0830 Signed By: 01/23/24 0843[facility] Physician GroupAlanine aminotransferase [Enzymatic activity/volume] in Serum or PlasmaOrdered By: Cj Santiago on 63-52-8733VCN [Catalytic activity/Vol]13 U/LNormal7-52[facility] Orthopedic CenterComment on above:Performed By: #### CRP, CBC, ESR, CMP #### [facility] [address] [place] [address] USAAlbumin [Mass/volume] in Serum or Plasma by Bromocresol green (BCG) dye binding methoOrdered By: Cj Santiago on 56-93-8179Shxzcsj BCG dye [Mass/Vol]4.7 g/dL3.5-5.7FOhioHealth Hardin Memorial HospitalAlkaline phosphatase [Enzymatic activity/volume] in Serum or PlasmaOrdered By: Cj Santiago on 66-13-4305UHL [Catalytic activity/Vol]53 U/QFwyodg49-656LkmhpyhavCrystal Clinic Orthopedic CenterComment on above:Performed By: #### CRP, CBC, ESR, CMP #### [facility] [address] [place] [address] USAAspartate aminotransferase [Enzymatic activity/volume] in Serum or PlasmaOrdered By: Cj Santiago on 43-33-8577YQS [Catalytic activity/Vol]26 U/ZHxvqbk40-63HoufxloglCrystal Clinic Orthopedic CenterComment on above: Performed By: #### CRP, CBC, ESR, CMP #### [facility] [address] [place] [address] USAAutomated basophil %Ordered By: Cj Santiago on 01-22-2024 Basophils/100 WBC (Bld)0.4 %Normal.[facility] Orthopedic CenterComment on above:Performed By: #### CRP, CBC, ESR, CMP #### [facility] [address] [place] [address] USAAutomated basophil countOrdered By: Cj Santiago on 56-61-8648Dsdjyeydo (Bld) [#/Vol]0.0 10*3/uLNormal0.0-0.2FOhioHealth Hardin Memorial HospitalComment on above:Performed By: #### CRP, CBC, ESR, CMP #### [facility] [address] [place] [address] USAAutomated blood monocyte countOrdered By: Cj Santiago on 89-12-2768Eexihumab (Bld) [#/Vol]0.2 10*3/uLNormal0.0-0.8[facility]opedic CenterComment on above:Performed By: #### CRP, CBC, ESR, CMP #### [facility] [address] [place] [address] USAAutomated eosinophil %Ordered By: Cj Santiago on 15-27-8842Mhssmcqxzds/100 WBC (Bld)0.2 %Normal.[facility] Comment on above:Performed By: #### CRP, CBC, ESR, CMP #### [facility] [address] [place] [address] USAAutomated eosinophil countOrdered By: Cj Santiago on 03-46-5262Npevjaveomo (Bld) [#/Vol]0.0 10*3/uLNormal0.0-0.45[facility] CenterComment on above:Performed By: #### CRP, CBC, ESR, CMP #### [facility] [address] [place] [address] USAAutomated epithelial cells count in urine sediment (number/area)Ordered By: Cj Santiago on 83-43-7524Shekhmvypd cells Auto (Urine sed) [#/Area]3-4 [HPF]High0-2FOhioHealth Hardin Memorial HospitalAutomated monocyte %Ordered By: Cj Santiago on 18-56-3680Fdadmbwag/100 WBC (Bld)2.4 %Normal. [facility] Orthopedic CenterComment on above:Performed By: #### CRP, CBC, ESR, CMP #### [facility] [address] [place] [address] USAAutomated neutrophil %Ordered By: Cj Santiago on 03-47-4669Njzvaswsiva/100 WBC (Bld)82.3 %Normal.[facility] Orthopedic CenterComment on above:Performed By: #### CRP, CBC, ESR, CMP #### [facility] [address] [place] [address] USABacteria [Presence] in Urine by AutomatedOrdered By: Cj Santiago on 18-60-9880Kmufnimy Auto Ql (U)None seen [HPF]None SeenCrystal Clinic Orthopedic CenterBilirubin Test strip Ql (U)Ordered By: Cj Santiago on 87-68-5301Unhexytmh Ql (U)NegativeNegativeCrystal Clinic Orthopedic Center Bilirubin.total [Mass/volume] in Serum or PlasmaOrdered By: Cj Santiago on 28-73-6631Zwvstogir [Mass/Vol]0.4 mg/dLNormal0.3-1.0[facility] CenterComment on above:Performed By: #### CRP, CBC, ESR, CMP #### [facility] [address] [place] [address] USAC reactive protein [Mass/volume] in Serum or PlasmaOrdered By: Cj Santiago on 01-44-5700EMH [Mass/Vol]0.7 mg/dLHigh0.0-0.5FOhioHealth Hardin Memorial HospitalC-Reactive Proteinon 66-20-4958Y-Reactive Protein0.7 mg/dLHigh0.0-0.5The [facility] Physician GroupComment on above:Result Comment: PERFORMED BY: [place] [address] PATHOLOGIST DRAINAGE DESIGN COORDINATOR ZACK MCCONNELL M.D.Performed By: #### CRP, CBC, ESR, CMP #### [facility] [address] [place] [address] USACT abdomen pelvis w conon 58-14-5528JR abdomen pelvis w [facility] [place] [address] [place] [address] CT Scan Report Signed Patient: Theresa Abbott MR#: [id number] : 2005 Acct:[id number] Age/Sex: 18 / F ADM Date: 01/22/24 Loc: ER Room: Type: [facility] ER Attending Dr: Copies to: Cj Santiago [...] Wesley Handy M.D.01/22/2024 8:58 PM Dictation Location: [place] [address] Transcribed By: [facility] 01/22/242057 Dictated By: Wesley Handy II, MD 01/22/242050 Signed By: 01/22/242057[facility] Physician GroupCalcium [Mass/volume] in Serum or PlasmaOrdered By: Cj Santiago on 44-32-8314Chkezpt [Mass/Vol]9.7 mg/dLNormal 8.6-10.3FOhioHealth Hardin Memorial HospitalComment on above:Performed By: #### CRP, CBC, ESR, CMP #### [place] [address] USACarbon dioxide, total [Moles/volume] in Serum or Plasma Ordered By: Cj Santiago on 77-16-1437NN2 [Moles/Vol]22.7 mmol/DTssdne76.0-31.0 [facility]opedic CenterComment on above:Performed By: #### CRP, CBC, ESR, CMP #### [place] [address] USAChloride [Moles/volume] in Serum or PlasmaOrdered By: Cj Santiago on 38-15-2953Ryhjjvuo [Moles/Vol]98 mmol/QWvfmqg69-732AthmmnfnxCrystal Clinic Orthopedic CenterComment on above:Performed By: #### CRP, CBC, ESR, CMP #### [place] [address] USAColor of Urine by AutoOrdered By: Cj Santiago on 08-62-9122Lphgq (U)YellowNormalYellowCrystal Clinic Orthopedic CenterComment on above:Order Comment: Name Collection Type:: Clean-Voided MidstreamPerformed By: #### UHCG, ADDONUAPLUS #### [place] [address] USAComplete Blood Count Auto Diffon 66-87-0911Jlrq Corpuscular HGB Conc34.2 g/qBZtdrtr28.0-35.0The [facility] Physician GroupComment on above:Performed By: #### CRP, CBC, ESR, CMP #### [place] [address] USAMonocytes/100 WBC (Bld)15.02 %Normal0.00-20.00The [facility] Physician GroupComment on above:Performed By: #### CRP, CBC, ESR, CMP #### [place] [address] USANRBC%0.0 /100{WBC}Normal0-0.5[facility] Physician Group Comment on above:Performed By: #### CRP, CBC, ESR, CMP #### [address] [place] [address] USAComprehensive Metabolic Panelon 27-75-2946Aqvjswa [Mass/Vol]4.7 g/dLNormal3.5-5.7The [facility] Physician [facility] HospitalComment on above: Performed By: #### CRP, CBC, ESR, CMP #### [facility] [address] [place] [address] USACreatinine Clr Calc Fkuxqkth572.44NormalThe [facility] Physician [facility] HospitalComment on above:Performed By: #### CRP, CBC, ESR, CMP #### [place] [address] USAGFR/1.73 sq M.predicted MDRD (S/P/Bld) [Vol rate/Area] mL/min/{1.73_m2}NormalThe [facility] Physician [facility] HospitalComment on above:Performed By: #### CRP, CBC, ESR, CMP #### [place] [address] USACreatinine [Mass/volume] in Serum or PlasmaOrdered By: Cj Santiago on 57-40-6297Wokmsvmyjg [Mass/Vol]0.72 mg/dLNormal0.60-1.20 [facility] CenterComment on above:Performed By: #### CRP, CBC, ESR, CMP #### [place] [address] USADipstick and Microscopicon 76-25-4543Rosoibeukv (U)Clear NormalClearThe [facility] Physician GroupComment on above:Order Comment: Name Collection Type:: Clean-Voided MidstreamPerformed By: #### UHCG, ADDONUAPLUS #### [place] [address] USABacteria,UrineNone SeenNormalNone SeenSalah Foundation Children'S [facility] Physician [facility] HospitalComment on above:Order Comment: Name Collection Type:: Clean- Voided MidstreamPerformed By: #### UHCG, ADDONUAPLUS #### [place] [address] USABilirubin,UrineNegativeNormalNegativeThe [facility] Physician GroupComment on above:Order Comment: Name Collection Type:: Clean- Voided MidstreamPerformed By: #### UHCG, ADDONUAPLUS #### [facility] [address] [place] [address] USAGlucose Ql (U)NormalNormalNormalThe [facility] Physician GroupComment on above:Order Comment: Name Collection Type:: Clean-Voided MidstreamPerformed By: #### UHCG, ADDONUAPLUS #### [facility] [address] [place] [address] USAHyaline Casts,Vgclm7-2Oekyvc2-0Kbn [facility] Physician GroupComment on above:Order Comment: Name Collection Type:: Clean-Voided MidstreamPerformed By: #### UHCG, ADDONUAPLUS #### [place] [address] USAKetones Ql (U)3+HighNegativeThe [facility] Comment on above:Order Comment: Name Collection Type:: Clean-Voided Midstream Performed By: #### UHCG, ADDONUAPLUS #### [facility] [address] [place] [address] USALeukocyte esterase Test strip Ql (U)NegativeNormalNegative The [facility] Physician GroupComment on above:Order Comment: Name Collection Type:: Clean-Voided MidstreamPerformed By: #### UHCG, ADDONUAPLUS #### [facility] [address] [place] [address] USANitrite,UrineNegativeNormalNegativeSalah Foundation Children'S Hospital Physician GroupComment on above:Order Comment: Name Collection Type:: Clean-Voided MidstreamPerformed By: #### UHCG, ADDONUAPLUS #### [place] [address] USAOccult Blood,UrineNegativeNormalNegativeThe [facility] Physician GroupComment on above:Order Comment: Name Collection Type:: Clean- Voided MidstreamPerformed By: #### UHCG, ADDONUAPLUS #### [place] [address] USAProtein,UrineTraceHighNegativeThe [facility] Physician GroupComment on above:Order Comment: Name Collection Type:: Clean-Voided MidstreamPerformed By: #### UHCG, ADDONUAPLUS #### [place] [address] USARBC,UrineNone SeenNormal0-4The [facility] Comment on above:Order Comment: Name Collection Type:: Clean-Voided Midstream Performed By: #### UHCG, ADDONUAPLUS #### [place] [address] USASpecificy [place],Urine1.812Hkox4.001-1.030The [facility] Physician GroupComment on above:Order Comment: Name Collection Type:: Clean- Voided MidstreamPerformed By: #### UHCG, ADDONUAPLUS #### [place] [address] USASquamous Epithelial Cell,Cixtn5-6Mhrf0-1Ipm [facility] Physician GroupComment on above:Order Comment: Name Collection Type:: Clean- Voided MidstreamPerformed By: #### UHCG, ADDONUAPLUS #### [place] [address] USAUrobilinogen,UrineNormalNormalNormalThe [facility] Physician GroupComment on above:Order Comment: Name Collection Type:: Clean- Voided MidstreamPerformed By: #### UHCG, ADDONUAPLUS #### [place] [address] USAWBC LM.HPF (Urine sed) [#/Area]0 /[HPF]Normal0-4The [facility] Physician GroupComment on above:Order Comment: Name Collection Type:: Clean-Voided MidstreamPerformed By: #### UHCG, ADDONUAPLUS #### [place] [address] USAECG 12 lead ECGon 09-96-8009ZLC 12 lead ECGST. [facility] [place] [address] [place] [address] Electrocardiograph Report Signed Patient: Theresa Abbott MR#: [id number] : 2005 Acct:[id number] Age/Sex: 18 / F ADM Date: 01/23/24 Loc: Room: [address] [place] [address] Type: DIS INOo Attending Dr: Abena Alegre DO Ordering Provider: Cj Santiago PA-C Date of Service: 01/22/24 ECG/ECG 12 lead ECG: Nausea/Vomiting/Diarrhea Copies to: Test Reason : Blood Pressure : / mmHG Vent. Rate : 064 BPM Atrial Rate : 064 BPM P-R Int : 122 ms QRS Dur : 078 ms QT Int : 412 ms P-R-T Axes : 052 085 042 degrees QTc Int : 425 ms Normal sinus rhythm Normal ECG No previous ECGs available Confirmed by Nakul Cook ([id number]) on 01/23/2024 4:55:38 PM Referred By: Electronically Signed By:Nakul Cook Transcribed By: MUS Signed By Nakul Cook MD 01/23/[address] [place] [address] Physician GroupErythrocyte Sedimentation Rateon 55-02-4995NQD (Bld) [Velocity]20 mm/hHigh0-19The [facility] Comment on above:Result Comment: PERFORMED BY: [place] [address] PATHOLOGIST DRAINAGE DESIGN COORDINATOR ZACK MCCONNELL M.D.Performed By: #### CRP, CBC, ESR, CMP #### [facility] [address] [place] [address] USAErythrocyte distribution width [Ratio] by Automated count Ordered By: Cj Santiago on 25-78-9564Nepqvhgsaar distribution width (RBC) [Ratio]13.0 %Jmvqah60.9-15.3FOhioHealth Hardin Memorial HospitalComment on above: Performed By: #### CRP, CBC, ESR, CMP #### [facility] [address] [place] [address] USAErythrocyte sedimentation rate by Photometric method Ordered By: Cj Santiago on 80-13-4390YRF Photometric method (Bld) [Velocity]20 mm/hrHigh0-19Firbark rivers Regional Medical CenterErythrocytes [#/area] in Urine sediment by Automated countOrdered By: Cj Santiago on 34-08-6999UDS Auto (Urine sed) [#/Area]None seen [HPF]0-4FOhioHealth Hardin Memorial HospitalErythrocytes [#/volume] in Blood by Automated countOrdered By: Cj Santiago on 41-62-1314SJV (Bld) [#/Vol]4.23 10*6/uLNormal3.60-5.00C[facility] Orthopedic CenterComment on above:Performed By: #### CRP, CBC, ESR, CMP #### [facility] [address] [place] [address] USAGlucose [Mass/volume] in Serum or PlasmaOrdered By: Cj Santiago on 03-06-2477Psktprc [Mass/Vol]110 mg/lULpso98-955EmgooaiapCrystal Clinic Orthopedic CenterComment on above:ADA recommended reference rangeRandom Glucose Reference Range is dependent on time and content of last meal. Glucose of more than 200 mg/dL in a nonstressed, ambulatory subject supports the diagnosisof Diabetes Mellitus.Result Comment: Random Glucose Reference Range is dependent on time and content of last meal. Glucose of more than 200 mg/dL in a nonstressed, ambulatory subject supports the diagnosis of Diabetes Mellitus. ADA recommended reference rangePerformed By: #### CRP, CBC, ESR, CMP #### [facility] [address] [place] [address] USAHCG ( test) IA.rapid Ql (U)Ordered By: Cj Santiago on 99-75-4420DKC ( test) Ql (U)NegativeCrystal Clinic Orthopedic CenterHCG,Urineon 29-23-1383Cotp HCG ( test) Ql (U)NegativeHCA Florida UCF [facility] Physician GroupComment on above:Order Comment: Name Collection Type:: Clean-Voided MidstreamResult Comment: PERFORMED BY: [facility] [address] [id number] PATHOLOGIST DRAINAGE DESIGN COORDINATOR ZACK MCCONNELL M.D.Performed By: #### UHCG, ADDONUAPLUS ####[facility] [id number] USAHematocrit [Volume Fraction] of Blood by Automated countOrdered By: Cj Santiago on 11-27-6165Jxalnblpjl (Bld) [Volume fraction]40.1 %Eeydxs26.0-46.4FOhioHealth Hardin Memorial Hospital Comment on above:Performed By: #### CRP, CBC, ESR, CMP #### [facility] [address] [place] [address] USAHemoglobin [Mass/volume] in BloodOrdered By: Cj Snatiago on 07-14-1543Ouyjwudsyi (Bld) [Mass/Vol]13.7 g/wXJlsqsc76.8-15.4FOhioHealth Hardin Memorial HospitalComment on above:Performed By: #### CRP, CBC, ESR, CMP #### [facility] [address] [place] [address] USAKetones Auto test strip (U) [Mass/Vol]Ordered By: Cj Santiago on 03-29-9130Zriuahm (U) [Mass/Vol]3+HighNegativeCrystal Clinic Orthopedic CenterLaboratory - UrinalysisOrdered By: Cj Santiago on 01-22-2024 Hyaline casts LM Ql (Urine sed)0-8 [LPF]0-8[facility] Leukocytes [#/area] in Urine sediment by Automated countOrdered By: Cj Santiago on 41-07-9159ACL Auto (Urine sed) [#/Area]0-1 [HPF]0-4FOhioHealth Hardin Memorial HospitalLeukocytes [#/volume] corrected for nucleated erythrocytes in Blood by Automated counOrdered By: Cj Santiago on 17-34-7612STZ corrected for nucl RBC Auto (Bld) [#/Vol]10.2 10*3/uL3.8-11.6FOhioHealth Hardin Memorial Hospital Leukocytes [#/volume] in Blood by Automated countOrdered By: Cj Santiago on 50-37-3991SLH (Bld) [#/Vol]10.2 10*3/uLNormal3.8-11.6FOhioHealth Hardin Memorial HospitalComment on above:Performed By: #### CRP, CBC, ESR, CMP #### [facility] [address] [place] [address] USALipase [Enzymatic activity/volume] in Serum or Plasma Ordered By: Cj Santiago on 59-91-1059Ufammc [Catalytic activity/Vol]11.0 U/L Rebbfy51.0-82.0C[facility] Clinic Orthopedic CenterComment on above:Result Comment: PERFORMED BY: [place] [address] PATHOLOGIST DRAINAGE DESIGN COORDINATOR ZACK MCCONNELL M.D.Performed By: #### LIPASE #### [place] [address] USALymphocytes [#/volume] in Blood by Automated countOrdered By: Cj Santiago on 23-98-6799Hudarrcavzr (Bld) [#/Vol]1.5 10*3/uLNormal1.00-4.8 [facility]opedic CenterComment on above:Performed By: #### CRP, CBC, ESR, CMP #### [place] [address] USALymphocytes/100 leukocytes in Blood by Automated count Ordered By: Cj Santiago on 83-02-9197Ogluqncewop/100 WBC (Bld)14.7 %Normal. [facility] Orthopedic CenterComment on above:Performed By: #### CRP, CBC, ESR, CMP #### [address] [Entitic mass] by Automated countOrdered By: Cj Santiago on 45-09-9081NPI (RBC) [Entitic mass]32.3 asDzkuof65.7-34.3FOhioHealth Hardin Memorial HospitalComment on above:Performed By: #### CRP, CBC, ESR, CMP #### [facility] [address] [place] [address] Auto (RBC) [Mass/Vol]Ordered By: Cj Santiago on 44-38-8345HNQZ (RBC) [Mass/Vol]34.2 g/dL32.0-35.0C[facility] Clinic Orthopedic CenterMCV [Entitic volume] by Automated countOrdered By: Cj Santiago on 31-16-9020QCD (RBC) [Entitic vol]94.6 eOSjuxmx76-310HwxtywsteCrystal Clinic Orthopedic CenterComment on above:Performed By: #### CRP, CBC, ESR, CMP #### [facility] [address] [place] [address] USAMonocyte distribution width [Entitic volume] in Blood by AutomatedOrdered By: Cj Santiago on 13-85-4611Rquddles distribution width Auto (Bld) [Entitic vol]15.02 %0.00-20.00C[facility] Clinic Orthopedic CenterNeutrophils [#/volume] in Blood by Automated countOrdered By: Cj Santiago on 01-22-2024 Neutrophils (Bld) [#/Vol]8.4 10*3/uLHigh1.8-7.7FOhioHealth Hardin Memorial Hospital Comment on above:Performed By: #### CRP, CBC, ESR, CMP #### [facility] [address] [place] [address] USANitrite Test strip Ql (U)Ordered By: Cj Santiago on 53-58-4395Ubrxhcy Ql (U)NegativeNegativeCrystal Clinic Orthopedic CenterNo Panel InformationOrdered By: Cj Santiago on 61-09-6142Ugnmvhlnm GFR (CKD-EPI)> 60.0 mL/MinCrystal Clinic Orthopedic CenterPharmacy Creatinine Clearance (Chem 134.44C[facility] Clinic Orthopedic CenterNucleated erythrocytes [Presence] in Blood by Automated countOrdered By: Cj Santiago on 87-55-6525Rzlcepazw RBC Auto Ql (Bld)0.0 /100{WBC}0-0.5FOhioHealth Hardin Memorial HospitalPlatelet mean volume [Entitic volume] in Blood by Automated countOrdered By: Cj Santiago on 85-69-7970Iyisfmkb mean volume (Bld) [Entitic vol]7.3 fLNormal6.3-10.7FOhioHealth Hardin Memorial HospitalComment on above:Performed By: #### CRP, CBC, ESR, CMP #### [facility] [address] [place] [address] USAPlatelets [#/volume] in Blood by Automated countOrdered By: Cj Santiago on 87-31-1238Dickefasf (Bld) [#/Vol]375 10*3/yTJkirbx584-785 [facility] CenterComment on above:Performed By: #### CRP, CBC, ESR, CMP #### [facility] [address] [place] [address] USAPotassium [Moles/volume] in Serum or PlasmaOrdered By: Cj Santiago on 51-30-3659Ervkylyul [Moles/Vol]3.9 mmol/LNormal3.5-5.1FOhioHealth Hardin Memorial HospitalComment on above:Performed By: #### CRP, CBC, ESR, CMP #### [facility] [address] [place] [address] USAProtein Auto test strip (U) [Mass/Vol]Ordered By: Cj Santiago on 04-54-6810Psvfplj (U) [Mass/Vol]Trace mg/dLHighNegativeCrystal Clinic Orthopedic CenterProtein [Mass/volume] in Serum or PlasmaOrdered By: Cj Santiago on 77-45-2271Mltprpo [Mass/Vol]8.0 g/dLNormal6.4-8.9[facility] Orthopedic CenterComment on above:Performed By: #### CRP, CBC, ESR, CMP #### [facility] [address] [place] [address] USASerum globulin measurement by calculation (mass/volume) Ordered By: Cj Santiago on 47-93-4347Fxygvvly (S) [Mass/Vol]3.3 g/dLNormal [facility]opedic CenterComment on above:Performed By: #### CRP, CBC, ESR, CMP #### [facility] [address] [place] [address] USASerum or plasma albumin/globulin mass ratioOrdered By: Cj Santiago on 37-36-6773Yumztqy/Globulin [Mass ratio]1.4 {ratio}Normal [facility]opedic CenterComment on above:Performed By: #### CRP, CBC, ESR, CMP #### [place] [address] USASerum or plasma anion gap determinationOrdered By: Cj Santiago on 33-89-6870Hpcke gap [Moles/Vol]14.2 mmol/LNormal6.0-15.0[facility]opedic CenterComment on above:Performed By: #### CRP, CBC, ESR, CMP #### [facility] [address] [place] [address] USASodium [Moles/volume] in Serum or PlasmaOrdered By: Cj Santiago on 90-06-3791Lmsuox [Moles/Vol]131 mmol/DWfg967-581AnbxdfaeeCrystal Clinic Orthopedic CenterComment on above:Performed By: #### CRP, CBC, ESR, CMP #### [facility] [address] [place] [address] USASpecific gravity Auto test strip (U) [Rel density]Ordered By: Cj Santiago on 17-68-1880Emifinng gravity (U) [Rel density]1.033High 1.001-1.030[facility] Orthopedic CenterUrea nitrogen [Mass/volume] in Serum or PlasmaOrdered By: Cj Santiago on 14-54-5206Mgqy nitrogen [Mass/Vol]11 mg/dL Normal7-25[facility] Orthopedic CenterComment on above:Performed By: #### CRP, CBC, ESR, CMP #### [facility] [address] [place] [address] USAUrine clarity by refractometry automatedOrdered By: Cj Santiago on 03-36-2098Ikbdlvo Refractometry automated (U)ClearCleSt. Mary's Medical Center, Ironton CampusUrine glucose measurement by automated test strip (mass/volume)Ordered By: Cj Santiago on 89-52-5747Hydbyuu Auto test strip (U) [Mass/Vol]Normal mg/dLNormalCrystal Clinic Orthopedic CenterUrine hemoglobin detection by automated test stripOrdered By: Cj Santiago on 01-22-2024 Hemoglobin Auto test strip Ql (U)NegativeNegativeCrystal Clinic Orthopedic CenterUrine leukocyte esterase detection by automated test stripOrdered By: Cj Santiago on 77-43-8073Rmdphvdqq esterase Auto test strip Ql (U)Negative NegativeCrystal Clinic Orthopedic CenterUrine pH measurement by automated test stripOrdered By: Cj Santiago on 40-17-8191jH (U)8.0 [pH]Normal5.0-9.0[facility] Orthopedic CenterComment on above:Order Comment: Name Collection Type:: Clean-Voided MidstreamPerformed By: #### UHCG, ADDONUAPLUS #### [facility] [address] [place] [address] USAUrobilinogen Auto test strip (U) [Mass/Vol]Ordered By: Cj Santiago on 28-37-2564Hunccearmfhb (U) [Mass/Vol]Normal mg/dLNormalCrystal Clinic Orthopedic CenterALL TRIGLYCERIDESon 79-11-3764Vaplicdotzyl [Mass/Vol]120 mg/dL53 - 208 mg/dLNOMS HealthcareCLINISYNCNOMS HealthcareQuick Strepon 07-07-2023S. pyogenes Org specific cx Ql (Throat)NegativeSwap.com / [employer] Other Quick StrepNoSwap.com / [employer] Other PREGNANCY URon 08-31-1041WGQOKWHJH, QUALNegativeNormal NEGATIVEThe [facility] SouthComment on above:Performed By: #### PREGQNT, AST, ALT, GLUC, LIPID #### [facility] [address] [place] [address] Dandy KarenCBC AUTO DIFFon 36-34-1104Jliglzfxn (Bld) [#/Vol]0.0 103/ulNormal 0.0-0.1The [facility] SouthComment on above:Performed By: #### PREGQNT, AST, ALT, GLUC, LIPID #### [facility] [address] [address] Dandy KarenBasophils/100 WBC (Bld)0.5 %Normal0.2-2.0The [facility] Comment on above:Performed By: #### PREGQNT, AST, ALT, GLUC, LIPID #### [facility] [address] [address] Dandy KarenEosinophils (Bld) [#/Vol]0.1 103/ulNormal0.0-0.7The [facility] SouthComment on above:Performed By: #### PREGQNT, AST, ALT, GLUC, LIPID #### [facility] [address] [place] [address] Dandy KarenEosinophils/100 WBC (Bld)1.4 %Normal0.9-7.0The [facility] Comment on above:Performed By: #### PREGQNT, AST, ALT, GLUC, LIPID #### [facility] [address] [place] [address] Dandy KarenErythrocyte distribution width (RBC) [Ratio]12.8 %Bpcdsg96.0-15.0The [facility] SouthComment on above:Performed By: #### PREGQNT, AST, ALT, GLUC, LIPID #### [facility] [address] [place] [address] Dandy KarenHematocrit (Bld) [Volume fraction]40.4 %Jscsjs54.0-48.0The [facility] SouthComment on above:Performed By: #### PREGQNT, AST, ALT, GLUC, LIPID #### [facility] [address] [place] [address] Dandy KarenHemoglobin (Bld) [Mass/Vol]13.4 g/yDHnyijo98.0-16.0The [facility] SouthComment on above:Performed By: #### PREGQNT, AST, ALT, GLUC, LIPID #### [facility] [address] [place] [address] Dandy KarenIG #0.00 10e3/ulNormal0.00-0.03The [facility]terson Medical Centerment on above:Performed By: #### PREGQNT, AST, ALT, GLUC, LIPID #### [facility] [address] [place] [address] Dandy KarenIG %0.0 %Normal0.0-0.5The [facility] SouthComment on above: Performed By: #### PREGQNT, AST, ALT, GLUC, LIPID #### [facility] [address] [place] [address] Dandy KarenLymphocytes (Bld) [#/Vol]2.2 103/ulNormal1.2-3.8The [facility] SouthComment on above:Performed By: #### PREGQNT, AST, ALT, GLUC, LIPID #### [facility] [address] [address] Dandy DubonenLymphocytes/100 WBC (Bld)39.9 %Oifrkf29.5-60.0[facility] Comment on above:Performed By: #### PREGQNT, AST, ALT, GLUC, LIPID #### [facility] [address] [place] [address] Dandy KarenMANUAL DIFF REQNONormalThe [facility] SouthComment on above: Performed By: #### PREGQNT, AST, ALT, GLUC, LIPID #### [facility] [address] [place] [address] (RBC) [Entitic mass]31.3 gcLbmlwn14.7-34.0[facility] Comment on above:Performed By: #### PREGQNT, AST, ALT, GLUC, LIPID #### [facility] [address] [place] [address] KarM [facility] (RBC) [Mass/Vol]33.2 g/uCSctflt13.9-35.2[facility] Comment on above:Performed By: #### PREGQNT, AST, ALT, GLUC, LIPID #### [facility] [address] [place] [address] JagdishTrinity Health [facility] (RBC) [Entitic vol]94.4 mCTucipc23.1-95.6The [facility] Comment on above:Performed By: #### PREGQNT, AST, ALT, GLUC, LIPID #### [facility] [address] [place] [address] Dandy KarenMonocytes (Bld) [#/Vol]0.5 103/ulNormal0.3-0.8The [facility] Comment on above:Performed By: #### PREGQNT, AST, ALT, GLUC, LIPID #### [facility] [address] [place] [address] Dandy KarenMonocytes/100 WBC (Bld)8.0 %Normal1.7-12.0[facility] Comment on above:Performed By: #### PREGQNT, AST, ALT, GLUC, LIPID #### [facility] [address] [place] [address] Dandy KarenNeutrophils (Bld) [#/Vol]2.8 103/ulNormal1.4-6.5The [facility] SouthComment on above:Performed By: #### PREGQNT, AST, ALT, GLUC, LIPID #### [facility] [address] [place] [address] Dandy KarenNeutrophils/100 WBC (Bld)50.2 %Awefoa30.0-75.0The [facility] Comment on above:Performed By: #### PREGQNT, AST, ALT, GLUC, LIPID #### [facility] [address] [place] [address] Dandy KarenPlatelet mean volume (Bld) [Entitic vol]9.0 fLCritically low9.5-13.5 The [facility] SouthComment on above:Performed By: #### PREGQNT, AST, ALT, GLUC, LIPID #### [facility] [address] [place] [address] Dandy KarenPlatelets (Bld) [#/Vol]341 103/siJrhdgz720-824Jtr [facility] Comment on above:Performed By: #### PREGQNT, AST, ALT, GLUC, LIPID #### [facility] [address] [place] [address] Dandy KarenRBC (Bld) [#/Vol]4.28 106/ulNormal3.40-5.30The [facility] Comment on above:Performed By: #### PREGQNT, AST, ALT, GLUC, LIPID #### [facility] [address] [place] [address] Dandy KarenWBC (Bld) [#/Vol]5.6 103/ulNormal4.0-11.0[facility] Comment on above:Performed By: #### PREGQNT, AST, ALT, GLUC, LIPID #### [facility] [address] [place] [address] Dandy KarenGLUCOSE BLOODon 06-50-7760Cqstxww [Mass/Vol]97 mg/rMSygbuz02-707MuqPromedica Toledo HospitalComment on above:Performed By: #### PREGQNT, AST, ALT, GLUC, LIPID #### [facility] [address] [address] Dandy KarenLIPID PROFILEon 53-58-4240GSEX-HDL RATIO NORMSEE BELOWCincinnati Children's Hospital Medical CenterComcorewell health [facility] on above:Result Comment: 3.3 - 4.4 LOW RISK 4.4 - 7.1 AVERAGE RISK 7.1 - 11.0 MODERATE RISK >11.0 HIGH RISKPerformed By: #### PREGQNT, AST, ALT, GLUC, LIPID #### [facility] [address] [place] [address] Dandy KarenCholesterol [Mass/Vol]169 mg/zRKkinrj715-398AfgPromedica [facility] Hospital Comment on above:Performed By: #### PREGQNT, AST, ALT, GLUC, LIPID #### [facility] [address] [address] Dandy KarenCholesterol in HDL [Mass/Vol]> or = 60 mg/dl - LOW CARDIOVASCULAR RISK <40 mg/dl - HIGH CARDIOVASCULAR RISKCincinnati Children's Hospital Medical CenterComcorewell health [facility] on above:Performed By: #### PREGQNT, AST, ALT, GLUC, LIPID #### [facility] [address] [place] [address] Dandy KarenCholesterol in HDL [Mass/Vol]55 mg/bNKmjpsb73-93Nts [facility] SouthComcorewell health [facility] on above:Performed By: #### PREGQNT, AST, ALT, GLUC, LIPID #### [facility] [address] [place] [address] Dandy KarenCholesterol in LDL [Mass/Vol]94.6 mg/eYTmztyi06.0-140.0The [facility] SouthComcorewell health [facility] on above:Performed By: #### PREGQNT, AST, ALT, GLUC, LIPID #### [facility] [address] [place] [address] Dandy KarenCholesterol in LDL [Mass/Vol]SEE [facility] Comment on above:Result Comment: <100 mg/dl OPTIMAL 100 - 129 mg/dl NEAR OR ABOVE OPTIMAL 130 - 159 mg/dl BORDERLINE HIGH 160 - 189 mg/dl HIGH >190 mg/dl VERY HIGHPerformed By: #### PREGQNT, AST, ALT, GLUC, LIPID #### [facility] [address] [address] Dandy KarenCholesterol.total/Cholesterol in HDL [Mass ratio]3.1 {ratio}Normal The [facility] [facility] SouthComment on above:Performed By: #### PREGQNT, AST, ALT, GLUC, LIPID #### [facility] [address] [address] Dandy KarenTriglyceride [Mass/Vol]97 mg/mESanzwm61-259JxzPromedica Toledo Hospital Comment on above:Performed By: #### PREGQNT, AST, ALT, GLUC, LIPID #### [facility] [address] [address] Dandy KarenVLDL CALC19.4 mg/dLCincinnati Children's Hospital Medical CenterComment on above: Performed By: #### PREGQNT, AST, ALT, GLUC, LIPID #### [facility] [address] [address] Dandy KarenPREG QUANT HCGon [id number] QUANT<1.00[facility] Comment on above:Performed By: #### PREGQNT, AST, ALT, GLUC, LIPID #### [facility] [address] [address] Dandy KarenHCG RANGESEE BELOWCincinnati Children's Hospital Medical CenterComment on above:Result Comment: 5-50 0-1 WEEK 40-300 1-2 WEEKS 100-1,000 2-3 WEEKS 500-6,000 3-4 WEEKS 5,000-200,000 1-2 MONTHS 10,000-100,000 2-3 MONTHS 3,000-50,000 2ND TRIMESTER 1,000-50,000 3RD TRIMESTERPerformed By: #### PREGQNT, AST, ALT, GLUC, LIPID #### [facility] [address] [address] Dandy KarenSGOTon [id number] [Catalytic activity/Vol]24 U/YGtrgzz36-49Nps [facility] SouthComment on above:Performed By: #### PREGQNT, AST, ALT, GLUC, LIPID #### [facility] [address] [place] [address] Dandy CalderonUnion General Hospital [id number] [Catalytic activity/Vol]19 U/LNormal9-52The [facility] SouthComment on above:Performed By: #### PREGQNT, AST, ALT, GLUC, LIPID #### [facility] [address] [place] [address] Dandy KarenPREGNANCY URon [id number], QUALNegativeNormalNEGATIVEThe [facility] SouthComment on above:Performed By: #### PREGQNT, AST, ALT, GLUC, LIPID #### [facility] [address] [place] [address] Dandy KarenPREGNANCY URon [id number], QUALNegativeNormalNEGATIVEThe [facility] SouthComment on above:Performed By: #### CBC #### [facility] [address] [place] [address] Dandy KarenCBC AUTO DIFFon [id number] (Bld) [#/Vol]0.0 103/ulNormal 0.0-0.1The [facility] Medical Centerment on above:Performed By: #### CBC #### [facility] [address] [place] [address] Dandy KarenBasophils/100 WBC (Bld)0.6 %Normal0.2-2.0The [facility] Comment on above:Performed By: #### CBC #### [facility] [address] [place] [address] Dandy KarenEosinophils (Bld) [#/Vol]0.1 103/ulNormal0.0-0.7The [facility] SouthComment on above:Performed By: #### CBC #### [facility] [address] [place], [place] [address] Dandy KarenEosinophils/100 WBC (Bld)1.2 %Normal0.9-7.0The [facility] Comment on above:Performed By: #### CBC #### [facility] [address] [place] [address] Dandy KarenErythrocyte distribution width (RBC) [Ratio]12.1 %Zvuljw95.0-15.0The [facility] SouthComment on above:Performed By: #### CBC #### [facility] [address] [place] [address] Dandy KarenHematocrit (Bld) [Volume fraction]41.2 %Atlwiy00.0-48.0The [facility] SouthComment on above:Performed By: #### CBC #### [facility] [address] [place] [address] Dandy KarenHemoglobin (Bld) [Mass/Vol]13.6 g/hKUoqwlf83.0-16.0The [facility] SouthComment on above:Performed By: #### CBC #### [facility] [address] [place] [address] Dandy KarenIG #0.01 10e3/ulNormal0.00-0.03The [facility] SouthComment on above:Performed By: #### CBC #### [facility] [address] [place] [address] Dandy KarenIG %0.2 %Normal0.0-0.5The [facility] SouthComment on above: Performed By: #### CBC #### [facility] [address] [place] [address] Dandy KarenLymphocytes (Bld) [#/Vol]2.1 103/ulNormal1.2-3.8The [facility] SouthComment on above:Performed By: #### CBC #### [facility] [address] [place] [address] Dandy KarenLymphocytes/100 WBC (Bld)41.5 %Dqepnt84.5-60.0The [facility] Comment on above:Performed By: #### CBC #### [facility] [address] [place] [address] Dandy KarenMANUAL DIFF REQNONormalThe [facility] SouthComment on above: Performed By: #### CBC #### [facility] [address] [place] [address] Dandy KarenMCH (RBC) [Entitic mass]31.0 kvXnygue65.7-34.0[facility] Comment on above:Performed By: #### CBC #### [facility] [address] [place] [address] Dandy KarenMCHC (RBC) [Mass/Vol]33.0 g/eRPcuche13.9-35.2[facility] Comment on above:Performed By: #### CBC #### [facility] [address] [place] [address] Dandy KarenMCV (RBC) [Entitic vol]93.8 oVNvvwzl41.1-95.6ThMiddletown Hospital Comment on above:Performed By: #### CBC #### [facility] [address] [place] [address] Dandy KarenMonocytes (Bld) [#/Vol]0.4 103/ulNormal0.3-0.8ThMiddletown Hospital Comment on above:Performed By: #### CBC #### [facility] [address] [place] [address] Dandy KarenMonocytes/100 WBC (Bld)8.7 %Normal1.7-12.0[facility] Comment on above:Performed By: #### CBC #### [facility] [address] [place] [address] Dandy KarenNeutrophils (Bld) [#/Vol]2.4 103/ulNormal1.4-6.5The [facility] SouthComment on above:Performed By: #### CBC #### [facility] [address] [place] [address] Dandy KarenNeutrophils/100 WBC (Bld)47.8 %Zpbgtt59.0-75.0[facility] Comment on above:Performed By: #### CBC #### [facility] [address] [place] [address] Dandy KarenPlatelet mean volume (Bld) [Entitic vol]8.8 fLCritically low9.5-13.5 [facility]edo HospitalComment on above:Performed By: #### CBC #### [facility] [address] [place] [address] Dandy KarenPlatelets (Bld) [#/Vol]330 103/bbCnkltu851-954AomPromedica Toledo Hospital Comment on above:Performed By: #### CBC #### [facility] [address] [place] [address] Dandy KarenRBC (Bld) [#/Vol]4.39 106/ulNormal3.40-5.30[facility] Comment on above:Performed By: #### CBC #### [facility] [address] [place] [address] Dandy KarenWBC (Bld) [#/Vol]5.0 103/ulNormal4.0-11.0[facility] Comment on above:Performed By: #### CBC #### [facility] [address] [place] [address] Dandy KarenGLUCOSE BLOODon [id number] [Mass/Vol]102 mg/yHBxtnuw03-795HsiPromedica Toledo HospitalComment on above:Performed By: #### CBC #### [facility] [address] [place] [address] Dandy KarenLIPID PROFILEon [id number]-HDL RATIO Mansfield HospitalComment on above:Result Comment: 3.3 - 4.4 LOW RISK 4.4 - 7.1 AVERAGE RISK 7.1 - 11.0 MODERATE RISK >11.0 HIGH RISKPerformed By: #### CBC #### [facility] [address] [place] [address] Dandy KarenCholesterol [Mass/Vol]169 mg/vYTslhot926-293UqrPromedica Toledo Hospital Comment on above:Performed By: #### CBC #### [facility] [address] [id number] Dandy KarenCholesterol in HDL [Mass/Vol]46 mg/dNGtljgl93-74Epk [facility] SouthComment on above:Performed By: #### CBC #### [facility] [address] [place], [place] [id number] Dandy KarenCholesterol in HDL [Mass/Vol]> or = 60 mg/dl - LOW CARDIOVASCULAR RISK <40 mg/dl - HIGH CARDIOVASCULAR RISKCincinnati Children's Hospital Medical CenterComment on above:Performed By: #### CBC #### [facility] [address] [id number] Dandy KarenCholesterol in LDL [Mass/Vol]SEE BELOWCincinnati Children's Hospital Medical Center Comment on above:Result Comment: <100 mg/dl OPTIMAL 100 - 129 mg/dl NEAR OR ABOVE OPTIMAL 130 - 159 mg/dl BORDERLINE HIGH 160 - 189 mg/dl HIGH >190 mg/dl VERY HIGHPerformed By: #### CBC #### [facility] [address] [place] [address] Dandy KarenCholesterol in LDL [Mass/Vol]109.6 mg/yUDzykpc91.0-140.0The [facility] SouthComment on above:Performed By: #### CBC #### [facility] [address] [place], [place] [id number] Dandy KarenCholesterol.total/Cholesterol in HDL [Mass ratio]3.7 {ratio}Normal The [facility] SouthComment on above:Performed By: #### CBC #### [facility] [address] [place], [place] [id number] Dandy KarenTriglyceride [Mass/Vol]67 mg/uLRxawpb91-271YasPromedica Toledo Hospital Comment on above:Performed By: #### CBC #### [facility] [address] [place], [place] [id number] Dandy KarenVLDL CALC13.4 mg/dLCincinnati Children's Hospital Medical CenterComment on above: Performed By: #### CBC #### [facility] [address] [place], [place] [id number] Dandy KarenPREG QUANT HCGon [id number] QUANT<1.00[facility] Comment on above:Performed By: #### CBC #### [facility] [address] [place] [address] Dandy JagdishenHCG RANGESEE BELOWCincinnati Children's Hospital Medical CenterComment on above:Result Comment: 5-50 0-1 WEEK 40-300 1-2 WEEKS 100-1,000 2-3 WEEKS 500-6,000 3-4 WEEKS 5,000-200,000 1-2 MONTHS 10,000-100,000 2-3 MONTHS 3,000-50,000 2ND TRIMESTER 1,000-50,000 3RD TRIMESTERPerformed By: #### CBC #### [facility] [address] [place] [address] Dandy DubonReading [facility] [id number] [Catalytic activity/Vol]22 U/IXvkujk54-65Qod [facility] SouthComment on above:Performed By: #### CBC #### [facility] [address] [place] [address] Dandy CalderonUnion General Hospital [id number] [Catalytic activity/Vol]15 U/LNormal9-52The [facility] SouthComment on above:Performed By: #### CBC #### [facility] [address] [place] [address] Dandy KarenCBC AUTO DIFFon [id number] (Bld) [#/Vol]0.0 103/ulNormal 0.0-0.1The [facility] SouthComment on above:Performed By: #### CBC #### [facility] [address] [place] [address] Dandy KarenBasophils/100 WBC (Bld)0.6 %Normal0.2-2.0[facility] Comment on above:Performed By: #### CBC #### [facility] [address] [place] [address] Dandy KarenEosinophils (Bld) [#/Vol]0.1 103/ulNormal0.0-0.7The [facility] SouthComment on above:Performed By: #### CBC #### [facility] [address] [place] [address] Dandy KarenEosinophils/100 WBC (Bld)0.9 %Normal0.9-7.0The [facility] Comment on above:Performed By: #### CBC #### [facility] [address] [place] [address] Dandy KarenErythrocyte distribution width (RBC) [Ratio]12.2 %Xuokmh45.0-15.0The [facility] SouthComment on above:Performed By: #### CBC #### [facility] [address] [place] [address] Dandy KarenHematocrit (Bld) [Volume fraction]39.7 %Kwsejh37.0-48.0The [facility] SouthComment on above:Performed By: #### CBC #### [facility] [address] [place] [address] Dandy KarenHemoglobin (Bld) [Mass/Vol]13.5 g/pTLgcahj08.0-16.0The [facility] SouthComment on above:Performed By: #### CBC #### [facility] [address] [place] [address] Dandy KarenIG #0.01 10e3/ulNormal0.00-0.03The [facility] SouthComment on above:Performed By: #### CBC #### [facility] [address] [place] [address] Dandy KarenIG %0.1 %Normal0.0-0.5The [facility] SouthComment on above: Performed By: #### CBC #### [facility] [address] [place] [address] Dandy KarenLymphocytes (Bld) [#/Vol]2.7 103/ulNormal1.2-3.8The [facility] SouthComment on above:Performed By: #### CBC #### [facility] [address] [place] [address] Dandy KarenLymphocytes/100 WBC (Bld)40.2 %Eieell32.5-60.0The [facility] Comment on above:Performed By: #### CBC #### [facility] [address] [id number] Dandy KarenMANUAL DIFF REQNONormalThe [facility] SouthComment on above: Performed By: #### CBC #### [facility] [address] [place] [address] Dandy KarenMCH (RBC) [Entitic mass]31.6 ccNjfesa88.7-34.0The [facility] Comment on above:Performed By: #### CBC #### [facility] [address] [place] [address] Dandy KarenMCHC (RBC) [Mass/Vol]34.0 g/mQGueajx04.9-35.2[facility] Comment on above:Performed By: #### CBC #### [facility] [address] [place] [address] Dandy KarenMCV (RBC) [Entitic vol]93.0 aDJzamgb67.1-95.6The [facility] Comment on above:Performed By: #### CBC #### [facility] [address] [place] [address] Dandy KarenMonocytes (Bld) [#/Vol]0.7 103/ulNormal0.3-0.8ThMiddletown Hospital Comment on above:Performed By: #### CBC #### [facility] [address] [place] [address] Dandy KarenMonocytes/100 WBC (Bld)10.5 %Normal1.7-12.0[facility] Comment on above:Performed By: #### CBC #### [facility] [address] [place] [address] Dandy KarenNeutrophils (Bld) [#/Vol]3.2 103/ulNormal1.4-6.5The [facility] SouthComment on above:Performed By: #### CBC #### [facility] [address] [place] [address] Dandy KarenNeutrophils/100 WBC (Bld)47.7 %Pfutrs67.0-75.0The [facility] Comment on above:Performed By: #### CBC #### [facility] [address] [address] Dandy KarenPlatelet mean volume (Bld) [Entitic vol]8.6 fLCritically low9.5-13.5 [facility] HospitalComment on above:Performed By: #### CBC #### [facility] [address] [place] [address] Dandy KarenPlatelets (Bld) [#/Vol]358 103/fvAjuozv571-007OxqPromedica [facility]edo Hospital Comment on above:Performed By: #### CBC #### [facility] [address] [place] [address] Dandy KarenRBC (Bld) [#/Vol]4.27 106/ulNormal3.40-5.30[facility] Comment on above:Performed By: #### CBC #### [facility] [address] [place] [address] Dandy KarenWBC (Bld) [#/Vol]6.7 103/ulNormal4.0-11.0[facility] Comment on above:Performed By: #### CBC #### [facility] [address] [place] [address] Dandy KarenGLUCOSE BLOODon 22-14-9578Vgerguf [Mass/Vol]98 mg/eOUiuoir42-899ZowPromedica Toledo HospitalComment on above:Performed By: #### GLUC, AST, PREGQNT, LIPID, ALT #### [facility] [address] [place] [address] Dandy KarenLIPID PROFILEon [id number]-HDL RATIO [facility]field HospitalComment on above:Result Comment: 3.3 - 4.4 LOW RISK 4.4 - 7.1 AVERAGE RISK 7.1 - 11.0 MODERATE RISK >11.0 HIGH RISKPerformed By: #### CBC #### [facility] [address] [place] [address] Dandy KarenCholesterol [Mass/Vol]162 mg/tCHiblkt354-292JdpPromedica [facility]edo Hospital Comment on above:Performed By: #### CBC #### [facility] [address] [id number] Dandy KarenCholesterol in HDL [Mass/Vol]57 mg/dZJthipk76-49LnlPromedica Toledo HospitalComment on above:Performed By: #### CBC #### [facility] [address] [place] [address] Dandy KarenCholesterol in HDL [Mass/Vol]> or = 60 mg/dl - LOW CARDIOVASCULAR RISK <40 mg/dl - HIGH CARDIOVASCULAR RISKNoMercy Health St. Rita's Medical CenterComcorewell health [facility] on above:Performed By: #### CBC #### [facility] [address] [address] Dandy KarenCholesterol in LDL [Mass/Vol]97.4 mg/vYDzwzen56.0-140.0[facility] HospitalComment on above:Performed By: #### CBC #### [facility] [address] [place] [address] Dandy KarenCholesterol in LDL [Mass/Vol]SEE BELOWNoMercy Health St. Rita's Medical Center Comment on above:Result Comment: <100 mg/dl OPTIMAL 100 - 129 mg/dl NEAR OR ABOVE OPTIMAL 130 - 159 mg/dl BORDERLINE HIGH 160 - 189 mg/dl HIGH >190 mg/dl VERY HIGHPerformed By: #### CBC #### [facility] [address] [place] [address] Dandy KarenCholesterol.total/Cholesterol in HDL [Mass ratio]2.8 {ratio}Normal The [facility] SouthComcorewell health lak[facility] hospitals [facility] on above:Performed By: #### CBC #### [facility] [address] [place] [address] Dandy KarenTriglyceride [Mass/Vol]38 mg/dLCritically vyh07-512Ips [facility] SouthComcorewell health [facility] on above:Performed By: #### CBC #### [facility] [address] [place] [address] Dandy KarenVLDL CALC7.6 mg/dLCincinnati Children's Hospital Medical CenterComment on above: Performed By: #### CBC #### [facility] [address] [place] [address] Dandy KarenPREG QUANT HCGon [id number] QUANT<1.00[facility] Comment on above:Performed By: #### CBC #### [facility] [address] [place] [address] Dandy KarenHCG RANGESEE BELOWCincinnati Children's Hospital Medical CenterComment on above:Result Comment: 5-50 0-1 WEEK 40-300 1-2 WEEKS 100-1,000 2-3 WEEKS 500-6,000 3-4 WEEKS 5,000-200,000 1-2 MONTHS 10,000-100,000 2-3 MONTHS 3,000-50,000 2ND TRIMESTER 1,000-50,000 3RD TRIMESTERPerformed By: #### CBC #### [facility] [address] [place] [address] Dandy CalderonMiller County Hospital [id number] [Catalytic activity/Vol]25 U/HZvxcry96-25Llf [facility] SouthComment on above:Performed By: #### GLUC, AST, PREGQNT, LIPID, ALT #### [facility] [address] [place] [address] Dandy CalderonUnion General Hospital [id number] [Catalytic activity/Vol]19 U/LNormal9-52The [facility] SouthComment on above:Performed By: #### CBC #### [facility] [address] [place] [address] Dandy KarenCBC AUTO DIFFon [id number] (Bld) [#/Vol]0.0 103/ulNormal 0.0-0.1The [facility] SouthComment on above:Performed By: #### CBC #### [facility] [address] [place] [address] Dandy KarenBasophils/100 WBC (Bld)0.5 %Normal0.2-2.0[facility] Comment on above:Performed By: #### CBC #### [facility] [address] [place] [address] Dandy KarenEosinophils (Bld) [#/Vol]0.1 103/ulNormal0.0-0.7The [facility] SouthComment on above:Performed By: #### CBC #### [facility] [address] [place] [address] Dandy KarenEosinophils/100 WBC (Bld)1.2 %Normal0.9-7.0The [facility] Comment on above:Performed By: #### CBC #### [facility] [address] [place] [address] Dandy KarenErythrocyte distribution width (RBC) [Ratio]12.1 %Axipop49.0-15.0The [facility] SouthComment on above:Performed By: #### CBC #### [facility] [address] [place] [address] Dandy KarenHematocrit (Bld) [Volume fraction]42.7 %Lnuqsr47.0-48.0The [facility] SouthComment on above:Performed By: #### CBC #### [facility] [address] [place] [address] Dandy KarenHemoglobin (Bld) [Mass/Vol]14.3 g/hWOthzpz15.0-16.0The [facility] SouthComment on above:Performed By: #### CBC #### [facility] [address] [place] [address] Dandy KarenIG #0.02 10e3/ulNormal0.00-0.03The [facility] SouthComment on above:Performed By: #### CBC #### [facility] [address] [place] [address] Dandy KarenIG %0.3 %Normal0.0-0.5The [facility] SouthComment on above: Performed By: #### CBC #### [facility] [address] [place] [address] Dandy KarenLymphocytes (Bld) [#/Vol]2.8 103/ulNormal1.2-3.8The [facility] SouthComment on above:Performed By: #### CBC #### [facility] [address] [place] [address] Dandy KarenLymphocytes/100 WBC (Bld)36.3 %Clwtbu63.5-60.0[facility] Comment on above:Performed By: #### CBC #### [facility] [address] [place] [address] Dandy KarenMANUAL DIFF REQNONormalThe [facility] SouthComment on above: Performed By: #### CBC #### [facility] [address] [place] [address] Dandy KarenMCH (RBC) [Entitic mass]31.2 muYqjbkp58.7-34.0[facility] Comment on above:Performed By: #### CBC #### [facility] [address] [place] [address] Dandy KarenMCHC (RBC) [Mass/Vol]33.5 g/eDFragsl44.9-35.2[facility] Comment on above:Performed By: #### CBC #### [facility] [address] [place] [address] Dandy KarenMCV (RBC) [Entitic vol]93.0 ePOppygg94.1-95.6The [facility] Comment on above:Performed By: #### CBC #### [facility] Laboratory [address] [place] [address] Dandy KarenMonocytes (Bld) [#/Vol]0.6 103/ulNormal0.3-0.8ThMiddletown Hospital Comment on above:Performed By: #### CBC #### [facility] Laboratory [address] [place] [address] Dandy KarenMonocytes/100 WBC (Bld)7.7 %Normal1.7-12.0[facility] Comment on above:Performed By: #### CBC #### [facility] [address] [place] [address] Dandy KarenNeutrophils (Bld) [#/Vol]4.1 103/ulNormal1.4-6.5The [facility] SouthComment on above:Performed By: #### CBC #### [facility] [address] [place] [address] Dandy KarenNeutrophils/100 WBC (Bld)54.0 %Ufwnni70.0-75.0[facility] Comment on above:Performed By: #### CBC #### [facility] [address] [place] [address] Dandy KarenPlatelet mean volume (Bld) [Entitic vol]9.8 fLNormal9.5-13.5The [facility] SouthComment on above:Performed By: #### CBC #### [facility] [address] [place] [address] Dandy KarenPlatelets (Bld) [#/Vol]281 103/nlXlryuz930-733Ijy [facility] Comment on above:Performed By: #### CBC #### [facility] [address] [place] [address] Dandy KarenRBC (Bld) [#/Vol]4.59 106/ulNormal3.40-5.30The [facility] Comment on above:Performed By: #### CBC #### [facility] [address] [place] [address] Dandy KarenWBC (Bld) [#/Vol]7.6 103/ulNormal4.0-11.0[facility] Comment on above:Performed By: #### CBC #### [facility] [address] [place] [address] Dandy KarenGLUCOSE BLOODon 16-05-6859Wldakzk [Mass/Vol]98 mg/zNPiaxqg40-094BvjPromedica Toledo HospitalComment on above:Performed By: #### PREGQNT, AST, ALT, GLUC, LIPID #### [facility] [address] [place] [address] Dandy KarenLIPID PROFILEon [id number]-HDL RATIO NORMSEE J.W. Ruby Memorial HospitalComment on above:Result Comment: 3.3 - 4.4 LOW RISK 4.4 - 7.1 AVERAGE RISK 7.1 - 11.0 MODERATE RISK >11.0 HIGH RISKPerformed By: #### PREGQNT, AST, ALT, GLUC, LIPID #### [facility] [address] [id number] Dandy KarenCholesterol [Mass/Vol]161 mg/uTCeogkh316-665OegPromedica [facility] Hospital Comment on above:Performed By: #### PREGQNT, AST, ALT, GLUC, LIPID #### [facility] [address] [address] Dandy KarenCholesterol in HDL [Mass/Vol]57 mg/pABiyrax56-35Tsh [facility] SouthComment on above:Performed By: #### PREGQNT, AST, ALT, GLUC, LIPID #### [facility] [address] [address] Dandy KarenCholesterol in HDL [Mass/Vol]> or = 60 mg/dl - LOW CARDIOVASCULAR RISK <40 mg/dl - HIGH CARDIOVASCULAR RISKNoMercy Health St. Rita's Medical CenterComment on above:Performed By: #### PREGQNT, AST, ALT, GLUC, LIPID #### [facility] Laboratory [address] [address] Dandy KarenCholesterol in LDL [Mass/Vol]93.4 mg/eYIowlor51.0-140.0The [facility] SouthComment on above:Performed By: #### PREGQNT, AST, ALT, GLUC, LIPID #### [facility] [address] [address] Dandy KarenCholesterol in LDL [Mass/Vol]SEE BELOWNoMercy Health St. [facility]'s [facility] Comment on above:Result Comment: <100 mg/dl OPTIMAL 100 - 129 mg/dl NEAR OR ABOVE OPTIMAL 130 - 159 mg/dl BORDERLINE HIGH 160 - 189 mg/dl HIGH >190 mg/dl VERY HIGHPerformed By: #### PREGQNT, AST, ALT, GLUC, LIPID #### [facility] [address] [address] Dandy KarenCholesterol.total/Cholesterol in HDL [Mass ratio]2.8 {ratio}Normal The [facility] SouthComcorewell [facility] on above:Performed By: #### PREGQNT, AST, ALT, GLUC, LIPID #### [facility] [address] [address] Dandy KarenTriglyceride [Mass/Vol]53 mg/tLDzetno36-164LnpPromedica [facility] Hospital Comment on above:Performed By: #### PREGQNT, AST, ALT, GLUC, LIPID #### [facility] Laboratory [address] [place] [address] Dandy KarenVLDL CALC10.6 mg/dLCincinnati Children's Hospital Medical CenterComment on above: Performed By: #### PREGQNT, AST, ALT, GLUC, LIPID #### [facility] Laboratory [address] [place] [address] Dandy KarenPREG QUANT HCGon 55-09-5848GNR QUANT<1.00[facility] Comment on above:Performed By: #### PREGQNT, AST, ALT, GLUC, LIPID #### [facility] [address] [place] [address] Dandy KarenHCG RANGESEE BELOWCincinnati Children's Hospital Medical CenterComment on above:Result Comment: 5-50 0-1 WEEK 40-300 1-2 WEEKS 100-1,000 2-3 WEEKS 500-6,000 3-4 WEEKS 5,000-200,000 1-2 MONTHS 10,000-100,000 2-3 MONTHS 3,000-50,000 2ND TRIMESTER 1,000-50,000 3RD TRIMESTERPerformed By: #### PREGQNT, AST, ALT, GLUC, LIPID #### [facility] Laboratory [address] [place] [address] Dandy CalderonGODignity Health East Valley Rehabilitation [facility] - [facility] 89-74-6857TCV [Catalytic activity/Vol]26 U/HFgzygz82-54Rrr [facility] SouthComment on above:Performed By: #### PREGQNT, AST, ALT, GLUC, LIPID #### [facility] Laboratory [address] [place] [address] Dandy CalderonGPTon 80-89-2708PJW [Catalytic activity/Vol]23 U/LNormal9-52[facility] HospitalComcorewell health [facility] on above:Performed By: #### PREGQNT, AST, ALT, GLUC, LIPID #### [facility] Laboratory [address] [place] [address] Dandy KarenPREGNANCY URon 24-58-9056CFXDRJZUG, QUALNegativeNormalNEGATIVEThe [facility] SouthComment on above:Performed By: #### PREGU #### [facility] Laboratory [address] [place] [address] Dandy Guillory Vital Signs Date TimeVital SignValuePerforming KhtobdtkmTdiidonv30-22-1304 09:25-0400Body .7 Joe Mai MD Work Phone: [phone] [place], [place] [address]Ekpmtxxojd35-03-1427 09:25-0400Body mass index (BMI) [Ratio]24.63 kg/h2PjcteDany Mai MD Work Phone: [phone])[address] [place], [place] [address]Tpmnabyvca35-32-9126 09:25-0400Body dgfjzo05.48 kgDany Mai MD Work Phone: 1(929)[facility] [place], [place] [address]Jntkdkhrnv84-32-6791 09:25-0400Diastolic blood sqgiyikw10 mm[Hg]Dany Mai MD Work Phone: 1(208)[facility] [place], [place] [address]Zgbniyycem78-85-2775 09:25-0400Heart rate72 /min Dany Mai MD Work Phone: [phone] [place], [place] [address]Inpcglkdmr32-29-5302 09:25-0400Respiratory rate16 /minDany Mai MD Work Phone: 1(013)[facility] [place], [place] [address]Ktovwmgglz53-50-6978 09:25-9743UrM7% (BldA) [Mass fraction]99 %Dany Mai MD Work Phone: [phone])[address] [place], [place] [address]Ialufheajt65-42-4893 09:25-0400Systolic blood igutimtg144 mm[Hg]Dany Mai MD Work Phone: [phone] [place], [place] [address]Xtmmnktbrk61-58-2762 14:08-0400Body mass index (BMI) [Ratio]24.48 kg/v9TatdjStella Stanley MD Work Phone: [facility] HospitalLftpckzdra66-09-6326 14:08-0400Body lwcetv17.03 kgStella Stanley MD Work Phone: noCedar County Memorial HospitalWjwmrhigsg64-08-5417 14:08-0400Diastolic blood wqjmyfir89 mm[Hg]Stella Stanley MD Work Phone: 1(470)[address] [place], [place] 0198209-17-2025 14:08-0400Systolic blood fjijubbg452 mm[Hg]Stella Stanley MD Work Phone: 1(399)[address] [place], [place] 0198204-30-2025 11:28-0400Body mass index (BMI) [Ratio]25.54 kg/o1YukteStella Stanley MD Work Phone: 1(851)[address] [place], [place] 0198204-30-2025 11:28-0400Body iopmzc08.2 kg Stella Stanley MD Work Phone: 1(174)[address] [place], [place] 0198204-30-2025 11:28-0400Diastolic blood rldlruty59 mm[Hg]Setlla Stanley MD Work Phone: 1(455)[address] [place], [place] 0198204-30-2025 11:28-0400Systolic blood saghdthb822 mm[Hg]Stella Stanley MD Work Phone: 1(719)[address] [place], [place] 0198202-17-2025 10:42-0500Body mass index (BMI) [Ratio]25.85 kg/u8XmtkdStella Stanley MD Work Phone: 1(445)[address] [place], [place] 0198202-17-2025 10:42-0500Body dzdoce05.11 kgStella Stanley MD Work Phone: 1(100)[address] [place], [place] 0198202-17-2025 10:42-0500Diastolic blood ambycwfx45 mm[Hg]Stella Stanley MD Work Phone: 1(161)[address] [place], [place] 0198202-17-2025 10:42-0500Systolic blood lvdehvih277 mm[Hg]Stella Stanley MD Work Phone: 1(710)[address] [place], [place] 0198209-03-2024 15:45-0400Body mass index (BMI) [Ratio]25.09 kg/w8SohqvStella Stanley MD Work Phone: 1(524)[address] [place], [place] 0198209-03-2024 15:45-0400Body usxbrr57.84 kgStella Stanley MD Work Phone: 1(684)[address] [place], [place] 0198209-03-2024 15:45-0400Diastolic blood mm[Hg]Stella Stanley MD Work Phone: [facility] HospitalQamybpivlw71-60-9990 15:45-0400Systolic blood hkneaxcw591 mm[Hg]Stella Stanley MD Work Phone: [facility] HospitalKgyrrxhyzh94-18-2964 08:00-0400Body temperature 98.2 [degF]MD Marbin Keith Work Phone: 1(063)[address]05-31-2024 08:00-0400 Diastolic blood ewwgwlwv62 mm[Hg]MD Marbin Keith Work Phone: 1(021)[address]05-31-2024 08:00-0400 Heart rate47 /minMD Marbin Keith Work Phone: 1(736)[address]05-31-2024 08:00-0400 Respiratory rate16 /minMD Marbin Keith Work Phone: 1(272)[address]05-31-2024 08:00-0400 SaO2% (BldA) [Mass fraction]97 %MD Marbin Keith Work Phone: 1(312)[address]05-31-2024 08:00-0400 Systolic blood mccakhtt154 mm[Hg]MD Marbin Keith Work Phone: 1(557)[address]05-31-2024 01:35-0400 Body .72 cmMD Marbin Keith Work Phone: 1(122)[address]05-31-2024 01:35-0400 Body .11 kgMD Marbin Keith Work Phone: 1(581)[address]05-31-2024 00:12-0400 Diastolic blood vfglbtuk69 mm[Hg]MD Marbin Keith Work Phone: 1(652)[address]05-31-2024 00:12-0400 Heart rate59 /minMD Marbin Keith Work Phone: 1(547)[address]05-31-2024 00:12-0400 Respiratory rate18 /minMD Marbin Keith Work Phone: 1(694)[address]05-31-2024 00:12-0400 SaO2% (BldA) [Mass fraction]98 %MD Marbin Keith Work Phone: [facility]05-31-2024 00:12-0400 Systolic blood mm[Hg]MD Marbin Keith Work Phone: [facility]05-30-2024 22:37-0400 Body amaarrzkjrj99.8 [degF]MD Marbin Keith Work Phone: [facility]05-30-2024 16:34-0400 Body wbkajq312.18 cmMD Vasquezkeyonna Keith Work Phone: [facility]05-30-2024 16:34-0400 Body kgMD Vasquezkeyonna Keith Work Phone: [facility]11-13-2023 12:15-0500 Body ehujki299.72 cmPamela Mile Other [employer] Other 11-13-2023 12:15-0500Body mass index (BMI) [Ratio] 26.12 kg/f4TarjjwMona Treadwell Other [employer] Other 11-13-2023 12:15-0500Body .2 [degF]Mona Treadwell Other [employer] Other 11-13-2023 12:15-0500Body ntybhs06.93 kgPazeenat Mile Other [employer] Other 11-13-2023 12:15-0500Respiratory rate18 /minMona Treadwell Other [employer] Other 11-13-2023 12:15-4865EqD7% (BldA) [Mass fraction]98 % Mona Treadwell Other [employer] Other Encounters Encounter DateEncounter TypeCare ProviderFacilityStart: 06-15-2025 End: 44-49-8948Pizmtt Jitendra Mai MD Work Phone: NOL[facility] [place] EndocrinologyStart: 06-15-2025 End: 15-90-3030Ivmzgk Jitendra Mai MD Work Phone: NOHD [place] EndocrinologyStart: 06-15-2025 End: 05-28-3811Moujgd outpatient new 45 Arnaud Mai MD Work Phone: noms [place] EndocrinologyComment on above:Elevated dehydroepiandrosterone sulfate level (Primary Dx); PCOS (polycystic ovarian syndrome); Irregular periodsStart: 06-15-2025 End: 01-52-3420knknqzdoxoTNNWZ F SABBAGHNot AvailableStart: 05-14-2025 End: 06-48-3859Tvlhleeub Result EncounterStella Stanley MD Work Phone: noms External Department UnsolicitedStart: 05-14-2025 End: 63-10-1980Vagmluroh Result EncounterStella Stanley MD Work Phone: noms External Department UnsolicitedStart: 05-11-2025 End: 86-28-3119Kppfvp outpatient visit 15 minutesStella Stanley MD Work Phone: noms [place] OBGYNComment on above:Menorrhagia with regular cycle (Primary Dx); Alopecia; Syncope, unspecified syncope typeStart: 05-11-2025 End: 66-89-4180vgqotkxebyXDKELIsaías Loza AvailableStart: 05-11-2025 End: 11-66-5202Kqkhus Cely Stanley MD Work Phone: noms [place] OBGYNStart: 05-11-2025 End: 83-58-7082Csuphj Cely Stanley MD Work Phone: NOMS [facility] OBGYNStart: 02-21-2025 End: 28-11-1141Nsvprvmva Result EncounterGeneric External Data ProviderNOMS External Department UnsolicitedStart: 02-21-2025 End: 65-28-2050Hvptcslvw Result EncounterGeneric External Data ProviderNOMS External Department UnsolicitedStart: 02-04-2025 End: 06-84-1913bydadazenrTVO Lianne L SchwabFacility:FT FM BellevueStart: 12-22-2024 End: 24-42-0608Zcnfic Cely Stanley MD Work Phone: [facility] OBStart: 12-22-2024 End: 43-94-9507Gazcmm C[place] Stanley MD Work Phone: [facility] OBStart: 12-22-2024 End: 01-77-2831Yhjnpv outpatient visit 15 minutesStella Stanley MD Work Phone: [facility] OBComment on above:DUB (dysfunctional uterine bleeding)Start: 12-22-2024 End: 94-15-5736uaumpcsiidCTCOK J PRINTYNot AvailableStart: 10-11-2024 End: 26-78-4446Ahbmqg Cely Stanley MD Work Phone: [facility] OBStart: 10-11-2024 End: 54-33-8429Owlfct Cely Stanley MD Work Phone: [facility] OBStart: 10-11-2024 End: 00-75-2906Mshdltb encounter procedureStella Stanley MD Work Phone: [facility] Work Phone: start: 10-11-2024 End: 23-02-7642Obtostli preventive med est patient 18-39 yrsStella Stanley MD Work Phone: [facility] OBComment on above:Well woman exam with routine gynecological exam (Primary Dx); Oral contraceptive pill surveillance; Cyst of ovary, unspecified lateralityStart: 10-11-2024 End: 04-83-9322rvbexschvxMOVBJ J PRINTYNot AvailableStart: 04-27-2024 End: 65-51-4297Zzwivh follow up visit related to original Marshall Stanley MD Work Phone: [facility] OBComment on above:Surgery follow-up; Cyst of right ovaryStart: 04-27-2024 End: 81-35-5089Sirfgz [place] Stanley MD Work Phone: [facility] OBStart: 04-27-2024 End: 29-33-8910Kgliix Cely Stanley MD Work Phone: [facility] OBStart: 04-12-2024 End: 16-23-8731wikgunsmusKW Marbin Keith Work Phone: [facility] Work Phone: Start: 04-12-2024 End: 73-50-8169Ivatdras ReferredMD Marbin Keith Work Phone: [facility] [address] [place] Work Phone: Start: 01-23-2024 End: 30-93-5908zkifxtclrwIdsieepd RinkesFacility:[facility] Centertart: 01-23-2024 End: 62-85-3779Yuqurwmdlc and management of inpatientMD Marbin Keith Work Phone: [facility] Work Phone: Start: 01-23-2024 End: 70-31-6330slgnckogvsu encounterMD Marbin Keith Work Phone: [facility] Work Phone: Start: 66-69-5786Jglbsxubm Result EncounterGeneric External Data ProviderNOMS External Department UnsolicitedStart: 09-27-2023 Clinisync Result EncounterGeneric External Data ProviderNOMS External Department UnsolicitedStart: 07-07-2023 End: 37-90-5906hpclpdmcayYzwpki Dymond Other [employer] Other Start: 82-89-6208Diqnrl outpatient new 20 minutes Mona TreadwellRONALDG Urgent Care ClydeStart: 06-14-2019 End: 49-28-7559Jecjpxi encounter procedureHOPE STEPHYFacility:V5Dekcq: 06-04-2019 End: 69-13-5791Mfvjjyp encounter procedureHOPE MITCHELLFacility:H5Zbqld: 04-06-2019 End: 60-41-5030Nsqwdoe encounter procedureDOCTOR MISCFacility:K4Gjqkv: 02-19-2019 End: 26-14-0134Fpycpcd encounter procedureDOCTOR MISCFacility:E6Mtiwm: 01-13-2019 End: 50-82-8514Aqqxxrd encounter procedureDOCTOR MISCFacility:S9Zzsdg: 12-10-2018 End: 95-60-9677Fvqwoep encounter procedureDOCTOR MISCFacility:J4Dcnjs: 11-10-2018 End: 48-35-6379Phanunn encounter procedureDOCTOR MISCFacility:O7Abzpu: 10-09-2018 End: 30-01-9492Jspsody encounter procedureDOCTOR MISCFacility:H1 Procedures DateProcedureProcedure DetailPerforming ClinicianStart: 99-60-4755ALQ CBC WITH AUTO DIFFBrian Fermin Stanley MD Work Phone: start: 29-39-2476EXSMRLULJNS-TB GOLD PLUSGeneric External Data ProviderStart: 74-36-3877Xwbwei echographySC Marbin Keith Work Phone: Start: 08-07-3274Cyaefefs tomography of abdomen and pelvis with contrast Marbin Keith Work Phone: Start: 79-46-1209Nnhnitxjhrbd echography Marbin Keith Work Phone: Start: 38-70-4803ORP TRIGLYCERIDESGeneric External Data Provider Plan of Treatment DateCare ActivityDetailAuthorStart: 10-13-2025 End: 02-15-5691Pquwali encounter procedureNOMS SWS OBStart: 09-14-2025 End: 14-35-8199Hawrhok encounter sdwnenyir60/21/2026 9:40 AM EST Office Visit [facility] [address] [place] [address] Dany Mai MD [address] [place] [address] LAURY [facility] EndocrinologyStart: 06-15-2025 End: 16-07-082323757658-Thmqxwgqrwrjkfcmlbk82-Ludhdtfiexmdnvhzhuj Lab Routine Elevated dehydroepiandrosterone sulfate level Expected: 06/15/2025 (Approximate), Expires: 06/15/2026NOKY HealthcareComment on above:Expected: 06/15/2025 (Approximate), Expires: 06/15/2026Start: 06-15-2025 End: 67-76-5659Tymho metabolic 1998 panel - Serum or PlasmaBasic metabolic panel Lab Routine Elevated dehydroepiandrosterone sulfate level Expected: 06/15/2025 (Approximate), Expires: 06/15/2026[facility] Work Phone: Comment on above:Expected: 06/15/2025 (Approximate), Expires: 06/15/2026Start: 06-15-2025 End: 30-43-0442Nccyfqpr, morningCortisol, morning Lab Routine Elevated dehydroepiandrosterone sulfate level Expected: 06/15/2025 (Approximate), Expires: 06/15/2026NOKY HealthcareComment on above:Expected: 06/15/2025 (Approximate), Expires: 06/15/2026Start: 06-15-2025 End: 43-04-2536XHHO-sulfateDHEA-sulfate Lab Routine Elevated dehydroepiandrosterone sulfate level Expected: 06/15/2025 (Approximate), Expires: 06/15/2026NOKY HealthcareComment on above:Expected: 06/15/2025 (Approximate), Expires: 06/15/2026Start: 06-15-2025 End: 58-05-7772Stbkifg encounter qzsizymxf83/22/2025 9:30 AM EDT Office Visit [facility] [address] [place] [phone] Dany Mai MD [address] [place] [address] ArrivedLAURY Nelson EndocrinologyComment on above:ArrivedStart: 06-08-2025 End: 32-51-9729Hhgwdxh encounter jolzsvabj65/15/2025 1:30 PM EDT Office Visit [facility] JOHNNY [address] [place] [address] Stelal Stanley MD [address] [place] [address] LAURY Nelson FLORENTINOtart: 05-11-2025 End: 46-14-0347Tcbmfsy encounter shkmzpope50/17/2025 2:15 PM EDT Office Visit [facility] JOHNNY [address] [place] [address] Stella Stanley MD [address] [place] [address] DUB (dysfunctional uterine bleeding)LAURY Mccollumkenneth TURNER Comment on above:DUB (dysfunctional uterine bleeding)Start: 05-11-2025 End: 78-83-4460LGU panel - Blood by Automated countCBC Lab Routine Menorrhagia with regular cycle Alopecia Syncope, unspecified syncope type Expected: 05/11/2025 (Approximate), Expires: 05/11/2026[facility] Work Phone: comment on above:Expected: 05/11/2025 (Approximate), Expires: 05/11/2026Start: 05-11-2025 End: 57-17-8068AAWP-sulfateDHEA-sulfate Lab Routine Menorrhagia with regular cycle Alopecia Syncope, unspecified syncope type Expected: 05/11/2025 (Approximate), Expires: 05/11/2026NOKY HealthcareComment on above:Expected: 05/11/2025 (Approximate), Expires: 05/11/2026Start: 05-11-2025 End: 31-42-0325Guuuwil measurement, fastingGlucose, fasting Lab Routine Menorrhagia with regular cycle Alopecia Syncope, unspecified syncope type Expected: 05/11/2025 (Approximate), Expires: 05/11/2026[facility] HealthcareComment on above:Expected: 05/11/2025 (Approximate), Expires: 05/11/2026Start: 05-11-2025 End: 14-09-8320Mvtfgaw, fastingInsulin, fasting Lab Routine Menorrhagia with regular cycle Alopecia Syncope, unspecified syncope type Expected: 05/11/2025 (Approximate), Expires: 05/11/2026NOKY HealthcareComment on above:Expected: 05/11/2025 (Approximate), Expires: 05/11/2026Start: 05-11-2025 End: 34-17-2418Wghovmfsmadj, free, totalTestosterone, free, total Lab Routine Menorrhagia with regular cycle Alopecia Syncope, unspecified syncope type Expected: 05/11/2025 (Approximate), Expires: 05/11/2026[facility] HealthcareComment on above:Expected: 05/11/2025 (Approximate), Expires: 05/11/2026Start: 05-11-2025 End: 26-86-6998Jwvxjzaupzf [Units/volume] in Serum or PlasmaTSH Lab Routine Menorrhagia with regular cycle Alopecia Syncope, unspecified syncope type Expected:05/11/2025 (Approximate), Expires: 05/11/2026[facility] HealthcareComment on above:Expected: 05/11/2025 (Approximate), Expires: 05/11/2026Start: 04-25-2025 Influenza vaccinationVALLEY VIEW MEDICAL CENTER HealthcareStart: 12-22-2024 End: 17-87-5161Uijusnw encounter pdtehrqsq50/30/2025 11:30 AM EDT Office Visit [facility] [address] [place] [phone] Stella Stanley MD [address] [facility] [address] [place] [address] ArrivedN[facility]ALLEY [facility] OBComment on above:ArrivedStart: 10-11-2024 End: 85-59-0747Doktacr encounter djkvvnvme22/17/2025 10:45 AM EST Office Visit [facility] [address] [place] [address] Stella Stanley MD [address] [place] [address] Well woman exam with routine gynecological exam; Oral contraceptive pill surveillanceNOMS [facility] OBComment on above:Well woman exam with routine gynecological exam; Oral contraceptive pill surveillanceStart: 04-27-2024 End: 34-01-1492Wubnaim encounter sopeamwzc53/03/2024 3:45 PM EDT Office Visit [facility] [address] [place] [address] Stella Stanley MD [address] [place] [address] Surgery follow-up; Cyst of right ovary; Endometriosis, ovary [facility] OBComment on above:Surgery follow-up; Cyst of right ovary; Endometriosis, ovaryStart: 22-51-9697Qcwngjifk vaccinationInfluenza Vaccine (#1) NOM[facility] HealthcareStart: 57-05-2334Wkperiplr vaccinationInfluenza Vaccine (#1)NOM HealthcareComment on above:Postponed from 04/25/2023 (Patient Refused)Start: 71-34-0671CdmxzccosMain Campus Medical Centertart: 75-62-0505Batbaaxd admission [facility] Centertart: 35-74-2415Ydyebl echographyUS pelvic completeMain Campus Medical Centertart: 68-16-4736OA PelvisMain Campus Medical Centertart: 59-99-5870Ontxthabvyth echographyUS transvaginal [facility] Centertart: 77-53-6199WH Pelvis transvaginal [facility] CenterPatient EducationOvarian Cyst (DC) Know your [facility] Work Phone: [facility] referralLouis [facility] Work Phone: Immunizations Immunization DateImmunizationNotesDr. Dan C. Trigg Memorial HospitalHraaigurKkjhfkkw69-12-1628fdvvccsjy A vaccine, pediatric/adolescent dosage, 2 dose scheduleGeneric Northwest HospitalUklwpxlnjt03-63-8012Wjlicygxlzchn Polysaccharide A,C,Y,W-135 TT ConjugateGeneric [place] [address]Ckaiamzluh70-41-1237mvlgentob A vaccine, pediatric/adolescent dosage, 2 dose scheduleGeneric Ricardo [place] [address]Cujgnlwcad66-94-1572htkfqkitbzauy polysaccharide (groups A, C, Y and W-135) diphtheria toxoid conjugate vaccine (MCV4P)Generic Northwest HospitalOwgatsfigh95-52-5057izpkolv toxoid, reduced diphtheria toxoid, and acellular pertussis vaccine, adsorbedGeneNorthwest Medical CenterXqhuyhqvnw74-26-9756Wtwzblbsoh, tetanus toxoids and acellular pertussis vaccine, and poliovirus vaccine, inactivatedGeneNorthwest Medical Center 26-25-0859bltvovi, mumps, rubella, and varicella virus vaccineEllett Memorial Hospital11-10-2009novel erdvytwdf-B8T2-96, preservative-free, injectable Generic [facility] HospitalZkjvvxipub95-48-5314cqkqhsabpk, tetanus toxoids and acellular pertussis vaccine, unspecified formulationGeneNorthwest Medical CenterBlhqntgpbb61-53-9248cxrcslfsy B vaccine, pediatric or pediatric/adolescent dosageGeneric Northwest HospitalIodkarphgj11-82-7317oytkquq, mumps and rubella virus vaccineTwo [facility]10-14-2005varicella virus vaccineTwo Rivers Psychiatric HospitalMicllfvpin07-79-9658IVzY-ccsagafic B and poliovirus vaccineGeneNorthwest Medical CenterTovofrkaqc27-26-6672bllenshnzwn influenzae type b vaccine, PRP-T conjugateTwo Rivers Psychiatric HospitalGiubochgem42-08-2508jekwwtajqmwa conjugate vaccine, 7 valentGeneNorthwest Medical CenterMfgjuewujs48-32-1936IAgW-yvqmkrlsu B and poliovirus vaccineGeneNorthwest Medical CenterMwnhgvxbjj59-36-2248mbwcnawnejm influenzae type b vaccine, PRP-T conjugateTwo [facility] 25-20-8586ranqyqcotfnj conjugate vaccine, 7 valentGeneric Northwest HospitalGpraestplj96-00-7776YGnC-mzoqifyyi B and poliovirus vaccineGeneric Northwest HospitalYzqnymktzm33-72-4751ffurvndftew influenzae type b vaccine, PRP-T conjugate Generic Northwest HospitalEfiazoevbi64-39-3271jkjienbfcwrb conjugate vaccine, 7 valentGeneric ProviderPike County Memorial HospitalQniyvbtumg66-02-7344yjgideozg B vaccine, pediatric or pediatric/adolescent dosageGeneric ProviderPike County Memorial Hospital Payers DatePayer CategoryPayerPolicy [id number] Health InsuranceMEDICAL MUTUAL Member Subscriber Plan / Payer (Effective 2023-Present) Name: Theresa Abbott Relation to Subscriber: Child Name: Scar Keira Chris Date ofBirth: 1977 (Work) Address: [address] [place] [address] Payer ID: Not on file Type: Not on file Address: [address] [place] [id number] [employer]UAL [id number] 2023-Present [address] [place] [id number] 2.0.1.651328.3.57[id number] 2.0.1.302073.3.57[id number] 2.0.1.565381.3.57[id number] 2.0.1.835589.3.57[id number] 2.840.1.865913.3.57[id number] 2.16.840.1.382978.3.57[id number] 2.16.840.1.304957.3.57[id number] 2.16.840.1.990448.3.57[id number] 2.16.840.1.694604.3.57[id number] 2.16.840.1.594721.3.57[id number] 2.16.840.1.330719.3.57[id number] 2.16.840.1.199845.3.57[id number] 2.16.840.1.740475.3.579.2.50143-49-6467Khfjvil Health [id number] [id number] 2.16.840.1.080175.3.579.2.531Unknown [id number] 2..840.1.911820.3.579.2.531 Social History DateTypeDetailFacilityUnknown if ever smokedSaint John'S HospitalAffomix Corporation Other Start: 06-13-2023 End: 12-12-5317Usj Assigned At BirthSwap.com / [employer] Other Start: 06-13-2023 End: 15-06-0121Mcrbjhp smoking status NHISNever smoked tobaccoNOMS Healthcare Start: 92-39-2588Hjlmfcg use and exposureSmokeless tobacco non-userNOMS HealthcareStart: 06-13-2023 End: 93-08-7989Axloznh of Social functionNOKY HealthcareStart: 73-45-7019Esz Assigned At BirthNot on fileNOKY HealthcareStart: 44-04-2732Vyy Assigned At BirthFePremier Health Miami Valley Hospitaltart: 02-25-2024 End: 70-67-4141Hzoptxsiz beverage intakeCurrent drinker of alcohol (finding)NOMS HealthcareStart: 71-23-9140Qqdusp identityIdentifies as female gender (finding) [facility] HealthcareStart: 42-10-9913Tokken orientationHeterosexual (finding)[facility]S HealthcareStart: 35-16-4652QvpRqjueyNFTI HealthcareNEGATED: Highlighted row [facility] Functional Status QatgDjmbdielllGtpeapSqulwpzv93-83-1270Tekbrfcump statusPatient at [facility] Work Phone: Mental Status BmxvVveqwlpevqNmdqxhRbndvcwn58-60-8541Yfylraqmu functionCognitive Status Patient at [facility] Work Phone: Clinical Notes 07-07-2023 to 06-15-2025 Note Date & OmszHfktYoybzbux08-85-8055 History of Present illness Narrative* Dany Mai MD - 06/15/2025 9:30 AM EDT Theresa Abbott is a 20 y.o. female Stella Stanley MD presents with chief complaint of DHEA (NEW REF/LAB) HPI: 05/2025 History of Present Illness The patient presents for elevated DHEA-S levels, 553, (110- 431), and testosterone normal 47 and thyroid normal, TSH. She used to be on control for cysts on her ovaries and she has irregular cycle, currently it under barrel brander management. She reports no history of hirsutism. Insulin within normal limits, 8.1( 2-24), and fasting blood sugar 94. She has a history of ovarian cysts and irregular menstrual cycles, which are currently being managed by a barrel brander. She reports no history of hirsutism. Results [...] Perform 1 mg DST to rule out [place]'s syndrome and 17- hydroxyprogesterone test to rule [...] laparoscopy, removal of cyst documented in this encounterPike County Memorial HospitalDjguktmmne75-16-6528 History of Present illness Narrative* Stella Stanley MD - 05/11/2025 2:15 PM EDT [...] 0 0 0 0 0 Obstetric Comments Bbe-Sx-Mblglxdn; every month, heavy to normal blood loss, LMP: 05/02/25 Medication and Allergies Medication Documentation Review Audit Reviewed by Sherlyn Nation MA (Interventional Nurse) on 05/11/25 at 1409 Medication Order Taking? Sig Documenting Provider Last Dose Status ibuprofen 600 MG tablet [id number] Take 1 tablet by mouth every 6 (six) hours if needed Stella Stanley MD Active ISOtretinoin (Accutane) 40 MG capsule [id number] Twice daily Stella Stanley MD Active norgestimate-ethinyl estradiol (Sprintec 28) 0.25-35 MG-MCG tablet [id number] Take 1 tablet by mouth Daily Stella [...] placed in this encounter. documented in this encounterPike County Memorial HospitalZmlmyhusdj06-90-6220 History of Present illness Narrative* Stella Stanley MD - 12/22/2024 11:30 AM EDT Images from the original note were [...] 0 0 0 0 0 Obstetric Comments Ltc-By-Zxhjdafm; every month, heavy blood loss, LMP: 11/13/24 until 12/12/24 Medication and Allergies Medication Documentation Review Audit Reviewed by Sherlyn Nation MA (Interventional Nurse) on 12/22/24 at 1129 Medication Order Taking? Sig Documenting Provider Last Dose Status ibuprofen 600 MG tablet [id number] Take 1 tablet by mouth every 6 (six) hours if needed Stella Stanley MD Active ISOtretinoin (Accutane) 40 MG capsule [id number] Twice daily Stella Stanley MD Active norgestimate-ethinyl estradiol (Ortho Tri-Cyclen LO) 0.18/0.215/0.25 MG-25 MCG tablet [id number] Take1 tablet by mouth Daily Stella Stanley MD [...] placed in this encounter. documented in this encounterPike County Memorial HospitalIibkoldvos64-71-1469 History of Present illness Narrative* Stella Stanley MD - 10/11/2024 10:45 AM EST Images from the original note were not included. Stella Stanley MD Obstetrics and Gynecology Patient: Theresa Gaspar Scar, : 2005 (19 y.o.) DOS 10/11/24 Exam [...] 0 0 0 0 0 Obstetric Comments Frq-Ao-Talmrpml; every month, heavy blood loss, LMP: 09/07/24 Medication and Allergies Medication Documentation Review Audit Reviewed by Sherlyn Nation MA (Interventional Nurse) on 10/11/24 at 1041 Medication Order Taking? Sig Documenting Provider Last Dose Status ibuprofen 600 MG tablet [id number] Take 1 tablet by mouth every 6 (six) hours if needed Stella Stanley MD Active ISOtretinoin (Accutane) 40 MG capsule [id number] Twice daily Stella Stanley MD Active norgestimate-ethinyl estradiol (Qvf-Pm-Dzkcngqq) 0.18/0.215/0.25 MG-25 MCG tablet [id number] Take 1 tablet by mouth Daily Stella [...] placed in this encounter. documented in this encounterPike County Memorial HospitalCoqhlfjcbo22-81-1636 History of Present illness Narrative* Stella Stanley MD - 04/27/2024 3:45 PM EDT Images from the original note [...] 0 0 0 0 0 Obstetric Comments Ipb-No-Zcwjobnh; every month, normal blood loss, LMP: 04/15/24 Medication and Allergies Medication Documentation Review Audit Reviewed by Sherlyn Nation MA (Interventional Nurse) on 04/27/24 at 1546 Medication Order Taking? Sig Documenting Provider Last Dose Status ibuprofen 600 MG tablet [id number] Take 1 tablet by mouth every 6 (six) hours if needed Stella Stanley MD Active ISOtretinoin (Accutane) 40 MG capsule [id number] Twice daily Stella Stanley MD Active norgestimate-ethinyl estradiol (Hod-Uw-Tdocbnbt) 0.18/0.215/0.25 MG-25 MCG tablet [id number] Take 1 tablet by mouth Daily Stella [...] placed in this encounter. documented in this encounterPike County Memorial HospitalOxqdoouiox81-67-6516 Evaluation note* Encounter Date Diagnosis Assessment Notes Treatment Notes Treatment Clinical Notes Jun, Sore throat (ICD-10 - J02.9) Jun,Viral pharyngitis (ICD-10 - J02.9)Drink plenty fluids, get plenty of rest. Take the prednisone as prescribed until gone. Use the fluticasone nasal spray as prescribed until your symptoms improved. Take Tylenol or Motrin as needed foraches pains or fevers. Follow-up with your family physician if no improvement in 2 to 3 days [facility] Other Evaluation note* Diagnosis Onset Date Resolution Status Abdominal pain acuteCyst of right ovaryacute [facility] Work Phone: Evaluation note* Diagnosis Surgery follow-up Cyst of right [...] unspecified syncope type documented in this encounter [facility] HealthcareEvaluation note* Diagnosis Elevated dehydroepiandrosterone sulfate level- Primary PCOS (polycystic ovarian syndrome) Polycystic ovaries Irregular periods documented in this encounter [facility] HealthcareHistory and physical note Author Abena Alegre [facility] January 23, 2024 8:22amNote Date/TimeMay 2023 7:59[place] [address] [employer] History & Physical Signed Patient: Theresa Abbott MR#: [id number] : 2005 Acct:[id number] Age/Sex: 18 / F Adm Date: 4 Loc: Room: [address] [place] [address] Type: ADM IN Attending Dr: Abena Alegre DO Copies to: DO Marbin Chaney MD~ Date of Service: 01/23/2024 BIN OPERATOR - HPI History of Present Illness Chief Complaint: Right lower pelvic pain HPI: 18 year old nulligravid female presented to the ER last evening with worsening right lower quadrantpain. Patient has been having off and on pain in the right lower quadrant for the past week, but itdid worsen yesterday. On CT there was noted [...] she has been on an OCP for birthcontrol due to being on Accutane. She is no longer taking the Accutane and when questioned about the OCP, she states she has not been taking consistently. She denies any other complaints. Review of Systems Review of Systems All other systems reviewed & are negative unless noted below or in HPI [facility] Medical History No pertinent past medical history [...] mg/0.215 mg/0.25 mg-ethinyl estradiol 25 mcg tablet ([place]-Lnzggiae) 1 tab PO DAILY 01/22/24 [History Confirmed [...] Last Admin: 01/22/24 22:44 Dose: 10 ml BIN OPERATOR - Exam Physical Exam Vital signs: Temp [...] Exam Neurological: Present alert and oriented X3 BIN OPERATOR - Results Laboratory Results - Last 48 hrs. 01/22/24 19:39: Corrected WBC 10.2, Uncorrected WBC Count 10.2, RBC 4.23, Hgb 13.7, Hct 40.1, MCV 94.6, MCH 32.3, MCHC 34.2, RDW 13.0, Plt Count 375, MPV 7.3,Neut % (Auto) 82.3, Lymph % (Auto) 14.7, [place] % (Auto) 2.4, Eos % (Auto) 0.2, Baso % (Auto) 0.4, Nucleat RBC Rel Count 0.0, Neut # (Auto) 8.4H, Lymph # (Auto) 1.5, [place] # (Auto) 0.2, Eos # (Auto) 0.0, Baso # (Auto) 0.0, Monocyte Dist Width 15.02, ESR 20 H, PHA Creatinine Clear 134.44, Sodium 131 L, Potassium3.9, Chloride 98, Carbon Dioxide 22.7, Anion Gap 14.2, BUN 11, Creatinine 0.72, Est GFR (CKD-EPI) > 60.0, Glucose 110 H, Calcium9.7, Total Bilirubin 0.4, AST 26, ALT 13, Alkaline Phosphatase 53, C-Reactive Prot, Quant 0.7 H, Total Protein8.0, Albumin 4.7, Globulin 3.3, Albumin/Globulin Ratio 1.4, Lipase 11.0 01/22/24 18:25: Urine Color Yellow, Urine Appearance Clear, Urine pH 8.0, Ur Specific [place] 1.033H, Urine Protein Trace H, Urine Glucose (UA) Normal, Urine Ketones 3+ H, Urine Occult Blood Negative, Urine Nitrite Negative, Urine Bilirubin Negative, Urine Urobilinogen Normal, Ur Leukocyte Esterase Negative, Urine RBC None seen, Urine WBC 0-1, Ur Squamous Epith Cells 3-4 H, Urine Bacteria None seen, Hyaline Casts 0-8, Urine HCG, Qual Negative BIN OPERATOR - A/P (1) Cyst of right ovary: [...] up with Dr. Stanley per mom's request nextweek. Patient and mother comfortable with plan. Will discharge withpain medications and she is to return with any worsening pain. Documented By: Abena Alegre DO 01/23/24 07 53 Signed By: <Electronically signed by Abena Alegre, > 01/23/24 0835 [facility] Work Phone: Summary Purpose Family History [...] and content) DATE CREATED AUTHOR 09/20/2019 [facility] DATE CREATED AUTHOR AUTHOR'S ORGANIZ ATION 04/19/2024 [facility] DATE CREATED AUTHOR AUTHOR'S ORGANIZ ATION 02/06/2025 [facility] DATE CREATED AUTHOR AUTHOR'S ORGANIZ ATION 06/16/2025 [facility] EPIC REASON FOR VISIT (unrecogniz ed section and content) ReasonCommentsDHEANEW REF/LABSpecialtyDiagnoses / ProceduresReferred By Contact Referred To ContactEndocrinology Diagnoses Other specified abnormal findings of blood chemistry Procedures VT OFFICE/OUTPATIENT EST PT MAY NOT REQ PHYS/QHP Stella Stanley MD [address] [place] [address] Phone: tel: fax: Dany Mai MD [address] [place] [address] Phone: tel: fax: Referral IDStatusReasonStart DateExpiration DateVisits RequestedVisits [id number] Consult and Treat / Care Teams (unrecognized sec tion and content) Team Status: Active Member Role Status Dates Marbin Keith MD Primary Care Provider Active Team Status: Inactive Member Role Status Dates Marbin Keith MD Primary Care Provider Active Start: January 23, 2024 End: January 22JEREMY Graham-Vee ProviderActiveStart: January 23, 2024 End: January 23, 2024Benedicto Paulson Provider, Attending ProviderActive Start: January 23, 2024 End: January 23, 2024Team MemberRelationshipSpecialtyStart DateEnd Date Ana Cristina Mejia MD [address] [facility] [address] [place] [address] PCP - Medical [facility]01/23/23 Ana Cristina Mejia MD [address] [facility] [address] [place] [address] [facility]12/31/22 Team Status: Active Member Role Status Dates Marbin Keith MD Primary Care Provider Active Start: January 23, 2024 Steven Quiroz ProviderActiveStart: January 23, 2024 Benedicto Paulson Provider, Attending ProviderActiveStart: January 23, 2024 Team Status: Inactive Member Role Status Dates Stella Stnaley MD Attending Provider Active Star t: April 12, 2024 End: April 12, 2024Team MemberRelationshipSpecialtyStart DateEnd Date Ana Cristina Mejia MD [address] [facility] [address] [place] [address] PCP - [facility] Medicine12/31/22 Milan Mathews MD [address] [place] [address] PCP - Medical [place] [employer]02/23/1912Team MemberRelationshipSpecialty Start DateEnd Date Ana Cristina Mejia MD [address] [place] [address] PCP - [facility]12/31/22 Milan Mathews MD [address] [place] [address] PCP - [facility]02/23/1912Te MemberRelationshipSpecialty Start DateEnd Date Ana Cristina Mejia MD [address] [place] [address] PCP - [facility]12/31/22 Milan Mathews MD [address] [place] [address] PCP - [facility]02/23/1912Team MemberRelationshipSpecialty Start DateEnd Date Ana Cristina Mejia MD [address] [place] [address] PCP - [facility]12/31/22 Milan Mathews MD [address] [place] [address] PCP - [facility]02/23/1912Team MemberRelationshipSpecialty Start DateEnd Date Ana Cristina Mejia MD [address] [place] [address] PCP - [facility]12/31/22 Milan Mathews MD [address] [place] [address] PCP - [facility]02/23/1912Te MemberRelationshipSpecialty Start DateEnd Date Ana Cristina Mejia MD [address] [place] [address] PCP - [facility]12/31/22 Milan Mathews MD [address] [place] [address] PCP - [facility]02/23/1912Te MemberRelationshipSpecialty Start DateEnd Date Ana Cristina Mejia MD [address] [place] [address] PCP - [facility]12/31/22 Milan Mathews MD [address] [place] [address] PCP - [facility]02/23/1912Te MemberRelationshipSpecialty Start DateEnd Date Ana Cristina Mejia MD [address] [place] [address] PCP - [facility]12/31/22 Milan Mathews MD [address] [place] [address] PCP - [facility]02/23/1912 Goals (unrecognized section and content) Goals may [...] BE BASED ON THE PRIMARY CLINICAL RECORDS. [facility] [employer] [facility]. provides no warranty or guarantee of the accuracy or completeness of information in this document.
[2025-06-22 11:21] LABS: Anion Gap 14.7; Blood Urea Nitrogen 8.0 mg/dL (7.0-18.0); Calcium 9.8 mg/dL (8.5-10.1); Carbon Dioxide 26.2 mmol/L (21.0-32.0); Chloride 101 mmol/L (98-107); Estimated GFR (African America >60 (>=60 mL/min/1.73m^2); Estimated GFR (Non-African Ame >60 (>=60 mL/min/1.73m^2); Glucose 95 mg/dL (74-106); Potassium 3.9 mmol/L (3.5-5.1); Sodium 138 mmol/L (136-145)
== END 2025-06-22 09:11 | disposition home or self-care (01) ==
LOC: LAB 09:12
PROVIDERS: PCP Nurse Practitioner; Visit Provider Internal Medicine
DX: R79.89 Other specified abnormal findings of blood chemistry (principal)
CPT/HCPCS: 36415; 80048; 82533; 82627; 83498

== ENCOUNTER 2025-07-14 14:40 | Emergency (ER) | payer OTHER, SELFPAY ==
--- OUTSIDE RECORDS SUMMARY | 2025-07-14 15:00 | XMS_ITS | Clinical Summary ---
Author Organization [facility] Address [address] [place] [address] Care Team Providers Care Game Trapper Name Role Phone Ana Cristina Mejai MD Primary Care Provider [phone] Milan Mathews MD Unavailable [phone] Allergies Active AllergyReactionsCriticalityNoted DateCommentsPenicillinsSwelling 06/13/2023 Medications MedicationSigDispense QuantityRefillsLast FilledStart DateEnd DateStatus ibuprofen 600 MG tablet Take 1 tablet by mouth every 6 (six) hours if oczntt4901/23/2024ctive ISOtretinoin (Accutane) 40 MG capsule 01/22/2024ctive norgestimate-ethinyl [...] with meals. 90 tablet 504/20/2026Active Encounters DateTypeDepartmentCare LujbEyqluekrnxt65/03/2025Orders Only [facility] [address] [place] [address] Dany Larkin MD 06/15/2025 9:30 AM EDTOffice Visit [facility] [address] [place] [address] Dany Larkin MD Elevated dehydroepiandrosterone sulfate level (Primary Dx); PCOS (polycystic ovarian syndrome); Irregular afvcvrs3506/15/2025amboo flowsheet [facility] [address] [place] [address] Dany Larkin MD 05/23/2025Results Follow-Up [facility] [address] [place] [phone] Jeff Stanley MD ALL CBC WITH AUTO DIFF, HMHP GLUCOSE FASTING, ALL THYROID STIM HORMONE, Additional followed-up results: linisync Result Encounter [facility] Unsolicited Jeff Stanley MD 05/11/2025 2:15 PM EDTOffice Visit [facility] [address] [place] [phone] Jeff Stanley MD Menorrhagia with regular cycle (Primary Dx); Alopecia; Syncope, unspecified syncope type05/11/2025amboo flowsheet [facility] [address] [place] [address] Jeff Stanley MD 05/11/20254901Jnhfyl87/10/2025Telephone [facility] [address] [place] [address] Jeff Stanley MD from Last 3 Months Immunizations ImmunizationAdministration DatesNext DueDTaP / Hep B / IPV2004,2004, 2004DTaP / IPV04/10/2010DTaP, Unmrzjvsngu32/31/2008Hep A, ped/adol, 2 dose 04/04/2022,03/25/2017Hep B, Adolescent or Ptmjcivbw63/31/2008,2004Hib (PRP-T)2004,2004,2004MMR14943CBBG27/17/2010Meningococcal ICF8C6803/25/2017Meningococcal Polysaccharide A,C,Y,W-135 TT Wfdawppex65/11/2022 Novel hihsftzet-E8M7-16, preservative-free07/04/2009Pneumococcal Conjugate PCV 7 2004,2004,2004Tdap03/25/20174487Tuygqjsbn33/14/2005 Family History Medical HistoryRelationNameCommentsHypertensionFatherBreast cancerMaternal GrandmotherMarge RectorMigrainesMotherLaura BauerRelationNameStatusComments FatherAliveMaternal GrandmotherMarge RectorMotherLaura BauerAlive Social History Tobacco UseTypesPacks/DayYears UsedDateSmoking Tobacco: NeverSmokeless Tobacco: Never Tobacco Cessation:Counseling Given: Not Answered Alcohol UseStandard Drinks/WeekCommentsYes1 (1 standard drink = 0.6 oz pure alcohol)CommentsNoSex and Gender InformationValueDate RecordedSex Assigned at DmjcxJdcima09/03/2024 1:48 PM EDTLegal BotCtptwe87/15/2023 7:09 PM EDTGender VchegmubXnqboz11/03/2024 1:48 PM EDTSexual OrientationStraight 01/26/2024 1:48 PM EDT Last Filed Vital Signs Vital SignReadingTime TakenCommentsBlood Eohwrfyg753/7010 9:25 AM EDT Abvzs778806/15/2025 9:25 AM GKVDteoshynxog58.4 ??C (99.4 ??F)06/13/2023 12:04 PM EDTRespiratory Sekb6400 9:25 AM EDTOxygen Rtetixhkmk24%06/15/2025 9:25 AM EDTInhaled Oxygen Concentration--Wrbwrz42.5 kg (162 lb)06/15/2025 9:25 AM EDT Nzudnx420.7 cm (5' 8 )06/15/2025 9:25 AM EDTBody Mass Index24.6306/15/2025 9:25 AM EDT Plan of Treatment DateTypeDepartmentCare Team (Latest Contact Info)Dmpcwmbabev48/21/2026 9:40 AM ESTOffice Visit [facility] [address] [place] [address] Dany Larkin MD [address] [place] [address] 10/13/2025 11:30 AM ESTOffice Visit [facility] [address] [place] [address] Jeff Stanley MD [address] [place] [address] Health MaintenanceDue DateLast DoneCommentsCOVID-19 Vaccine ( season) 2025Influenza Vaccine (#1)2025Pneumococcal Vaccine: Pediatrics (0 to 5 Years) and At-Risk Patients (6 to 64 Years)Aged Out2004, 2004, 2004No longer eligible based on patient's age to complete this topic Procedures Procedure NamePriorityDate/TimeAssociated DiagnosisComments 17-WVFVNYJNXSVCPFKJDHAIzoxxqf11/06/2025 8:06 AM EST Elevated dehydroepiandrosterone sulfate level BASIC METABOLIC XTJSWIducavt57/29/2025 1:12 PM EDT Elevated dehydroepiandrosterone sulfate level SRMCOH TESTOSTERONE FREE/TOT MRIFEHXAomqmae38/20/2025 9:03 AM EDT ALL DHEA QQHIBBZBxcylys70/20/2025 9:03 AM EDT TBH PYXOGEDIalaaqr41/20/2025 9:03 AM EDT ALL THYROID STIM JMOTVKYYnoqujm72/20/2025 9:03 AM EDT HMHP GLUCOSE QLDTXIAXvzdlhl75/20/2025 9:03 AM EDT ALL CBC WITH AUTO DUCAYvdjrbt83/20/2025 9:03 AM EDT from Last 3 Months Results * 17-Hydroxyprogesterone (06/30/2025 8:06 AM EST)Specimen (Source)Anatomical Location / LateralityCollection Method / VolumeCollection TimeReceived Time BloodVenous blood specimen / Unknown Narrative Authorizing ProviderResult TypeResult StatusDany Larkin [facility] BLOOD ORDERABLESFinal ResultPerforming OrganizationAddressCity/State/ZIP CodePhone Number [facility] * Basic metabolic panel (06/22/2025 1:12 PM EDT)Specimen (Source)Anatomical Location / LateralityCollection Method / VolumeCollection TimeReceived Time BloodVenous blood specimen / Unknown Narrative Authorizing ProviderResult TypeResult StatusDany Larkin [facility] BLOOD ORDERABLESFinal ResultPerforming OrganizationAddressCity/State/ZIP CodePhone Number [facility] * TBH INSULIN (05/14/2025 9:03 AM EDT)ComponentValueRef RangeTest MethodAnalysis TimePerformed AtPathologist SignatureINSULIN8.12.6 - 24.9 uIU/mLTBHComment: Performed at: ??CB - [facility] [address] ??[id number] Vascular Technologist: Jonh Valenzuela PhD, Phone: ??[phone] Specimen (Source)Anatomical Location / LateralityCollection Method / Volume Collection TimeReceived Time05/14/2025 9:03 AM EDT05/14/2025 9:05 AM EDT Narrative [facility] - 05/15/2025 1:07 PM EDT Authorizing ProviderResult TypeResult Matt Stanley MDCLINISYNCFinal ResultPerforming OrganizationAddressCity/State/ZIP CodePhone Number [facility] * SRMCOH TESTOSTERONE FREE/TOT EQUILIB (05/14/2025 9:03 AM EDT)ComponentValueRef RangeTest MethodAnalysis TimePerformed AtPathologist YcramqwuwVJFXHEZYRHMC9676 - 71 ng/dLTBHFREE TESTOSTERONE(DIRECT)2.20.0 - 4.2 pg/mLTBHComment: Performed at: ??CB - [facility] [address], [place], [place] ??[id number] Vascular Technologist: Jonh Valenzuela PhD, Phone: ??[phone] Performed at: ?? - [facility] [address] ??[id number] Vascular Technologist: Ángela Funez MD, Phone: ??[phone] Specimen (Source)Anatomical Location / LateralityCollection Method / Volume Collection TimeReceived Time05/14/2025 9:03 AM EDT05/14/2025 9:05 AM EDT Narrative [facility] - 05/20/2025 4:09 AM EDT Authorizing ProviderResult TypeResult StatusJeff Stanley [facility] CITYLINISYNCLong Island Community Hospitalal ResultPerforming OrganizationAddressty/State/ZIP CodePhone Number [facility] * HMHP GLUCOSE FASTING (05/14/2025 9:03 AM EDT)ComponentValueRef RangeTest MethodAnalysis TimePerformed AtPathologist SignatureTBH GLUCOSE CZMXFFB83<95 mg/dLTBHSpecimen (Source)Anatomical Location / LateralityCollection Method / VolumeCollection TimeReceived Time05/14/2025 9:03 AM EDT05/14/2025 9:05 AM EDT Narrative [facility] - 05/14/2025 10:26 AM EDT Authorizing ProviderResult TypeResult StatusJeff RODRIGUEZLINISYNCFinal ResultPerforming OrganizationAddressCity/State/ZIP CodePhone Number [facility] * ALL THYROID STIM HORMONE (05/14/2025 9:03 AM EDT)ComponentValueRef RangeTest MethodAnalysis TimePerformed AtPathologist SignatureTHYROID STIMULATING HORMONE2.0630.358 - 3.740 uIU/mLTBHSpecimen (Source)Anatomical Location / LateralityCollection Method / VolumeCollection TimeReceived Time05/14/2025 9:03 AM EDT05/14/2025 9:05 AM EDT Narrative [facility] - 05/14/2025 10:26 AM EDT Authorizing ProviderResult TypeResult StatusJeff Stanley [facility] CITYLINISYNCLong Island Community Hospitalal ResultPerforming OrganizationAddressCity/State/ZIP CodePhone Number [facility] * (ABNORMAL) ALL DHEA SULFATE (05/14/2025 9:03 AM EDT)ComponentValueRef Range Test MethodAnalysis TimePerformed AtPathologist SignatureDHEA-RKWZLZG443.0(A) 110.0 - 431.7 ug/dLTBHComment: Performed at: ?? - [facility] [address] ??[id number] Vascular Technologist: Jonh Valenzuela PhD, Phone: ??[phone] Specimen (Source)Anatomical Location / LateralityCollection Method / Volume Collection TimeReceived Time05/14/2025 9:03 AM EDT05/14/2025 9:05 AM EDT Narrative [facility] - 05/20/2025 4:09 AM EDT Authorizing ProviderResult TypeResult Matt Stanley [facility]SAGINAWISYNCLong Island Community Hospitalal ResultPerforming OrganizationAddPhysicians Care Surgical Hospitalty/State/[facility] CodePhone Number [facility] * (ABNORMAL) ALL CBC WITH AUTO DIFF (05/14/2025 9:03 AM EDT)ComponentValueRef RangeTest MethodAnalysis TimePerformed AtPathologist SignatureTBH WBC6.14.0 - 11.0 10 3/uLTBHTBH RBC4.204.20 - 5.40 10 6/uLTBHTBH HGB13.712.0 - 16.0 g/dLTBH TBH HCT39.436.0 - 48.0 %TBHTBH MCV93.881.0 - 99.0 fLTBHTBH MCH32.626.7 - 34.0 pgTBHTBH MCHC34.829.9 - 35.2 g/dLTBHTBH RDW11.611.0 - 15.0 %TBHTBH MQU782660 - 450 10 3/uLTBHTBH MPV8.8(L)9.5 - 13.5 [...] 05/14/2025 10:05 AM EDT Authorizing ProviderResult TypeResult StatusBrian J Printy MDCLINISYNCFinal ResultPerforming OrganizationAddressCity/State/ZIP CodePhone Number [facility] from Last 3 Months Insurance Care Teams Team MemberRelationshipSpecialtyStart DateEnd Date Ana Cristina Mejia MD [address] [facility] [address] [place] [address] [facility] - [facility]22 Milan Mathews MD [address] [facility] [address] [place] [address] PCP - Medical [facility]02/23/1912
[2025-07-14 15:06] VITALS: BP 142/93; PULSE 92; TEMP 36.9; O2SAT 100; BMI 24.3
--- OUTSIDE RECORDS SUMMARY | 2025-07-14 15:06 | XMS_ITS | CCD ---
Author Organization [facility] Care Team Providers Care Rn Acute Care Name Role Phone MISC, DOCTOR Admitting Unavailable [...] Provider MD Marbin Keith Primary Care Provider [phone] GEOFF Santiago Emergency Provider DO Abena Alegre Admit Provider DO Abena Alegre Attending Provider [phone] MD Stella Stanley Attending Provider Stella Stanley Admitting Unavailable Stella Stanley Attending Unavailable NO FAMILY, PHYSICIAN Primary Care Unavailable Abena Alegre Attending Unavailable Marbin Keith Primary Care Unavailable Abena Alegre Admitting Unavailable Milan Mathews MD Unavailable INDY Jones Attending Unavailable STELLA STANLEY Attending Unavailable STELLA STANLEY Attending Unavailable STELLA STANLEY Attending Unavailable DANY MAI Attending Unavailable STELLA STANLEY Referring Unavailable Allergies Allergy ClassificationReported Allergen(s)Allergy TypeDate of OnsetReaction(s) Facility (2 sources)Amoxicillin; 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: [amoxicillin]Drug Wrofoqx42-10-1951yrnvPro[facility] (19 sources)Penicillins; 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: [penicillins]Drug Zgdsqpj74-93-9725 [facility] Work Phone: Medications Current Medications MedicationDrug Class(es)DatesSig (Normalized)Sig (Original)acetaminophen 325 mg / HYDROcodone bitartrate 5 mg oral tablet (2 sources)Opioid AgonistStart: 29-20-2100dxzk 1 tablet by mouth every four to six hoursHydrocodone-Acetaminophen Active 1 TAB PO EVERY 4-6 HOURS 21 01January 22examethasone 1 mg oral tablet (2 sources)CorticosteroidStart: 51-23-6465jxte 1 tablet by mouth once dexAMETHasone (Decadron) 1 MG tablet Indications: Elevated dehydroepiandrosterone sulfate level Take 1 tablet (1 mg) by mouth 1 time 1 tablet 06/15/2025 ActiveStart: 86-84-6477qjnt 1 tablet by mouth once dexAMETHasone (Decadron) 1 MG tablet Indications: Elevated dehydroepiandrosterone sulfate level Take 1 tablet (1 mg) by mouth 1 time 1 tablet 06/15/2025 Activeethinyl estradiol 0.035 mg / norgestimate 0.25 mg oral tablet (20 sources)Progestin, EstrogenStart: 12-22-2024 End: 09-97-3287pjmr 1 tablet by mouth once dailynorgestimate-ethinyl estradiol (Sprintec 28) 0.25-35 MG-MCG tablet Indications: DUB (dysfunctional uterine bleeding) Take 1 tablet by mouth Daily 28 tablet 12 12/22/2024 12/22/2025 Active Start: 10-11-2024 End: 82-15-0071kcbs 1 tablet by mouth once dailynorgestimate-ethinyl estradiol (Ortho Tri-Cyclen LO) 0.18/0.215/0.25 MG-25 MCG tablet Indications: Cyst of ovary, unspecified laterality Take 1 tablet by mouth Daily 28 tablet 12 10/11/2024 12/22/2024 Discontinued (Ineffective)Start: 36-33-0161zfpk 1 tablet by mouth once dailynorgestimate-ethinyl estradiol (Ortho Tri-Cyclen LO) 0.18/0.215/0.25 MG-25 MCG tablet Indications: Cyst of ovary, unspecified laterality Take 1 tablet by mouth Daily 28 tablet 12 10/11/2024 ActiveStart: 01-26-2024 End: 68-21-8223dvzr 1 tablet by mouth once dailynorgestimate-ethinyl estradiol (Jzu-Mt-Xtzrvqjc) 0.18/0.215/0.25 MG-25 MCG tablet Indications: Cystof ovary, unspecified laterality Take 1 tablet by mouth Daily 28 tablet 12 01/26/2024 10/11/2024 Discontinued (Reorder)Start: 17-74-6561xstu 1 tablet by mouth once dailynorgestimate-ethinyl estradiol (Dau-Aa-Mfqwhdzf) 0.18/0.215/0.25 MG-25 MCG tablet Indications: Cystof ovary, unspecified laterality Take 1 tablet by mouth Daily 28 tablet 12 01/26/2024 ActiveStart: 38-35-6908pbir 1 tablet by mouth in the sdumwniOng-Rk-Jzvbnkqk 0.18/0.215/0.25 MG-25 MCG tablet Take 1 tablet by mouth in the morning. 0 06/02/2023 Activetake 1 tablet by mouth once daily Fix-Hh-Fawphaji 0.18/0.215/0.25 MG-25 MCG TAKE ONE TABLET BY MOUTH DAILY Oral for 28 Days Activefluticasone propionate 0.05 mg/actuat metered dose nasal spray (1 source)CorticosteroidStart: 76-39-7425qltc 2 spray(s) nasal route once daily Fluticasone Propionate 50 MCG/ACT 2 sprays Nasally Once a day for 14 day(s) Jun, Activeibuprofen 600 mg oral tablet (19 sources)Nonsteroidal Anti-inflammatory DrugStart: 92-26-1574tsol 1 tablet by mouth every six hours as neededibuprofen 600 MG tablet Take 1 tablet by mouth every 6 (six) hours if needed 01/23/2024 ActiveISOtretinoin 40 mg oral capsule (20 sources)RetinoidStart: 50-09-2165VDXnzpcedmbx (Accutane) 40 MG capsule 01/22/2024 ActivemetFORMIN hydrochloride 500 mg oral tablet (2 sources)BiguanideStart: 06-15-2025 End: 16-44-9266lzav 1 tablet by mouth at mealtimemetFORMIN (Glucophage) 500 MG tablet Indications: Elevated dehydroepiandrosterone sulfate level Take 1 tablet (500 mg) by mouth in the morning. Take with meals. 90 tablet 1 06/15/2025 12/12/2025 ActiveNorgestimate-Ethinyl Estradiol (Nsr-Qy-Hglwurtp) 0.18/0.215/0.25 mg-25 mcg tablet (3 sources)Start: 56-09-1262tpzw 1 tablet by mouth once dailyNorgestimate- Ethinyl Estradiol (Plb-Lq-Ydifcuxo) 0.18/0.215/0.25 mg-25 mcg tablet Active 1 TAB PO Daily January 22, 2024 12:00am FreeTextSig: TAKE ONE TABLET BY MOUTH DAILY Oral; Note: Source Status: Taking; Refills: 1; Qty: 28 Each; Provider: ADAMA ESPINOpredniSONE 20 mg oral tablet (1 source)Start: 12-28-0155nkwv 1 tablet by mouth every twelve hourspredniSONE 20 MG 1 tablet Orally bid for 5 day(s) Jun, Activetazarotene 1 mg/ml topical cream (1 source)RetinoidStart: 17-18-6955toxsijtdhy (Tazorac) 0.1 % cream APPLY PEA SIZED AMOUNT TO FACE EVERY OTHER NIGHT, INCREASE TOLERATED 0 11/25/2022 Active Completed/Discontinued Medications MedicationDrug Class(es)DatesSig (Normalized)Sig (Original)Azithromycin (1 source)Macrolide AntimicrobialStart: 92-62-9519Pepkljidg 200mg/5ml 200 mg/5 ml two teaspoon orally daily for 5 days Sep, Not-Taking Problems Active Problems Problem ClassificationProblemDateDocumented DateEpisodic/ChronicAbdominal pain (7 sources)Abdominal pain; 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: [Unspecified abdominal pain]Onset: 153584-29-2417YzlpkjctOysffjmultenq and procreative management (2 sources)Oral contraception; 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: [Encounter for surveillance of contraceptive pills]01-15-4959JgaqfwmhXdkalywbg disorders (4 sources)Menorrhagia; 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: [Excessive and frequent menstruation with regular cycle]20-21-2360YiuilxnFpqzi endocrine disorders (2 sources)Polycystic ovary syndrome; 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: [Polycystic ovarian syndrome]55-56-7134ZiwacdbUqluf female genital disorders (2 sources)Abnormal uterine bleeding; 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: [Other specified abnormal uterine and vaginal bleeding]64-07-6013JuenvcdYdogx screening for suspected conditions (not mental disorders or infectious disease) (2 sources)Endocrine finding; 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: [Other specified abnormal findings of blood chemistry]40-91-6635GmkgsjuiSjpnz skin disorders (2 sources)Alopecia; 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: [Nonscarring hair loss, unspecified] 35-16-2686LeqsemhiIplmk upper respiratory infections (3 sources)Streptococcal sore throat; 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: [Strep throat]Episodic Ovarian cyst (11 sources)Cyst of ovary; 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: [Unspecified ovarian cyst, right side] Onset: 284076-11-0657StqbjtinCittlio (2 sources)Syncope; 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: [Syncope and collapse]77-24-0687Onwebbxt Past or Other Problems Problem ClassificationProblemDateDocumented DateEpisodic/ChronicOther aftercare (1 source)Other fpc (current) drug therapy; 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: [OTH SENIOR LIVING CURRENT DRUG THERAPY]Onset: 20-42-0702UniywqocQsbzo aftercare (2 sources)Surgical follow-up; 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: [Encounter for follow-up examination after completed treatment for conditions other than malignant neoplasm]49-35-8703FvrjjewvDzpfk skin disorders (4 sources)Acne vulgaris; 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: [ACNE VULGARIS]Onset: 76-89-8780Kncjqsrn Results Test NameValueInterpretationReference RangeFacilityALL CBC WITH AUTO DIFFon 63-01-6631NCHGJQQTR ABSOLUTE AUTO0.1NOMS HealthcareBasophils/100 WBC (Bld)1 %0.2 - 2.0 %NOMS HealthcareEosinophils/100 WBC (Bld)2.8 %0.9 - 7.0 %[facility] Erythrocyte distribution width (RBC) [Ratio]11.6 %11.0 - 15.0 %[facility] Hematocrit (Bld) [Volume fraction]39.4 %36.0 - 48.0 %[facility]fieldHemoglobin (Bld) [Mass/Vol]13.7 g/dL12.0 - 16.0 g/dLMercy hospital springfieldIMMATURE GRANULOCYTES ABS AUTO0.01NOKindred HospitalImmature granulocytes/100 WBC (Bld)0.2 %0.0 - 0.5 % [facility] springfieldInterpretation and review of laboratory resultsAbnormalMercy hospital springfieldLYMPHOCYTES ABSOLUTE AUTO1.9NOKindred HospitalLymphocytes/100 WBC (Bld) 31.3 %20.5 - 60.0 %[facility] HospitalH (RBC) [Entitic mass]32.6 pg26.7 - 34.0 pg [facility] HospitalHC (RBC) [Mass/Vol]34.8 g/dL29.9 - 35.2 g/dLMercy hospital springfieldMCV (RBC) [Entitic vol]93.8 fL81.0 - 99.0 fLMercy hospital springfieldMONOCYTES ABSOLUTE AUTO 0.5NOKindred HospitalMonocytes/100 WBC (Bld)7.6 %1.7 - 12.0 %[facility] NEUTROPHILS ABSOLUTE AUTO3.5[facility] springfieldNeutrophils/100 WBC (Bld)57.1 %43.0 - 75.0 %[facility] springfieldPlatelet mean volume (Bld) [Entitic vol]8.8 fLLow9.5 - 13.5 fLMercy hospital springfieldTB EO #0.2NWashington County Memorial HospitalTB HPC673HIFTOzarks Medical Center RBC4.2 [facility] WBC6.1NOMS [facility] HospitalCLINISYNCNHARMON MEMORIAL H[facility] HealthcareQUANTIFERON-TB GOLD PLUSon 08-33-9169EHIURUVBPUE CRITERIAComment.[facility] HealthcareComment on above:QuantiFERON-TB Gold Plus is a qualitative indirect test for M tuberculosis infection (including disease) and is intended for use in conjunction with risk assessment, radiography, and other medical and diagnostic evaluations. The QuantiFERON-TB Gold Plus result is determined by subtracting the Nil value from either TB antigen (Ag) value. The Mitogen tube serves as a control for the test. QUANTIFERON INCUBATION.[facility] HealthcareComment on above:Incubation performed. Reference [...] <0.35 IU/mL. Chemiluminescence immunoassay methodology Performed at: [facility] [address] [id number] [place] Operator: Jonh Valenzuela PhD, Phone: [phone] [facility] Medicine Office/Clinic Noteon 41-69-3271Gsjdva Medicine Office/Clinic NoteBaldpate Hospital Medicine Office/Clinic Note HPI Staff JOSSY [...] for wellness visit. needs physical to start [employer] school in March. vaccine record reviewed. physical [...] 2004 Recorded hepatitis B pediatric vaccine 2004 [facility] HospitalComment on above:Result Comment: Electronically Signed By: Lianne Crenshaw\.missy\Date and Time Signed: 02/04/25 10:04 [place] 16-99-5596YAokldiwu: [id number] Received: 04/12/24 Status: LOKI De La Torre Num: [id number] Spec Type: Surgical Subm Dr: STELLA STANLEY MD Tissues: A Ovary - Biopsy (LEFT OVARIAN CYST) B Ovary - Biopsy (RIGHT OVARIAN CYST) Procedures: HE/3, Gross/Micro L4/2 Age/ Patient Sex Location Account Attending Physician ScarTheresa Chasity DAO [id number] STELLA STANLEY MD SPEC NUM: [id number] RECD: 04/12/24 STATUS: LOKI DE LA TORRE NUM: [id number] ARY: 04/12/[address]: STELLA STANLEY MD ENTERED: 04/12/[address] [facility] [address]: [facility] SPEC TYPE: Surgical DEPT: S ENTERED BY: [id number] RECV BY: [id number] ORDERED: HE/3, Gross/Micro L4/2 ORDERED: HE/3, Gross/Micro [...] cyst measuring 0.4 cm in greatest dimension. [employer] sections are submitted in cassettes B1-B2. Specimen: [id number] Received: 04/12/24 Status: LOKI De La Torre Num: [id number] Spec Type: Surgical Subm Dr: STELLA STANLEY MD Tissues: A Ovary - Biopsy (LEFT OVARIAN CYST) B Ovary - Biopsy (RIGHT OVARIAN CYST) Procedures: HE/3, Gross/Micro L4/2 Patient: Theresa Abbott [id number] (Continued) Specimen: [id number] Received: 04/12/24 (Continued) Signed (signature on file) Trupti Schmitt MD 04/13/24 1518 Specimen: [id number] Received: 04/12/24 Status: LOKI De La Torre Num: [id number] Spec Type: Surgical Subm Dr: STELLA STANLEY MD Tissues: A Ovary - Biopsy (LEFT OVARIAN CYST) B Ovary - Biopsy (RIGHT OVARIAN CYST) Procedures: HE/3, Gross/Micro L4/2 Patient: Abbott,Theresa Chasity [id number] (Continued) Specimen: [id number] Received: 04/12/24 (Continued) CPT Codes 69153i9 Specimen: [id number] Received: 04/12/24 Status: LOKI De La Torre Num: [id number] Spec Type: Surgical Subm Dr: STELLA STANLEY MD Tissues: A Ovary - Biopsy (LEFT OVARIAN CYST) B Ovary - Biopsy (RIGHT OVARIAN CYST) Procedures: HE/3, Gross/Micro L4/2 Patient: Theresa Abbott [id number] (Continued) Signed (signature on file) Katharina Schmitt MD 04/13/[address] [place] [address] Physician GroupUS transvaginalon 07-37-4693SC transvaginalOHIO STATE [facility] [place] [address] Ultrasound Report Signed Patient: Theresa Abbott MR#: [id number] : 2005 Acct:[id number] Age/Sex: 18 / F ADM Date: 01/23/24 Loc: Room: [address] [place] [address] Type: ADM IN Attending Dr: Abena Alegre DO Ordering Provider: Cj Santiago PA-C Date of Service: 01/22/24 US/US pelvic complete: right sided pain, large cyst and rule out torsion ([id number]) US/US transvaginal: rt sided pelvic pain Copies [...] M.D.01/23/2024 8:43 AM Dictation Location: [place] [address] Tech: Vane Ayon Transcribed By: RAKESH 01/23/24 0843 Dictated By: Pastora Granger MD 01/23/24 0830 Signed By: 01/23/24 0843TGH [facility] Physician GroupAlanine aminotransferase [Enzymatic activity/volume] in Serum or PlasmaOrdered By: Cj Santiago on 81-86-8154EDJ [Catalytic activity/Vol]13 U/LNormal7-52Mi[facility] HospitalComment on above:Performed By: #### CRP, CBC, ESR, CMP #### [facility] [address] [place] [address] USAAlbumin [Mass/volume] in Serum or Plasma by Bromocresol green (BCG) dye binding methoOrdered By: Cj Santiago on 87-96-5299Pwgndes BCG dye [Mass/Vol]4.7 g/dL3.5-5.7FMetroHealth Cleveland Heights Medical CenterAlkaline phosphatase [Enzymatic activity/volume] in Serum or PlasmaOrdered By: Cj Santiago on 35-95-1228TYN [Catalytic activity/Vol]53 U/IUcigoh58-035AgvglxoewMiami Valley HospitalComment on above:Performed By: #### CRP, CBC, ESR, CMP #### [facility] [address] [place] [address] USAAspartate aminotransferase [Enzymatic activity/volume] in Serum or PlasmaOrdered By: Cj Santiago on 15-17-9094CLE [Catalytic activity/Vol]26 U/LBslwxy06-15HzlrumhgzMiami Valley HospitalComment on above: Performed By: #### CRP, CBC, ESR, CMP #### [facility] [address] [place] [address] USAAutomated basophil %Ordered By: Cj Santiago on 01-22-2024 Basophils/100 WBC (Bld)0.4 %Normal.[facility] HospitalComment on above:Performed By: #### CRP, CBC, ESR, CMP #### [facility] [address] [place] [address] USAAutomated basophil countOrdered By: Cj Santiago on 77-44-9451Iekmkcahb (Bld) [#/Vol]0.0 10*3/uLNormal0.0-0.2FMetroHealth Cleveland Heights Medical CenterComment on above:Performed By: #### CRP, CBC, ESR, CMP #### [facility] [address] [place] [address] USAAutomated blood monocyte countOrdered By: Cj Santiago on 61-28-1110Xhnhdszcu (Bld) [#/Vol]0.2 10*3/uLNormal0.0-0.8[facility] HospitalComment on above:Performed By: #### CRP, CBC, ESR, CMP #### [facility] [address] [place] [address] USAAutomated eosinophil %Ordered By: Cj Santiago on 51-07-1593Wmzmmbfiomc/100 WBC (Bld)0.2 %Normal.[facility] Comment on above:Performed By: #### CRP, CBC, ESR, CMP #### [facility] [address] [place] [address] USAAutomated eosinophil countOrdered By: Cj Santiago on 78-25-7422Ipnxfuzdquj (Bld) [#/Vol]0.0 10*3/uLNormal0.0-0.45[facility] HospitalComment on above:Performed By: #### CRP, CBC, ESR, CMP #### [facility] [address] [place] [address] USAAutomated epithelial cells count in urine sediment (number/area)Ordered By: Cj Santiago on 80-23-8307Vlxlkhjhom cells Auto (Urine sed) [#/Area]3-4 [HPF]High0-2FMetroHealth Cleveland Heights Medical CenterAutomated monocyte %Ordered By: Cj Santiago on 98-76-0522Fnwdvkehr/100 WBC (Bld)2.4 %Normal. [facility] HospitalComment on above:Performed By: #### CRP, CBC, ESR, CMP #### [facility] [address] [place] [address] USAAutomated neutrophil %Ordered By: Cj Santiago on 39-78-0967Xpjxatruiom/100 WBC (Bld)82.3 %Normal.[facility] HospitalComment on above:Performed By: #### CRP, CBC, ESR, CMP #### [facility] [address] [place] [address] USABacteria [Presence] in Urine by AutomatedOrdered By: Cj Santiago on 75-40-1050Bwybzofs Auto Ql (U)None seen [HPF]None SeenMiami Valley HospitalBilirubin Test strip Ql (U)Ordered By: Cj Santiago on 96-03-3664Hfjuoarwa Ql (U)NegativeNegativeMiami Valley Hospital Bilirubin.total [Mass/volume] in Serum or PlasmaOrdered By: Cj Santiago on 65-97-0759Pfbmzxtmc [Mass/Vol]0.4 mg/dLNormal0.3-1.0[facility] HospitalComment on above:Performed By: #### CRP, CBC, ESR, CMP #### [facility] [address] [place] [address] USAC reactive protein [Mass/volume] in Serum or PlasmaOrdered By: Cj Santiago on 90-11-5720CWT [Mass/Vol]0.7 mg/dLHigh0.0-0.5FMetroHealth Cleveland Heights Medical CenterC-Reactive Proteinon 76-10-2340R-Reactive Protein0.7 mg/dLHigh0.0-0.5The [facility] Hospital Physician GroupComment on above:Result Comment: PERFORMED BY: [place] [address] PATHOLOGIST CAR WIPER ZACK MCCONNELL M.D.Performed By: #### CRP, CBC, ESR, CMP #### [facility] [address] [place] [address] USACT abdomen pelvis w conon 19-33-9174FH abdomen pelvis w [facility] [place] [address] [place] [address] CT Scan Report Signed Patient: Theresa Abbott MR#: [id number] : 2005 Acct:[id number] Age/Sex: 18 / F ADM Date: 01/22/24 Loc: ER Room: Type: [facility] ER Attending Dr: Copies to: Cj Santiago [...] Wesley Handy M.D.01/22/2024 8:58 PM Dictation Location: [place] [address] Transcribed By: [facility] 01/22/242057 Dictated By: Wesley Handy II, MD 01/22/242050 Signed By: 01/22/242057T[facility] Physician GroupCalcium [Mass/volume] in Serum or PlasmaOrdered By: Cj Santiago on 69-54-5966Qvznfma [Mass/Vol]9.7 mg/dLNormal 8.6-10.3FMetroHealth Cleveland Heights Medical CenterComment on above:Performed By: #### CRP, CBC, ESR, CMP #### [place] [address] USACarbon dioxide, total [Moles/volume] in Serum or Plasma Ordered By: Cj Santiago on 65-59-3339LV5 [Moles/Vol]22.7 mmol/SJoyyqs02.0-31.0 [facility] HospitalComment on above:Performed By: #### CRP, CBC, ESR, CMP #### [place] [address] USAChloride [Moles/volume] in Serum or PlasmaOrdered By: Cj Santiago on 58-19-6903Azaixdnq [Moles/Vol]98 mmol/GSzwtwp62-898JfaaprrimMiami Valley HospitalComment on above:Performed By: #### CRP, CBC, ESR, CMP #### [place] [address] USAColor of Urine by AutoOrdered By: Cj Santiago on 08-20-1129Gzmho (U)YellowNormalYellowMiami Valley HospitalComment on above:Order Comment: Name Collection Type:: Clean-Voided MidstreamPerformed By: #### UHCG, ADDONUAPLUS #### [place] [address] USAComplete Blood Count Auto Diffon 29-97-7742Laqi Corpuscular HGB Conc34.2 g/hOIsqvmv20.0-35.0The [facility] Access Hospital Physician GroupComment on above:Performed By: #### CRP, CBC, ESR, CMP #### [place] [address] USAMonocytes/100 WBC (Bld)15.02 %Normal0.00-20.00The [facility] Access Hospital Physician GroupComment on above:Performed By: #### CRP, CBC, ESR, CMP #### [place] [address] USANRBC%0.0 /100{WBC}Normal0-0.5The [facility] Comment on above:Performed By: #### CRP, CBC, ESR, CMP #### [address] [place] [address] USAComprehensive Metabolic Panelon 23-25-2202Rtodhez [Mass/Vol]4.7 g/dLNormal3.5-5.7[facility] Physician [facility] HospitalComment on above: Performed By: #### CRP, CBC, ESR, CMP #### [facility] [address] [place] [address] USACreatinine Clr Calc Nncqskal591.44NormalThe Critical Access Hospital Physician [facility] HospitalComment on above:Performed By: #### CRP, CBC, ESR, CMP #### [place] [address] USAGFR/1.73 sq M.predicted MDRD (S/P/Bld) [Vol rate/Area] mL/min/{1.73_m2}NormalThe Critical Access Hospital Physician [facility] HospitalComment on above:Performed By: #### CRP, CBC, ESR, CMP #### [place] [address] USACreatinine [Mass/volume] in Serum or PlasmaOrdered By: Cj Santiago on 32-63-4696Ppnstrcoct [Mass/Vol]0.72 mg/dLNormal0.60-1.20 [facility] HospitalComment on above:Performed By: #### CRP, CBC, ESR, CMP #### [place] [address] USADipstick and Microscopicon 35-60-8488Wxulbcndxx (U)Clear NormalClearThe Critical Access Hospital Physician GroupComment on above:Order Comment: Name Collection Type:: Clean-Voided MidstreamPerformed By: #### UHCG, ADDONUAPLUS #### [place] [address] USABacteria,UrineNone SeenNormalNone SeenHollywood Medical Center Physician [facility] HospitalComment on above:Order Comment: Name Collection Type:: Clean- Voided MidstreamPerformed By: #### UHCG, ADDONUAPLUS #### [place] [address] USABilirubin,UrineNegativeNormalNegativeThe Critical Access Hospital Physician GroupComment on above:Order Comment: Name Collection Type:: Clean- Voided MidstreamPerformed By: #### UHCG, ADDONUAPLUS #### [facility] [address] [place] [address] USAGlucose Ql (U)NormalNormalNormalThe Critical Access Hospital Physician GroupComment on above:Order Comment: Name Collection Type:: Clean-Voided MidstreamPerformed By: #### UHCG, ADDONUAPLUS #### [facility] [address] [place] [address] USAHyaline Casts,Tiate6-2Okjfba8-0Tpe [facility] Hospital Physician GroupComment on above:Order Comment: Name Collection Type:: Clean-Voided MidstreamPerformed By: #### UHCG, ADDONUAPLUS #### [place] [address] USAKetones Ql (U)3+HighNegativeThe Critical Access Hospital Physician Group Comment on above:Order Comment: Name Collection Type:: Clean-Voided Midstream Performed By: #### UHCG, ADDONUAPLUS #### [facility] [address] [place] [address] USALeukocyte esterase Test strip Ql (U)NegativeNormalNegative The [facility] Access Hospital Physician GroupComment on above:Order Comment: Name Collection Type:: Clean-Voided MidstreamPerformed By: #### UHCG, ADDONUAPLUS #### [facility] [address] [place] [address] USANitrite,UrineNegativeNormalNegativeHollywood Medical Center Physician GroupComment on above:Order Comment: Name Collection Type:: Clean-Voided MidstreamPerformed By: #### UHCG, ADDONUAPLUS #### [place] [address] USAOccult Blood,UrineNegativeNormalNegativeThe Critical Access Hospital Physician GroupComment on above:Order Comment: Name Collection Type:: Clean- Voided MidstreamPerformed By: #### UHCG, ADDONUAPLUS #### [place] [address] USAProtein,UrineTraceHighNegativeThe Critical Access Hospital Physician GroupComment on above:Order Comment: Name Collection Type:: Clean-Voided MidstreamPerformed By: #### UHCG, ADDONUAPLUS #### [place] [address] USARBC,UrineNone SeenNormal0-4The [facility]ician Group Comment on above:Order Comment: Name Collection Type:: Clean-Voided Midstream Performed By: #### UHCG, ADDONUAPLUS #### [place] [address] USASpecificy [place],Urine1.739Aalz5.001-1.030The Critical Access Hospital Physician GroupComment on above:Order Comment: Name Collection Type:: Clean- Voided MidstreamPerformed By: #### UHCG, ADDONUAPLUS #### [place] [address] USASquamous Epithelial Cell,Swvsu6-1Abwy9-9Jgr [facility] Hospital Physician GroupComment on above:Order Comment: Name Collection Type:: Clean- Voided MidstreamPerformed By: #### UHCG, ADDONUAPLUS #### [place] [address] USAUrobilinogen,UrineNormalNormalNormalThe Critical Access Hospital Physician GroupComment on above:Order Comment: Name Collection Type:: Clean- Voided MidstreamPerformed By: #### UHCG, ADDONUAPLUS #### [place] [address] USAWBC LM.HPF (Urine sed) [#/Area]0 /[HPF]Normal0-4The [facility] Hospital Physician GroupComment on above:Order Comment: Name Collection Type:: Clean-Voided MidstreamPerformed By: #### UHCG, ADDONUAPLUS #### [place] [address] USAECG 12 lead ECGon 82-52-9659UFD 12 lead ECGOHIO STATE UN[facility]ITY [facility] [place] [address] [place] [address] Electrocardiograph Report Signed Patient: Theresa Abbott MR#: [id number] : 2005 Acct:[id number] Age/Sex: 18 / F ADM Date: 01/23/24 Loc: Room: [address] [place] [address] Type: DIS INOo Attending Dr: Abena Alegre [...] previous ECGs available Confirmed by Nakul Cook ([id number]) on 01/23/2024 4:55:38 PM Referred By: Electronically Signed By:Nakul Cook Transcribed By: MUS Signed By Nakul Cook MD 01/23/[address] [place] [address] Physician GroupErythrocyte Sedimentation Rateon 08-70-7786WIR (Bld) [Velocity]20 mm/hHigh0-19[facility] Comment on above:Result Comment: PERFORMED BY: [place] [address] PATHOLOGIST CAR WIPER ZACK MCCONNELL M.D.Performed By: #### CRP, CBC, ESR, CMP #### [facility] [address] [place] [address] USAErythrocyte distribution width [Ratio] by Automated count Ordered By: Cj Santiago on 47-61-6239Svyoljferfs distribution width (RBC) [Ratio]13.0 %Lbwkkv07.9-15.3FMetroHealth Cleveland Heights Medical CenterComment on above: Performed By: #### CRP, CBC, ESR, CMP #### [facility] [address] [place] [address] USAErythrocyte sedimentation rate by Photometric method Ordered By: Cj Santiago on 27-02-6034DNN Photometric method (Bld) [Velocity]20 mm/hrHigh0-19Fircumberlands Regional Medical CenterErythrocytes [#/area] in Urine sediment by Automated countOrdered By: Cj Santiago on 02-77-6228KXK Auto (Urine sed) [#/Area]None seen [HPF]0-4FMetroHealth Cleveland Heights Medical CenterErythrocytes [#/volume] in Blood by Automated countOrdered By: Cj Santiago on 50-60-1464EYE (Bld) [#/Vol]4.23 10*6/uLNormal3.60-5.00[facility] HospitalComment on above:Performed By: #### CRP, CBC, ESR, CMP #### [facility] [address] [place] [address] USAGlucose [Mass/volume] in Serum or PlasmaOrdered By: Cj Santiago on 41-46-1017Zvkdwaw [Mass/Vol]110 mg/xYXond64-725AlrufaktcMiami Valley HospitalComment on above:ADA recommended reference rangeRandom Glucose Reference [...] By: #### CRP, CBC, ESR, CMP #### [facility] [address] [place] [address] USAHCG ( test) IA.rapid Ql (U)Ordered By: Cj Santiago on 09-85-6834CAI ( test) Ql (U)NegativeMiami Valley HospitalHCG,Urineon 72-54-7448Grwu HCG ( test) Ql (U)NegativeTGH Crystal River Physician GroupComment on above:Order Comment: Name Collection Type:: Clean-Voided MidstreamResult Comment: PERFORMED BY: [facility] [address] [place] [id number] PATHOLOGIST CAR WIPER ZACK MCCONNELL M.D.Performed By: #### UHCG, ADDONUAPLUS ####[facility] [id number] USAHematocrit [Volume Fraction] of Blood by Automated countOrdered By: Cj Santiago on 62-75-7493Qoivzgbscz (Bld) [Volume fraction]40.1 %Qzuhba82.0-46.4FMetroHealth Cleveland Heights Medical Center Comment on above:Performed By: #### CRP, CBC, ESR, CMP #### [facility] [address] [place] [address] USAHemoglobin [Mass/volume] in BloodOrdered By: Cj Santiago on 72-44-1637Bzqssludup (Bld) [Mass/Vol]13.7 g/sNJnnkik14.8-15.4FMetroHealth Cleveland Heights Medical CenterComment on above:Performed By: #### CRP, CBC, ESR, CMP #### [facility] [address] [place] [address] USAKetones Auto test strip (U) [Mass/Vol]Ordered By: Cj Santiago on 84-79-2803Ymepzjt (U) [Mass/Vol]3+HighNegativeMiami Valley HospitalLaboratory - UrinalysisOrdered By: Cj Santiago on 01-22-2024 Hyaline casts LM Ql (Urine sed)0-8 [LPF]0-8[facility] Leukocytes [#/area] in Urine sediment by Automated countOrdered By: Cj Santiago on 31-83-3343VXZ Auto (Urine sed) [#/Area]0-1 [HPF]0-4FMetroHealth Cleveland Heights Medical CenterLeukocytes [#/volume] corrected for nucleated erythrocytes in Blood by Automated counOrdered By: Cj Santiago on 94-87-3755EEB corrected for nucl RBC Auto (Bld) [#/Vol]10.2 10*3/uL3.8-11.6FMetroHealth Cleveland Heights Medical Center Leukocytes [#/volume] in Blood by Automated countOrdered By: Cj Santiago on 18-44-3587SUI (Bld) [#/Vol]10.2 10*3/uLNormal3.8-11.6FMetroHealth Cleveland Heights Medical CenterComment on above:Performed By: #### CRP, CBC, ESR, CMP #### [facility] [address] [place] [address] USALipase [Enzymatic activity/volume] in Serum or Plasma Ordered By: Cj Santiago on 20-22-7661Zkigwk [Catalytic activity/Vol]11.0 U/L Mryebf96.0-82.0Mi[facility] HospitalComment on above:Result Comment: PERFORMED BY: [place] [address] PATHOLOGIST CAR WIPER ZACK MCCONNELL M.D.Performed By: #### LIPASE #### [place] [address] USALymphocytes [#/volume] in Blood by Automated countOrdered By: Cj Santiago on 73-06-0524Izyvcrdvlyt (Bld) [#/Vol]1.5 10*3/uLNormal1.00-4.8 [facility] HospitalComment on above:Performed By: #### CRP, CBC, ESR, CMP #### [place] [address] USALymphocytes/100 leukocytes in Blood by Automated count Ordered By: Cj Santiago on 89-85-6593Telsacdhrok/100 WBC (Bld)14.7 %Normal. [facility] HospitalComment on above:Performed By: #### CRP, CBC, ESR, CMP #### [address] [Entitic mass] by Automated countOrdered By: Cj Santiago on 49-95-2145FAN (RBC) [Entitic mass]32.3 bjSpbwpd85.7-34.3FMetroHealth Cleveland Heights Medical CenterComment on above:Performed By: #### CRP, CBC, ESR, CMP #### [facility] [address] [place] [address] Auto (RBC) [Mass/Vol]Ordered By: Cj Santiago on 07-22-9134JQQI (RBC) [Mass/Vol]34.2 g/dL32.0-35.0Mi[facility] HospitalMCV [Entitic volume] by Automated countOrdered By: Cj Santiago on 18-30-1794PGU (RBC) [Entitic vol]94.6 jLHgrxrk15-482WmuxvxsfbMiami Valley HospitalComment on above:Performed By: #### CRP, CBC, ESR, CMP #### [facility] [address] [place] [address] USAMonocyte distribution width [Entitic volume] in Blood by AutomatedOrdered By: Cj Santiago on 62-64-7847Giqikpll distribution width Auto (Bld) [Entitic vol]15.02 %0.00-20.00[facility] HospitalNeutrophils [#/volume] in Blood by Automated countOrdered By: Cj Santiago on 01-22-2024 Neutrophils (Bld) [#/Vol]8.4 10*3/uLHigh1.8-7.7FMetroHealth Cleveland Heights Medical Center Comment on above:Performed By: #### CRP, CBC, ESR, CMP #### [facility] [address] [place] [address] USANitrite Test strip Ql (U)Ordered By: Cj Santiago on 79-78-2956Jmyswug Ql (U)NegativeNegativeMiami Valley HospitalNo Panel InformationOrdered By: Cj Santiago on 99-21-0686Fgkgzowor GFR (CKD-EPI)> 60.0 mL/MinMiami Valley HospitalPharmacy Creatinine Clearance (Chem 134.44Mi[facility] HospitalNucleated erythrocytes [Presence] in Blood by Automated countOrdered By: Cj Santiago on 72-27-9098Iyatxejzi RBC Auto Ql (Bld)0.0 /100{WBC}0-0.5FMetroHealth Cleveland Heights Medical CenterPlatelet mean volume [Entitic volume] in Blood by Automated countOrdered By: Cj Santiago on 30-02-0826Uicyhmra mean volume (Bld) [Entitic vol]7.3 fLNormal6.3-10.7FMetroHealth Cleveland Heights Medical CenterComment on above:Performed By: #### CRP, CBC, ESR, CMP #### [facility] [address] [place] [address] USAPlatelets [#/volume] in Blood by Automated countOrdered By: Cj Santiago on 32-99-4498Hdxtcjrvo (Bld) [#/Vol]375 10*3/gVAzmsdq777-209 [facility] HospitalComment on above:Performed By: #### CRP, CBC, ESR, CMP #### [facility] [address] [place] [address] USAPotassium [Moles/volume] in Serum or PlasmaOrdered By: Cj Santiago on 84-95-8985Yfclgorpm [Moles/Vol]3.9 mmol/LNormal3.5-5.1FMetroHealth Cleveland Heights Medical CenterComment on above:Performed By: #### CRP, CBC, ESR, CMP #### [facility] [address] [place] [address] USAProtein Auto test strip (U) [Mass/Vol]Ordered By: Cj Santiago on 97-30-7185Xzlffog (U) [Mass/Vol]Trace mg/dLHighNegativeMiami Valley HospitalProtein [Mass/volume] in Serum or PlasmaOrdered By: Cj Santiago on 03-98-4528Vjttotg [Mass/Vol]8.0 g/dLNormal6.4-8.9[facility] HospitalComment on above:Performed By: #### CRP, CBC, ESR, CMP #### [facility] [address] [place] [address] USASerum globulin measurement by calculation (mass/volume) Ordered By: Cj Santiago on 65-60-7022Cmilqgej (S) [Mass/Vol]3.3 g/dLNormal [facility] HospitalComment on above:Performed By: #### CRP, CBC, ESR, CMP #### [facility] [address] [place] [address] USASerum or plasma albumin/globulin mass ratioOrdered By: Cj Santiago on 79-15-3053Kvsroqh/Globulin [Mass ratio]1.4 {ratio}Normal [facility] HospitalComment on above:Performed By: #### CRP, CBC, ESR, CMP #### [place] [address] USASerum or plasma anion gap determinationOrdered By: Cj Santiago on 57-93-0057Tggpa gap [Moles/Vol]14.2 mmol/LNormal6.0-15.0[facility] HospitalComment on above:Performed By: #### CRP, CBC, ESR, CMP #### [facility] [address] [place] [address] USASodium [Moles/volume] in Serum or PlasmaOrdered By: Cj Santiago on 80-44-5902Cbaier [Moles/Vol]131 mmol/YQvk121-276FhadkwxrhMiami Valley HospitalComment on above:Performed By: #### CRP, CBC, ESR, CMP #### [facility] [address] [place] [address] USASpecific gravity Auto test strip (U) [Rel density]Ordered By: Cj Santiago on 76-42-2963Ffutddyx gravity (U) [Rel density]1.033High 1.001-1.030[facility] HospitalUrea nitrogen [Mass/volume] in Serum or PlasmaOrdered By: Cj Santiago on 53-36-0587Tkdp nitrogen [Mass/Vol]11 mg/dL Normal7-25[facility] HospitalComment on above:Performed By: #### CRP, CBC, ESR, CMP #### [facility] [address] [place] [address] USAUrine clarity by refractometry automatedOrdered By: Cj Santiago on 29-29-6080Uxfdigb Refractometry automated (U)ClearCleCleveland ClinicUrine glucose measurement by automated test strip (mass/volume)Ordered By: Cj Santiago on 89-92-0708Yfpvott Auto test strip (U) [Mass/Vol]Normal mg/dLNormalMiami Valley HospitalUrine hemoglobin detection by automated test stripOrdered By: Cj Santiago on 01-22-2024 Hemoglobin Auto test strip Ql (U)NegativeNegativeMiami Valley HospitalUrine leukocyte esterase detection by automated test stripOrdered By: Cj Santiago on 27-91-4629Ivugwgyqp esterase Auto test strip Ql (U)Negative NegativeMiami Valley HospitalUrine pH measurement by automated test stripOrdered By: Cj Santiago on 79-04-6497zI (U)8.0 [pH]Normal5.0-9.0[facility] HospitalComment on above:Order Comment: Name Collection Type:: Clean-Voided MidstreamPerformed By: #### UHCG, ADDONUAPLUS #### [facility] [address] [place] [address] USAUrobilinogen Auto test strip (U) [Mass/Vol]Ordered By: Cj Santiago on 81-23-4606Upbcmendykcd (U) [Mass/Vol]Normal mg/dLNormalMiami Valley HospitalALL TRIGLYCERIDESon 31-02-2013Xhuqmbbcbtsc [Mass/Vol]120 mg/dL53 - 208 mg/dLNOMS HealthcareCLINISYNCNOMS HealthcareQuick Strepon 07-07-2023S. pyogenes Org specific cx Ql (Throat)NegativeEfizity Other Quick StrepNoEfizity Other PREGNANCY URon 37-52-9048MBPKJIRPY, QUALNegativeNormal NEGATIVEThe [facility] HospitalComment on above:Performed By: #### PREGQNT, AST, ALT, GLUC, LIPID #### [facility] [address] [place] [address] Dandy KarenCBC AUTO DIFFon 10-35-7917Usbvmeyjc (Bld) [#/Vol]0.0 103/ulNormal 0.0-0.1The [facility] HospitalComment on above:Performed By: #### PREGQNT, AST, ALT, GLUC, LIPID #### [facility] [address] [address] Dandy KarenBasophils/100 WBC (Bld)0.5 %Normal0.2-2.0The [facility] Comment on above:Performed By: #### PREGQNT, AST, ALT, GLUC, LIPID #### [facility] [address] [place] [address] Dandy KarenEosinophils (Bld) [#/Vol]0.1 103/ulNormal0.0-0.7The [facility] HospitalComment on above:Performed By: #### PREGQNT, AST, ALT, GLUC, LIPID #### [facility] [address] [place] [address] Dandy KarenEosinophils/100 WBC (Bld)1.4 %Normal0.9-7.0The [facility] Comment on above:Performed By: #### PREGQNT, AST, ALT, GLUC, LIPID #### [facility] [address] [place] [address] Dandy KarenErythrocyte distribution width (RBC) [Ratio]12.8 %Tihhnf82.0-15.0The [facility] HospitalComment on above:Performed By: #### PREGQNT, AST, ALT, GLUC, LIPID #### [facility] [address] [place] [address] Dandy KarenHematocrit (Bld) [Volume fraction]40.4 %Beqoar51.0-48.0The [facility] HospitalComment on above:Performed By: #### PREGQNT, AST, ALT, GLUC, LIPID #### [facility] [address] [place] [address] Dandy KarenHemoglobin (Bld) [Mass/Vol]13.4 g/kUVymzuw14.0-16.0The [facility] HospitalComment on above:Performed By: #### PREGQNT, AST, ALT, GLUC, LIPID #### [facility] [address] [place] [address] Dandy KarenIG #0.00 10e3/ulNormal0.00-0.03The [facility] Mary Hospitalment on above:Performed By: #### PREGQNT, AST, ALT, GLUC, LIPID #### [facility] [address] [place] [address] Dandy KarenIG %0.0 %Normal0.0-0.5The [facility] HospitalComment on above: Performed By: #### PREGQNT, AST, ALT, GLUC, LIPID #### [facility] [address] [place] [address] Dandy KarenLymphocytes (Bld) [#/Vol]2.2 103/ulNormal1.2-3.8The [facility] HospitalComment on above:Performed By: #### PREGQNT, AST, ALT, GLUC, LIPID #### [facility] [address] [place] [address] Dandy DubonenLymphocytes/100 WBC (Bld)39.9 %Ktwwqd91.5-60.0[facility] Comment on above:Performed By: #### PREGQNT, AST, ALT, GLUC, LIPID #### [facility] [address] [place] [address] Dandy KarenMANUAL DIFF REQNONormalThe [facility] HospitalComment on above: Performed By: #### PREGQNT, AST, ALT, GLUC, LIPID #### [facility] [address] [place] [address] (RBC) [Entitic mass]31.3 fsRbhdmx09.7-34.0[facility] Comment on above:Performed By: #### PREGQNT, AST, ALT, GLUC, LIPID #### [facility] [address] [place] [address] KarHendricks [facility] (RBC) [Mass/Vol]33.2 g/eNFbzpmz04.9-35.2[facility] Comment on above:Performed By: #### PREGQNT, AST, ALT, GLUC, LIPID #### [facility] [address] [place] [address] [facility] (RBC) [Entitic vol]94.4 zRLdoulx05.1-95.6The [facility] Comment on above:Performed By: #### PREGQNT, AST, ALT, GLUC, LIPID #### [facility] [address] [place] [address] Dandy KarenMonocytes (Bld) [#/Vol]0.5 103/ulNormal0.3-0.8The [facility] Comment on above:Performed By: #### PREGQNT, AST, ALT, GLUC, LIPID #### [facility] [address] [place] [address] Dandy KarenMonocytes/100 WBC (Bld)8.0 %Normal1.7-12.0[facility] Comment on above:Performed By: #### PREGQNT, AST, ALT, GLUC, LIPID #### [facility] [address] [place] [address] Dandy KarenNeutrophils (Bld) [#/Vol]2.8 103/ulNormal1.4-6.5The [facility] HospitalComment on above:Performed By: #### PREGQNT, AST, ALT, GLUC, LIPID #### [facility] [address] [place] [address] Dandy KarenNeutrophils/100 WBC (Bld)50.2 %Bxvwdk95.0-75.0The [facility] Comment on above:Performed By: #### PREGQNT, AST, ALT, GLUC, LIPID #### [facility] [address] [place] [address] Dandy KarenPlatelet mean volume (Bld) [Entitic vol]9.0 fLCritically low9.5-13.5 The [facility] HospitalComment on above:Performed By: #### PREGQNT, AST, ALT, GLUC, LIPID #### [facility] [address] [place] [address] Dandy KarenPlatelets (Bld) [#/Vol]341 103/okPyvrjq730-298Hlj [facility] Comment on above:Performed By: #### PREGQNT, AST, ALT, GLUC, LIPID #### [facility] [address] [place] [address] Dandy KarenRBC (Bld) [#/Vol]4.28 106/ulNormal3.40-5.30The [facility] Comment on above:Performed By: #### PREGQNT, AST, ALT, GLUC, LIPID #### [facility] [address] [place] [address] Dandy KarenWBC (Bld) [#/Vol]5.6 103/ulNormal4.0-11.0[facility] Comment on above:Performed By: #### PREGQNT, AST, ALT, GLUC, LIPID #### [facility] [address] [place] [address] Dandy KarenGLUCOSE BLOODon 69-08-0805Xgtdojr [Mass/Vol]97 mg/fKWkckll75-118ErpSelect Medical Specialty Hospital - CantonComment on above:Performed By: #### PREGQNT, AST, ALT, GLUC, LIPID #### [facility] [address] [address] Dandy KarenLIPID PROFILEon 83-77-2045EHIA-HDL RATIO NORMSEE BELOWWright-Patterson Medical CenterComuniversity of [facility] health on above:Result Comment: 3.3 - 4.4 LOW RISK 4.4 - 7.1 AVERAGE RISK 7.1 - 11.0 MODERATE RISK >11.0 HIGH RISKPerformed By: #### PREGQNT, AST, ALT, GLUC, LIPID #### [facility] [address] [place] [address] Dandy KarenCholesterol [Mass/Vol]169 mg/yCRnrepq511-597VesSelect Medical Specialty Hospital - [facility]on Comment on above:Performed By: #### PREGQNT, AST, ALT, GLUC, LIPID #### [facility] [address] [address] Dandy KarenCholesterol in HDL [Mass/Vol]> or = 60 mg/dl - LOW CARDIOVASCULAR RISK <40 mg/dl - HIGH CARDIOVASCULAR RISKWright-Patterson Medical CenterComuniversity of [facility] health on above:Performed By: #### PREGQNT, AST, ALT, GLUC, LIPID #### [facility] [address] [place] [address] Dandy KarenCholesterol in HDL [Mass/Vol]55 mg/zWJkvlig94-89Ywg [facility] HospitalComuniversity of [facility] health on above:Performed By: #### PREGQNT, AST, ALT, GLUC, LIPID #### [facility] [address] [place] [address] Dandy KarenCholesterol in LDL [Mass/Vol]94.6 mg/dUWltwaz50.0-140.0The [facility] HospitalComuniversity of [facility] health on above:Performed By: #### PREGQNT, AST, ALT, GLUC, LIPID #### [facility] [address] [place] [address] Dandy KarenCholesterol in LDL [Mass/Vol]SEE [facility] Comment on above:Result Comment: <100 mg/dl OPTIMAL 100 - 129 mg/dl NEAR OR ABOVE OPTIMAL 130 - 159 mg/dl BORDERLINE HIGH 160 - 189 mg/dl HIGH >190 mg/dl VERY HIGHPerformed By: #### PREGQNT, AST, ALT, GLUC, LIPID #### [facility] [address] [address] Dandy KarenCholesterol.total/Cholesterol in HDL [Mass ratio]3.1 {ratio}Normal The [facility] HospitalComment on above:Performed By: #### PREGQNT, AST, ALT, GLUC, LIPID #### [facility] [address] [address] Dandy KarenTriglyceride [Mass/Vol]97 mg/hGRrspfb84-962KkdSelect Medical Specialty Hospital [facility] Comment on above:Performed By: #### PREGQNT, AST, ALT, GLUC, LIPID #### [facility] [address] [address] Dandy KarenVLDL CALC19.4 mg/dLWright-Patterson Medical CenterComment on above: Performed By: #### PREGQNT, AST, ALT, GLUC, LIPID #### [facility] [address] [address] Dandy KarenPREG QUANT HCGon 45-45-4272OJO QUANT<1.00[facility] Comment on above:Performed By: #### PREGQNT, AST, ALT, GLUC, LIPID #### [facility] [address] [address] Dandy KarenHCG RANGESEE BELOWWright-Patterson Medical CenterComment on above:Result Comment: 5-50 0-1 WEEK 40-300 1-2 WEEKS 100-1,000 2-3 WEEKS 500-6,000 3-4 WEEKS 5,000-200,000 1-2 MONTHS 10,000-100,000 2-3 MONTHS 3,000-50,000 2ND TRIMESTER 1,000-50,000 3RD TRIMESTERPerformed By: #### PREGQNT, AST, ALT, GLUC, LIPID #### [facility] [address] [address] Dandy KarenSGOTon 05-92-2825XPV [Catalytic activity/Vol]24 U/QJsdltn15-82Zpx [facility] HospitalComment on above:Performed By: #### PREGQNT, AST, ALT, GLUC, LIPID #### [facility] [address] [place] [address] Dandy CalderonAtrium Health Navicent Peach 03-92-6876ISI [Catalytic activity/Vol]19 U/LNormal9-52The [facility] HospitalComment on above:Performed By: #### PREGQNT, AST, ALT, GLUC, LIPID #### [facility] [address] [place] [address] Dandy KarenPREGNANCY URon 33-65-5365GEIBVEANW, QUALNegativeNormalNEGATIVEThe [facility] HospitalComment on above:Performed By: #### PREGQNT, AST, ALT, GLUC, LIPID #### [facility] [address] [place] [address] Dandy KarenPREGNANCY URon 49-86-0853QMPILVMGG, QUALNegativeNormalNEGATIVEThe [facility] HospitalComment on above:Performed By: #### CBC #### [facility] [address] [place] [address] Dandy KarenCBC AUTO DIFFon 17-85-4105Guhxrjvps (Bld) [#/Vol]0.0 103/ulNormal 0.0-0.1The [facility]. Mary Hospitalment on above:Performed By: #### CBC #### [facility] [address] [place] [address] Dandy KarenBasophils/100 WBC (Bld)0.6 %Normal0.2-2.0The [facility] Comment on above:Performed By: #### CBC #### [facility] [address] [place] [address] Dandy KarenEosinophils (Bld) [#/Vol]0.1 103/ulNormal0.0-0.7The [facility] HospitalComment on above:Performed By: #### CBC #### [facility] [address] [place], [place] [address] Dandy KarenEosinophils/100 WBC (Bld)1.2 %Normal0.9-7.0The [facility] Comment on above:Performed By: #### CBC #### [facility] [address] [place] [address] Dandy KarenErythrocyte distribution width (RBC) [Ratio]12.1 %Mylehp81.0-15.0The [facility] HospitalComment on above:Performed By: #### CBC #### [facility] [address] [place] [address] Dandy KarenHematocrit (Bld) [Volume fraction]41.2 %Giicvz87.0-48.0The [facility] HospitalComment on above:Performed By: #### CBC #### [facility] [address] [place] [address] Dandy KarenHemoglobin (Bld) [Mass/Vol]13.6 g/gIJxmqhf97.0-16.0The [facility] HospitalComment on above:Performed By: #### CBC #### [facility] [address] [place] [address] Dandy KarenIG #0.01 10e3/ulNormal0.00-0.03The [facility] HospitalComment on above:Performed By: #### CBC #### [facility] [address] [place] [address] Dandy KarenIG %0.2 %Normal0.0-0.5The [facility] HospitalComment on above: Performed By: #### CBC #### [facility] [address] [place] [address] Dandy KarenLymphocytes (Bld) [#/Vol]2.1 103/ulNormal1.2-3.8The [facility] HospitalComment on above:Performed By: #### CBC #### [facility] [address] [place] [address] Dandy KarenLymphocytes/100 WBC (Bld)41.5 %Djxwbn64.5-60.0The [facility] Comment on above:Performed By: #### CBC #### [facility] [address] [place] [address] Dandy KarenMANUAL DIFF REQNONormalThe [facility] HospitalComment on above: Performed By: #### CBC #### [facility] [address] [place] [address] Dandy KarenMCH (RBC) [Entitic mass]31.0 ncTobyaf42.7-34.0[facility] Comment on above:Performed By: #### CBC #### [facility] [address] [place] [address] Dandy KarenMCHC (RBC) [Mass/Vol]33.0 g/lQXmpwjz47.9-35.2[facility] Comment on above:Performed By: #### CBC #### [facility] [address] [place] [address] Dandy KarenMCV (RBC) [Entitic vol]93.8 fGLyeqnf69.1-95.6ThMansfield Hospital Comment on above:Performed By: #### CBC #### [facility] [address] [place] [address] Dandy KarenMonocytes (Bld) [#/Vol]0.4 103/ulNormal0.3-0.8ThMansfield Hospital Comment on above:Performed By: #### CBC #### [facility] [address] [place] [address] Dandy KarenMonocytes/100 WBC (Bld)8.7 %Normal1.7-12.0[facility] Comment on above:Performed By: #### CBC #### [facility] [address] [place] [address] Dandy KarenNeutrophils (Bld) [#/Vol]2.4 103/ulNormal1.4-6.5The [facility] HospitalComment on above:Performed By: #### CBC #### [facility] [address] [place] [address] Dandy KarenNeutrophils/100 WBC (Bld)47.8 %Jrxlgj62.0-75.0[facility] Comment on above:Performed By: #### CBC #### [facility] [address] [place] [address] Dandy KarenPlatelet mean volume (Bld) [Entitic vol]8.8 fLCritically low9.5-13.5 [facility] CantonComment on above:Performed By: #### CBC #### [facility] [address] [place] [address] Dandy KarenPlatelets (Bld) [#/Vol]330 103/qaUwlips086-231QkzSelect Medical Specialty Hospital [facility] [place] Comment on above:Performed By: #### CBC #### [facility] [address] [place] [address] Dandy KarenRBC (Bld) [#/Vol]4.39 106/ulNormal3.40-5.30[facility] Comment on above:Performed By: #### CBC #### [facility] [address] [place] [address] Dandy KarenWBC (Bld) [#/Vol]5.0 103/ulNormal4.0-11.0[facility] Comment on above:Performed By: #### CBC #### [facility] [address] [place] [address] Dandy KarenGLUCOSE BLOODon [id number] [Mass/Vol]102 mg/kYLzrrbk59-870FhqSelect Medical Specialty Hospital - CantonComment on above:Performed By: #### CBC #### [facility] [address] [place] [address] Dandy KarenLIPID PROFILEon [id number]-HDL RATIO [facility] HospitalComment on above:Result Comment: 3.3 - 4.4 LOW RISK 4.4 - 7.1 AVERAGE RISK 7.1 - 11.0 MODERATE RISK >11.0 HIGH RISKPerformed By: #### CBC #### [facility] [address] [place] [address] Dandy KarenCholesterol [Mass/Vol]169 mg/tIXeizeo931-191EivSelect Medical Specialty [facility] Comment on above:Performed By: #### CBC #### [facility] [address] [id number] Dandy KarenCholesterol in HDL [Mass/Vol]46 mg/mUIqpacj40-74Ikg [facility] HospitalComment on above:Performed By: #### CBC #### [facility] [address] [place], [place] [address] Dandy KarenCholesterol in HDL [Mass/Vol]> or = 60 mg/dl - LOW CARDIOVASCULAR RISK <40 mg/dl - HIGH CARDIOVASCULAR RISKWright-Patterson Medical CenterComment on above:Performed By: #### CBC #### [facility] [address] [id number] Dandy KarenCholesterol in LDL [Mass/Vol]SEE BELOWWright-Patterson Medical Center Comment on above:Result Comment: <100 mg/dl OPTIMAL 100 - 129 mg/dl NEAR OR ABOVE OPTIMAL 130 - 159 mg/dl BORDERLINE HIGH 160 - 189 mg/dl HIGH >190 mg/dl VERY HIGHPerformed By: #### CBC #### [facility] [address] [place] [address] Dandy KarenCholesterol in LDL [Mass/Vol]109.6 mg/mRFqcfzg31.0-140.0The [facility] HospitalComment on above:Performed By: #### CBC #### [facility] [address] [place], [place] [address] Dandy KarenCholesterol.total/Cholesterol in HDL [Mass ratio]3.7 {ratio}Normal The [facility] HospitalComment on above:Performed By: #### CBC #### [facility] [address] [place], [place] [address] Dandy KarenTriglyceride [Mass/Vol]67 mg/rWTousnx66-273VhwSelect Medical Specialty [facility] Comment on above:Performed By: #### CBC #### [facility] [address] [place], [place] [address] Dandy KarenVLDL CALC13.4 mg/dLWright-Patterson Medical CenterComment on above: Performed By: #### CBC #### [facility] [address] [place], [place] [address] Dandy KarenPREG QUANT HCGon [id number] QUANT<1.00[facility] Comment on above:Performed By: #### CBC #### [facility] [address] [place] [address] Dandy JagdishenHCG RANGESEE BELOWWright-Patterson Medical CenterComment on above:Result Comment: 5-50 0-1 WEEK 40-300 1-2 WEEKS 100-1,000 2-3 WEEKS 500-6,000 3-4 WEEKS 5,000-200,000 1-2 MONTHS 10,000-100,000 2-3 MONTHS 3,000-50,000 2ND TRIMESTER 1,000-50,000 3RD TRIMESTERPerformed By: #### CBC #### [facility] [address] [place] [address] Dandy DubonMount Nittany [facility] [id number] [Catalytic activity/Vol]22 U/RLoqcna31-00Qyi [facility] HospitalComment on above:Performed By: #### CBC #### [facility] [address] [place] [address] Dandy CalderonAtrium Health Nav[facility] [id number] [Catalytic activity/Vol]15 U/LNormal9-52The [facility] HospitalComment on above:Performed By: #### CBC #### [facility] [address] [place] [address] Dandy KarenCBC AUTO DIFFon 33-89-9570Hvyzwyqnf (Bld) [#/Vol]0.0 103/ulNormal 0.0-0.1The [facility] HospitalComment on above:Performed By: #### CBC #### [facility] [address] [place] [address] Dandy KarenBasophils/100 WBC (Bld)0.6 %Normal0.2-2.0[facility] Comment on above:Performed By: #### CBC #### [facility] [address] [place] [address] Dandy KarenEosinophils (Bld) [#/Vol]0.1 103/ulNormal0.0-0.7The [facility] HospitalComment on above:Performed By: #### CBC #### [facility] [address] [place] [address] Dandy KarenEosinophils/100 WBC (Bld)0.9 %Normal0.9-7.0The [facility] Comment on above:Performed By: #### CBC #### [facility] [address] [place] [address] Dandy KarenErythrocyte distribution width (RBC) [Ratio]12.2 %Cpcfub98.0-15.0The [facility] HospitalComment on above:Performed By: #### CBC #### [facility] [address] [place] [address] Dandy KarenHematocrit (Bld) [Volume fraction]39.7 %Dlsdyn60.0-48.0The [facility] HospitalComment on above:Performed By: #### CBC #### [facility] [address] [place] [address] Dandy KarenHemoglobin (Bld) [Mass/Vol]13.5 g/wSPqajya22.0-16.0The [facility] HospitalComment on above:Performed By: #### CBC #### [facility] [address] [place] [address] Dandy KarenIG #0.01 10e3/ulNormal0.00-0.03The [facility] HospitalComment on above:Performed By: #### CBC #### [facility] [address] [place] [address] Dandy KarenIG %0.1 %Normal0.0-0.5The [facility] HospitalComment on above: Performed By: #### CBC #### [facility] [address] [place] [address] Dandy KarenLymphocytes (Bld) [#/Vol]2.7 103/ulNormal1.2-3.8The [facility] HospitalComment on above:Performed By: #### CBC #### [facility] [address] [place] [address] Dandy KarenLymphocytes/100 WBC (Bld)40.2 %Ixccky42.5-60.0The [facility] Comment on above:Performed By: #### CBC #### [facility] [address] [id number] Dandy KarenMANUAL DIFF REQNONormalThe [facility] HospitalComment on above: Performed By: #### CBC #### [facility] [address] [place] [address] Dandy KarenMCH (RBC) [Entitic mass]31.6 dcMcsnry79.7-34.0The [facility] Comment on above:Performed By: #### CBC #### [facility] [address] [place] [address] Dandy KarenMCHC (RBC) [Mass/Vol]34.0 g/pQTkhwry26.9-35.2[facility] Comment on above:Performed By: #### CBC #### [facility] [address] [place] [address] Dandy KarenMCV (RBC) [Entitic vol]93.0 sINvtbtj22.1-95.6The [facility] Comment on above:Performed By: #### CBC #### [facility] [address] [place] [address] Dandy KarenMonocytes (Bld) [#/Vol]0.7 103/ulNormal0.3-0.8ThM[facility] Hospital Comment on above:Performed By: #### CBC #### [facility] [address] [place] [address] Dandy KarenMonocytes/100 WBC (Bld)10.5 %Normal1.7-12.0[facility] Comment on above:Performed By: #### CBC #### [facility] [address] [place] [address] Dandy KarenNeutrophils (Bld) [#/Vol]3.2 103/ulNormal1.4-6.5The [facility] HospitalComment on above:Performed By: #### CBC #### [facility] [address] [place] [address] Dandy KarenNeutrophils/100 WBC (Bld)47.7 %Wbcabp51.0-75.0The [facility] Comment on above:Performed By: #### CBC #### [facility] [address] [address] Dandy KarenPlatelet mean volume (Bld) [Entitic vol]8.6 fLCritically low9.5-13.5 [facility] CantonComment on above:Performed By: #### CBC #### [facility] [address] [place] [address] Dandy KarenPlatelets (Bld) [#/Vol]358 103/vqAqvzll439-109JoaSelect Medical Specialty Hospital [facility] Comment on above:Performed By: #### CBC #### [facility] [address] [place] [address] Dandy KarenRBC (Bld) [#/Vol]4.27 106/ulNormal3.40-5.30[facility] Comment on above:Performed By: #### CBC #### [facility] [address] [place] [address] Dandy KarenWBC (Bld) [#/Vol]6.7 103/ulNormal4.0-11.0[facility] Comment on above:Performed By: #### CBC #### [facility] [address] [place] [address] Dandy KarenGLUCOSE BLOODon 96-85-9445Vygpthz [Mass/Vol]98 mg/xCSzzbaz59-516AfhSelect Medical Specialty Hospital - CantonComment on above:Performed By: #### GLUC, AST, PREGQNT, LIPID, ALT #### [facility] [address] [place] [address] Dandy KarenLIPID PROFILEon [id number]-HDL RATIO [facility] HospitalComment on above:Result Comment: 3.3 - 4.4 LOW RISK 4.4 - 7.1 AVERAGE RISK 7.1 - 11.0 MODERATE RISK >11.0 HIGH RISKPerformed By: #### CBC #### [facility] [address] [place] [address] Dandy KarenCholesterol [Mass/Vol]162 mg/uCPqcnfr668-829JtfSelect Medical Specialty Hospital [facility] Comment on above:Performed By: #### CBC #### [facility] [address] [id number] Dandy KarenCholesterol in HDL [Mass/Vol]57 mg/yDNunfat52-84EklSelect Medical Specialty Hospital - CantonComment on above:Performed By: #### CBC #### [facility] [address] [place] [address] Dandy KarenCholesterol in HDL [Mass/Vol]> or = 60 mg/dl - LOW CARDIOVASCULAR RISK <40 mg/dl - HIGH CARDIOVASCULAR RISKNoKindred HealthcareComuniversity of [facility] health on above:Performed By: #### CBC #### [facility] [address] [address] Dandy KarenCholesterol in LDL [Mass/Vol]97.4 mg/fPKkeeyn51.0-140.0[facility] - CantonComment on above:Performed By: #### CBC #### [facility] [address] [place] [address] Dandy KarenCholesterol in LDL [Mass/Vol]SEE BELOWNoKindred Healthcare Comment on above:Result Comment: <100 mg/dl OPTIMAL 100 - 129 mg/dl NEAR OR ABOVE OPTIMAL 130 - 159 mg/dl BORDERLINE HIGH 160 - 189 mg/dl HIGH >190 mg/dl VERY HIGHPerformed By: #### CBC #### [facility] [address] [place] [address] Dandy KarenCholesterol.total/Cholesterol in HDL [Mass ratio]2.8 {ratio}Normal The [facility] HospitalComuniversity of [facility] health on above:Performed By: #### CBC #### [facility] [address] [place] [address] Dandy KarenTriglyceride [Mass/Vol]38 mg/dLCritically tzo32-205Cit [facility] HospitalComun[facility] on above:Performed By: #### CBC #### [facility] [address] [place] [address] Dandy KarenVLDL CALC7.6 mg/dLWright-Patterson Medical CenterComment on above: Performed By: #### CBC #### [facility] [address] [place] [address] Dandy KarenPREG QUANT HCGon 05-22-1817MCM QUANT<1.00[facility] Comment on above:Performed By: #### CBC #### [facility] [address] [place] [address] Dandy KarenHCG RANGESEE BELOWWright-Patterson Medical CenterComment on above:Result Comment: 5-50 0-1 WEEK 40-300 1-2 WEEKS 100-1,000 2-3 WEEKS 500-6,000 3-4 WEEKS 5,000-200,000 1-2 MONTHS 10,000-100,000 2-3 MONTHS 3,000-50,000 2ND TRIMESTER 1,000-50,000 3RD TRIMESTERPerformed By: #### CBC #### [facility] [address] [place] [address] Dandy CalderonCHI [facility] [id number] [Catalytic activity/Vol]25 U/UFvktwc64-56Lat [facility] HospitalComment on above:Performed By: #### GLUC, AST, PREGQNT, LIPID, ALT #### [facility] [address] [place] [address] Dandy CalderonAtrium Health [facility] [id number] [Catalytic activity/Vol]19 U/LNormal9-52The [facility] HospitalComment on above:Performed By: #### CBC #### [facility] [address] [place] [address] Dandy KarenCBC AUTO DIFFon [id number] (Bld) [#/Vol]0.0 103/ulNormal 0.0-0.1The [facility] HospitalComment on above:Performed By: #### CBC #### [facility] [address] [place] [address] Dandy KarenBasophils/100 WBC (Bld)0.5 %Normal0.2-2.0[facility] Comment on above:Performed By: #### CBC #### [facility] [address] [place] [address] Dandy KarenEosinophils (Bld) [#/Vol]0.1 103/ulNormal0.0-0.7The [facility] HospitalComment on above:Performed By: #### CBC #### [facility] [address] [place] [address] Dandy KarenEosinophils/100 WBC (Bld)1.2 %Normal0.9-7.0The [facility] Comment on above:Performed By: #### CBC #### [facility] [address] [place] [address] Dandy KarenErythrocyte distribution width (RBC) [Ratio]12.1 %Ynhjwo70.0-15.0The [facility] HospitalComment on above:Performed By: #### CBC #### [facility] [address] [place] [address] Dandy KarenHematocrit (Bld) [Volume fraction]42.7 %Pxkonb96.0-48.0The [facility] HospitalComment on above:Performed By: #### CBC #### [facility] [address] [place] [address] Dandy KarenHemoglobin (Bld) [Mass/Vol]14.3 g/eCGzkqwg12.0-16.0The [facility] HospitalComment on above:Performed By: #### CBC #### [facility] [address] [place] [address] Dandy KarenIG #0.02 10e3/ulNormal0.00-0.03The [facility] HospitalComment on above:Performed By: #### CBC #### [facility] [address] [place] [address] Dandy KarenIG %0.3 %Normal0.0-0.5The [facility] HospitalComment on above: Performed By: #### CBC #### [facility] [address] [place] [address] Dandy KarenLymphocytes (Bld) [#/Vol]2.8 103/ulNormal1.2-3.8The [facility] HospitalComment on above:Performed By: #### CBC #### [facility] [address] [place] [address] Dandy KarenLymphocytes/100 WBC (Bld)36.3 %Xmyjdj81.5-60.0[facility] Comment on above:Performed By: #### CBC #### [facility] [address] [place] [address] Dandy KarenMANUAL DIFF REQNONormalThe [facility] HospitalComment on above: Performed By: #### CBC #### [facility] [address] [place] [address] Dandy KarenMCH (RBC) [Entitic mass]31.2 zkQwaurx38.7-34.0[facility] Comment on above:Performed By: #### CBC #### [facility] [address] [place] [address] Dandy KarenMCHC (RBC) [Mass/Vol]33.5 g/lQJxycvz43.9-35.2[facility] Comment on above:Performed By: #### CBC #### [facility] [address] [place] [address] Dandy KarenMCV (RBC) [Entitic vol]93.0 dAHbinns03.1-95.6The [facility] Comment on above:Performed By: #### CBC #### [facility] [address] [place] [address] Dandy KarenMonocytes (Bld) [#/Vol]0.6 103/ulNormal0.3-0.8ThM[facility]field Hospital Comment on above:Performed By: #### CBC #### [facility] [address] [place] [address] Dandy KarenMonocytes/100 WBC (Bld)7.7 %Normal1.7-12.0[facility] Comment on above:Performed By: #### CBC #### [facility] [address] [place] [address] Dandy KarenNeutrophils (Bld) [#/Vol]4.1 103/ulNormal1.4-6.5The [facility] HospitalComment on above:Performed By: #### CBC #### [facility] [address] [place] [address] Dandy KarenNeutrophils/100 WBC (Bld)54.0 %Zpwlxo53.0-75.0[facility] Comment on above:Performed By: #### CBC #### [facility] [address] [place] [address] Dandy KarenPlatelet mean volume (Bld) [Entitic vol]9.8 fLNormal9.5-13.5The [facility] HospitalComment on above:Performed By: #### CBC #### [facility] [address] [place] [address] Dandy KarenPlatelets (Bld) [#/Vol]281 103/ffSmgynu048-590Jaz [facility] Comment on above:Performed By: #### CBC #### [facility] [address] [place] [address] Dandy KarenRBC (Bld) [#/Vol]4.59 106/ulNormal3.40-5.30The [facility] Comment on above:Performed By: #### CBC #### [facility] [address] [place] [address] Dandy KarenWBC (Bld) [#/Vol]7.6 103/ulNormal4.0-11.0[facility] Comment on above:Performed By: #### CBC #### [facility] [address] [place] [address] Dandy KarenGLUCOSE BLOODon 72-38-4598Aqbwegt [Mass/Vol]98 mg/oYWcxspi71-282RrbSelect Medical Specialty Hospital - CantonComment on above:Performed By: #### PREGQNT, AST, ALT, GLUC, LIPID #### [facility] [address] [place] [address] Dandy KarenLIPID PROFILEon [id number]-HDL RATIO NORMSEE [facility]ome[facility] Memorial HospitalComment on above:Result Comment: 3.3 - 4.4 LOW RISK 4.4 - 7.1 AVERAGE RISK 7.1 - 11.0 MODERATE RISK >11.0 HIGH RISKPerformed By: #### PREGQNT, AST, ALT, GLUC, LIPID #### [facility] [address] [id number] Dandy KarenCholesterol [Mass/Vol]161 mg/iJFyfrst309-217HljSelect Medical Specialty Hospital [facility] [place] Comment on above:Performed By: #### PREGQNT, AST, ALT, GLUC, LIPID #### [facility] [address] [address] Dandy KarenCholesterol in HDL [Mass/Vol]57 mg/tUDodomn02-19Oon [facility] HospitalComment on above:Performed By: #### PREGQNT, AST, ALT, GLUC, LIPID #### [facility] [address] [address] Dandy KarenCholesterol in HDL [Mass/Vol]> or = 60 mg/dl - LOW CARDIOVASCULAR RISK <40 mg/dl - HIGH CARDIOVASCULAR RISKNoKindred HealthcareComment on above:Performed By: #### PREGQNT, AST, ALT, GLUC, LIPID #### [facility] [address] [address] Dandy KarenCholesterol in LDL [Mass/Vol]93.4 mg/gAPibqgo91.0-140.0The [facility] HospitalComment on above:Performed By: #### PREGQNT, AST, ALT, GLUC, LIPID #### [facility] [address] [address] Dandy KarenCholesterol in LDL [Mass/Vol]SEE BELOWNoKindred Healthcare Comment on above:Result Comment: <100 mg/dl OPTIMAL 100 - 129 mg/dl NEAR OR ABOVE OPTIMAL 130 - 159 mg/dl BORDERLINE HIGH 160 - 189 mg/dl HIGH >190 mg/dl VERY HIGHPerformed By: #### PREGQNT, AST, ALT, GLUC, LIPID #### [facility] [address] [id number] Dandy KarenCholesterol.total/Cholesterol in HDL [Mass ratio]2.8 {ratio}Normal The [facility] HospitalComuniversity of [facility] on above:Performed By: #### PREGQNT, AST, ALT, GLUC, LIPID #### [facility] [address] [address] Dandy KarenTriglyceride [Mass/Vol]53 mg/cXYivjyf05-677ZxlSelect [facility] Comment on above:Performed By: #### PREGQNT, AST, ALT, GLUC, LIPID #### [facility] [address] [place] [address] Dandy KarenVLDL CALC10.6 mg/dLWright-Patterson Medical CenterComment on above: Performed By: #### PREGQNT, AST, ALT, GLUC, LIPID #### [facility] [address] [place] [address] Dandy KarenPREG QUANT HCGon [id number] QUANT<1.00[facility] Comment on above:Performed By: #### PREGQNT, AST, ALT, GLUC, LIPID #### [facility] [address] [place] [address] Dandy KarenHCG RANGESEE BELOWWright-Patterson Medical CenterComment on above:Result Comment: 5-50 0-1 WEEK 40-300 1-2 WEEKS 100-1,000 2-3 WEEKS 500-6,000 3-4 WEEKS 5,000-200,000 1-2 MONTHS 10,000-100,000 2-3 MONTHS 3,000-50,000 2ND TRIMESTER 1,000-50,000 3RD TRIMESTERPerformed By: #### PREGQNT, AST, ALT, GLUC, LIPID #### [facility] [address] [place] [address] Dandy CalderonGOHonorhealth Scottsdale [facility] [id number] [Catalytic activity/Vol]26 U/BVxctck23-20Udx [facility] HospitalComment on above:Performed By: #### PREGQNT, AST, ALT, GLUC, LIPID #### [facility] [address] [place] [address] Dandy CalderonGPTon [id number] [Catalytic activity/Vol]23 U/LNormal9-52[facility] CantonComuniversity of [facility] health on above:Performed By: #### PREGQNT, AST, ALT, GLUC, LIPID #### [facility] [address] [place] [address] Dandy KarenPREGNANCY URon [id number], QUALNegativeNormalNEGATIVEThe [facility] HospitalComment on above:Performed By: #### PREGU #### [facility] [address] [place] [address] Dandy Guillory Vital Signs Date TimeVital SignValuePerforming KptzykxakQjhytmje07-44-0517 09:25-0400Body lrthbu230.7 Joe Mai MD Work Phone: [phone] [place], [place] [address]Kobrdyqgng02-82-3692 09:25-0400Body mass index (BMI) [Ratio]24.63 kg/h0UoivuDany Mai MD Work Phone: [phone] [place], [place] [address]Vouafzknhu57-68-4099 09:25-0400Body mesdjj30.48 kgDany Mai MD Work Phone: [phone] [place], [place] [address]Yswvaxpdwj90-79-1266 09:25-0400Diastolic blood dwuemdfm88 mm[Hg]Dany Mai MD Work Phone: [phone] [place], [place] [address]Fzeaqvsszo00-24-2275 09:25-0400Heart rate72 /min Dany Mai MD Work Phone: [phone] [place], [place] [address]Sodzaitjta71-90-4198 09:25-0400Respiratory rate16 /minDany Mai MD Work Phone: [phone] [place] [address]Tbhclaupol98-24-8540 09:25-0925CpF4% (BldA) [Mass fraction]99 %Dany Mai MD Work Phone: [phone])[address] [place], [place] [address]Zqvepiufry05-16-3100 09:25-0400Systolic blood fgocfukh427 mm[Hg]Dany Mai MD Work Phone: [phone] [place], [place] [address]Ejqdnkmehv83-56-8831 14:08-0400Body mass index (BMI) [Ratio]24.48 kg/d4JkhmkStella Stanley MD Work Phone: [facility] springfieldNorpikchza19-61-7747 14:08-0400Body ettqfb60.03 kgStella Stanley MD Work Phone: noKindred HospitalVekxgljayo78-95-8494 14:08-0400Diastolic blood edndzxeo67 mm[Hg]Stella Stanley MD Work Phone: 1(588)[address] [place], [place] 0573409-17-2025 14:08-0400Systolic blood mm[Hg]Stella Stanley MD Work Phone: 1(692)[address] [place], [place] 0573404-30-2025 11:28-0400Body mass index (BMI) [Ratio]25.54 kg/n8YkdeqStella Stanley MD Work Phone: 1(835)[address] [place], [place] 0573404-30-2025 11:28-0400Body hdrroy31.2 kg Stella Stanley MD Work Phone: 1(822)[address] [place], [place] 0573404-30-2025 11:28-0400Diastolic blood iimbgvfl26 mm[Hg]Stella Stanley MD Work Phone: 1(784)[address] [place], [place] 0573404-30-2025 11:28-0400Systolic blood legkcomf281 mm[Hg]Stella Stanley MD Work Phone: 1(495)[address] [place], [place] 0573402-17-2025 10:42-0500Body mass index (BMI) [Ratio]25.85 kg/y7CzjvpStella Stanley MD Work Phone: 1(230)[address] [place], [place] 0573402-17-2025 10:42-0500Body juxsaj87.11 kgStella Stanley MD Work Phone: 1(279)[address] [place], [place] 0573402-17-2025 10:42-0500Diastolic blood ilmapvzt61 mm[Hg]Stella Stanley MD Work Phone: 1(312)[address] [place], [place] 0573402-17-2025 10:42-0500Systolic blood yeendakh008 mm[Hg]Stella Stanley MD Work Phone: 1(375)[address] [place], [place] 0573409-03-2024 15:45-0400Body mass index (BMI) [Ratio]25.09 kg/g7TeaqgStella Stanley MD Work Phone: 1(909)[address] [place], [place] 0573409-03-2024 15:45-0400Body evwvoj10.84 kgStella Stanley MD Work Phone: 1(130)[address] [place], [place] 0573409-03-2024 15:45-0400Diastolic blood znodmgkg11 mm[Hg]Stella Stanley MD Work Phone: [facility]fieldJamdlahqli84-54-9302 15:45-0400Systolic blood bhwlcrim112 mm[Hg]Stella Stanley MD Work Phone: [facility] springfieldUcaoobraok81-82-5781 08:00-0400Body temperature 98.2 [degF]MD Marbin Keith Work Phone: [phone])[address]05-31-2024 08:00-0400 Diastolic blood gkavgptg75 mm[Hg]MD Marbin Keith Work Phone: 1(647)[address]05-31-2024 08:00-0400 Heart rate47 /minMD Marbin Keith Work Phone: 1(670)[address]05-31-2024 08:00-0400 Respiratory rate16 /minMD Marbin Keith Work Phone: 1(199)[address]05-31-2024 08:00-0400 SaO2% (BldA) [Mass fraction]97 %MD Marbin Keith Work Phone: 1(222)[address]05-31-2024 08:00-0400 Systolic blood ckucssas675 mm[Hg]MD Marbin Keith Work Phone: 1(405)[address]05-31-2024 01:35-0400 Body zarfae096.72 cmMD Marbin Keith Work Phone: 1(641)[address]05-31-2024 01:35-0400 Body dvpvny64.11 kgMD Marbin Keith Work Phone: 1(149)[address]05-31-2024 00:12-0400 Diastolic blood xhktevyu21 mm[Hg]MD Marbin Keith Work Phone: 1(743)[address]05-31-2024 00:12-0400 Heart rate59 /minMD Marbin Keith Work Phone: 1(643)[address]05-31-2024 00:12-0400 Respiratory rate18 /minMD Marbin Keith Work Phone: 1(875)[address]05-31-2024 00:12-0400 SaO2% (BldA) [Mass fraction]98 %MD Marbin Keith Work Phone: [facility]05-31-2024 00:12-0400 Systolic blood iqpdqgvd400 mm[Hg]MD Marbin Keith Work Phone: [facility]05-30-2024 22:37-0400 Body gxrnkbkttxo11.8 [degF]MD Marbin Keith Work Phone: [facility]05-30-2024 16:34-0400 Body bduxyg504.18 cmMD Vasquezkeyonna Keith Work Phone: [facility]05-30-2024 16:34-0400 Body kgMD Vasquezkeyonna Keith Work Phone: [facility]11-13-2023 12:15-0500 Body vqzekp654.72 cmPamela Mile Other [employer] Other 11-13-2023 12:15-0500Body mass index (BMI) [Ratio] 26.12 kg/q7HtzslaMona Treadwell Other [employer] Other 11-13-2023 12:15-0500Body ynekffttbtf88.2 [degF]Mona Treadwell Other [employer] Other 11-13-2023 12:15-0500Body .93 kgPazeenat Mile Other [employer] Other 11-13-2023 12:15-0500Respiratory rate18 /minMona Treadwell Other [employer] Other 11-13-2023 12:15-5385SxW4% (BldA) [Mass fraction]98 % Mona Treadwell Other [employer] Other Encounters Encounter DateEncounter TypeCare ProviderFacilityStart: 06-15-2025 End: 01-44-2523Xtngqo Jitendra aMi MD Work Phone: [facility] [place] [facility]ocrinologyStart: 06-15-2025 End: 22-59-9037Monbxk Jitendra Mai MD Work Phone: NODY [place] EndocrinologyStart: 06-15-2025 End: 49-29-6643Nwpvie outpatient new 45 Arnaud Mai MD Work Phone: noms [place] EndocrinologyComment on above:Elevated dehydroepiandrosterone sulfate level (Primary Dx); PCOS (polycystic ovarian syndrome); Irregular periodsStart: 06-15-2025 End: 41-65-2527hfsnclijhcWDWMK F SABBAGHNot AvailableStart: 05-14-2025 End: 36-36-2590Ilefuqmcq Result EncounterStella Stanley MD Work Phone: noms External Department UnsolicitedStart: 05-14-2025 End: 01-11-5276Bvphlmret Result EncounterStella Stanley MD Work Phone: noms External Department UnsolicitedStart: 05-11-2025 End: 33-84-8610Wfsumt outpatient visit 15 minutesStella Stanley MD Work Phone: noms [place] OBGYNComment on above:Menorrhagia with regular cycle (Primary Dx); Alopecia; Syncope, unspecified syncope typeStart: 05-11-2025 End: 17-23-9647bjmoomjmevRQHHPIsaías Loza AvailableStart: 05-11-2025 End: 16-23-4540Eewsdf [place] Stanley MD Work Phone: noms [place] OBGYNStart: 05-11-2025 End: 42-78-4707Hdghzx C[place] Stanley MD Work Phone: [facility] OBGYNStart: 02-21-2025 End: 87-71-8147Thglbcvgf Result EncounterGeneric External Data ProviderNOMS External Department UnsolicitedStart: 02-21-2025 End: 68-64-8388Qrronwrdx Result EncounterGeneric External Data ProviderNOMS External Department UnsolicitedStart: 02-04-2025 End: 29-16-6721fzgihmeehqNSE Lianne L SchwabFacility:FT FM BellevueStart: 12-22-2024 End: 34-50-6074Svsfij C[place] Stanley MD Work Phone: [facility] OBStart: 12-22-2024 End: 83-26-7300Wfpkyg C[place] Stanley MD Work Phone: [facility] OBStart: 12-22-2024 End: 33-41-4328Ksqiho outpatient visit 15 minutesStella Stanley MD Work Phone: [facility] OBComment on above:DUB (dysfunctional uterine bleeding)Start: 12-22-2024 End: 65-81-4378jbyhexiwgdCTWZM J PRINTYNot AvailableStart: 10-11-2024 End: 41-16-8915Dzfllr C[place] Stanley MD Work Phone: [facility] OBStart: 10-11-2024 End: 47-56-9375Utiurq Cely Stanley MD Work Phone: [facility] OBStart: 10-11-2024 End: 02-40-2323Wgnmvmc encounter procedureStella Stanley MD Work Phone: [facility] Work Phone: start: 10-11-2024 End: 90-42-6789Xawixyxn preventive med est patient 18-39 yrsStella Stanley MD Work Phone: [facility] OBComment on above:Well woman exam with routine gynecological exam (Primary Dx); Oral contraceptive pill surveillance; Cyst of ovary, unspecified lateralityStart: 10-11-2024 End: 01-07-4865mzuoopvtdcEZVCP J PRINTYNot AvailableStart: 04-27-2024 End: 95-28-8580Uilsuv follow up visit related to original Marshall Stanley MD Work Phone: [facility] OBComment on above:Surgery follow-up; Cyst of right ovaryStart: 04-27-2024 End: 52-42-1908Xjgucv [place] Stanley MD Work Phone: [facility] OBStart: 04-27-2024 End: 20-73-8185Bgfpzf C[place] Stanley MD Work Phone: [facility] OBStart: 04-12-2024 End: 20-38-5032jrwkfzhmsfYR Marbin Keith Work Phone: [facility] Work Phone: Start: 04-12-2024 End: 67-67-9911Ssghojhz ReferredMD Marbin Keith Work Phone: [facility] [place] Work Phone: Start: 01-23-2024 End: 07-38-8291fnjtnpvgbaAlfzarxb RinkesFacility:[facility] Daytontart: 01-23-2024 End: 21-33-2468Mbyabowaor and management of inpatientMD Marbin Keith Work Phone: [facility] [place] Work Phone: Start: 01-23-2024 End: 80-28-9501dbpqsalwjvf encounterMD Marbin Keith Work Phone: [facility] Work Phone: Start: 49-42-5948Behqvgnxu Result EncounterGeneric External Data ProviderNOMS External Department UnsolicitedStart: 09-27-2023 Clinisync Result EncounterGeneric External Data ProviderNOMS External Department UnsolicitedStart: 07-07-2023 End: 32-40-5371wsjmrnqqgmLmocen Dymond Other [employer] Other Start: 21-41-6825Fxgnlr outpatient new 20 minutes Mona TreadwellRONALDG Urgent Care ClydeStart: 06-14-2019 End: 92-47-9313Eonukyw encounter procedureHOPE STEPHYFacility:L0Cvuhl: 06-04-2019 End: 29-57-7365Qppykiq encounter procedureHOPE MITCHELLFacility:M2Jwmiy: 04-06-2019 End: 44-33-8246Droqtrx encounter procedureDOCTOR MISCFacility:W5Qmicp: 02-19-2019 End: 48-91-9136Glyjaxi encounter procedureDOCTOR MISCFacility:T0Wzkjd: 01-13-2019 End: 78-66-0593Gqyfnzp encounter procedureDOCTOR MISCFacility:A4Zcggy: 12-10-2018 End: 14-94-0943Komemci encounter procedureDOCTOR MISCFacility:K3Stgaq: 11-10-2018 End: 50-21-9860Hwsalyi encounter procedureDOCTOR MISCFacility:F3Ggmih: 10-09-2018 End: 53-87-9839Rwawugm encounter procedureDOCTOR MISCFacility:H1 Procedures DateProcedureProcedure DetailPerforming ClinicianStart: 69-33-3757MBJ CBC WITH AUTO DIFFBrian Fermin Stanley MD Work Phone: start: 12-84-0082JRTBXFRDBGK-TB GOLD PLUSGeneric External Data ProviderStart: 37-04-7221Vblhwi echographyDE Marbin Keith Work Phone: Start: 07-50-2142Pyzgiewn tomography of abdomen and pelvis with contrast Marbin Keith Work Phone: Start: 40-14-1386Ezfsjbxugtps echography Marbin Keith Work Phone: Start: 58-46-7500RUS TRIGLYCERIDESGeneric External Data Provider Plan of Treatment DateCare ActivityDetailAuthorStart: 10-13-2025 End: 86-84-9816Zlawjzg encounter procedureNOMS SWS OBStart: 09-14-2025 End: 45-23-3766Bekknnu encounter qpouriuyw10/21/2026 9:40 AM EST Office Visit [facility] [address] [place] [address] Dany Mai MD [address] [place] [address] LA[facility]Y [facility] EndocrinologyStart: 06-15-2025 End: 17-41-524393440501-Nhezeopecbabgszirlw86-Lvuoscdxvsaxlxaauie Lab Routine Elevated dehydroepiandrosterone sulfate level Expected: 06/15/2025 (Approximate), Expires: 06/15/2026NOUT HealthcareComment on above:Expected: 06/15/2025 (Approximate), Expires: 06/15/2026Start: 06-15-2025 End: 01-85-5443Pheko metabolic 1998 panel - Serum or PlasmaBasic metabolic panel Lab Routine Elevated dehydroepiandrosterone sulfate level Expected: 06/15/2025 (Approximate), Expires: 06/15/2026[facility] Work Phone: Comment on above:Expected: 06/15/2025 (Approximate), Expires: 06/15/2026Start: 06-15-2025 End: 35-76-2777Hmsmdtld, morningCortisol, morning Lab Routine Elevated dehydroepiandrosterone sulfate level Expected: 06/15/2025 (Approximate), Expires: 06/15/2026NOUT HealthcareComment on above:Expected: 06/15/2025 (Approximate), Expires: 06/15/2026Start: 06-15-2025 End: 83-50-7960AGBF-sulfateDHEA-sulfate Lab Routine Elevated dehydroepiandrosterone sulfate level Expected: 06/15/2025 (Approximate), Expires: 06/15/2026NOUT HealthcareComment on above:Expected: 06/15/2025 (Approximate), Expires: 06/15/2026Start: 06-15-2025 End: 80-66-1972Qniuprv encounter ljyxwqasx36/22/2025 9:30 AM EDT Office Visit [facility] [address] [place] [phone] Dany Mai MD [address] [place] [address] ArrivedLAURY Nelson EndocrinologyComment on above:ArrivedStart: 06-08-2025 End: 58-22-4910Zalypce encounter eknykaoan05/15/2025 1:30 PM EDT Office Visit [facility]Y [facility] JOHNNY [address] [place] [address] Stella Stanley MD [address] [place] [address] LAURY Nelson FLORENTINOtart: 05-11-2025 End: 22-17-5627Myhcilh encounter edywizvks14/17/2025 2:15 PM EDT Office Visit [facility] JOHNNY [address] [place] [address] Stella Stanley MD [address] [place] [address] DUB (dysfunctional uterine bleeding)LAURY Mccollumkenneth TURNER Comment on above:DUB (dysfunctional uterine bleeding)Start: 05-11-2025 End: 73-19-3233GTO panel - Blood by Automated countCBC Lab Routine Menorrhagia with regular cycle Alopecia Syncope, unspecified syncope type Expected: 05/11/2025 (Approximate), Expires: 05/11/2026[facility] Work Phone: comment on above:Expected: 05/11/2025 (Approximate), Expires: 05/11/2026Start: 05-11-2025 End: 60-65-4245JMEJ-sulfateDHEA-sulfate Lab Routine Menorrhagia with regular cycle Alopecia Syncope, unspecified syncope type Expected: 05/11/2025 (Approximate), Expires: 05/11/2026NOUT HealthcareComment on above:Expected: 05/11/2025 (Approximate), Expires: 05/11/2026Start: 05-11-2025 End: 17-14-0861Jvthvvj measurement, fastingGlucose, fasting Lab Routine Menorrhagia with regular cycle Alopecia Syncope, unspecified syncope type Expected: 05/11/2025 (Approximate), Expires: 05/11/2026[facility] HealthcareComment on above:Expected: 05/11/2025 (Approximate), Expires: 05/11/2026Start: 05-11-2025 End: 22-19-6243Pftgzgh, fastingInsulin, fasting Lab Routine Menorrhagia with regular cycle Alopecia Syncope, unspecified syncope type Expected: 05/11/2025 (Approximate), Expires: 05/11/2026NOUT HealthcareComment on above:Expected: 05/11/2025 (Approximate), Expires: 05/11/2026Start: 05-11-2025 End: 91-57-3948Lltsrpxncbij, free, totalTestosterone, free, total Lab Routine Menorrhagia with regular cycle Alopecia Syncope, unspecified syncope type Expected: 05/11/2025 (Approximate), Expires: 05/11/2026[facility] HealthcareComment on above:Expected: 05/11/2025 (Approximate), Expires: 05/11/2026Start: 05-11-2025 End: 18-81-1980Hfjakokssjf [Units/volume] in Serum or PlasmaTSH Lab Routine Menorrhagia with regular cycle Alopecia Syncope, unspecified syncope type Expected:05/11/2025 (Approximate), Expires: 05/11/2026[facility] HealthcareComment on above:Expected: 05/11/2025 (Approximate), Expires: 05/11/2026Start: 04-25-2025 Influenza vaccinationOREM COMMUNITY HOSPITAL HealthcareStart: 12-22-2024 End: 85-23-1580Dhxveoi encounter kviexgihf55/30/2025 11:30 AM EDT Office Visit [facility] [address] [facility] [[email or web address] [address] [place] [phone] Stella Stanley MD [address] [facility] [address] [place] [address] ArrivedNOANAHEIM [facility] OBComment on above:ArrivedStart: 10-11-2024 End: 07-74-9791Khiysft encounter urwymhwvc82/17/2025 10:45 AM EST Office Visit [facility] [address] [place] [address] Stella Stanley MD [address] [place] [address] Well woman exam with routine gynecological exam; Oral contraceptive pill surveillanceNOMS [facility] OBComment on above:Well woman exam with routine gynecological exam; Oral contraceptive pill surveillanceStart: 04-27-2024 End: 24-78-1851Udxztsg encounter hbmsielct51/03/2024 3:45 PM EDT Office Visit [facility] [address] [place] [address] Stella Stanley MD [address] [place] [address] Surgery follow-up; Cyst of right ovary; Endometriosis, ovary [facility] OBComment on above:Surgery follow-up; Cyst of right ovary; Endometriosis, ovaryStart: 65-40-3676Klmclxafj vaccinationInfluenza Vaccine (#1) [facility] HealthcareStart: 21-43-6395Llqcvwqjp vaccinationInfluenza Vaccine (#1)NOM HealthcareComment on above:Postponed from 04/25/2023 (Patient Refused)Start: 71-90-5506IkwwstbpzKindred Hospital Daytontart: 97-65-3828Gbhjcixw admission [facility] Daytontart: 14-14-2581Bhhhhy echographyUS pelvic completeKindred Hospital Daytontart: 31-25-6034TE PelvisKindred Hospital Daytontart: 67-93-9339Urndvhcmeupp echographyUS transvaginal [facility] Daytontart: 17-41-2003AH Pelvis transvaginal [facility] HospitalPatient EducationOvarian Cyst (DC) Know your [facility] Work Phone: [facility]Mer[facility] Work Phone: Immunizations Immunization DateImmunizationNotesPresbyterian Kaseman HospitalNlypqnudNytgyksn05-42-3177vpbvaatpp A vaccine, pediatric/adolescent dosage, 2 dose scheduleGeneric [facility] CenterBpbsgjbgfz10-76-9164Yxpzgwdomqete Polysaccharide A,C,Y,W-135 TT ConjugateGeneric [place] [address]Iwrjdidzvr29-60-0413vtlqxfvqt A vaccine, pediatric/adolescent dosage, 2 dose scheduleGeneric [place] [address]Vcevfdgxqo45-28-0461evphvcvkaoiqh polysaccharide (groups A, C, Y and W-135) diphtheria toxoid conjugate vaccine (MCV4P)Generic [facility] CenterQetymbleex73-35-5177ldnodrv toxoid, reduced diphtheria toxoid, and acellular pertussis vaccine, adsorbedGeneShriners Hospitals for ChildrenMczwvfbakn56-85-2621Knreznxjjj, tetanus toxoids and acellular pertussis vaccine, and poliovirus vaccine, inactivatedGeneShriners Hospitals for Children 96-72-0468yqmgguf, mumps, rubella, and varicella virus vaccineCedar County Memorial Hospital11-10-2009novel zpplzjkyx-W5O1-40, preservative-free, injectable Generic [facility] CenterYyizuxxryp61-40-6072rbricfjagr, tetanus toxoids and acellular pertussis vaccine, unspecified formulationGeneShriners Hospitals for ChildrenAvmlbqjvjh46-79-4152wvenwxlne B vaccine, pediatric or pediatric/adolescent dosageGeneric [facility] CenterHmxodinoyx04-40-6842cjegskr, mumps and rubella virus vaccineChildren's [facility]cy Hospital10-14-2005varicella virus vaccineChildren's Mercy HospitalUtilctgvgm49-05-2233SMdE-ntgwnthdi B and poliovirus vaccineGeneShriners Hospitals for ChildrenNmjgwkxuxm86-21-7007fhdvvgetkdf influenzae type b vaccine, PRP-T conjugateChildren's Mercy HospitalThacfvpzyj86-50-0937bnbciqvmlgje conjugate vaccine, 7 valentGeneShriners Hospitals for ChildrenEqzkqnzmdc33-71-6177EFjG-jtlhbiyib B and poliovirus vaccineGeneShriners Hospitals for ChildrenMopetjofiw26-77-6841dsvjhjwvsjc influenzae type b vaccine, PRP-T conjugateChildren's Mercy Hospital 96-55-9641ujbwfjgczqsz conjugate vaccine, 7 valentGeneric [facility] CenterMeyrqitijn71-50-5233POlJ-wbosujsfa B and poliovirus vaccineGeneric [facility] CenterClpmsoxtli56-76-5111pfqfdwrdqnr influenzae type b vaccine, PRP-T conjugate Generic [facility] CenterKvfgdlxhui14-10-2869rdvatxbzjsqm conjugate vaccine, 7 valentGeneric ProviderMercy hospital springfieldVpssysdrlt97-83-5482jlibfuqxy B vaccine, pediatric or pediatric/adolescent dosageGeneric ProviderMercy hospital springfield Payers DatePayer CategoryPayerPolicy [id number] Health InsuranceMEDICAL MUTUAL Member Subscriber Plan / Payer (Effective 2023-Present) Name: Theresa Abbott Relation to Subscriber: Child Name: Scar Keira Chris Date ofBirth: 1977 (Work) Address: [address] [place] [address] Payer ID: Not on file Type: Not on file Address: [address] [place] [id number] [employer] MED[employer] [id number] 2023-Present [address] [place] [id number] 2.0.1.035778.3.57[id number] 2.0.1.693899.3.57[id number] 2.0.1.819996.3.57[id number] 2.0.1.803430.3.57[id number] 2.840.1.794296.3.57[id number] 2.16.840.1.934524.3.57[id number] 2.16.840.1.041869.3.579.[id number] 2.16.840.1.784020.3.57[id number] 2.16.840.1.275912.3.57[id number] 2.16.840.1.212625.3.57[id number] 2.16.840.1.702268.3.57[id number] 2.16.840.1.474676.3.579.[id number] 2.16.840.1.463109.3.579.2.20279-52-3280Mtvmbkl Health [id number] [id number] 2.16.840.1.201051.3.579.2.531Unknown [id number] 2..840.1.259057.3.579.2.531 Social History DateTypeDetailFacilityUnknown if ever smokedSt. Louis Behavioral Medicine InstituteSambazon Other Start: 06-13-2023 End: 63-26-9843Wms Assigned At Birth[employer] Other Start: 06-13-2023 End: 05-05-1379Ekpdras smoking status NHISNever smoked tobaccoNOMS Healthcare Start: 61-81-5371Tjanaro use and exposureSmokeless tobacco non-userNOMS HealthcareStart: 06-13-2023 End: 08-77-8388Qjpfmqj of Social functionNOUT HealthcareStart: 12-73-0833Gpo Assigned At BirthNot on fileNOUT HealthcareStart: 17-01-2043Rrv Assigned At BirthFeOhioHealthtart: 02-25-2024 End: 40-45-1671Naqlbisfh beverage intakeCurrent drinker of alcohol (finding)NOMS HealthcareStart: 94-38-9736Qnpljo identityIdentifies as female gender (finding) [facility] HealthcareStart: 84-03-8397Qtfvpb orientationHeterosexual (finding)[facility] HealthcareStart: 29-74-5280FrxUbacchUTJS HealthcareNEGATED: Highlighted row [facility] Functional Status HpfzMwxmqbxcfwWdgiznKxslwtsu12-29-5818Eedalgppnm statusPatient at [facility] Work Phone: Mental Status GgoyAlawabtdfqBffnqhLxsykvdh06-08-0142Onwlsubih functionCognitive Status Patient at [facility] Work Phone: Clinical Notes 07-07-2023 to 06-15-2025 Note Date & HsriMqouQylyrzfy50-23-2769 History of Present illness Narrative* Dany Mai [...] she has irregular cycle, currently it under labor trainer management. She reports no history of hirsutism. Insulin within normal limits, 8.1( 2-24), and fasting blood sugar 94. She has a history of ovarian cysts and irregular menstrual cycles, which are currently being managed by a labor trainer. She reports no history of hirsutism. Results [...] Perform 1 mg DST to rule out Fremont's syndrome and 17- hydroxyprogesterone test to rule [...] laparoscopy, removal of cyst documented in this encounterMercy hospital springfieldDfkmehkuox83-71-0582 History of Present illness Narrative* Stella Stanley [...] 0 0 0 0 0 Obstetric Comments Jss-Nc-Byxvyern; every month, heavy to normal blood loss, LMP: 05/02/25 Medication and Allergies Medication Documentation Review Audit Reviewed by Sherlyn Nation MA (Post Graduate Intern) on 05/11/25 at 1409 Medication Order Taking? Sig Documenting Provider Last Dose Status ibuprofen 600 MG tablet [id number] Take 1 tablet by mouth every 6 (six) hours if needed Stella Stanley MD Active ISOtretinoin (Accutane) 40 MG capsule [id number] Twice daily Stella Stanley MD Active norgestimate-ethinyl estradiol (Sprintec 28) 0.25-35 MG-MCG tablet [id number] Take 1 tablet by mouth Daily Stella [...] placed in this encounter. documented in this encounterMercy hospital springfieldZutdifwcoy48-88-1225 History of Present illness Narrative* Stella Stanley [...] 0 0 0 0 0 Obstetric Comments Zvo-Ud-Qiegyysc; every month, heavy blood loss, LMP: 11/13/24 until 12/12/24 Medication and Allergies Medication Documentation Review Audit Reviewed by Sherlyn Nation MA (Post Graduate Intern) on 12/22/24 at 1129 Medication Order Taking? Sig Documenting Provider Last Dose Status ibuprofen 600 MG tablet [id number] Take 1 tablet by mouth every 6 (six) hours if needed Stella Stanley MD Active ISOtretinoin (Accutane) 40 MG capsule [id number] Twice daily Stella Stanley MD Active norgestimate-ethinyl estradiol (Ortho Tri-Cyclen LO) 0.18/0.215/0.25 MG-25 MCG tablet [id number] Take1 tablet by mouth Daily Stella Stanley [...] placed in this encounter. [id number] History of Present illness Narrative* Stella Stanley [...] 0 0 0 0 0 Obstetric Comments [id number]-Ct-Knzowlcf; every month, heavy blood loss, LMP: 09/07/24 Medication and Allergies Medication Documentation Review Audit Reviewed by Sherlyn Nation MA (Post Graduate Intern) on 10/11/24 at 1041 Medication Order Taking? Sig Documenting Provider Last Dose Status ibuprofen 600 MG tablet [id number] Take 1 tablet by mouth every 6 (six) hours if needed Stella Stanley MD Active ISOtretinoin (Accutane) 40 MG capsule [id number] Twice daily Stella Stanley MD Active norgestimate-ethinyl estradiol (Kwm-Xs-Hnkmiduw) 0.18/0.215/0.25 MG-25 MCG tablet [id number] Take 1 tablet by mouth Daily Stella [...] placed in this encounter. documented in this encounterMercy hospital [id number] History of Present illness Narrative* Stella Stanley [...] 0 0 0 0 0 Obstetric Comments Org-Mf-Nrhxarmi; every month, normal blood loss, LMP: 04/15/24 Medication and Allergies Medication Documentation Review Audit Reviewed by Sherlyn Nation MA (Post Graduate Intern) on 04/27/24 at 1546 Medication Order Taking? Sig Documenting Provider Last Dose Status ibuprofen 600 MG tablet [id number] Take 1 tablet by mouth every 6 (six) hours if needed Stella Stanley MD Active ISOtretinoin (Accutane) 40 MG capsule [id number] Twice daily Stella Stanley MD Active norgestimate-ethinyl estradiol (Miq-Ms-Csryenel) 0.18/0.215/0.25 MG-25 MCG tablet [id number] Take 1 tablet by mouth Daily Stella [...] placed in this encounter. documented in this encounterMercy hospital [id number] Evaluation note* Encounter Date Diagnosis Assessment Notes [...] no improvement in 2 to 3 days [employer] Other Evaluation note* Diagnosis Onset Date Resolution Status Abdominal pain acuteCyst of right ovaryacute [facility] Work Phone: Evaluation note* Diagnosis Surgery follow-up [...] unspecified syncope type documented in this encounter [facility] HealthcareEvaluation note* Diagnosis Elevated dehydroepiandrosterone sulfate level- Primary PCOS (polycystic ovarian syndrome) Polycystic ovaries Irregular periods documented in this encounter [facility] HealthcareHistory and physical note Author Abena Alegre [facility] January 23, 2024 8:22amNote Date/TimeMay 2023 7:59[place] [address] [employer] MANAGER History & Physical Signed Patient: Theresa Abbott MR#: [id number] : 2005 Acct:[id number] Age/Sex: 18 / F Adm Date: 4 Loc: Room: [address] [place] [address] Type: ADM IN Attending Dr: Abena Alegre DO Copies to: DO Marbin Chaney MD~ Date of Service: 01/23/2024 [employer] - HPI History of Present Illness Chief [...] noted below or in HPI [facility] Medical History No pertinent past medical [...] mg/0.215 mg/0.25 mg-ethinyl estradiol 25 mcg tablet (Qen-Vd-Ryobcwcd) 1 tab PO DAILY 01/22/24 [History Confirmed [...] Last Admin: 01/22/24 22:44 Dose: 10 ml [employer] - Exam Physical Exam Vital signs: Temp [...] Exam Neurological: Present alert and oriented X3 [employer] - Results Laboratory Results - Last 48 hrs. 01/22/24 19:39: Corrected WBC 10.2, Uncorrected WBC Count 10.2, RBC 4.23, Hgb 13.7, Hct 40.1, MCV 94.6, MCH 32.3, MCHC 34.2, RDW 13.0, Plt Count 375, MPV 7.3,Neut % (Auto) 82.3, Lymph % (Auto) 14.7, [place] % (Auto) 2.4, Eos % (Auto) 0.2, Baso % (Auto) 0.4, Nucleat RBC Rel Count 0.0, Neut # (Auto) 8.4H, Lymph # (Auto) 1.5, [place] # (Auto) 0.2, Eos # (Auto) 0.0, [...] Appearance Clear, Urine pH 8.0, Ur Specific [place] 1.033H, Urine Protein Trace H, Urine Glucose (UA) Normal, Urine Ketones 3+ H, Urine Occult Blood Negative, Urine Nitrite Negative, Urine Bilirubin Negative, Urine Urobilinogen Normal, Ur Leukocyte Esterase Negative, Urine RBC None seen, Urine WBC 0-1, Ur Squamous Epith Cells 3-4 H, Urine Bacteria None seen, Hyaline Casts 0-8, Urine HCG, Qual Negative [employer] - A/P (1) Cyst of right ovary: [...] <Electronically signed by Abena Alegre, > 01/23/24 0869 [facility] Work Phone: Summary Purpose Family [...] and content) DATE CREATED AUTHOR 09/20/2019 [facility] DATE CREATED AUTHOR AUTHOR'S ORGANIZ ATION 04/19/2024 [facility] DATE CREATED AUTHOR AUTHOR'S ORGANIZ ATION 02/06/2025 [facility] DATE CREATED AUTHOR AUTHOR'S ORGANIZ ATION 06/16/2025 [facility] EPIC REASON FOR VISIT (unrecogniz ed section and content) ReasonCommentsDHEANEW REF/LABSpecialtyDiagnoses / ProceduresReferred By Contact Referred To ContactEndocrinology Diagnoses Other specified abnormal findings of blood chemistry Procedures MD OFFICE/OUTPATIENT EST PT MAY NOT REQ PHYS/QHP Stella Stanley MD [address] [place] [address] Phone: tel: fax: Dany Mai MD [address] [place] [address] Phone: tel: fax: Referral IDStatusReasonStart DateExpiration DateVisits RequestedVisits [id number] Consult and Treat / Care Teams (unrecognized [...] DateEnd Date Ana Cristina Mejia MD [address] [facility] [address] [place] [address] PCP - Medical [facility]01/23/23 Ana Cristina Mejia MD [address] [facility] [address] [place] [address] [facility] Team Status: Active Member Role [...] DateEnd Date Ana Cristina Mejia MD [address] [facility] [address] [place] [address] PCP - [facility] Medicine12/31/22 Milan Mathews MD [address] [place] [address] PCP - Medical [employer]02/23/1912Team MemberRelationshipSpecialty Start DateEnd Date Ana Cristina Mejia MD [address] [place] [address] PCP - [facility]12/31/22 Milan Mathews MD [address] [place] [address] PCP - [facility]02/23/1912Te MemberRelationshipSpecialty Start DateEnd Date Ana Cristina Mejia MD [address] [place] [address] PCP - [facility]12/31/22 Milan Mathews MD [address] [place] [address] PCP - [facility]02/23/1912Team MemberRelationshipSpecialty Start DateEnd Date Ana Cristina Mejia MD [address] [place] [address] PCP - [facility]12/31/22 Milan Mathews MD [address] [place] [address] PCP - [facility]02/23/1912Team MemberRelationshipSpecialty Start DateEnd Date Ana Cristina Mejia MD [address] [place] [address] PCP - [facility]12/31/22 Milan Mathews MD [address] [place] [address] PCP - [facility]02/23/1912Te MemberRelationshipSpecialty Start DateEnd Date Ana Cristina Mejia MD [address] [place] [address] PCP - [facility]12/31/22 Milan Mathews MD [address] [place] [address] PCP - [facility]02/23/1912Te MemberRelationshipSpecialty Start DateEnd Date Ana Cristina Mejia MD [address] [place] [address] PCP - [facility]12/31/22 Milan Mathews MD [address] [place] [address] PCP - [facility]02/23/1912Te MemberRelationshipSpecialty Start DateEnd Date Ana Cristina Mejia MD [address] [place] [address] PCP - [facility]12/31/22 Milan Mathews MD [address] [place] [address] PCP - [facility]02/23/1912 Goals (unrecognized section and content) Goals may [...] BE BASED ON THE PRIMARY CLINICAL RECORDS. [facility] [employer] [facility]. provides no warranty or guarantee of the accuracy or completeness of information in this document.
--- NOTE | 2025-07-14 16:52 | ECG_ITS ---
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 Measurements Intervals [place] Rate: 72 P: 72 HI: 128 QRS: 79 QRSD: 88 T: 51 QT: 378 QTc: 402 Interpretive Statements 1100 Sinus rhythm 1102 Sinus arrhythmia 9110 normal ECG No previous ECG available for comparison Electronically Signed On 07-14-2025 19:25:04 EST by UYEN SHAFFER M.D.
--- NOTE | 2025-07-14 16:53 | ED.GENADUL1 ---
HPI HPI - General Adult General Chief complaint: Syncope Stated complaint: syncope Time Seen by Provider: 07/14/25 16:37 Source: patient and family Mode of arrival: walk-in Limitations: no limitations History of Present Illness HPI narrative: 20-year-old female presents to the emergency department for near syncopal episode. She happened twice today, once when she was in class sitting and the other while she was driving. Neither time did she pass out completely or injure herself in any way. She feels much better now. No abdominal pain. Not had any fever or vomiting or diarrhea. No chest pain or palpitations or shortness of breath. Been having these episodes for the past month, about 10 times. She was sent to an python programmer who told her that her hormone levels are low and they put her on some medicine and that brought her hormone levels up. Related Data Home Medications ?Medication ?Instructions ?Recorded ?Confirmed metformin 500 mg tablet mg 07/14/25 norgestimate 0.25 mg-ethinyl tab 07/14/25 estradiol 0.035 mg tablet (Shanta) Allergies Allergy/AdvReac Type Severity Reaction Status Date / Time Penicillins Allergy Anaphylaxis Verified 07/14/25 15:11 Review of Systems ROS Narrative A ten point review of systems is negative except as noted above. PFSH PFSH Social History Little interest or pleasure in doing things: not at all Feeling down, depressed, or hopeless: not at all Exam Narrative Exam Narrative: Nurses note and vital signs reviewed General:The patient appears well and in no apparent distress.Patient is resting comfortably on cart. Skin:Warm, dry, no pallor noted.There is no rash noted. Head:Normocephalic, atraumatic Eye: Normal conjunctiva, no drainage Ears, Nose, Mouth, and Throat: oral mucosa is moist. Nares patent. Cardiovascular:Regular Rate and Rhythm Respiratory:Patient is in no distress, no accessory muscle use, lungs are clear to auscultation, no wheezing, rales or rhonchi Back:non-tender GI: Nontender Musculoskeletal: The patient has no evidence of calf tenderness, no pitting edema, symmetrical pulses noted bilaterally Neurological:A&O, normal speech: Upper and lower extremity strength 5 out of 5 and symmetric Psychiatric:Cooperative Constitutional Vital Signs, click to edit/add: Last Vital Signs Temp 98.5 F 07/14/25 15:06 Pulse 92 H 11/20/25 15:06 Resp 18 07/14/25 15:06 BP 142/93 H 07/14/25 15:06 Pulse Ox 100 07/14/25 15:06 O2 Del Method Room Air 07/14/25 15:06 Course Vital Signs Vital signs: Vital Signs Temperature 98.5 F 07/14/25 15:06 Pulse Rate 92 H 07/14/25 15:06 Respiratory Rate 18 07/14/25 15:06 Blood Pressure 142/93 H 07/14/25 15:06 Pulse Oximetry 100 07/14/25 15:06 Oxygen Delivery Method Room Air 07/14/25 15:06 Temperature 98.5 F 07/14/25 15:06 Pulse Rate 92 H 07/14/25 15:06 Respiratory Rate 18 07/14/25 15:06 Blood Pressure 142/93 H 07/14/25 15:06 Pulse Oximetry 100 07/14/25 15:06 Oxygen Delivery Method Room Air 07/14/25 15:06 Medical Decision Making MDM Narrative Medical decision making narrative: The patient presented with near syncope. This has happened about 10 times in the past month. Her workup here is negative and she will follow-up with her PCP. Mother is wondering if it might not be caused by anxiety and this is certainly a possibility. Diagnosis and follow-up were discussed with the patient and her mother. Differential Diagnosis Differential Diagnosis: Syncope, near syncope, cardiac dysrhythmia, anemia, , anxiety Lab Data Lab results reviewed: Yes I reviewed the patient's lab results Labs: Lab Results 07/14/25 Range/Units 16:59 WBC 7.8 (4.0-11.0) 10^3/uL RBC 4.35 (4.20-5.40) 10^6/uL Hgb 14.1 (12.0-16.0) g/dL Hct 41.1 (36.0-48.0) % MCV 94.5 (81.0-99.0) fL MCH 32.4 (26.7-34.0) pg MCHC 34.3 (29.9-35.2) g/dL RDW 11.5 (11.0-15.0) % Plt Count 395 (150-450) 10^3/uL MPV 8.6 L (9.5-13.5) fL Neut % (Auto) 51.0 (43.0-75.0) % Lymph % (Auto) 37.5 (20.5-60.0) % [place] % (Auto) 8.7 (1.7-12.0) % Eos % (Auto) 2.2 (0.9-7.0) % Baso % (Auto) 0.5 (0.2-2.0) % Neut # (Auto) 4.0 (1.4-6.5) 10^3/uL Lymph # (Auto) 2.9 (1.2-3.8) 10^3/uL [place] # (Auto) 0.7 (0.3-0.8) 10^3/uL Eos # (Auto) 0.2 (0.0-0.7) 10^3/uL Baso # (Auto) 0.0 (0.0-0.1) 10^3/uL Abs Immat Gran (auto) 0.01 (0.00-0.03) 10^3/uL Imm/Tot Granulo (auto) 0.1 (0.0-0.5) % Sodium 141 (136-145) mmol/L Potassium 3.5 (3.5-5.1) mmol/L Chloride 102 (98-107) mmol/L Carbon Dioxide 30.6 (21.0-32.0) mmol/L Anion Gap 11.9 BUN 11.0 (7.0-18.0) mg/dL Creatinine 0.79 (0.55-1.02) mg/dL Est GFR ( Amer) >60 (>=60 mL/min/1.73m^2) Est GFR (Non-Af Amer) >60 (>=60 mL/min/1.73m^2) BUN/Creatinine Ratio 13.9 Glucose 90 (74-106) mg/dL Calcium 9.6 (8.5-10.1) mg/dL Serum HCG, Qual Negative (NEGATIVE) ECG Data Attestation: I personally reviewed and interpreted this ECG as follows: (GMI interpretation shows sinus rhythm with rate of 72 and no acute change.) Discharge Plan Discharge Chief Complaint: Syncope Clinical Impression: Near syncope Patient Disposition: Home, Self-Care Time of Disposition Decision: 17:37 Condition: Good Mode of Transportation: Private Vehicle Prescriptions / Home Meds: No Action metformin 500 mg tablet norgestimate-ethinyl estradiol [Shanta] 0.25-0.035 mg tablet Print Language: [place] Island[place] Instructions: Near Syncope (ED) Referrals: DA MORE [Primary Care Provider, [employer]] - 1 week
[2025-07-14 17:10] LABS: Hematocrit 41.1 % (36.0-48.0); Hemoglobin 14.1 g/dL (12.0-16.0); Immature Granulocytes Abs Auto 0.01 10^3/uL (0.00-0.03); Immature Granulocytes Pct Auto 0.1 % (0.0-0.5); Lymphocytes Absolute Auto 2.9 10^3/uL (1.2-3.8); Mean Corpuscular HGB Conc 34.3 g/dL (29.9-35.2); Mean Corpuscular Hemoglobin 32.4 pg (26.7-34.0); Mean Corpuscular Volume 94.5 fL (81.0-99.0); Platelet Count 395 10^3/uL (150-450); Red Blood Count 4.35 10^6/uL (4.20-5.40); White Blood Count 7.8 10^3/uL (4.0-11.0)
[2025-07-14] MEDS: 0.9 % SODIUM CHLORIDE 1,000 ML 1000 ML IV (17:10)
[2025-07-14 17:17] LABS: Anion Gap 11.9; Blood Urea Nitrogen 11.0 mg/dL (7.0-18.0); Calcium 9.6 mg/dL (8.5-10.1); Carbon Dioxide 30.6 mmol/L (21.0-32.0); Chloride 102 mmol/L (98-107); Estimated GFR (African America >60 (>=60 mL/min/1.73m^2); Estimated GFR (Non-African Ame >60 (>=60 mL/min/1.73m^2); Glucose 90 mg/dL (74-106); Potassium 3.5 mmol/L (3.5-5.1); Sodium 141 mmol/L (136-145)
[2025-07-14 18:20] VITALS: BP 115/75; PULSE 79; O2SAT 100
== END 2025-07-14 19:05 | disposition home or self-care (01) ==
PROVIDERS: Emergency Provider Emergency Medicine; PCP Nurse Practitioner
DX: R55 Syncope and collapse (principal)
CPT/HCPCS: 36415; 80048; 84703; 85025; 93005; 99285